=== PATIENT | male | born 1940 | race Caucasian/White ===

== ENCOUNTER 2019-10-20 12:15 | Inpatient (IN) | payer MEDICARE, OTHER ==
[~2019-10-20] VITALS: Ht 175.3 cm; Wt 47.1 kg
[2019-10-20] MEDS ORDERED: IV NORMAL SALINE 1000ML BAG 1,000 ML IV ONE (12:45)
[2019-10-20] MEDS ORDERED: ACETAMINOPHEN 650 MG SUPP.RECT. PR ONE (12:45)
--- NOTE | 2019-10-20 12:49 | EKG ---
[facility] [address] [place] [address] Test Date: 2019-10-20 Test Time: 12:28:35 Pat Name: MATTIHAS WINSTON Department: Room: Gender: M Television Journalist: : 1940 Requested By: ELIJAH PYLE Order Number: [id number] Reading MD: Measurements Intervals [place] Rate: 74 P: 63 RI: 160 QRS: 64 QRSD: 76 T: 36 QT: 348 QTc: 391 Interpretive Statements SINUS RHYTHM QRS(T) CONTOUR ABNORMALITY CONSIDER ANTEROSEPTAL MYOCARDIAL DAMAGE POSSIBLY ABNORMAL ECG RI6.01 No previous ECG available for comparison
--- NOTE | 2019-10-20 12:50 | PHYS DOC ---
Past Medical History COVID-19 Patient Risks: Age 65 or older: Yes Sign of co-morbidity: No Exp to person + for COVID: No Exp to PUI: No Travel from affected area: Yes Lower respiratory symptoms: No Fever: Yes Other: No PPE Use: Full PPE with N95 mask or PAPR: Yes General Adult EDM: Chief Complaint: ALTERED MENTAL STATUS HPI: HPI: Patient is a 79 year old male who presents with here with his [id number] and granddaughter for altered mental status. Sefufgit-qi-hku and granddaughter just met him on Saturday tpsx-ov-jaol. He lived in [place] by himself and 35 acres. His preacher called them last week on and stated that he is not well and he has had a lot of weight loss. The preacher does a well check on parishioners every other month. Family is unable to tell us if the patient has any past medical history or takes any medications daily. They states that they do talk to him on the phone often and it is normal for him to be forgetful and he does have a temper per the family. Family states that he is not close with the son. They state that he always has been unsteady walking but is usually up and walking and talking and feeding himself and take care of himself. Granddaughter states that she had lifted the bed for him to sit up and he was unhappy with it and ripped a screen door off of the wall. They state that he is up at 4 AM every morning and he was last seen normal last night at 2200. They stated for him this morning they went to get him up and he did not want to get out of bed is not responding well. They state that he lives on hotdogs due to not having teeth to chew food well. States that he also drinks at least 4 monsters a day. They state they do not think he is a smoker. They stated yesterday he was shivering or complaining that he was cold but they did not think he had a fever. Patient is febrile here of 103. Patient does respond to me when I call his name or palpate his abdomen. Review of Systems: Review of Systems: Constitutional: fever or chills. [] Eyes: Denies change in visual acuity. [] HENT: Denies nasal congestion or sore throat. [] Respiratory: Denies cough or shortness of breath. [] Cardiovascular: Denies chest pain or edema. [] GI: Denies abdominal pain, nausea, vomiting, bloody stools or diarrhea. [] : Denies dysuria. [] Musculoskeletal: Denies back pain or joint pain. [] Integument: Denies rash. [] Neurologic: Denies headache, focal weakness or sensory changes. AMS. Forgetful. [] Endocrine: Denies polyuria or polydipsia. [] Lymphatic: Denies swollen glands. [] Psychiatric: Denies depression or anxiety. Bouts of rage.[] Heart Score: Risk Factors: Risk Factors: DM, Current or recent (<one month) smoker, HTN, HLP, family history of CAD, obesity. Risk Scores: Score 0 - 3: 2.5% MACE over next 6 weeks - Discharge Home Score 4 - 6: 20.3% MACE over next 6 weeks - Admit for Clinical Observation Score 7 - 10: 72.7% MACE over next 6 weeks - Early Invasive Strategies Current Medications: Current Medications Medications (Trade) Dose Ordered Sig/Jasvir Start Time Stop Time Status Last Admin Dose Admin Acetaminophen (Tylenol Supp) 650 mg 1X ONCE 10/20/19 12:45 10/20/19 12:46 UNV Sodium Chloride 1,000 ml @ 1,000 mls/hr 1X ONCE 10/20/19 12:45 10/20/19 13:44 UNV Physical Exam: PE: Constitutional: Well developed, Frail, not well nourished, no acute distress, non-toxic appearance. [] HENT: Normocephalic, atraumatic, bilateral external ears normal, oropharynx moist, no oral exudates, nose normal. [] Eyes: PERRLA, EOMI, conjunctiva normal, no discharge. [] Neck: Normal range of motion, no tenderness, supple, no stridor. [] Cardiovascular:Heart rate regular rhythm, no murmur [] Lungs & Thorax: Bilateral upper breath sounds clear and lower diminished to auscultation [] Abdomen: Bowel sounds normal, soft, no tenderness, no masses, no pulsatile masses. [] Skin: Warm, dry, no erythema, no rash. [] Back: No tenderness, no CVA tenderness. [] Extremities: No tenderness, no cyanosis, no clubbing, ROM intact, no edema. [] Neurologic: Alert and oriented X 1, normal motor function, normal sensory function, no focal deficits noted. [] Psychologic: Affect normal, judgement normal, mood normal. [] EKG: EK and read by Dr Gamboa as Sinus Rhythm and no STEMI[] Radiology/Procedures: Radiology/Procedures: [] Impression: [facility] [address] [place] [address] IMAGING REPORT Signed PATIENT: MATTHIAS WINSTON ACCOUNT: [id number] : 1940 LOCATION: ER AGE: 79 SEX: M EXAM STATUS: REG ER ORD. PHYSICIAN: ELIJAH PYLE APRN REASON: ams, fever,PUI PROCEDURE: PORTABLE CHEST 1V AP chest. HISTORY: Altered mental status, fever AP view was taken of the chest. Heart is normal in size. There is no pleural effusion. Patient is mildly rotated to the left. Patient's not taken a deep inspiration. There is mild retrocardiac atelectasis or minimal infiltrate. IMPRESSION: 1. Poor inspiration. 2. Mild left base atelectasis or minimal infiltrate. Electronically signed by: Saroj Oglesby MD (10/20/2019 1:09 PM) [id number] DICTATED and SIGNED BY: SAROJ OGLESBY MD DATE: 10/20/19 [id number] [place] [address] IMAGING REPORT Signed PATIENT: MATTHIAS WINSTON ACCOUNT: [id number] : 1940 LOCATION: ER AGE: 79 SEX: M EXAM STATUS: REG ER ORD. PHYSICIAN: ELIJAH PYLE APRN REASON: AMS PROCEDURE: CT HEAD WO CONTRAST CT head without contrast dated 10/20/2019. No comparison available. CLINICAL INDICATION: Altered mental status. TECHNIQUE: Contiguous axial imaging the head was performed from skull base to vertex. No contrast administered. One or more of the following individualized dose reduction techniques were utilized for this examination: 1. Automated exposure control 2. Adjustment of the mA and/or kV according to patient size 3. Use of iterative reconstruction technique. FINDINGS: Ventricles and sulci are mildly prominent for age. No midline shift or mass effect. Mild patchy low density in the deep/subcortical periventricular white matter. 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 Possible small remote lacunar infarct of the right cerebellum. No hemorrhage or extra-axial collection. Posterior fossa and brainstem unremarkable. Mild mucosal thickening of the bilateral ethmoid air cells. The visualized paranasal sinuses and mastoid air cells are otherwise clear. No apparent calvarial abnormality. IMPRESSION: 1. No evidence of acute cranial hemorrhage or mass. 2. Mild chronic small vessel ischemic changes and atrophy. Electronically signed by: Papito Matta MD (10/20/2019 1:18 PM) [facility] DICTATED and SIGNED BY: PAPITO MATTA MD DATE: 10/20/[address] [place] [id number] IMAGING REPORT Signed PATIENT: MATTHIAS WINSTON ACCOUNT: [id number] : 1940 LOCATION: ER AGE: 79 SEX: M EXAM STATUS: REG ER ORD. PHYSICIAN: ELIJAH PYLE APRN REASON: swollen finger, possible injury PROCEDURE: HAND LEFT 3V Left hand 3 views. HISTORY: Swollen finger 3 views were taken of the left hand. 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 There is no acute fracture.. There is a subchondral cyst or erosion at the head of the first metacarpal. IMPRESSION: 1. Subchondral cyst or erosion distal first metacarpal. 2. Previous amputation fourth finger. 3. No fracture or other acute osseous abnormality. Electronically signed by: Saroj Oglesby MD (10/20/2019 1:11 PM) [id number] DICTATED and SIGNED BY: SAROJ OGLESBY MD DATE: 10/20/[address] [place] [id number] IMAGING REPORT Signed PATIENT: PATTI WINSTONRY Patel ACCOUNT: [id number] : 1940 LOCATION: ER AGE: 79 SEX: M EXAM STATUS: REG ER ORD. PHYSICIAN: ELIJAH PYLE APRN REASON: AMS, FEVER PROCEDURE: CT CHEST WO CONTRAST CT chest without contrast and CT abdomen pelvis with contrast dated 10/20/2019. No comparison available. Clinical indication fever and altered mental status. TECHNIQUE: Contiguous axial imaging the chest performed without the administration of intravenous contrast. In addition, imaging of the abdomen pelvis performed after the intravenous administration of 60 cc Omnipaque 300. One or more of the following individualized dose reduction techniques were utilized for this examination: 1. Automated exposure control 2. Adjustment of the mA and/or kV according to patient size 3. Use of iterative reconstruction technique FINDINGS: Heart size is upper limits of normal. No pericardial effusion. Coronary artery calcifications. No mediastinal, hilar or axial lymphadenopathy. Thyroid gland is unremarkable. Central airways are patent. Prominent reticular nodular markings throughout both lungs, basilar predominant. There is also some dependent groundglass opacity in the lower lobes, likely atelectasis. No consolidation or pleural effusion. No pneumothorax. Mild emphysema. Small noncalcified pulmonary nodule in the right upper lobe on image 6 measures 5 mm. Noncalcified pulmonary nodule in the right lower lobe on image 34 measures 5 mm noncalcified pulmonary nodule in the left upper lobe on image 24 measures 3 mm. No pleural effusion. No pneumothorax. Liver and spleen are homogeneous. No apparent hepatic mass. Biliary tree normal in caliber. Gallbladder unremarkable. Pancreas, adrenal glands and kidneys are unremarkable. No hydronephrosis. Unopacified GI tract normal in caliber and contour. No focal bowel wall thickening. Scattered diverticula throughout the colon. No paracolonic inflammatory changes. No free fluid or lymphadenopathy. The appendix is not clearly identified. No inflammatory changes in the right lower quadrant. No ascites or lymphadenopathy. Images of pelvis show nondistended urinary bladder. Mild bladder wall thickening with possible asymmetric wall thickening posteriorly on the right. No free fluid or lymphadenopathy. Bone windows show no acute findings. Multilevel spondylosis. IMPRESSION: 1. Reticular nodular airspace disease with dependent consolidation in the lower lobes, nonspecific. This could be related to noncardiogenic edema or atypical pneumonia. Chronic aspiration is another consideration. 2. Additional noncalcified pulmonary nodules within both lungs, nonspecific. 12 month Follow-up imaging to ensure stability. 3. No acute abnormality of abdomen or pelvis. 4. Diverticulosis. 5. Asymmetric bladder wall thickening on the right, indeterminate. This could be related to acute or chronic cystitis or an underlying bladder mass. Correlate with clinical history. If indicated, a CT urogram could better evaluate. Electronically signed by: Papito Matta MD (10/20/2019 3:12 PM) [facility] [place] DICTATED and SIGNED BY: PAPITO MATTA MD DATE: 10/20/19 1512 Course & Med Decision Making: Course & Med Decision Making Pertinent Labs and Imaging studies reviewed. (See chart for details) COVID-19 CRITERIA: The patient was evaluated during the global COVID-19 pandemic, and that diagnosis was suspected/considered upon their initial presentation. Their evaluation, treatment and testing was consistent with current guidelines for patients who present with complaints or symptoms that may be related to COVID-19. See HPI. He is not speaking and does not answer questions. He will open his eyes and look at me. Family states this is not like him. No extremity swelling. Lungs are clear in upper lobes but some diminished in lower lobes. I asked the patient if he had any pain and he whispered no. Patient looks very frail. Skin pink warm and dry. Patient is moving all of his extremities in the bed. Abdomen is soft and nontender. Patient does have a urinary tract infection with nitrites. White blood cell count is 13.5. Troponin is bumped at 0.068, BNP is 2122. Patient has received 1 L of fluids. I also started him on Zosyn IV. Patient will be admitted for altered mental status and urinary tract infection. I have spoken to Dr Kim. for admission. [] Rosy Disclaimer: Rosy Disclaimer: This electronic medical record was generated, in whole or in part, using a voice recognition dictation system. Departure Departure Impression: Primary Impression: AMS (altered mental status) Qualified Codes: R41.82 - Altered mental status, unspecified Additional Impressions: UTI (urinary tract infection) Qualified Codes: N39.0 - Urinary tract infection, site not specified; R31.9 - Hematuria, unspecified Person under investigation for COVID-19 Disposition: ADMITTED INPATIENT Admitting Physician: LUBA Condition: STABLE Justicifation of Admission Dx: Justifications for Admission: Justification of Admission Dx: N/A Comments: ELIJAH LLANOS CORNCOB PIPE SUPERVISOR Oct 20, 2019 12:50
--- NOTE | 2019-10-20 13:12 | RAD ---
AP chest. HISTORY: Altered mental status, fever AP view was taken of the chest. Heart is normal in size. There is no pleural effusion. Patient is mildly rotated to the left. Patient's not taken a deep inspiration. There is mild retrocardiac atelectasis or minimal infiltrate. IMPRESSION: 1. Poor inspiration. 2. Mild left base atelectasis or minimal infiltrate. Electronically signed by: Saroj Oglesby MD (10/20/2019 1:09 PM) [id number]
--- NOTE | 2019-10-20 13:14 | RAD ---
Left hand 3 views. HISTORY: Swollen finger 3 views were taken of the left hand. 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 There is no acute fracture.. There is a subchondral cyst or erosion at the head of the first metacarpal. IMPRESSION: 1. Subchondral cyst or erosion distal first metacarpal. 2. Previous amputation fourth finger. 3. No fracture or other acute osseous abnormality. Electronically signed by: Saroj Oglesby MD (10/20/2019 1:11 PM) [id number]
[2019-10-20 13:16] LABS: CALCIUM 8.4 mg/dL (8.5-10.1); CREATININE 1.2 mg/dL (0.7-1.3); GFR 58.4; POTASSIUM 3.9 mmol/L (3.5-5.1)
[2019-10-20 13:21] LABS: ALBUMIN/GLOBULIN RATIO 0.7 (1.0-1.7); TOTAL BILIRUBIN 1.2 mg/dL (0.2-1.0); TOTAL PROTEIN 7.2 g/dL (6.4-8.2)
--- NOTE | 2019-10-20 13:21 | RAD ---
CT head without contrast dated 10/20/2019. No comparison available. CLINICAL INDICATION: Altered mental status. TECHNIQUE: Contiguous axial imaging the head was performed from skull base to vertex. No contrast administered. One or more of the following individualized dose reduction techniques were utilized for this examination: 1. Automated exposure control 2. Adjustment of the mA and/or kV according to patient size 3. Use of iterative reconstruction technique. FINDINGS: Ventricles and sulci are mildly prominent for age. No midline shift or mass effect. Mild patchy low density in the deep/subcortical periventricular white matter. 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 Possible small remote lacunar infarct of the right cerebellum. No hemorrhage or extra-axial collection. Posterior fossa and brainstem unremarkable. Mild mucosal thickening of the bilateral ethmoid air cells. The visualized paranasal sinuses and mastoid air cells are otherwise clear. No apparent calvarial abnormality. IMPRESSION: 1. No evidence of acute cranial hemorrhage or mass. 2. Mild chronic small vessel ischemic changes and atrophy. Electronically signed by: Papito Matta MD (10/20/2019 1:18 PM) [facility]
[2019-10-20 13:30] LABS: BASO % 0 % (0-3); EOS % 0 % (0-3); HEMATOCRIT 49.6 % (39.0-53.0); HEMOGLOBIN 17.3 g/dL (13.0-17.5); LYMPH # 0.6 x10^3/uL (1.0-4.8); LYMPH % 4 % (24-48); MEAN CORPUSCULAR HEMOGLOBIN 31 pg (25-35); MEAN CORPUSCULAR HGB CONC 35 g/dL (31-37); MEAN CORPUSCULAR VOLUME 90 fL (79-100); MONO # 0.4 x10^3/uL (0.0-1.1); MONO % 3 % (0-9); NEUT # 12.5 x10^3/uL (1.8-7.7); NEUT % 92 % (31-73); PLATELET COUNT 161 x10^3/uL (140-400); RED CELL DISTRIBUTION WIDTH 14.5 % (11.5-14.5); WHITE BLOOD COUNT 13.5 x10^3/uL (4.0-11.0)
[2019-10-20] MEDS ORDERED: PIPERACILLIN/TAZOBACTAM 3.375 GM in IV NORMAL SALINE 50ML 50 ML IV ONE (13:30)
[2019-10-20 13:39] LABS: PROTHROMBIN TIME PATIENT 15.1 SEC (11.7-14.0)
[2019-10-20] MEDS ORDERED: IOHEXOL 300 MG/ML 100ML VIAL. IV ONE (13:45)
[2019-10-20 13:56] LABS: BILIRUBIN,URINE SMALL (NEG); CLARITY,URINE CLEAR; COLOR,URINE ORANGE; NITRITE,URINE POSITIVE (NEG); PROTEIN,URINE 100 mg/dL (NEG-TRACE)
[2019-10-20] MEDS ORDERED: CONTRAST GIVEN. MC PRN (14:00)
[2019-10-20 14:01] LABS: BARBITURATES NEG (NEG); BENZODIAZEPINES NEG (NEG); CANNABINOIDS NEG (NEG); COCAINE NEG (NEG); METHADONE NEG (NEG); OPIATES NEG (NEG); PHENCYCLIDINE NEG (NEG)
[2019-10-20 14:05] LABS: AMPHETAMINE/METHAMPHETAMINE NEG (NEG)
[2019-10-20 14:14] LABS: BACTERIA,URINE MANY /HPF (0-FEW)
[2019-10-20 14:28] LABS: % BANDS 18 % (0-9); % LYMPHS 3 % (24-48); % SEGS 79 % (35-66)
[2019-10-20 14:30] LABS: PLT ESTIMATE ADEQUATE (ADEQUATE); TOXIC GRANULATION SLIGHT
[2019-10-20 14:37] LABS: ACETAMIN < 2 mcg/ml (10-30); SALIC < 2.8 mg/dL (2.8-20.0)
[2019-10-20] MEDS: IV NORMAL SALINE 1000ML BAG 1,000 ML IV SCH (14:43)
[2019-10-20] MEDS ORDERED: ONDANSETRON PF 4 MG/2 ML VIAL. IV PRN ×2 (14:45→20:30)
[2019-10-20] MEDS ORDERED: ACETAMINOPHEN 325 MG TABLET. PO PRN (14:45)
--- NOTE | 2019-10-20 14:55 | PHYS DOC ---
Past Medical History Past Medical History: No Pertinent History, Unknown Past Surgical History: No Surgical History Smoking Status: Unknown if ever smoked Alcohol Use: None General Adult EDM: Chief Complaint: ALTERED MENTAL STATUS Heart Score: Risk Factors: Risk Factors: DM, Current or recent (<one month) smoker, HTN, HLP, family history of CAD, obesity. Risk Scores: Score 0 - 3: 2.5% MACE over next 6 weeks - Discharge Home Score 4 - 6: 20.3% MACE over next 6 weeks - Admit for Clinical Observation Score 7 - 10: 72.7% MACE over next 6 weeks - Early Invasive Strategies Current Medications: Current Medications Medications (Trade) Dose Ordered Sig/Jasvir Start Time Stop Time Status Last Admin Dose Admin Acetaminophen (Tylenol Supp) 650 mg 1X ONCE 10/20/19 12:45 10/20/19 12:50 DC 10/20/19 13:19 650 MG Acetaminophen (Tylenol) 650 mg PRN Q4HRS PRN 10/20/19 14:45 10/21/19 14:44 Info (CONTRAST GIVEN -- Rx MONITORING) 1 each PRN DAILY PRN 10/20/19 14:00 10/22/19 13:59 Iohexol (Omnipaque 300 Mg/ml) 60 ml 1X ONCE 10/20/19 13:45 10/20/19 13:49 DC 10/20/19 13:45 60 ML Ondansetron HCl (Zofran) 4 mg PRN Q8HRS PRN 10/20/19 14:45 10/21/19 14:44 Piperacillin Sod/ Tazobactam Sod 3.375 gm/Sodium Chloride 50 ml @ 100 mls/hr 1X ONCE 10/20/19 13:30 10/20/19 13:59 DC 10/20/19 13:42 100 MLS/HR Sodium Chloride 1,000 ml @ 100 mls/hr Q10H 10/20/19 14:43 10/21/19 14:42 Allergies: Allergies: Allergies Coded Allergies Type Severity Reaction Last Updated Verified No Known Drug Allergies 10/20/19 No Current Patient Data: Labs: Laboratory Tests Test 10/20/19 12:18 10/20/19 13:25 White Blood Count 13.5 x10^3/uL (4.0-11.0) H Red Blood Count 5.50 x10^6/uL (4.30-5.70) Hemoglobin 17.3 g/dL (13.0-17.5) Hematocrit 49.6 % (39.0-53.0) Mean Corpuscular Volume 90 fL (79-100) Mean Corpuscular Hemoglobin 31 pg (25-35) Mean Corpuscular Hemoglobin Concent 35 g/dL (31-37) Red Cell Distribution Width 14.5 % (11.5-14.5) Platelet Count 161 x10^3/uL (140-400) Neutrophils (%) (Auto) 92 % (31-73) H Lymphocytes (%) (Auto) 4 % (24-48) L Monocytes (%) (Auto) 3 % (0-9) Eosinophils (%) (Auto) 0 % (0-3) Basophils (%) (Auto) 0 % (0-3) Neutrophils # (Auto) 12.5 x10^3/uL (1.8-7.7) H Lymphocytes # (Auto) 0.6 x10^3/uL (1.0-4.8) L Monocytes # (Auto) 0.4 x10^3/uL (0.0-1.1) Eosinophils # (Auto) 0.0 x10^3/uL (0.0-0.7) Basophils # (Auto) 0.0 x10^3/uL (0.0-0.2) Segmented Neutrophils % 79 % (35-66) H Band Neutrophils % 18 % (0-9) H Lymphocytes % 3 % (24-48) L Toxic Granulation Slight Platelet Estimate Adequate (ADEQUATE) Prothrombin Time 15.1 SEC (11.7-14.0) H Prothrombin Time INR 1.2 (0.8-1.1) H Sodium Level 135 mmol/L (136-145) L Potassium Level 3.9 mmol/L (3.5-5.1) Chloride Level 99 mmol/L (98-107) Carbon Dioxide Level 27 mmol/L (21-32) Anion Gap 9 (6-14) Blood Urea Nitrogen 17 mg/dL (8-26) Creatinine 1.2 mg/dL (0.7-1.3) Estimated GFR (Cockcroft-Gault) 58.4 BUN/Creatinine Ratio 14 (6-20) Glucose Level 113 mg/dL (70-99) H Lactic Acid Level 1.4 mmol/L (0.4-2.0) Calcium Level 8.4 mg/dL (8.5-10.1) L Total Bilirubin 1.2 mg/dL (0.2-1.0) H Aspartate Amino Transferase (AST) 22 U/L (15-37) Alanine Aminotransferase (ALT) 27 U/L (16-63) Alkaline Phosphatase 67 U/L (46-116) Creatine Kinase 219 U/L (39-308) Troponin I Quantitative 0.068 ng/mL (0.000-0.055) HB-Vuj-A-Type Natriuretic Peptide 2122 pg/mL (0-449) H Total Protein 7.2 g/dL (6.4-8.2) Albumin 3.0 g/dL (3.4-5.0) L Albumin/Globulin Ratio 0.7 (1.0-1.7) L Salicylates Level < 2.8 mg/dL (2.8-20.0) L Salicylate Last Dose Date Unknown Salicylate Last Dose Time Unknown Acetaminophen Level < 2 mcg/ml (10-30) L Acetaminophen Last Dose Date Unknown Acetaminophen Last Dose Time Unknown Ethyl Alcohol Level < 10 mg/dL (0-10) Urine Collection Type U cath Urine Color [place] Urine Clarity Clear Urine pH 6.0 (<5.0-8.0) Urine Specific [place] 1.025 (1.000-1.030) Urine Protein 100 mg/dL (NEG-TRACE) Urine Glucose (UA) Negative mg/dL (NEG) Urine Ketones (Stick) Trace mg/dL (NEG) Urine Blood Moderate (NEG) Urine Nitrite Positive (NEG) Urine Bilirubin Small (NEG) Urine Urobilinogen Dipstick 2.0 mg/dL (0.2 mg/dL) Urine Leukocyte Esterase Trace (NEG) Urine RBC 3-5 /HPF (0-2) Urine WBC 5-10 /HPF (0-4) Urine Transitional Epithelial Cells Mod /LPF Urine Bacteria Many /HPF (0-FEW) Urine Mucus Mod /LPF Urine Opiates Screen Neg (NEG) Urine Methadone Screen Neg (NEG) Urine Barbiturates Neg (NEG) Urine Phencyclidine Screen Neg (NEG) Urine Amphetamine/Methamphetamine Neg (NEG) Urine Benzodiazepines Screen Neg (NEG) Urine Cocaine Screen Neg (NEG) Urine Cannabinoids Screen Neg (NEG) Urine Ethyl Alcohol Neg (NEG) Laboratory Tests 10/20/19 12:18 Laboratory Tests 10/20/19 12:18 Vital Signs: Vital Signs Date Time Temp Pulse Resp B/P (MAP) Pulse Ox O2 Delivery O2 Flow Rate FiO2 10/20/19 12:20 103.7 72 20 125/58 (80) 97 Room Air 103.7 EKG: EKG: [] Radiology/Procedures: Radiology/Procedures: [] Course & Med Decision Making: Course & Med Decision Making Pertinent Labs and Imaging studies reviewed. (See chart for details) [] Dragon Disclaimer: Dragon Disclaimer: This electronic medical record was generated, in whole or in part, using a voice recognition dictation system. Departure Departure Impression: Primary Impression: AMS (altered mental status) Additional Impression: UTI (urinary tract infection) Disposition: ADMITTED INPATIENT Condition: STABLE Referrals: NO PCP (PCP) Justicifation of Admission Dx: Justifications for Admission: Justification of Admission Dx: N/A Attending Co-Sign Attending Co-Sign I have personally interviewed and examined the patient. All charts, labs and imaging studies were reviewed. I agree with the PA/KEY PUNCH OPERATOR's findings, exam and plan of care MIAH LAURA DO Oct 20, 2019 14:55
--- NOTE | 2019-10-20 14:58 | PDOC1 ---
History and Physical Date of Admission Date of Admission DATE: 10/20/19 TIME: 14:58 Identification/Chief Complaint Chief Complaint Confusion Source Source: Caregiver, Chart review History of Present Illness History of Present Illness Mr Guzman is a 79 year old male with no known PMHx who presents with here with his [id number] and granddaughter for altered mental status. 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 Family notes they speak with him on the phone often and he has memory and anger issues and is estranged from them due to this. For the 3 days he has lived with them they note unsteady gait, and that he converses with them and is able to eat and drink on his own but only receives hot dogs and energy drinks, 4 per day each. Granddaughter states on 10/18 he rip ped a screen door off of the wall and was urinating in drawers in their home. He was last seen normal last night, 10/18 at 2200. They stated for him this morning they went to get him up and he did not want to get out of bed and he was shivering and complaining that he was cold but they did not think he had a fever. Febrile to 103.7F in the ED, given 650mg acetaminophen suppository with improvement in his temperature. He showed no meningeal signs and was moving all extremities on examination, opens eyes, answers 1-2 word answers. Does not have any pain complaints. Tells me he needs to urinate. When asked about his missing left 4th finger he does note his hand hurts sometimes. XR negative for fracture. 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 CT chest with reticular nodular airspace disease with dependent consolidation in the lower lobes and noncalcified pulmonary nodules within both lungs, nonspecific. CT abdomen/pelvis reveal asymmetric bladder wall thickening on the right, indeterminate. This could be related to acute or chronic cystitis or an underlying bladder mass. Urine positive for LE and nitrites. White blood cell count is 13.5. Troponin elevated at 0.068, BNP is 2122. Patient has received 1 L of fluids. Started on empiric Zosyn IV. Admitted for altered mental status and fevers with likely bladder source. As he was just transported from [place], COVID 19 testing was performed as well. Past Medical History Cardiovascular: No pertinent hx Pulmonary: No pertinent hx Past Surgical History Past Surgical History: No pertinent history Family History Family History: Family History Unknown Social History Smoke: No ALCOHOL: none Drugs: None Current Problem List Problem List Problems Medical Problems: (1) AMS (altered mental status) Status: Acute (2) UTI (urinary tract infection) Status: Acute Current Medications Current Medications Current Medications Sodium Chloride 1,000 ml @ 1,000 mls/hr 1X ONCE IV Last administered on 10/20/19at 13:00; Start 10/20/19 at 12:45; Stop 10/20/19 at 13:44; Status DC Acetaminophen (Tylenol Supp) 650 mg 1X ONCE SC Last administered on 10/20/19at 13:19; Start 10/20/19 at 12:45; Stop 10/20/19 at 12:50; Status DC Piperacillin Sod/ Tazobactam Sod 3.375 gm/Sodium Chloride 50 ml @ 100 mls/hr 1X ONCE IV Last administered on 10/20/19at 13:42; Start 10/20/19 at 13:30; Stop 10/20/19 at 13:59; Status DC Iohexol (Omnipaque 300 Mg/ml) 60 ml 1X ONCE IV Last administered on 10/20/19at 13:45; Start 10/20/19 at 13:45; Stop 10/20/19 at 13:49; Status DC Info (CONTRAST GIVEN -- Rx MONITORING) 1 each PRN DAILY PRN MC SEE COMMENTS; Start 10/20/19 at 14:00; Stop 10/22/19 at 13:59 Ondansetron HCl (Zofran) 4 mg PRN Q8HRS PRN IV NAUSEA/VOMITING; Start 10/20/19 at 14:45; Stop 10/21/19 at 14:44 Sodium Chloride 1,000 ml @ 100 mls/hr Q10H IV ; Start 10/20/19 at 14:43; Stop 10/21/19 at 14:42 Acetaminophen (Tylenol) 650 mg PRN Q4HRS PRN PO FEVER > 100.3'F; Start 10/20/19 at 14:45; Stop 10/21/19 at 14:44 Allergies Allergies: Coded Allergies: No Known Drug Allergies (Unverified , 10/20/19) ROS Review of System Unable to obtain due to patient confusion Physical Exam General: Alert, Cooperative, mild distress HEENT: Atraumatic, PERRLA, EOMI, Mucous membr. moist/pink Lungs: Other (bibasilar crackles) Heart: S1S2, RRR, no thrills, no rubs, no gallops, no murmurs Abdomen: Normal bowel sounds, Soft, No tenderness, No hepatosplenomegaly, No masses Male Genitals Exam: normal genitalia, normal prostate Rectal Exam: other (Good rectal tone, no stool in vault) Extremities: No clubbing, No cyanosis, No edema, Normal pulses, No tenderness/swelling Skin: No rashes, No breakdown, No significant lesion Neuro: Normal gait, Strength at 5/5 X4 ext, Normal tone, Sensation intact, Cranial nerves 3-12 NL, Reflexes 2+ Psych/Mental Status: Other (Confused) Vitals Vitals Vital Signs Date Time Temp Pulse Resp B/P (MAP) Pulse Ox O2 Delivery O2 Flow Rate FiO2 10/20/19 12:20 103.7 72 20 125/58 (80) 97 Room Air 103.7 Labs Labs Laboratory Tests Test 10/20/19 12:18 10/20/19 13:25 White Blood Count 13.5 x10^3/uL (4.0-11.0) Red Blood Count 5.50 x10^6/uL (4.30-5.70) Hemoglobin 17.3 g/dL (13.0-17.5) Hematocrit 49.6 % (39.0-53.0) Mean Corpuscular Volume 90 fL (79-100) Mean Corpuscular Hemoglobin 31 pg (25-35) Mean Corpuscular Hemoglobin Concent 35 g/dL (31-37) Red Cell Distribution Width 14.5 % (11.5-14.5) Platelet Count 161 x10^3/uL (140-400) Neutrophils (%) (Auto) 92 % (31-73) Lymphocytes (%) (Auto) 4 % (24-48) Monocytes (%) (Auto) 3 % (0-9) Eosinophils (%) (Auto) 0 % (0-3) Basophils (%) (Auto) 0 % (0-3) Neutrophils # (Auto) 12.5 x10^3/uL (1.8-7.7) Lymphocytes # (Auto) 0.6 x10^3/uL (1.0-4.8) Monocytes # (Auto) 0.4 x10^3/uL (0.0-1.1) Eosinophils # (Auto) 0.0 x10^3/uL (0.0-0.7) Basophils # (Auto) 0.0 x10^3/uL (0.0-0.2) Segmented Neutrophils % 79 % (35-66) Band Neutrophils % 18 % (0-9) Lymphocytes % 3 % (24-48) Toxic Granulation Slight Platelet Estimate Adequate (ADEQUATE) Prothrombin Time 15.1 SEC (11.7-14.0) Prothromb Time International Ratio 1.2 (0.8-1.1) Sodium Level 135 mmol/L (136-145) Potassium Level 3.9 mmol/L (3.5-5.1) Chloride Level 99 mmol/L (98-107) Carbon Dioxide Level 27 mmol/L (21-32) Anion Gap 9 (6-14) Blood Urea Nitrogen 17 mg/dL (8-26) Creatinine 1.2 mg/dL (0.7-1.3) Estimated GFR (Cockcroft-Gault) 58.4 BUN/Creatinine Ratio 14 (6-20) Glucose Level 113 mg/dL (70-99) Lactic Acid Level 1.4 mmol/L (0.4-2.0) Calcium Level 8.4 mg/dL (8.5-10.1) Total Bilirubin 1.2 mg/dL (0.2-1.0) Aspartate Amino Transf (AST/SGOT) 22 U/L (15-37) Alanine Aminotransferase (ALT/SGPT) 27 U/L (16-63) Alkaline Phosphatase 67 U/L (46-116) Creatine Kinase 219 U/L (39-308) Troponin I Quantitative 0.068 ng/mL (0.000-0.055) XA-Bae-S-Type Natriuretic Peptide 2122 pg/mL (0-449) Total Protein 7.2 g/dL (6.4-8.2) Albumin 3.0 g/dL (3.4-5.0) Albumin/Globulin Ratio 0.7 (1.0-1.7) Salicylates Level < 2.8 mg/dL (2.8-20.0) Salicylate Last Dose Date Unknown Salicylate Last Dose Time Unknown Acetaminophen Level < 2 mcg/ml (10-30) Acetaminophen Last Dose Date Unknown Acetaminophen Last Dose Time Unknown Ethyl Alcohol Level < 10 mg/dL (0-10) Urine Collection Type U cath Urine Color [place] Urine Clarity Clear Urine pH 6.0 (<5.0-8.0) Urine Specific [place] 1.025 (1.000-1.030) Urine Protein 100 mg/dL (NEG-TRACE) Urine Glucose (UA) Negative mg/dL (NEG) Urine Ketones (Stick) Trace mg/dL (NEG) Urine Blood Moderate (NEG) Urine Nitrite Positive (NEG) Urine Bilirubin Small (NEG) Urine Urobilinogen Dipstick 2.0 mg/dL (0.2 mg/dL) Urine Leukocyte Esterase Trace (NEG) Urine RBC 3-5 /HPF (0-2) Urine WBC 5-10 /HPF (0-4) Urine Transitional Epithelial Cells Mod /LPF Urine Bacteria Many /HPF (0-FEW) Urine Mucus Mod /LPF Urine Opiates Screen Neg (NEG) Urine Methadone Screen Neg (NEG) Urine Barbiturates Neg (NEG) Urine Phencyclidine Screen Neg (NEG) Urine Amphetamine/Methamphetamine Neg (NEG) Urine Benzodiazepines Screen Neg (NEG) Urine Cocaine Screen Neg (NEG) Urine Cannabinoids Screen Neg (NEG) Urine Ethyl Alcohol Neg (NEG) Laboratory Tests Test 10/20/19 12:18 10/20/19 13:25 White Blood Count 13.5 x10^3/uL (4.0-11.0) Red Blood Count 5.50 x10^6/uL (4.30-5.70) Hemoglobin 17.3 g/dL (13.0-17.5) Hematocrit 49.6 % (39.0-53.0) Mean Corpuscular Volume 90 fL (79-100) Mean Corpuscular Hemoglobin 31 pg (25-35) Mean Corpuscular Hemoglobin Concent 35 g/dL (31-37) Red Cell Distribution Width 14.5 % (11.5-14.5) Platelet Count 161 x10^3/uL (140-400) Neutrophils (%) (Auto) 92 % (31-73) Lymphocytes (%) (Auto) 4 % (24-48) Monocytes (%) (Auto) 3 % (0-9) Eosinophils (%) (Auto) 0 % (0-3) Basophils (%) (Auto) 0 % (0-3) Neutrophils # (Auto) 12.5 x10^3/uL (1.8-7.7) Lymphocytes # (Auto) 0.6 x10^3/uL (1.0-4.8) Monocytes # (Auto) 0.4 x10^3/uL (0.0-1.1) Eosinophils # (Auto) 0.0 x10^3/uL (0.0-0.7) Basophils # (Auto) 0.0 x10^3/uL (0.0-0.2) Segmented Neutrophils % 79 % (35-66) Band Neutrophils % 18 % (0-9) Lymphocytes % 3 % (24-48) Toxic Granulation Slight Platelet Estimate Adequate (ADEQUATE) Prothrombin Time 15.1 SEC (11.7-14.0) Prothromb Time International Ratio 1.2 (0.8-1.1) Sodium Level 135 mmol/L (136-145) Potassium Level 3.9 mmol/L (3.5-5.1) Chloride Level 99 mmol/L (98-107) Carbon Dioxide Level 27 mmol/L (21-32) Anion Gap 9 (6-14) Blood Urea Nitrogen 17 mg/dL (8-26) Creatinine 1.2 mg/dL (0.7-1.3) Estimated GFR (Cockcroft-Gault) 58.4 BUN/Creatinine Ratio 14 (6-20) Glucose Level 113 mg/dL (70-99) Lactic Acid Level 1.4 mmol/L (0.4-2.0) Calcium Level 8.4 mg/dL (8.5-10.1) Total Bilirubin 1.2 mg/dL (0.2-1.0) Aspartate Amino Transf (AST/SGOT) 22 U/L (15-37) Alanine Aminotransferase (ALT/SGPT) 27 U/L (16-63) Alkaline Phosphatase 67 U/L (46-116) Creatine Kinase 219 U/L (39-308) Troponin I Quantitative 0.068 ng/mL (0.000-0.055) XH-Pbh-L-Type Natriuretic Peptide 2122 pg/mL (0-449) Total Protein 7.2 g/dL (6.4-8.2) Albumin 3.0 g/dL (3.4-5.0) Albumin/Globulin Ratio 0.7 (1.0-1.7) Salicylates Level < 2.8 mg/dL (2.8-20.0) Salicylate Last Dose Date Unknown Salicylate Last Dose Time Unknown Acetaminophen Level < 2 mcg/ml (10-30) Acetaminophen Last Dose Date Unknown Acetaminophen Last Dose Time Unknown Ethyl Alcohol Level < 10 mg/dL (0-10) Urine Collection Type U cath Urine Color [place] Urine Clarity Clear Urine pH 6.0 (<5.0-8.0) Urine Specific [place] 1.025 (1.000-1.030) Urine Protein 100 mg/dL (NEG-TRACE) Urine Glucose (UA) Negative mg/dL (NEG) Urine Ketones (Stick) Trace mg/dL (NEG) Urine Blood Moderate (NEG) Urine Nitrite Positive (NEG) Urine Bilirubin Small (NEG) Urine Urobilinogen Dipstick 2.0 mg/dL (0.2 mg/dL) Urine Leukocyte Esterase Trace (NEG) Urine RBC 3-5 /HPF (0-2) Urine WBC 5-10 /HPF (0-4) Urine Transitional Epithelial Cells Mod /LPF Urine Bacteria Many /HPF (0-FEW) Urine Mucus Mod /LPF Urine Opiates Screen Neg (NEG) Urine Methadone Screen Neg (NEG) Urine Barbiturates Neg (NEG) Urine Phencyclidine Screen Neg (NEG) Urine Amphetamine/Methamphetamine Neg (NEG) Urine Benzodiazepines Screen Neg (NEG) Urine Cocaine Screen Neg (NEG) Urine Cannabinoids Screen Neg (NEG) Urine Ethyl Alcohol Neg (NEG) Images Images CXR: AP view was taken of the chest. Heart is normal in size. There is no pleural effusion. Patient is mildly rotated to the left. Patient's not taken a deep inspiration. There is mild retrocardiac atelectasis or minimal infiltrate. IMPRESSION: 1. Poor inspiration. 2. Mild left base atelectasis or minimal infiltrate. CT head without contrast dated 10/20/2019. Ventricles and sulci are mildly prominent for age. No midline shift or mass effect. Mild patchy low density in the deep/subcortical periventricular white matter. 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 Possible small remote lacunar infarct of the right cerebellum. No hemorrhage or extra-axial collection. Posterior fossa and brainstem unremarkable. Mild mucosal thickening of the bilateral ethmoid air cells. The visualized paranasal sinuses and mastoid air cells are otherwise clear. No apparent calvarial abnormality. IMPRESSION: 1. No evidence of acute cranial hemorrhage or mass. 2. Mild chronic small vessel ischemic changes and atrophy. Left hand 3 views. 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 There is no acute fracture. There is a subchondral cyst or erosion at the head of the first metacarpal. IMPRESSION: 1. Subchondral cyst or erosion distal first metacarpal. 2. Previous amputation fourth finger. 3. No fracture or other acute osseous abnormality. CT chest without contrast and CT abdomen pelvis with contrast dated 10/20/2019. Heart size is upper limits of normal. No pericardial effusion. Coronary artery calcifications. No mediastinal, hilar or axial lymphadenopathy. Thyroid gland is unremarkable. Central airways are patent. Prominent reticular nodular markings throughout both lungs, basilar predominant. There is also some dependent groundglass opacity in the lower lobes, likely atelectasis. No consolidation or pleural effusion. No pneumothorax. Mild emphysema. Small noncalcified pulmonary nodule in the right upper lobe on image 6 measures 5 mm. Noncalcified pulmonary nodule in the right lower lobe on image 34 measures 5 mm noncalcified pulmonary nodule in the left upper lobe on image 24 measures 3 mm. No pleural effusion. No pneumothorax. Liver and spleen are homogeneous. No apparent hepatic mass. Biliary tree normal in caliber. Gallbladder unremarkable. Pancreas, adrenal glands and kidneys are unremarkable. No hydronephrosis. Unopacified GI tract normal in caliber and contour. No focal bowel wall thickening. Scattered diverticula throughout the colon. No paracolonic inflammatory changes. No free fluid or lymphadenopathy. The appendix is not clearly identified. No inflammatory changes in the right lower quadrant. No ascites or lymphadenopathy. Images of pelvis show nondistended urinary bladder. Mild bladder wall thickening with possible asymmetric wall thickening posteriorly on the right. No free fluid or lymphadenopathy. Bone windows show no acute findings. Multilevel spondylosis. IMPRESSION: 1. Reticular nodular airspace disease with dependent consolidation in the lower lobes, nonspecific. This could be related to noncardiogenic edema or atypical pneumonia. Chronic aspiration is another consideration. 2. Additional noncalcified pulmonary nodules within both lungs, nonspecific. 12 month Follow-up imaging to ensure stability. 3. No acute abnormality of abdomen or pelvis. 4. Diverticulosis. 5. Asymmetric bladder wall thickening on the right, indeterminate. This could be related to acute or chronic cystitis or an underlying bladder mass. Correlate with clinical history. If indicated, a CT urogram could better evaluate. VTE Prophylaxis Ordered VTE Prophylaxis Devices: No VTE Pharmacological Prophylaxi: Yes Assessment/Plan Assessment/Plan A/P: Acute encephalopathy - likely metabolic from sepsis, but with his behavior history and familial estrangement an underlying primary psychiatric disorder is likely present as well Severe Sepsis - febrile with large leukocytosis and confusion, started on empiric treatment for cystitis in male and possible atypical pneumonia. Given IVF resuscitation. ID consulted UTI in male - with apparent cystitis on CT, will f/u urine culture, continue zosyn. Prostate does not seem enlarged on exam. We do not have Urology services, if he obstructs will need transfer Abnormal CXR and CT chest - Reticular nodular airspace disease with consolidation in the lower lobes - ddx edema vs atypical pneumonia vs chronic aspiration vs COVID 19 - testing performed Noncalcified pulmonary nodules within both lungs, nonspecific. 12 month Follow- up imaging to ensure stability. Will ask pulmonology to evaluate Diverticulosis - incidental finding Elevated troponin - likely demand ischemia from sepsis, will trend troponins, consult cardiology. Asymmetric bladder wall thickening on the right - likely acute cystitis or an underlying bladder mass. Person under investigation for COVID-19 - will f/u results FEN - General diet PPX - lovenox FULL CODE Dispo - inpatient for above, at least 2 midnights. Low threshold for ICU transfer if he decompensates COVID-19 CRITERIA: The patient was evaluated during the global COVID-19 pandemic, and that diagnosis was suspected/considered upon their initial presentation. Their evaluation, treatment and testing was consistent with current guidelines for patients who present with complaints or symptoms that may be related to COVID-19. Justicifation of Admission Dx: Justifications for Admission: Justification of Admission Dx: N/A HONG DOWNS MD Oct 20, 2019 14:58
--- NOTE | 2019-10-20 15:15 | RAD ---
CT chest without contrast and CT abdomen pelvis with contrast dated 10/20/2019. No comparison available. Clinical indication fever and altered mental status. TECHNIQUE: Contiguous axial imaging the chest performed without the administration of intravenous contrast. In addition, imaging of the abdomen pelvis performed after the intravenous administration of 60 cc Omnipaque 300. One or more of the following individualized dose reduction techniques were utilized for this examination: 1. Automated exposure control 2. Adjustment of the mA and/or kV according to patient size 3. Use of iterative reconstruction technique FINDINGS: Heart size is upper limits of normal. No pericardial effusion. Coronary artery calcifications. No mediastinal, hilar or axial lymphadenopathy. Thyroid gland is unremarkable. Central airways are patent. Prominent reticular nodular markings throughout both lungs, basilar predominant. There is also some dependent groundglass opacity in the lower lobes, likely atelectasis. No consolidation or pleural effusion. No pneumothorax. Mild emphysema. Small noncalcified pulmonary nodule in the right upper lobe on image 6 measures 5 mm. Noncalcified pulmonary nodule in the right lower lobe on image 34 measures 5 mm noncalcified pulmonary nodule in the left upper lobe on image 24 measures 3 mm. No pleural effusion. No pneumothorax. Liver and spleen are homogeneous. No apparent hepatic mass. Biliary tree normal in caliber. Gallbladder unremarkable. Pancreas, adrenal glands and kidneys are unremarkable. No hydronephrosis. Unopacified GI tract normal in caliber and contour. No focal bowel wall thickening. Scattered diverticula throughout the colon. No paracolonic inflammatory changes. No free fluid or lymphadenopathy. The appendix is not clearly identified. No inflammatory changes in the right lower quadrant. No ascites or lymphadenopathy. Images of pelvis show nondistended urinary bladder. Mild bladder wall thickening with possible asymmetric wall thickening posteriorly on the right. No free fluid or lymphadenopathy. Bone windows show no acute findings. Multilevel spondylosis. IMPRESSION: 1. Reticular nodular airspace disease with dependent consolidation in the lower lobes, nonspecific. This could be related to noncardiogenic edema or atypical pneumonia. Chronic aspiration is another consideration. 2. Additional noncalcified pulmonary nodules within both lungs, nonspecific. 12 month Follow-up imaging to ensure stability. 3. No acute abnormality of abdomen or pelvis. 4. Diverticulosis. 5. Asymmetric bladder wall thickening on the right, indeterminate. This could be related to acute or chronic cystitis or an underlying bladder mass. Correlate with clinical history. If indicated, a CT urogram could better evaluate. Electronically signed by: Papito Matta MD (10/20/2019 3:12 PM) LENNY
[2019-10-20 15:26] LABS: BASE EXCESS COOX -3 mmol/L (-3-3); HCO3 COOX 21 mmol/L (21-28); METHEMOGLOBIN 0.3 % (0.0-1.9); OXYHEMOGLOBIN 93.2 %; PCO2 COOX 34 mmHg (35-46); PO2 COOX 72 mmHg (65-108); SAT O2 COOX 95 % (92-99)
[2019-10-20 15:55] VITALS: BP 82/46
[2019-10-20] MEDS: VANCOMYCIN PER PHARMACY MC PRN (17:41)
--- NOTE | 2019-10-20 17:43 | NUR ---
Pharmacy Vancomycin Dosing Note S:Consulted to monitor and dose vancomycin started 10/20/19. O:MATTHIAS WINSTON is a 79 year old M with Pneumonia Empiric FEVER . Height: 5 feet, 9 inches Weight: 52.8 kg [place] Body Weight: 70.70 Adjusted Body Weight: 63.54 Dosing Weight: Actual Other Antibiotics: ZOSYN LABS: Last BUN: 17 Last Creatinine: 1.2 Creatinine Clearance: 37 mL/min Last WBC: 13.5 Last Procalcitonin: Tmax (past 24 hours): 103.7 Microbiology: I/O: Drug Levels: Last level: on at Last dose given 10/20/19 at 1800 Vancomycin Dosing: Loading Dose: 1250 mg x1 Dosing Weight: Actual Target Trough: 15-20 A: Based on: Body weight and renal function P: 1. After loading dose, start Vancomycin 750 mg IV q24h 2. Follow up Trough level on 10/22/19 at 1730 3. Pharmacy will continue to monitor, follow and adjust therapy as needed. SALUD RIVERO [facility], 10/20/19 0424
[2019-10-20] MEDS ORDERED: VANCOMYCIN 1.25 GM in IV NORMAL SALINE 250ML 250 ML IV ONE (18:00)
[2019-10-20] MEDS: PIPERACILLIN/TAZOBACTAM 3.375 GM in IV NORMAL SALINE 50ML 50 ML IV SCH (18:08)
[2019-10-20 19:15] VITALS: BP 128/57
[2019-10-20] MEDS ORDERED: OLANZapine IM 10 MG VIAL. IM ONE (20:30)
[2019-10-20] MEDS: TAMSULOSIN 0.4 MG CAP.ER.24H. PO SCH (20:42)
[2019-10-20] MEDS: HALOPERIDOL LACTATE 5 MG/ML VIAL. IVP PRN (20:43)
[2019-10-20] MEDS: ENOXAPARIN 40 MG/0.4 ML SYRINGE. SQ SCH (20:43)
[2019-10-20 23:25] VITALS: BP 119/80
[2019-10-21] VITALS (7 sets, daily range): BP systolic 103–141; BP diastolic 49–87
[2019-10-21] MEDS: IV NORMAL SALINE 1000ML BAG 1,000 ML IV SCH ×3 (00:43→20:29)
[2019-10-21] MEDS: PIPERACILLIN/TAZOBACTAM 3.375 GM in IV NORMAL SALINE 50ML 50 ML IV SCH ×2 (02:09→06:31)
[2019-10-21 06:49] LABS: BASO % 0 % (0-3); EOS % 0 % (0-3); HEMATOCRIT 42.4 % (39.0-53.0); HEMOGLOBIN 14.6 g/dL (13.0-17.5); LYMPH # 0.9 x10^3/uL (1.0-4.8); LYMPH % 12 % (24-48); MEAN CORPUSCULAR HEMOGLOBIN 31 pg (25-35); MEAN CORPUSCULAR HGB CONC 35 g/dL (31-37); MEAN CORPUSCULAR VOLUME 90 fL (79-100); MONO # 0.4 x10^3/uL (0.0-1.1); MONO % 6 % (0-9); NEUT # 6.1 x10^3/uL (1.8-7.7); NEUT % 83 % (31-73); PLATELET COUNT 110 x10^3/uL (140-400); WHITE BLOOD COUNT 7.5 x10^3/uL (4.0-11.0)
[2019-10-21 07:07] LABS: ALBUMIN 2.4 g/dL (3.4-5.0); ALBUMIN/GLOBULIN RATIO 0.8 (1.0-1.7); CREATININE 1.1 mg/dL (0.7-1.3); GFR 64.6; POTASSIUM 4.1 mmol/L (3.5-5.1); TOTAL BILIRUBIN 0.9 mg/dL (0.2-1.0); TOTAL PROTEIN 5.5 g/dL (6.4-8.2)
[2019-10-21] MEDS: HALOPERIDOL LACTATE 5 MG/ML VIAL. IVP PRN ×2 (08:18→20:30)
--- NOTE | 2019-10-21 08:27 | NUR ---
Pt without tele most of night. Combative, tearing monitoring equipment off
--- NOTE | 2019-10-21 08:28 | NUR ---
Pt very anxious. Waving arms. Thrashing about throughout the night. Unknown if possibly a withdrawal reaction.
--- NOTE | 2019-10-21 08:43 | NUR ---
Nursing: Patients bed alarm went off. Upon entering the room Patient was out of bed walking around the bed to go to the bathroom. Liquid stool in brief, in commode and on floor. IV tubing was stretched out with patient pulling on tubing. Patient yelling out. Unable to answer any questions or follow commands. Restless.
--- NOTE | 2019-10-21 09:41 | PDOC ---
Infectious Disease Note Vital Sign Vital Signs Vital Signs Date Time Temp Pulse Resp B/P (MAP) Pulse Ox O2 Delivery O2 Flow Rate FiO2 10/21/19 07:00 97.7 93 20 125/82 (96) 93 Room Air 97.7 Labs Lab Laboratory Tests Test 10/20/19 12:18 10/20/19 12:40 10/20/19 13:25 10/20/19 15:15 White Blood Count 13.5 x10^3/uL (4.0-11.0) Red Blood Count 5.50 x10^6/uL (4.30-5.70) Hemoglobin 17.3 g/dL (13.0-17.5) Hematocrit 49.6 % (39.0-53.0) Mean Corpuscular Volume 90 fL (79-100) Mean Corpuscular Hemoglobin 31 pg (25-35) Mean Corpuscular Hemoglobin Concent 35 g/dL (31-37) Red Cell Distribution Width 14.5 % (11.5-14.5) Platelet Count 161 x10^3/uL (140-400) Neutrophils (%) (Auto) 92 % (31-73) Lymphocytes (%) (Auto) 4 % (24-48) Monocytes (%) (Auto) 3 % (0-9) Eosinophils (%) (Auto) 0 % (0-3) Basophils (%) (Auto) 0 % (0-3) Neutrophils # (Auto) 12.5 x10^3/uL (1.8-7.7) Lymphocytes # (Auto) 0.6 x10^3/uL (1.0-4.8) Monocytes # (Auto) 0.4 x10^3/uL (0.0-1.1) Eosinophils # (Auto) 0.0 x10^3/uL (0.0-0.7) Basophils # (Auto) 0.0 x10^3/uL (0.0-0.2) Segmented Neutrophils % 79 % (35-66) Band Neutrophils % 18 % (0-9) Lymphocytes % 3 % (24-48) Toxic Granulation Slight Platelet Estimate Adequate (ADEQUATE) Prothrombin Time 15.1 SEC (11.7-14.0) Prothromb Time International Ratio 1.2 (0.8-1.1) Sodium Level 135 mmol/L (136-145) Potassium Level 3.9 mmol/L (3.5-5.1) Chloride Level 99 mmol/L (98-107) Carbon Dioxide Level 27 mmol/L (21-32) Anion Gap 9 (6-14) Blood Urea Nitrogen 17 mg/dL (8-26) Creatinine 1.2 mg/dL (0.7-1.3) Estimated GFR (Cockcroft-Gault) 58.4 BUN/Creatinine Ratio 14 (6-20) Glucose Level 113 mg/dL (70-99) Lactic Acid Level 1.4 mmol/L (0.4-2.0) Calcium Level 8.4 mg/dL (8.5-10.1) Total Bilirubin 1.2 mg/dL (0.2-1.0) Aspartate Amino Transf (AST/SGOT) 22 U/L (15-37) Alanine Aminotransferase (ALT/SGPT) 27 U/L (16-63) Alkaline Phosphatase 67 U/L (46-116) Creatine Kinase 219 U/L (39-308) Troponin I Quantitative 0.068 ng/mL (0.000-0.055) EF-Qsu-T-Type Natriuretic Peptide 2122 pg/mL (0-449) Total Protein 7.2 g/dL (6.4-8.2) Albumin 3.0 g/dL (3.4-5.0) Albumin/Globulin Ratio 0.7 (1.0-1.7) Salicylates Level < 2.8 mg/dL (2.8-20.0) Salicylate Last Dose Date Unknown Salicylate Last Dose Time Unknown Acetaminophen Level < 2 mcg/ml (10-30) Acetaminophen Last Dose Date Unknown Acetaminophen Last Dose Time Unknown Ethyl Alcohol Level < 10 mg/dL (0-10) Coronavirus (PCR) Not detected (Not Detected) Urine Collection Type U cath Urine Color [place] Urine Clarity Clear Urine pH 6.0 (<5.0-8.0) Urine Specific [place] 1.025 (1.000-1.030) Urine Protein 100 mg/dL (NEG-TRACE) Urine Glucose (UA) Negative mg/dL (NEG) Urine Ketones (Stick) Trace mg/dL (NEG) Urine Blood Moderate (NEG) Urine Nitrite Positive (NEG) Urine Bilirubin Small (NEG) Urine Urobilinogen Dipstick 2.0 mg/dL (0.2 mg/dL) Urine Leukocyte Esterase Trace (NEG) Urine RBC 3-5 /HPF (0-2) Urine WBC 5-10 /HPF (0-4) Urine Transitional Epithelial Cells Mod /LPF Urine Bacteria Many /HPF (0-FEW) Urine Mucus Mod /LPF Urine Opiates Screen Neg (NEG) Urine Methadone Screen Neg (NEG) Urine Barbiturates Neg (NEG) Urine Phencyclidine Screen Neg (NEG) Urine Amphetamine/Methamphetamine Neg (NEG) Urine Benzodiazepines Screen Neg (NEG) Urine Cocaine Screen Neg (NEG) Urine Cannabinoids Screen Neg (NEG) Urine Ethyl Alcohol Neg (NEG) O2 Saturation 95 % (92-99) Arterial Blood pH 7.41 (7.35-7.45) Arterial Blood pCO2 at Patient Temp 34 mmHg (35-46) Arterial Blood pO2 at Patient Temp 72 mmHg (65-108) Arterial Blood HCO3 21 mmol/L (21-28) Arterial Blood Base Excess -3 mmol/L (-3-3) Oxyhemoglobin 93.2 % Methemoglobin 0.3 % (0.0-1.9) Carbon Monoxide, Quantitative 1.4 % (0.0-1.9) FiO2 Ra 21% Test 10/20/19 17:45 10/21/19 00:20 10/21/19 06:25 Troponin I Quantitative 0.138 ng/mL (0.000-0.055) 0.273 ng/mL (0.000-0.055) 0.252 ng/mL (0.000-0.055) Procalcitonin 4.06 ng/mL (0.00-0.10) White Blood Count 7.5 x10^3/uL (4.0-11.0) Red Blood Count 4.70 x10^6/uL (4.30-5.70) Hemoglobin 14.6 g/dL (13.0-17.5) Hematocrit 42.4 % (39.0-53.0) Mean Corpuscular Volume 90 fL (79-100) Mean Corpuscular Hemoglobin 31 pg (25-35) Mean Corpuscular Hemoglobin Concent 35 g/dL (31-37) Red Cell Distribution Width 15.0 % (11.5-14.5) Platelet Count 110 x10^3/uL (140-400) Neutrophils (%) (Auto) 83 % (31-73) Lymphocytes (%) (Auto) 12 % (24-48) Monocytes (%) (Auto) 6 % (0-9) Eosinophils (%) (Auto) 0 % (0-3) Basophils (%) (Auto) 0 % (0-3) Neutrophils # (Auto) 6.1 x10^3/uL (1.8-7.7) Lymphocytes # (Auto) 0.9 x10^3/uL (1.0-4.8) Monocytes # (Auto) 0.4 x10^3/uL (0.0-1.1) Eosinophils # (Auto) 0.0 x10^3/uL (0.0-0.7) Basophils # (Auto) 0.0 x10^3/uL (0.0-0.2) Sodium Level 139 mmol/L (136-145) Potassium Level 4.1 mmol/L (3.5-5.1) Chloride Level 105 mmol/L (98-107) Carbon Dioxide Level 25 mmol/L (21-32) Anion Gap 9 (6-14) Blood Urea Nitrogen 24 mg/dL (8-26) Creatinine 1.1 mg/dL (0.7-1.3) Estimated GFR (Cockcroft-Gault) 64.6 BUN/Creatinine Ratio 22 (6-20) Glucose Level 81 mg/dL (70-99) Calcium Level 8.0 mg/dL (8.5-10.1) Total Bilirubin 0.9 mg/dL (0.2-1.0) Aspartate Amino Transf (AST/SGOT) 29 U/L (15-37) Alanine Aminotransferase (ALT/SGPT) 28 U/L (16-63) Alkaline Phosphatase 45 U/L (46-116) Total Protein 5.5 g/dL (6.4-8.2) Albumin 2.4 g/dL (3.4-5.0) Albumin/Globulin Ratio 0.8 (1.0-1.7) Micro Microbiology 10/20/19 Urine Culture - Preliminary, Resulted 10/20/19 Blood Culture - Final, Complete Objective Assessment pt seen, consult dictated Plan Plan of Care / GERHARD KUMAR MD Oct 21, 2019 09:41
[2019-10-21] MEDS ORDERED: DEXTROSE 5% IV SCH (10:00)
[2019-10-21] MEDS ORDERED: CEFAZOLIN SODIUM IV SCH (10:00)
--- NOTE | 2019-10-21 10:19 | CONS ---
DATE OF CONSULTATION: 10/21/2019 REQUESTING PHYSICIAN: Yoandy Kim MD REASON FOR CONSULTATION: Encephalopathy, fever and leukocytosis. HISTORY OF PRESENT ILLNESS: This is a 79-year-old -[place] gentleman, who was living in [place] by himself. Apparently, the family went there to see him and brought him into [facility]. The patient was found to be confused there, a lot of memory and anger issues on the phone before this happened. Now, the patient was brought in after a couple of days being in [place] with much more confusion. The patient is at times agitated, but confused, unable to answer any questions. The patient did have fever when he came in, slight leukocytosis, and all the blood cultures are now positive with Staph aureus, susceptibilities are pending. The patient was started by me yesterday on vancomycin and Zosyn; and now, I changed to vancomycin and cefazolin to increase the [employer] penetration if at all he has involvement. The patient did have a CT head done, which was no acute changes. No nausea, vomiting or diarrhea noted. He has not had any fever anymore and his confusion has not improved. The patient is not able to provide any information. All the information was obtained through chart review and discussing with the patient's nurse. No nausea, vomiting or diarrhea noted. PAST MEDICAL HISTORY: Unknown. SOCIAL HISTORY: Unknown. REVIEW OF SYSTEMS: Unable to do other than what I mentioned in the HPI through the nurse. CURRENT MEDICATIONS: Reviewed. PHYSICAL EXAMINATION: GENERAL: The patient is somnolent, at times moves all the extremities, but he did not verbalize anything on my interview. VITAL SIGNS: Stable, afebrile. HEENT: Both pupils are round and reacting. No conjunctival lesion. No lesion in the mouth. NECK: Supple. No JVP, no lymphadenopathy. LUNGS: Clear. HEART: S1, S2 regular. ABDOMEN: Benign. EXTREMITIES: No edema or cyanosis. SKIN: Unremarkable. NEUROLOGICAL: The patient does move all the extremities, there is no focal deficit, and the neck is supple and meningeal signs are negative. LABORATORY DATA: White count is down to 7.5 from 13.5. BUN and creatinine are 24 and 1.1. Troponin is slightly high. Liver functions are normal. Lactic acid was normal. Urinalysis showed 5-10 wbc's. COVID is negative. His blood culture, 4/4 bottles positive with Staph aureus. Urine has Staph aureus. IMAGING STUDIES: Head CT is unremarkable. Chest CT, minimal basal infiltrate or atelectasis; in fact, CT showed reticular nodular airspace disease with dependent consolidation in the lower lobes. CT of the abdomen is unremarkable. IMPRESSION: 1. Staph aureus bacteremia, 4/4 bottles, susceptibilities are pending. 2. Fever. 3. Leukocytosis. 4. Encephalopathy. 5. Unknown basal state or history. RECOMMENDATIONS: Change Zosyn to cefazolin. Continue vancomycin. Once we have susceptibilities known, we will scale down further. Supportive care. May consider MRI of the head and/or also lumbar puncture. We will try to contact the family. Thank you very much, Dr. Kim, for giving me the opportunity to participate in this patient's care. GERHARD KUMAR MD DR: TERRA/ryan JOB#: [id number] / [id number]
[2019-10-21 10:30] LABS: CHOLESTEROL/HDL RATIO 2.3
[2019-10-21] MEDS: ENOXAPARIN 40 MG/0.4 ML SYRINGE. SQ SCH ×2 (10:54→20:31)
[2019-10-21] MEDS: ceFAZolin SODIUM IV Push 1 GM VIAL. IVP SCH ×3 (10:54→23:09)
[2019-10-21] MEDS: VANCOMYCIN PER PHARMACY MC PRN (11:05)
--- NOTE | 2019-10-21 11:17 | CONS ---
DATE OF CONSULTATION: PULMONARY CONSULTATION ATTENDING PHYSICIAN: Yoandy Kim MD REASON FOR CONSULTATION: Abnormal CT chest, pneumonia, sepsis. HISTORY OF PRESENT ILLNESS: The patient is a 79-year-old male who likely has some underlying dementia. He was brought into the hospital after he was noted to be confused, restless and has been reportedly losing weight. The patient underwent imaging study including CT abdomen and CT chest. I have reviewed CT chest. He has some bibasilar infiltrates versus atelectasis and tiny 5 mm lung nodules. The patient also had abdomen and pelvis CT and it shows diverticulosis and asymmetric bladder wall thickening, which could be related to cystitis. His blood culture is positive 06/19 with Gram-positive cocci and urine culture is positive for Staph. I am unable to obtain much history from the patient. I have reviewed the patient's chart and reviewed his labs and imaging studies. PAST MEDICAL HISTORY: Significant for possible dementia. PAST SURGICAL HISTORY: Unknown. FAMILY HISTORY: Unknown. ALLERGIES: None. MEDICATIONS: Reviewed including antibiotics and Lovenox for DVT prophylaxis. REVIEW OF SYSTEMS: Unable to obtain from the patient. PHYSICAL EXAMINATION: VITAL SIGNS: Reviewed. Blood pressure 125/82, pulse ox 93% on room air, afebrile. NECK: Supple. LUNGS: With diminished breath sounds. CARDIOVASCULAR: With a regular rate. ABDOMEN: Soft. EXTREMITIES: With no pitting edema. LABORATORY DATA: Reviewed. White cell count 13.5 on admit, now 7.5; hemoglobin and hematocrit stable. ABGs with a pH of 7.41, pCO2 of 34 and a pO2 of 72 on room air. Urine drug screen negative. BUN 24, creatinine 1.1. Troponin is 0.25. INR 1.2. PCR coronavirus negative. IMPRESSION: 1. Staphylococcal sepsis. The patient's blood cultures were positive 06/19. 2. Staphylococcus aureus urinary tract infection. 3. Abnormal CT chest with basilar infiltrate versus atelectasis along with tiny lung nodules. 4. Underlying suspected dementia. RECOMMENDATIONS: 1. Continue present antibiotics. 2. Follow all final urine and blood cultures. 3. P.r.n. oxygen. 4. DVT prophylaxis with Lovenox. 5. Would recommend to discuss advanced directives. 6. Monitor mental status. 7. Discussed with Dr. Kim and Dr. Pablo Chapa. CASS QUINONEZ MD DR: Gwendolyn JOB#: [id number] / [id number]
--- NOTE | 2019-10-21 11:19 | PDOC ---
[employer] PROGRESS NOTE Date of Service DOS: DATE: 10/21/19 TIME: 11:13 Chief Complaint Chief Complaint UTI AMS History of Present Illness History of Present Illness 10/21/19 Patient seen and examined Chart reviewed Discussed with RN Patient seemed confused but more calm Nurse mentioned patient had defecated while walking around the room Vitals/I&O Vitals/I&O: Vital Signs Date Time Temp Pulse Resp B/P (MAP) Pulse Ox O2 Delivery O2 Flow Rate FiO2 10/21/19 07:00 97.7 93 20 125/82 (96) 93 Room Air 97.7 I & O 10/20/19 10/20/19 10/21/19 15:00 23:00 07:00 Intake Total 1050 ml Balance 1050 ml Physical Exam General: Alert, Cooperative, mild distress Heart: Regular rate, Normal S1 Abdomen: Normal bowel sounds, Soft, No tenderness, No hepatosplenomegaly, No masses Extremities: No clubbing, No cyanosis, No edema, Normal pulses, No tenderness /swelling Skin: No rashes, No breakdown, No significant lesion Labs Labs: Laboratory Tests Test 10/20/19 12:18 10/20/19 12:40 10/20/19 13:25 10/20/19 15:15 White Blood Count 13.5 x10^3/uL (4.0-11.0) Red Blood Count 5.50 x10^6/uL (4.30-5.70) Hemoglobin 17.3 g/dL (13.0-17.5) Hematocrit 49.6 % (39.0-53.0) Mean Corpuscular Volume 90 fL (79-100) Mean Corpuscular Hemoglobin 31 pg (25-35) Mean Corpuscular Hemoglobin Concent 35 g/dL (31-37) Red Cell Distribution Width 14.5 % (11.5-14.5) Platelet Count 161 x10^3/uL (140-400) Neutrophils (%) (Auto) 92 % (31-73) Lymphocytes (%) (Auto) 4 % (24-48) Monocytes (%) (Auto) 3 % (0-9) Eosinophils (%) (Auto) 0 % (0-3) Basophils (%) (Auto) 0 % (0-3) Neutrophils # (Auto) 12.5 x10^3/uL (1.8-7.7) Lymphocytes # (Auto) 0.6 x10^3/uL (1.0-4.8) Monocytes # (Auto) 0.4 x10^3/uL (0.0-1.1) Eosinophils # (Auto) 0.0 x10^3/uL (0.0-0.7) Basophils # (Auto) 0.0 x10^3/uL (0.0-0.2) Segmented Neutrophils % 79 % (35-66) Band Neutrophils % 18 % (0-9) Lymphocytes % 3 % (24-48) Toxic Granulation Slight Platelet Estimate Adequate (ADEQUATE) Prothrombin Time 15.1 SEC (11.7-14.0) Prothromb Time International Ratio 1.2 (0.8-1.1) Sodium Level 135 mmol/L (136-145) Potassium Level 3.9 mmol/L (3.5-5.1) Chloride Level 99 mmol/L (98-107) Carbon Dioxide Level 27 mmol/L (21-32) Anion Gap 9 (6-14) Blood Urea Nitrogen 17 mg/dL (8-26) Creatinine 1.2 mg/dL (0.7-1.3) Estimated GFR (Cockcroft-Gault) 58.4 BUN/Creatinine Ratio 14 (6-20) Glucose Level 113 mg/dL (70-99) Lactic Acid Level 1.4 mmol/L (0.4-2.0) Calcium Level 8.4 mg/dL (8.5-10.1) Total Bilirubin 1.2 mg/dL (0.2-1.0) Aspartate Amino Transf (AST/SGOT) 22 U/L (15-37) Alanine Aminotransferase (ALT/SGPT) 27 U/L (16-63) Alkaline Phosphatase 67 U/L (46-116) Creatine Kinase 219 U/L (39-308) Troponin I Quantitative 0.068 ng/mL (0.000-0.055) CV-Arr-O-Type Natriuretic Peptide 2122 pg/mL (0-449) Total Protein 7.2 g/dL (6.4-8.2) Albumin 3.0 g/dL (3.4-5.0) Albumin/Globulin Ratio 0.7 (1.0-1.7) Salicylates Level < 2.8 mg/dL (2.8-20.0) Salicylate Last Dose Date Unknown Salicylate Last Dose Time Unknown Acetaminophen Level < 2 mcg/ml (10-30) Acetaminophen Last Dose Date Unknown Acetaminophen Last Dose Time Unknown Ethyl Alcohol Level < 10 mg/dL (0-10) Coronavirus (PCR) Not detected (Not Detected) Urine Collection Type U cath Urine Color [place] Urine Clarity Clear Urine pH 6.0 (<5.0-8.0) Urine Specific [place] 1.025 (1.000-1.030) Urine Protein 100 mg/dL (NEG-TRACE) Urine Glucose (UA) Negative mg/dL (NEG) Urine Ketones (Stick) Trace mg/dL (NEG) Urine Blood Moderate (NEG) Urine Nitrite Positive (NEG) Urine Bilirubin Small (NEG) Urine Urobilinogen Dipstick 2.0 mg/dL (0.2 mg/dL) Urine Leukocyte Esterase Trace (NEG) Urine RBC 3-5 /HPF (0-2) Urine WBC 5-10 /HPF (0-4) Urine Transitional Epithelial Cells Mod /LPF Urine Bacteria Many /HPF (0-FEW) Urine Mucus Mod /LPF Urine Opiates Screen Neg (NEG) Urine Methadone Screen Neg (NEG) Urine Barbiturates Neg (NEG) Urine Phencyclidine Screen Neg (NEG) Urine Amphetamine/Methamphetamine Neg (NEG) Urine Benzodiazepines Screen Neg (NEG) Urine Cocaine Screen Neg (NEG) Urine Cannabinoids Screen Neg (NEG) Urine Ethyl Alcohol Neg (NEG) O2 Saturation 95 % (92-99) Arterial Blood pH 7.41 (7.35-7.45) Arterial Blood pCO2 at Patient Temp 34 mmHg (35-46) Arterial Blood pO2 at Patient Temp 72 mmHg (65-108) Arterial Blood HCO3 21 mmol/L (21-28) Arterial Blood Base Excess -3 mmol/L (-3-3) Oxyhemoglobin 93.2 % Methemoglobin 0.3 % (0.0-1.9) Carbon Monoxide, Quantitative 1.4 % (0.0-1.9) FiO2 Ra 21% Test 10/20/19 17:45 10/21/19 00:20 10/21/19 06:25 Troponin I Quantitative 0.138 ng/mL (0.000-0.055) 0.273 ng/mL (0.000-0.055) 0.252 ng/mL (0.000-0.055) Procalcitonin 4.06 ng/mL (0.00-0.10) White Blood Count 7.5 x10^3/uL (4.0-11.0) Red Blood Count 4.70 x10^6/uL (4.30-5.70) Hemoglobin 14.6 g/dL (13.0-17.5) Hematocrit 42.4 % (39.0-53.0) Mean Corpuscular Volume 90 fL (79-100) Mean Corpuscular Hemoglobin 31 pg (25-35) Mean Corpuscular Hemoglobin Concent 35 g/dL (31-37) Red Cell Distribution Width 15.0 % (11.5-14.5) Platelet Count 110 x10^3/uL (140-400) Neutrophils (%) (Auto) 83 % (31-73) Lymphocytes (%) (Auto) 12 % (24-48) Monocytes (%) (Auto) 6 % (0-9) Eosinophils (%) (Auto) 0 % (0-3) Basophils (%) (Auto) 0 % (0-3) Neutrophils # (Auto) 6.1 x10^3/uL (1.8-7.7) Lymphocytes # (Auto) 0.9 x10^3/uL (1.0-4.8) Monocytes # (Auto) 0.4 x10^3/uL (0.0-1.1) Eosinophils # (Auto) 0.0 x10^3/uL (0.0-0.7) Basophils # (Auto) 0.0 x10^3/uL (0.0-0.2) Sodium Level 139 mmol/L (136-145) Potassium Level 4.1 mmol/L (3.5-5.1) Chloride Level 105 mmol/L (98-107) Carbon Dioxide Level 25 mmol/L (21-32) Anion Gap 9 (6-14) Blood Urea Nitrogen 24 mg/dL (8-26) Creatinine 1.1 mg/dL (0.7-1.3) Estimated GFR (Cockcroft-Gault) 64.6 BUN/Creatinine Ratio 22 (6-20) Glucose Level 81 mg/dL (70-99) Calcium Level 8.0 mg/dL (8.5-10.1) Total Bilirubin 0.9 mg/dL (0.2-1.0) Aspartate Amino Transf (AST/SGOT) 29 U/L (15-37) Alanine Aminotransferase (ALT/SGPT) 28 U/L (16-63) Alkaline Phosphatase 45 U/L (46-116) Total Protein 5.5 g/dL (6.4-8.2) Albumin 2.4 g/dL (3.4-5.0) Albumin/Globulin Ratio 0.8 (1.0-1.7) Triglycerides Level 88 mg/dL (0-150) Cholesterol Level 95 mg/dL (0-200) LDL Cholesterol, Calculated 36 mg/dL (0-100) VLDL Cholesterol, Calculated 18 mg/dL (0-40) Non-HDL Cholesterol Calculated 54 mg/dL (0-129) HDL Cholesterol 41 mg/dL (40-60) Cholesterol/HDL Ratio 2.3 Assessment and Plan Assessmemt and Plan Problems Medical Problems: (1) AMS (altered mental status) Status: Acute (2) Person under investigation for COVID-19 Status: Acute (3) UTI (urinary tract infection) Status: Acute Assessment: UTI AMS Blood culture (+) for gram (+) cocci in clusters Covid (-) Plan: Full code DVT prophylaxis Haloperidol Ativan Mitts for patient safety Await further infectious disease input Appreciate subspecialist input Comment Review of Relevant I have reviewed the following items katie (where applicable) has been applied. Medications: Current Medications Medications (Trade) Dose Ordered Sig/Jasvir Route PRN Reason Start Time Stop Time Status Last Admin Dose Admin Sodium Chloride 1,000 ml @ 1,000 mls/hr 1X ONCE IV 10/20/19 12:45 10/20/19 13:44 DC 10/20/19 13:00 Acetaminophen (Tylenol Supp) 650 mg 1X ONCE VT 10/20/19 12:45 10/20/19 12:50 DC 10/20/19 13:19 Piperacillin Sod/ Tazobactam Sod 3.375 gm/Sodium Chloride 50 ml @ 100 mls/hr 1X ONCE IV 10/20/19 13:30 10/20/19 13:59 DC 10/20/19 13:42 Iohexol (Omnipaque 300 Mg/ml) 60 ml 1X ONCE IV 10/20/19 13:45 10/20/19 13:49 DC 10/20/19 13:45 Sodium Chloride 1,000 ml @ 100 mls/hr Q10H IV 10/20/19 14:43 10/21/19 14:42 10/21/19 10:55 Vancomycin HCl (Vanco Per Pharmacy) 1 each PRN DAILY PRN MC SEE COMMENTS 10/20/19 17:30 10/21/19 11:05 Piperacillin Sod/ Tazobactam Sod 3.375 gm/Sodium Chloride 50 ml @ 100 mls/hr Q6HRS IV 10/20/19 18:00 10/21/19 09:41 DC 10/21/19 06:31 Vancomycin HCl 1.25 gm/Sodium Chloride 250 ml @ 166.667 mls/hr 1X ONCE IV 10/20/19 18:00 10/20/19 19:29 DC 10/20/19 18:00 Enoxaparin Sodium (Lovenox 40mg Syringe) 40 mg Q12HR SQ 10/20/19 21:00 10/21/19 10:54 Tamsulosin HCl (Flomax) 0.4 mg QHS PO 10/20/19 21:00 10/20/19 20:42 Olanzapine (ZyPREXA IM) 10 mg 1X ONCE IM 10/20/19 20:30 10/20/19 20:38 DC 10/20/19 21:53 Haloperidol Lactate (Haldol Inj) 5 mg PRN Q6HRS PRN IVP AGITATION 10/20/19 20:30 10/21/19 08:18 Cefazolin Sodium (Ancef) 1 gm Q8HRS IVP 10/21/19 10:00 10/21/19 10:54 Justicifation of Admission Dx: Justifications for Admission: Justification of Admission Dx: N/A SANA JUAREZ III DO Oct 21, 2019 11:19
[2019-10-21] MEDS: LACTOBACILLUS RHAMNOSUS GG 1 CAPSULE. PO SCH ×2 (13:00→20:29)
--- NOTE | 2019-10-21 13:13 | PDOC2 ---
CARDIAC CONSULT DATE OF CONSULT Date of Consult DATE: 10/21/19 TIME: 1050 REASON FOR CONSULT Reason for Consult: elevated troponin REFERRING PHYSICIAN Referring Physician: Shefali SOURCE Source: Chart review HISTORY OF PRESENT ILLNESS HISTORY OF PRESENT ILLNESS This is a 79 yo male admitted for noted altered mental status. He was noted to be acting differently and confused per his family. He recently just moved from [place] to which he lives by himself. Apparently he has been losing wt according to friends. He was noted to be shivering the other day and his mentation was getting worse. Consult is for elevated troponin. He appears dehydrated and cachectic and presently has mittens and very confused and restless trying to strike my hand as I was auscultating his chest. No peripheral edema. No known hx of CAD or arrhythmias. So far he is on SR. No family is available for further details. PAST MEDICAL HISTORY Past Medical History unknown PAST SURGICAL HISTORY Past Surgical History unknown FAMILY HISTORY Family History: Family History Unknown SOCIAL HISTORY Social History unknown CURRENT MEDICATIONS CURRENT MEDICATIONS Current Medications Medications (Trade) Dose Ordered Sig/Jasvir Route PRN Reason Start Time Stop Time Status Last Admin Dose Admin Piperacillin Sod/ Tazobactam Sod 3.375 gm/Sodium Chloride 50 ml @ 100 mls/hr 1X ONCE IV 10/20/19 13:30 10/20/19 13:59 DC 10/20/19 13:42 Iohexol (Omnipaque 300 Mg/ml) 60 ml 1X ONCE IV 10/20/19 13:45 10/20/19 13:49 DC 10/20/19 13:45 Sodium Chloride 1,000 ml @ 100 mls/hr Q10H IV 10/20/19 14:43 10/21/19 14:42 10/21/19 10:55 Vancomycin HCl (Vanco Per Pharmacy) 1 each PRN DAILY PRN MC SEE COMMENTS 10/20/19 17:30 10/21/19 11:05 Piperacillin Sod/ Tazobactam Sod 3.375 gm/Sodium Chloride 50 ml @ 100 mls/hr Q6HRS IV 10/20/19 18:00 10/21/19 09:41 DC 10/21/19 06:31 Vancomycin HCl 1.25 gm/Sodium Chloride 250 ml @ 166.667 mls/hr 1X ONCE IV 10/20/19 18:00 10/20/19 19:29 DC 10/20/19 18:00 Enoxaparin Sodium (Lovenox 40mg Syringe) 40 mg Q12HR SQ 10/20/19 21:00 10/21/19 10:54 Tamsulosin HCl (Flomax) 0.4 mg QHS PO 10/20/19 21:00 10/20/19 20:42 Olanzapine (ZyPREXA IM) 10 mg 1X ONCE IM 10/20/19 20:30 10/20/19 20:38 DC 10/20/19 21:53 Haloperidol Lactate (Haldol Inj) 5 mg PRN Q6HRS PRN IVP AGITATION 10/20/19 20:30 10/21/19 08:18 Cefazolin Sodium (Ancef) 1 gm Q8HRS IVP 10/21/19 10:00 10/21/19 10:54 ALLERGIES ALLERGIES: Coded Allergies: No Known Drug Allergies (Unverified , 10/20/19) ROS Review of System unreliable, confuse PHYSICAL EXAM General: Alert, No acute distress, Other (restless) HEENT: Atraumatic Lungs: Other (diminished) Heart: Regular rate (SR), Normal S1, Normal S2, No murmurs Abdomen: Soft Extremities: No edema Skin: No significant lesion Neuro: Other (confuse) MUSCULOSKELETAL: Osteoarthritic changes both hands VITALS/I&O VITALS/I&O: Vital Signs Date Time Temp Pulse Resp B/P (MAP) Pulse Ox O2 Delivery O2 Flow Rate FiO2 10/21/19 08:00 Room Air 10/21/19 07:00 97.7 93 20 125/82 (96) 93 97.7 I & O 10/20/19 10/20/19 10/21/19 15:00 23:00 07:00 Intake Total 1050 ml Balance 1050 ml LABS Lab: Laboratory Tests Test 10/20/19 13:25 10/20/19 15:15 10/20/19 17:45 10/21/19 00:20 Urine Collection Type U cath Urine Color [place] Urine Clarity Clear Urine pH 6.0 (<5.0-8.0) Urine Specific [place] 1.025 (1.000-1.030) Urine Protein 100 mg/dL (NEG-TRACE) Urine Glucose (UA) Negative mg/dL (NEG) Urine Ketones (Stick) Trace mg/dL (NEG) Urine Blood Moderate (NEG) Urine Nitrite Positive (NEG) Urine Bilirubin Small (NEG) Urine Urobilinogen Dipstick 2.0 mg/dL (0.2 mg/dL) Urine Leukocyte Esterase Trace (NEG) Urine RBC 3-5 /HPF (0-2) Urine WBC 5-10 /HPF (0-4) Urine Transitional Epithelial Cells Mod /LPF Urine Bacteria Many /HPF (0-FEW) Urine Mucus Mod /LPF Urine Opiates Screen Neg (NEG) Urine Methadone Screen Neg (NEG) Urine Barbiturates Neg (NEG) Urine Phencyclidine Screen Neg (NEG) Urine Amphetamine/Methamphetamine Neg (NEG) Urine Benzodiazepines Screen Neg (NEG) Urine Cocaine Screen Neg (NEG) Urine Cannabinoids Screen Neg (NEG) Urine Ethyl Alcohol Neg (NEG) O2 Saturation 95 % (92-99) Arterial Blood pH 7.41 (7.35-7.45) Arterial Blood pCO2 at Patient Temp 34 mmHg (35-46) L Arterial Blood pO2 at Patient Temp 72 mmHg (65-108) Arterial Blood HCO3 21 mmol/L (21-28) Arterial Blood Base Excess -3 mmol/L (-3-3) Oxyhemoglobin 93.2 % Methemoglobin 0.3 % (0.0-1.9) Carbon Monoxide, Quantitative 1.4 % (0.0-1.9) FiO2 Ra 21% Troponin I Quantitative 0.138 ng/mL (0.000-0.055) 0.273 ng/mL (0.000-0.055) Procalcitonin 4.06 ng/mL (0.00-0.10) H Test 10/21/19 06:25 White Blood Count 7.5 x10^3/uL (4.0-11.0) Red Blood Count 4.70 x10^6/uL (4.30-5.70) Hemoglobin 14.6 g/dL (13.0-17.5) Hematocrit 42.4 % (39.0-53.0) Mean Corpuscular Volume 90 fL (79-100) Mean Corpuscular Hemoglobin 31 pg (25-35) Mean Corpuscular Hemoglobin Concent 35 g/dL (31-37) Red Cell Distribution Width 15.0 % (11.5-14.5) H Platelet Count 110 x10^3/uL (140-400) L Neutrophils (%) (Auto) 83 % (31-73) H Lymphocytes (%) (Auto) 12 % (24-48) L Monocytes (%) (Auto) 6 % (0-9) Eosinophils (%) (Auto) 0 % (0-3) Basophils (%) (Auto) 0 % (0-3) Neutrophils # (Auto) 6.1 x10^3/uL (1.8-7.7) Lymphocytes # (Auto) 0.9 x10^3/uL (1.0-4.8) L Monocytes # (Auto) 0.4 x10^3/uL (0.0-1.1) Eosinophils # (Auto) 0.0 x10^3/uL (0.0-0.7) Basophils # (Auto) 0.0 x10^3/uL (0.0-0.2) Sodium Level 139 mmol/L (136-145) Potassium Level 4.1 mmol/L (3.5-5.1) Chloride Level 105 mmol/L (98-107) Carbon Dioxide Level 25 mmol/L (21-32) Anion Gap 9 (6-14) Blood Urea Nitrogen 24 mg/dL (8-26) Creatinine 1.1 mg/dL (0.7-1.3) Estimated GFR (Cockcroft-Gault) 64.6 BUN/Creatinine Ratio 22 (6-20) H Glucose Level 81 mg/dL (70-99) Calcium Level 8.0 mg/dL (8.5-10.1) L Total Bilirubin 0.9 mg/dL (0.2-1.0) Aspartate Amino Transferase (AST) 29 U/L (15-37) Alanine Aminotransferase (ALT) 28 U/L (16-63) Alkaline Phosphatase 45 U/L (46-116) L Troponin I Quantitative 0.252 ng/mL (0.000-0.055) Total Protein 5.5 g/dL (6.4-8.2) L Albumin 2.4 g/dL (3.4-5.0) L Albumin/Globulin Ratio 0.8 (1.0-1.7) L Triglycerides Level 88 mg/dL (0-150) Cholesterol Level 95 mg/dL (0-200) LDL Cholesterol, Calculated 36 mg/dL (0-100) VLDL Cholesterol, Calculated 18 mg/dL (0-40) Non-HDL Cholesterol Calculated 54 mg/dL (0-129) HDL Cholesterol 41 mg/dL (40-60) Cholesterol/HDL Ratio 2.3 Laboratory Tests 10/21/19 06:25 Laboratory Tests 10/21/19 06:25 ASSESSMENT/PLAN ASSESSMENT/PLAN 1. Possible CAP with fever: pulmonary following. Covid negative 2. UTI with bacteremia: Staph per [facility] ID following 3. Metabolic encephalopathy with possible underlying dementia 4. Elevated troponin: peaked at 0.2 no noted cardiac symptoms per chart review. EKG SR without acute changes. Suspect demand mediated 5. Nontraumatic Mechanical fall: due to weakness 6. Coronary calcifications: per CT 7. Mild thrombocytopenia Recommendations 1. TTE and note and semblance of endocarditis 2. I discussed with his son and pt was just here for about a day after being picked up from [place] and his mentation just declined significantly. 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 He weigh about 150 pounds the last time he saw his son and presently is now cachectic and drinks about 6 Monster drinks ad day with poor eating habits. He lived in [place] away from [facility] [place]. His 8th just 3 months ago and son denies him being in grief. No prior hx of CAD. At this time. Will provide supportive care. Await TTE result. HELENA SYLVESTER [employer] Oct 21, 2019 13:13
--- NOTE | 2019-10-21 16:19 | NUR ---
Nursing: Transferred to room 432. Report called to Monica. Patient transferred via bed. Patients granddaughter notified of room change. All belongings with patient.
--- NOTE | 2019-10-21 17:43 | NUR ---
[facility] following. Spoke with RN and reviewed chart. Pt on room air and IV Vancomycin. Pt transferred to and [facility] Martinez to follow.
[2019-10-21] MEDS ORDERED: VANCOMYCIN 750 MG in IV NORMAL SALINE 250ML 250 ML IV SCH (18:00)
[2019-10-21] MEDS: TAMSULOSIN 0.4 MG CAP.ER.24H. PO SCH (20:29)
[2019-10-22 03:00] VITALS: BP 102/59
[2019-10-22] MEDS: ceFAZolin SODIUM IV Push 1 GM VIAL. IVP SCH ×3 (06:23→21:38)
[2019-10-22] MEDS: IV NORMAL SALINE 1000ML BAG 1,000 ML IV SCH ×2 (06:23→13:38)
[2019-10-22 07:00] VITALS: BP 108/51
[2019-10-22] MEDS: LACTOBACILLUS RHAMNOSUS GG 1 CAPSULE. PO SCH ×2 (08:15→21:38)
--- NOTE | 2019-10-22 08:43 | PDOC ---
Infectious Disease Note Subjective Subjective pt is still somnolent ROS ROS no nv/d//fever Vital Sign Vital Signs Vital Signs Date Time Temp Pulse Resp B/P (MAP) Pulse Ox O2 Delivery O2 Flow Rate FiO2 10/22/19 07:00 98.4 58 18 108/51 (70) 96 Room Air 98.4 Physical Exam PHYSICAL EXAM GENERAL: The patient is somnolent, at times moves all the extremities, but he did not verbalize anything on my interview. VITAL SIGNS: Stable, afebrile. HEENT: Both pupils are round and reacting. No conjunctival lesion. No lesion in the mouth. NECK: Supple. No JVP, no lymphadenopathy. LUNGS: Clear. HEART: S1, S2 regular. ABDOMEN: Benign. EXTREMITIES: No edema or cyanosis. SKIN: Unremarkable. NEUROLOGICAL: The patient does move all the extremities, there is no focal deficit, and the neck is supple and meningeal signs are negative. Labs Micro Microbiology 10/20/19 Urine Culture - Preliminary, Resulted 10/20/19 Blood Culture - Final, Complete Objective Assessment IMPRESSION: 1. Staph aureus bacteremia, 4/4 bottles, susceptibilities are pending. 2. Fever. 3. Leukocytosis. 4. Encephalopathy. 5. Unknown basal state or history. Plan Plan of Care cont antibiotics, cefazolin, d/c vanc cont supportive care GERHARD KUMAR MD Oct 22, 2019 08:43
[2019-10-22] MEDS: ENOXAPARIN 40 MG/0.4 ML SYRINGE. SQ SCH ×2 (10:00→21:38)
--- NOTE | 2019-10-22 10:27 | PDOC ---
PROGRESS NOTES Date of Service: DATE: 10/22/19 TIME: 10:27 Chief Complaint Chief Complaint IMPRESSION ======= UTI AMS Elevated troponin: peaked at 0.2 no noted cardiac symptoms per chart review. EKG SR without acute changes. Suspect demand mediated Nontraumatic Mechanical fall: due to weakness Staph aureus bacteremia, 06/19 bottles, susceptibilities are pending. Fever. Leukocytosis. METABOLIC Encephalopathy. Reticular nodular airspace disease with dependent consolidation in the lower lobes, nonspecific. This could be related to noncardiogenic edema or atypical pneumonia. Chronic aspiration is another consideration. Additional noncalcified pulmonary nodules within both lungs, nonspecific. 12 month Follow-up imaging to ensure stability. Asymmetric bladder wall thickening on the right, indeterminate. This could be related to acute or chronic cystitis or an underlying bladder mass. Correlate with clinical history. If indicated, a CT urogram could better evaluate. START TELE PULM CONSULT CONSIDER UROLOGY CONSULT 79 year old male with no known PMHx who presents with here with his [id number] and granddaughter for altered mental status. They have just recently met him for the first time on 10/17/2019 in person to bring him to live with them in [place] after a concerning call about significant weight loss and confusion from his local [place] where he was living in [place] by himself [place]. Family notes they speak with him on the phone often and he has memory and anger issues and is estranged from them due to this. For the 3 days he has lived with them they note unsteady gait, and that he converses with them and is able to eat and drink on his own but only receives hot dogs and energy drinks, 4 per day each. Granddaughter states on 10/18 he ripped a screen door off of the wall and was urinating in drawers in their home. He was last seen normal last night, 10/18 at 2200. They stated for him this morning they went to get him up and he did not want to get out of bed and he was shivering and complaining that he was cold but they did not think he had a fever. Febrile to 103.7F in the ED, given 650mg acetaminophen suppository with improvement in his temperature. He showed no meningeal signs and was moving all extremities on examination, opens eyes, answers 1-2 word answers. Does not have any pain complaints. Tells me he needs to urinate. When asked about his missing left 4th finger he does note his hand hurts sometimes. XR negative for fracture. 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 CT chest with reticular nodular airspace disease with dependent consolidation in the lower lobes and noncalcified pulmonary nodules within both lungs, nonspecific. CT abdomen/pelvis reveal asymmetric bladder wall thickening on the right, indeterminate. This could be related to acute or chronic cystitis or an underlying bladder mass. Urine positive for LE and nitrites. White blood cell count is 13.5. Troponin elevated at 0.068, BNP is 2122. Patient has received 1 L of fluids. Started on empiric Zosyn IV. Admitted for altered mental status and fevers with likely bladder source. As he was just transported from [place], [employer] testing was performed as well. History of Present Illness History of Present Illness 10/22/19 Patient seen and examined Chart reviewed Discussed with RN Patient seemed confused but more calm Nurse mentioned patient had defecated while walking around the room Vitals Vitals Vital Signs Date Time Temp Pulse Resp B/P (MAP) Pulse Ox O2 Delivery O2 Flow Rate FiO2 10/22/19 08:00 Room Air 10/22/19 07:00 98.4 58 18 108/51 (70) 96 98.4 Physical Exam Physical Exam GENERAL: The patient is somnolent, at times moves all the extremities, but he did not verbalize anything on my interview. VITAL SIGNS: Stable, afebrile. HEENT: Both pupils are round and reacting. No conjunctival lesion. No lesion in the mouth. NECK: Supple. No JVP, no lymphadenopathy. LUNGS: Clear. HEART: S1, S2 regular. ABDOMEN: Benign. EXTREMITIES: No edema or cyanosis. SKIN: Unremarkable. NEUROLOGICAL: The patient does move all the extremities, there is no focal deficit, and the neck is supple and meningeal signs are negative. General: Alert, Cooperative, No acute distress, Other (restless) Heart: Regular rate (SR), Normal S1, Normal S2, No murmurs Abdomen: Soft Extremities: No edema Skin: No significant lesion Labs LABS Procedure Result BLOOD CULTURE LC Preliminary Preliminary GRAM POSITIVE COCCI FINAL ID= [STAPHYLOCOCCUS AUREUS] STAPHYLOCOCCUS AUREUS Unless otherwise specified, Testing Performed by: [address] [address] For Inquires, the Physician may contact the Microbiology department at [phone] Clinical indication fever and altered mental status. TECHNIQUE: Contiguous axial imaging the chest performed without the administration of intravenous contrast. In addition, imaging of the abdomen pelvis performed after the intravenous administration of 60 cc Omnipaque 300. One or more of the following individualized dose reduction techniques were utilized for this examination: 1. Automated exposure control 2. Adjustment of the mA and/or kV according to patient size 3. Use of iterative reconstruction technique FINDINGS: Heart size is upper limits of normal. No pericardial effusion. Coronary artery calcifications. No mediastinal, hilar or axial lymphadenopathy. Thyroid gland is unremarkable. Central airways are patent. Prominent reticular nodular markings throughout both lungs, basilar predominant. There is also some dependent groundglass opacity in the lower lobes, likely atelectasis. No consolidation or pleural effusion. No pneumothorax. Mild emphysema. Small noncalcified pulmonary nodule in the right upper lobe on image 6 measures 5 mm. Noncalcified pulmonary nodule in the right lower lobe on image 34 measures 5 mm noncalcified pulmonary nodule in the left upper lobe on image 24 measures 3 mm. No pleural effusion. No pneumothorax. Liver and spleen are homogeneous. No apparent hepatic mass. Biliary tree normal in caliber. Gallbladder unremarkable. Pancreas, adrenal glands and kidneys are unremarkable. No hydronephrosis. Unopacified GI tract normal in caliber and contour. No focal bowel wall thickening. Scattered diverticula throughout the colon. No paracolonic inflammatory changes. No free fluid or lymphadenopathy. The appendix is not clearly identified. No inflammatory changes in the right lower quadrant. No ascites or lymphadenopathy. Images of pelvis show nondistended urinary bladder. Mild bladder wall thickening with possible asymmetric wall thickening posteriorly on the right. No free fluid or lymphadenopathy. Bone windows show no acute findings. Multilevel spondylosis. IMPRESSION: 1. Reticular nodular airspace disease with dependent consolidation in the lower lobes, nonspecific. This could be related to noncardiogenic edema or atypical pneumonia. Chronic aspiration is another consideration. 2. Additional noncalcified pulmonary nodules within both lungs, nonspecific. 12 month Follow-up imaging to ensure stability. 3. No acute abnormality of abdomen or pelvis. 4. Diverticulosis. 5. Asymmetric bladder wall thickening on the right, indeterminate. This could be related to acute or chronic cystitis or an underlying bladder mass. Correlate with clinical history. If indicated, a CT urogram could better evaluate. Electronically signed by: Elias Matta MD (10/20/2019 3:12 PM) [facility] [place] and SIGNED BY: ELIAS MATTA MD DATE: 10/20/[address] head without contrast dated 10/20/2019. No comparison available. CLINICAL INDICATION: Altered mental status. TECHNIQUE: Contiguous axial imaging the head was performed from skull base to vertex. No contrast administered. One or more of the following individualized dose reduction techniques were utilized for this examination: 1. Automated exposure control 2. Adjustment of the mA and/or kV according to patient size 3. Use of iterative reconstruction technique. FINDINGS: Ventricles and sulci are mildly prominent for age. No midline shift or mass effect. Mild patchy low density in the deep/subcortical periventricular white matter. 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 Possible small remote lacunar infarct of the right cerebellum. No hemorrhage or extra-axial collection. Posterior fossa and brainstem unremarkable. Mild mucosal thickening of the bilateral ethmoid air cells. The visualized paranasal sinuses and mastoid air cells are otherwise clear. No apparent calvarial abnormality. IMPRESSION: 1. No evidence of acute cranial hemorrhage or mass. 2. Mild chronic small vessel ischemic changes and atrophy. Electronically signed by: Elias Matta MD (10/20/2019 1:18 PM) [facility] [place] and SIGNED BY: ELIAS MATTA MD DATE: 10/20/19 8746 Assessment and Plan Assessmemt and Plan Problems Medical Problems: (1) AMS (altered mental status) Status: Acute (2) Person under investigation for COVID-19 Status: Acute (3) UTI (urinary tract infection) Status: Acute Comment Review of Relevant I have reviewed the following items katie (where applicable) has been applied. Labs Laboratory Tests Test 10/20/19 12:18 10/20/19 12:40 10/20/19 13:25 10/20/19 15:15 White Blood Count 13.5 x10^3/uL (4.0-11.0) Red Blood Count 5.50 x10^6/uL (4.30-5.70) Hemoglobin 17.3 g/dL (13.0-17.5) Hematocrit 49.6 % (39.0-53.0) Mean Corpuscular Volume 90 fL (79-100) Mean Corpuscular Hemoglobin 31 pg (25-35) Mean Corpuscular Hemoglobin Concent 35 g/dL (31-37) Red Cell Distribution Width 14.5 % (11.5-14.5) Platelet Count 161 x10^3/uL (140-400) Neutrophils (%) (Auto) 92 % (31-73) Lymphocytes (%) (Auto) 4 % (24-48) Monocytes (%) (Auto) 3 % (0-9) Eosinophils (%) (Auto) 0 % (0-3) Basophils (%) (Auto) 0 % (0-3) Neutrophils # (Auto) 12.5 x10^3/uL (1.8-7.7) Lymphocytes # (Auto) 0.6 x10^3/uL (1.0-4.8) Monocytes # (Auto) 0.4 x10^3/uL (0.0-1.1) Eosinophils # (Auto) 0.0 x10^3/uL (0.0-0.7) Basophils # (Auto) 0.0 x10^3/uL (0.0-0.2) Segmented Neutrophils % 79 % (35-66) Band Neutrophils % 18 % (0-9) Lymphocytes % 3 % (24-48) Toxic Granulation Slight Platelet Estimate Adequate (ADEQUATE) Prothrombin Time 15.1 SEC (11.7-14.0) Prothromb Time International Ratio 1.2 (0.8-1.1) Sodium Level 135 mmol/L (136-145) Potassium Level 3.9 mmol/L (3.5-5.1) Chloride Level 99 mmol/L (98-107) Carbon Dioxide Level 27 mmol/L (21-32) Anion Gap 9 (6-14) Blood Urea Nitrogen 17 mg/dL (8-26) Creatinine 1.2 mg/dL (0.7-1.3) Estimated GFR (Cockcroft-Gault) 58.4 BUN/Creatinine Ratio 14 (6-20) Glucose Level 113 mg/dL (70-99) Lactic Acid Level 1.4 mmol/L (0.4-2.0) Calcium Level 8.4 mg/dL (8.5-10.1) Total Bilirubin 1.2 mg/dL (0.2-1.0) Aspartate Amino Transf (AST/SGOT) 22 U/L (15-37) Alanine Aminotransferase (ALT/SGPT) 27 U/L (16-63) Alkaline Phosphatase 67 U/L (46-116) Creatine Kinase 219 U/L (39-308) Troponin I Quantitative 0.068 ng/mL (0.000-0.055) TO-Qnr-F-Type Natriuretic Peptide 2122 pg/mL (0-449) Total Protein 7.2 g/dL (6.4-8.2) Albumin 3.0 g/dL (3.4-5.0) Albumin/Globulin Ratio 0.7 (1.0-1.7) Salicylates Level < 2.8 mg/dL (2.8-20.0) Salicylate Last Dose Date Unknown Salicylate Last Dose Time Unknown Acetaminophen Level < 2 mcg/ml (10-30) Acetaminophen Last Dose Date Unknown Acetaminophen Last Dose Time Unknown Ethyl Alcohol Level < 10 mg/dL (0-10) Coronavirus (PCR) Not detected (Not Detected) Urine Collection Type U cath Urine Color [place] Urine Clarity Clear Urine pH 6.0 (<5.0-8.0) Urine Specific [place] 1.025 (1.000-1.030) Urine Protein 100 mg/dL (NEG-TRACE) Urine Glucose (UA) Negative mg/dL (NEG) Urine Ketones (Stick) Trace mg/dL (NEG) Urine Blood Moderate (NEG) Urine Nitrite Positive (NEG) Urine Bilirubin Small (NEG) Urine Urobilinogen Dipstick 2.0 mg/dL (0.2 mg/dL) Urine Leukocyte Esterase Trace (NEG) Urine RBC 3-5 /HPF (0-2) Urine WBC 5-10 /HPF (0-4) Urine Transitional Epithelial Cells Mod /LPF Urine Bacteria Many /HPF (0-FEW) Urine Mucus Mod /LPF Urine Opiates Screen Neg (NEG) Urine Methadone Screen Neg (NEG) Urine Barbiturates Neg (NEG) Urine Phencyclidine Screen Neg (NEG) Urine Amphetamine/Methamphetamine Neg (NEG) Urine Benzodiazepines Screen Neg (NEG) Urine Cocaine Screen Neg (NEG) Urine Cannabinoids Screen Neg (NEG) Urine Ethyl Alcohol Neg (NEG) O2 Saturation 95 % (92-99) Arterial Blood pH 7.41 (7.35-7.45) Arterial Blood pCO2 at Patient Temp 34 mmHg (35-46) Arterial Blood pO2 at Patient Temp 72 mmHg (65-108) Arterial Blood HCO3 21 mmol/L (21-28) Arterial Blood Base Excess -3 mmol/L (-3-3) Oxyhemoglobin 93.2 % Methemoglobin 0.3 % (0.0-1.9) Carbon Monoxide, Quantitative 1.4 % (0.0-1.9) FiO2 Ra 21% Test 10/20/19 17:45 10/21/19 00:20 10/21/19 06:25 Troponin I Quantitative 0.138 ng/mL (0.000-0.055) 0.273 ng/mL (0.000-0.055) 0.252 ng/mL (0.000-0.055) Procalcitonin 4.06 ng/mL (0.00-0.10) White Blood Count 7.5 x10^3/uL (4.0-11.0) Red Blood Count 4.70 x10^6/uL (4.30-5.70) Hemoglobin 14.6 g/dL (13.0-17.5) Hematocrit 42.4 % (39.0-53.0) Mean Corpuscular Volume 90 fL (79-100) Mean Corpuscular Hemoglobin 31 pg (25-35) Mean Corpuscular Hemoglobin Concent 35 g/dL (31-37) Red Cell Distribution Width 15.0 % (11.5-14.5) Platelet Count 110 x10^3/uL (140-400) Neutrophils (%) (Auto) 83 % (31-73) Lymphocytes (%) (Auto) 12 % (24-48) Monocytes (%) (Auto) 6 % (0-9) Eosinophils (%) (Auto) 0 % (0-3) Basophils (%) (Auto) 0 % (0-3) Neutrophils # (Auto) 6.1 x10^3/uL (1.8-7.7) Lymphocytes # (Auto) 0.9 x10^3/uL (1.0-4.8) Monocytes # (Auto) 0.4 x10^3/uL (0.0-1.1) Eosinophils # (Auto) 0.0 x10^3/uL (0.0-0.7) Basophils # (Auto) 0.0 x10^3/uL (0.0-0.2) Sodium Level 139 mmol/L (136-145) Potassium Level 4.1 mmol/L (3.5-5.1) Chloride Level 105 mmol/L (98-107) Carbon Dioxide Level 25 mmol/L (21-32) Anion Gap 9 (6-14) Blood Urea Nitrogen 24 mg/dL (8-26) Creatinine 1.1 mg/dL (0.7-1.3) Estimated GFR (Cockcroft-Gault) 64.6 BUN/Creatinine Ratio 22 (6-20) Glucose Level 81 mg/dL (70-99) Calcium Level 8.0 mg/dL (8.5-10.1) Total Bilirubin 0.9 mg/dL (0.2-1.0) Aspartate Amino Transf (AST/SGOT) 29 U/L (15-37) Alanine Aminotransferase (ALT/SGPT) 28 U/L (16-63) Alkaline Phosphatase 45 U/L (46-116) Total Protein 5.5 g/dL (6.4-8.2) Albumin 2.4 g/dL (3.4-5.0) Albumin/Globulin Ratio 0.8 (1.0-1.7) Triglycerides Level 88 mg/dL (0-150) Cholesterol Level 95 mg/dL (0-200) LDL Cholesterol, Calculated 36 mg/dL (0-100) VLDL Cholesterol, Calculated 18 mg/dL (0-40) Non-HDL Cholesterol Calculated 54 mg/dL (0-129) HDL Cholesterol 41 mg/dL (40-60) Cholesterol/HDL Ratio 2.3 Microbiology 10/20/19 Urine Culture - Preliminary, Resulted 10/20/19 Blood Culture - Preliminary, Resulted Medications Current Medications Sodium Chloride 1,000 ml @ 1,000 mls/hr 1X ONCE IV Last administered on 10/20/19at 13:00; Start 10/20/19 at 12:45; Stop 10/20/19 at 13:44; Status DC Acetaminophen (Tylenol Supp) 650 mg 1X ONCE OH Last administered on 10/20/19at 13:19; Start 10/20/19 at 12:45; Stop 10/20/19 at 12:50; Status DC Piperacillin Sod/ Tazobactam Sod 3.375 gm/Sodium Chloride 50 ml @ 100 mls/hr 1X ONCE IV Last administered on 10/20/19at 13:42; Start 10/20/19 at 13:30; Stop 10/20/19 at 13:59; Status DC Iohexol (Omnipaque 300 Mg/ml) 60 ml 1X ONCE IV Last administered on 10/20/19at 13:45; Start 10/20/19 at 13:45; Stop 10/20/19 at 13:49; Status DC Info (CONTRAST GIVEN -- Rx MONITORING) 1 each PRN DAILY PRN MC SEE COMMENTS; Start 10/20/19 at 14:00; Stop 10/22/19 at 13:59 Ondansetron HCl (Zofran) 4 mg PRN Q8HRS PRN IV NAUSEA/VOMITING; Start 10/20/19 at 14:45; Stop 10/20/19 at 20:24; Status DC Sodium Chloride 1,000 ml @ 100 mls/hr Q10H IV Last administered on 10/21/19at 10:55; Start 10/20/19 at 14:43; Stop 10/21/19 at 14:42; Status DC Acetaminophen (Tylenol) 650 mg PRN Q4HRS PRN PO FEVER > 100.3'F; Start 10/20/19 at 14:45 Vancomycin HCl (Vanco Per Pharmacy) 1 each PRN DAILY PRN MC SEE COMMENTS Last administered on 10/21/19at 11:05; Start 10/20/19 at 17:30 Piperacillin Sod/ Tazobactam Sod 3.375 gm/Sodium Chloride 50 ml @ 100 mls/hr Q6HRS IV Last administered on 10/21/19at 06:31; Start 10/20/19 at 18:00; Stop 10/21/19 at 09:41; Status DC Vancomycin HCl 1.25 gm/Sodium Chloride 250 ml @ 166.667 mls/hr 1X ONCE IV Last administered on 10/20/19at 18:00; Start 10/20/19 at 18:00; Stop 10/20/19 at 19:29; Status DC Vancomycin HCl 750 mg/Sodium Chloride 250 ml @ 250 mls/hr Q24H IV Last administered on 10/21/19at 17:23; Start 10/21/19 at 18:00 Vancomycin HCl (Vancomycin Trough Level) 1 each 1X ONCE MC ; Start 10/22/19 at 17:30; Stop 10/22/19 at 17:31 Ondansetron HCl (Zofran) 4 mg PRN Q4HRS PRN IV NAUSEA/VOMITING; Start 10/20/19 at 20:30 Olanzapine (ZyPREXA ZYDIS) 5 mg PRN BID PRN PO ANXIETY / AGITATION; Start 10/20/19 at 20:30 Enoxaparin Sodium (Lovenox 40mg Syringe) 40 mg Q12HR SQ Last administered on 10/22/19at 10:00; Start 10/20/19 at 21:00 Tamsulosin HCl (Flomax) 0.4 mg QHS PO Last administered on 10/21/19at 20:29; Start 10/20/19 at 21:00 Olanzapine (ZyPREXA IM) 10 mg 1X ONCE IM Last administered on 10/20/19at 21:53; Start 10/20/19 at 20:30; Stop 10/20/19 at 20:38; Status DC Haloperidol Lactate (Haldol Inj) 5 mg PRN Q6HRS PRN IVP AGITATION Last administered on 10/21/19at 20:30; Start 10/20/19 at 20:30 Cefazolin Sodium 1000 mg/Dextrose 50 ml @ 100 mls/hr Q8HRS IV ; Start 10/21/19 at 10:00; Status Cancel Cefazolin Sodium (Ancef) 1 gm Q8HRS IVP Last administered on 10/22/19at 06:23; Start 10/21/19 at 10:00 Lorazepam (Ativan Inj) 2 mg PRN Q2HRS PRN IVP ANXIETY / AGITATION Last administered on 10/21/19at 23:09; Start 10/21/19 at 11:15 Lactobacillus Rhamnosus (Culturelle) 1 cap BID PO Last administered on 10/21/19 20:29; Start 10/21/19 at 13:00 Sodium Chloride 1,000 ml @ 100 mls/hr Q10H IV Last administered on 10/22/19at 06:23; Start 10/21/19 at 18:45 Vitals/I & O Vital Sign - Last 24 Hours 10/21/19 10/21/19 10/21/19 10/21/19 11:00 15:00 16:14 19:00 Temp 97.6 97.9 98.2 98.3 97.6 97.9 98.2 98.3 Pulse 99 97 102 59 Resp 20 20 16 18 B/P (MAP) 113/60 (77) 107/51 (69) 103/49 (67) 103/84 (90) Pulse Ox 92 94 88 97 O2 Delivery Room Air Room Air 10/21/19 10/21/19 10/22/19 10/22/19 20:00 23:00 03:00 07:00 Temp 97.9 98.1 98.4 97.9 98.1 98.4 Pulse 65 59 58 Resp 18 18 18 B/P (MAP) 123/87 (99) 102/59 (73) 108/51 (70) Pulse Ox 96 96 96 O2 Delivery Room Air Room Air Room Air Room Air 10/22/19 08:00 O2 Delivery Room Air Intake and Output 10/21/19 10/21/19 10/22/19 15:00 23:00 07:00 Intake Total 1400 ml 100 ml Balance 1400 ml 100 ml Nutrition Consultation Dietary Evaluation: Recommendations by RD: Dietary education by RD Comments: REC continue nutrition care plan Expected Outcomes/Goals: to meet >75% est nutr needs Malnutrition Findings: Body Fat Depletion (Non Severe: Mild Depletion Weight Status: Underweight Justicifation of Admission Dx: Justifications for Admission: Justification of Admission Dx: N/A SHENG EVANS MD Oct 22, 2019 10:27
--- NOTE | 2019-10-22 10:36 | NUR ---
SW following. Discussed with RN, pt from home with family - recently moved here from [place]. Pt on room air, cardiac diet, susceptibilities pending. Psych consult ordered, PT/OT to work with pt. SW will continue to follow.
--- NOTE | 2019-10-22 10:59 | PDOC ---
PULMONARY PROGRESS NOTES DATE: 10/22/19 TIME: 10:57 Subjective no soa Vitals Vital Signs Date Time Temp Pulse Resp B/P (MAP) Pulse Ox O2 Delivery O2 Flow Rate FiO2 10/22/19 08:00 Room Air 10/22/19 07:00 98.4 58 18 108/51 (70) 96 98.4 General: Alert, No acute distress Lungs: Clear Cardiovascular: S1 Abdomen: Soft Extremities: No Edema Skin: Warm Labs Laboratory Tests Test 10/20/19 12:18 10/20/19 12:40 10/20/19 13:25 10/20/19 15:15 White Blood Count 13.5 x10^3/uL (4.0-11.0) Red Blood Count 5.50 x10^6/uL (4.30-5.70) Hemoglobin 17.3 g/dL (13.0-17.5) Hematocrit 49.6 % (39.0-53.0) Mean Corpuscular Volume 90 fL (79-100) Mean Corpuscular Hemoglobin 31 pg (25-35) Mean Corpuscular Hemoglobin Concent 35 g/dL (31-37) Red Cell Distribution Width 14.5 % (11.5-14.5) Platelet Count 161 x10^3/uL (140-400) Neutrophils (%) (Auto) 92 % (31-73) Lymphocytes (%) (Auto) 4 % (24-48) Monocytes (%) (Auto) 3 % (0-9) Eosinophils (%) (Auto) 0 % (0-3) Basophils (%) (Auto) 0 % (0-3) Neutrophils # (Auto) 12.5 x10^3/uL (1.8-7.7) Lymphocytes # (Auto) 0.6 x10^3/uL (1.0-4.8) Monocytes # (Auto) 0.4 x10^3/uL (0.0-1.1) Eosinophils # (Auto) 0.0 x10^3/uL (0.0-0.7) Basophils # (Auto) 0.0 x10^3/uL (0.0-0.2) Segmented Neutrophils % 79 % (35-66) Band Neutrophils % 18 % (0-9) Lymphocytes % 3 % (24-48) Toxic Granulation Slight Platelet Estimate Adequate (ADEQUATE) Prothrombin Time 15.1 SEC (11.7-14.0) Prothromb Time International Ratio 1.2 (0.8-1.1) Sodium Level 135 mmol/L (136-145) Potassium Level 3.9 mmol/L (3.5-5.1) Chloride Level 99 mmol/L (98-107) Carbon Dioxide Level 27 mmol/L (21-32) Anion Gap 9 (6-14) Blood Urea Nitrogen 17 mg/dL (8-26) Creatinine 1.2 mg/dL (0.7-1.3) Estimated GFR (Cockcroft-Gault) 58.4 BUN/Creatinine Ratio 14 (6-20) Glucose Level 113 mg/dL (70-99) Lactic Acid Level 1.4 mmol/L (0.4-2.0) Calcium Level 8.4 mg/dL (8.5-10.1) Total Bilirubin 1.2 mg/dL (0.2-1.0) Aspartate Amino Transf (AST/SGOT) 22 U/L (15-37) Alanine Aminotransferase (ALT/SGPT) 27 U/L (16-63) Alkaline Phosphatase 67 U/L (46-116) Creatine Kinase 219 U/L (39-308) Troponin I Quantitative 0.068 ng/mL (0.000-0.055) CL-Xos-E-Type Natriuretic Peptide 2122 pg/mL (0-449) Total Protein 7.2 g/dL (6.4-8.2) Albumin 3.0 g/dL (3.4-5.0) Albumin/Globulin Ratio 0.7 (1.0-1.7) Salicylates Level < 2.8 mg/dL (2.8-20.0) Salicylate Last Dose Date Unknown Salicylate Last Dose Time Unknown Acetaminophen Level < 2 mcg/ml (10-30) Acetaminophen Last Dose Date Unknown Acetaminophen Last Dose Time Unknown Ethyl Alcohol Level < 10 mg/dL (0-10) Coronavirus (PCR) Not detected (Not Detected) Urine Collection Type U cath Urine Color [place]ombs Urine Clarity Clear Urine pH 6.0 (<5.0-8.0) Urine Specific Collins 1.025 (1.000-1.030) Urine Protein 100 mg/dL (NEG-TRACE) Urine Glucose (UA) Negative mg/dL (NEG) Urine Ketones (Stick) Trace mg/dL (NEG) Urine Blood Moderate (NEG) Urine Nitrite Positive (NEG) Urine Bilirubin Small (NEG) Urine Urobilinogen Dipstick 2.0 mg/dL (0.2 mg/dL) Urine Leukocyte Esterase Trace (NEG) Urine RBC 3-5 /HPF (0-2) Urine WBC 5-10 /HPF (0-4) Urine Transitional Epithelial Cells Mod /LPF Urine Bacteria Many /HPF (0-FEW) Urine Mucus Mod /LPF Urine Opiates Screen Neg (NEG) Urine Methadone Screen Neg (NEG) Urine Barbiturates Neg (NEG) Urine Phencyclidine Screen Neg (NEG) Urine Amphetamine/Methamphetamine Neg (NEG) Urine Benzodiazepines Screen Neg (NEG) Urine Cocaine Screen Neg (NEG) Urine Cannabinoids Screen Neg (NEG) Urine Ethyl Alcohol Neg (NEG) O2 Saturation 95 % (92-99) Arterial Blood pH 7.41 (7.35-7.45) Arterial Blood pCO2 at Patient Temp 34 mmHg (35-46) Arterial Blood pO2 at Patient Temp 72 mmHg (65-108) Arterial Blood HCO3 21 mmol/L (21-28) Arterial Blood Base Excess -3 mmol/L (-3-3) Oxyhemoglobin 93.2 % Methemoglobin 0.3 % (0.0-1.9) Carbon Monoxide, Quantitative 1.4 % (0.0-1.9) FiO2 Ra 21% Test 10/20/19 17:45 10/21/19 00:20 10/21/19 06:25 Troponin I Quantitative 0.138 ng/mL (0.000-0.055) 0.273 ng/mL (0.000-0.055) 0.252 ng/mL (0.000-0.055) Procalcitonin 4.06 ng/mL (0.00-0.10) White Blood Count 7.5 x10^3/uL (4.0-11.0) Red Blood Count 4.70 x10^6/uL (4.30-5.70) Hemoglobin 14.6 g/dL (13.0-17.5) Hematocrit 42.4 % (39.0-53.0) Mean Corpuscular Volume 90 fL (79-100) Mean Corpuscular Hemoglobin 31 pg (25-35) Mean Corpuscular Hemoglobin Concent 35 g/dL (31-37) Red Cell Distribution Width 15.0 % (11.5-14.5) Platelet Count 110 x10^3/uL (140-400) Neutrophils (%) (Auto) 83 % (31-73) Lymphocytes (%) (Auto) 12 % (24-48) Monocytes (%) (Auto) 6 % (0-9) Eosinophils (%) (Auto) 0 % (0-3) Basophils (%) (Auto) 0 % (0-3) Neutrophils # (Auto) 6.1 x10^3/uL (1.8-7.7) Lymphocytes # (Auto) 0.9 x10^3/uL (1.0-4.8) Monocytes # (Auto) 0.4 x10^3/uL (0.0-1.1) Eosinophils # (Auto) 0.0 x10^3/uL (0.0-0.7) Basophils # (Auto) 0.0 x10^3/uL (0.0-0.2) Sodium Level 139 mmol/L (136-145) Potassium Level 4.1 mmol/L (3.5-5.1) Chloride Level 105 mmol/L (98-107) Carbon Dioxide Level 25 mmol/L (21-32) Anion Gap 9 (6-14) Blood Urea Nitrogen 24 mg/dL (8-26) Creatinine 1.1 mg/dL (0.7-1.3) Estimated GFR (Cockcroft-Gault) 64.6 BUN/Creatinine Ratio 22 (6-20) Glucose Level 81 mg/dL (70-99) Calcium Level 8.0 mg/dL (8.5-10.1) Total Bilirubin 0.9 mg/dL (0.2-1.0) Aspartate Amino Transf (AST/SGOT) 29 U/L (15-37) Alanine Aminotransferase (ALT/SGPT) 28 U/L (16-63) Alkaline Phosphatase 45 U/L (46-116) Total Protein 5.5 g/dL (6.4-8.2) Albumin 2.4 g/dL (3.4-5.0) Albumin/Globulin Ratio 0.8 (1.0-1.7) Triglycerides Level 88 mg/dL (0-150) Cholesterol Level 95 mg/dL (0-200) LDL Cholesterol, Calculated 36 mg/dL (0-100) VLDL Cholesterol, Calculated 18 mg/dL (0-40) Non-HDL Cholesterol Calculated 54 mg/dL (0-129) HDL Cholesterol 41 mg/dL (40-60) Cholesterol/HDL Ratio 2.3 Impression . 1. Staphylococcal sepsis. The patient's blood cultures were positive 06/19. 2. Staphylococcus aureus urinary tract infection. 3. Abnormal CT chest with basilar infiltrate versus atelectasis along with tiny lung nodules. 4. Underlying suspected dementia. Plan . 1. Continue present antibiotics. 2. Follow all final urine and blood cultures. 3. P.r.n. oxygen. 4. DVT prophylaxis with Lovenox. 5. Would recommend to discuss advanced directives. 6. Monitor mental status. 7. Discussed with Dr. Pablo Chapa. CASS QUINONEZ MD Oct 22, 2019 10:59
[2019-10-22 11:00] VITALS: BP 102/52
--- NOTE | 2019-10-22 13:18 | CARD ---
MR#: [id number] Date of Study: 10/22/2019 Ordering Physician: HELENA SYLVESTER, Referring Physician: HELENA SYLVESTER, Tech: Laurence Abreu APPROVED REPORT EXAM: Two-dimensional and M-mode echocardiogram with Doppler and color Doppler. Other Information Quality : AverageHR: 64bpm Technically limited study due to Combative patient INDICATION Bacteremia 2D DIMENSIONS Left Atrium(2D)2.9 (1.6-4.0cm)IVSd1.0 (0.7-1.1cm) Aortic Root(2D)3.0 (2.0-3.7cm)LVDd4.2 (3.9-5.9cm) LVOT Diameter2.0 (1.8-2.4cm)PWd0.9 (0.7-1.1cm) LVDs2.7 (2.5-4.0cm)FS (%) 35.9 % SV50.3 mlLVEF(%)65.9 (>50%) Aortic Valve AoV Peak Jj.117.0cm/sAoV VTI28.6cm AO Peak GR.5.5mmHgLVOT VTI 23.34cm AO Mean GR.3mmHg Mitral Valve MV E Eykexpda93.9cm/sMV E Peak Gr.3mmHg MV DECEL [id number] A Khmgmsob06.9cm/s MV E Mean Gr.1mmHgE/A Ratio1.1 TDI Lateral E' P. V8.63cm/sMedial E' P. V10.39cm/s E/Lateral E'9.3E/Medial E'7.7 Tricuspid Valve TR P. Kittnegn842uh/sRAP [id number] TR Peak Gr.10reNhUHHO01dySp LEFT VENTRICLE The left ventricle is normal size. There is normal left ventricular wall thickness. The left ventricu lar systolic function is normal. The ejection fraction is 60-65%. There is normal LV segmental wall m otion. RIGHT VENTRICLE The right ventricle is normal size. There is normal right ventricular wall thickness. The right ventr icular systolic function is normal. ATRIA The left atrium size is normal. The right atrium size is normal. The interatrial septum is intact wit h no evidence for an atrial septal defect or patent foramen ovale as noted on 2-D or Doppler imaging. AORTIC VALVE The aortic valve is thickened but opens well. Doppler and Color Flow revealed no significant aortic r egurgitation. There is no significant aortic valvular stenosis. Calculated aortic valve area is 2.59 cm2 with maximum pressure gradient of 7 mmHg and mean pressure gradient of 4 mmHg. MITRAL VALVE The mitral valve is thickened but opens well. There is no evidence of mitral valve prolapse. There is no mitral valve stenosis with an mean gradient of 1.29 mmHg. Doppler and Color-flow revealed trace m itral regurgitation. TRICUSPID VALVE The tricuspid valve is normal in structure and function. Doppler and Color Flow revealed trace tricus pid regurgitation with an estimated PAP of 36 mmHg. There is no tricuspid valve stenosis. PULMONIC VALVE The pulmonic valve is not well visualized. Doppler and Color Flow revealed no pulmonic valvular regur gitation. GREAT VESSELS The aortic root is normal in size. The IVC is normal in size and collapses >50% with inspiration. PERICARDIAL EFFUSION There is no evidence of significant pericardial effusion. Critical Notification Critical Value: No <Conclusion> The left ventricular systolic function is normal. The ejection fraction is 60-65%. There is normal LV segmental wall motion. Trace mitral regurgitation. Trace tricuspid regurgitation with an estimated PAP of 36 mmHg. There is no evidence of significant pericardial effusion. No obvious intracardiac vegetation or thrombus. Signed by : Cl Rosas, Electronically Approved : 10/22/2019 13:17:35
--- NOTE | 2019-10-22 13:44 | PDOC ---
HELENA SYLVESTER RESTAURANT WORKER 10/22/19 1343: CARDIO Progress Notes Date and Time Date of Service 10/22/2019 Time of Evaluation 1100 Subjective Subjective: Other (restless) Vitals Vitals Vital Signs Date Time Temp Pulse Resp B/P (MAP) Pulse Ox O2 Delivery O2 Flow Rate FiO2 10/22/19 11:00 97.8 61 18 102/52 (69) 92 Room Air 97.8 Weight Weight [ ] Input and Output Intake and Output Intake and Output 10/22/19 07:00 Intake Total 1500 ml Balance 1500 ml Intake Oral 100 ml IV Total 1400 ml # Voids 6 # Bowel Movements 6 Microbiology Micro Microbiology 10/20/19 Urine Culture - Final, Complete 10/20/19 Antimicrobic Susceptibility - Final, Complete 10/20/19 Blood Culture - Preliminary, Resulted Physical Exam HEENT: Neck Supple W Full Motion Chest: Symmetric LUNGS: Other (diminished) Heart: RRR (of tele) Abdomen: Soft N/T Extremities: No Edema Neurology: alert, confused, other (restless) Assessment Assessment 1. Possible CAP with fever: pulmonary following. Covid negative 2. UTI with bacteremia: Staph per BC ID following 3. Metabolic encephalopathy with possible underlying dementia 4. Elevated troponin: peaked at 0.2 no noted cardiac symptoms per chart review. EKG SR without acute changes. Suspect demand mediated. EF and WM nml, no signs of endocarditis 5. Nontraumatic Mechanical fall: due to weakness 6. Coronary calcifications: per CT 7. Mild thrombocytopenia Recommendations 1. Reviewed TTE. Unremarkable otherwise. May use ASA once PO allowed. Lipids are well controlled 2. Antibiotic per ID. 3. Will follow as needed. 4. Could consider outpt stress test. Justicifation of Admission Dx: Justifications for Admission: Justification of Admission Dx: N/A VÍCTOR JOSE MD 10/23/19 0740: CARDIO Progress Notes Plan Plan Late entry for 10/22/2019 The patient was seen and interviewed as well as examined at the bedside. The chart was reviewed. The case was discussed. Agree with the plan of care. NGAHELENA Ortiz RESTAURANT WORKER Oct 22, 2019 13:43 VÍCTOR JOSE MD Oct 23, 2019 07:40
[2019-10-22 15:00] VITALS: BP 120/55
--- NOTE | 2019-10-22 15:40 | NUR ---
PATIENT ARRIVED ON THE UNIT PER BED, CONFUSED AND DOES NOT MAKE EYE CONTACT, REFUSING VITALS AT THIS TIME, COMFORT MEASURES GIVEN, SIDERAILS UP X2, CALL LIGHT W/I REACH, WILL MONITOR.
[2019-10-22 18:24] VITALS: BP 112/75
[2019-10-22] MEDS: TAMSULOSIN 0.4 MG CAP.ER.24H. PO SCH (21:38)
[2019-10-22 23:34] VITALS: BP 119/53
--- NOTE | 2019-10-23 00:03 | PDOC1 ---
History & Psych Evaluation Date of Service: DOS: DATE: 10/23/19 TIME: 00:03 Source: Source: Caregiver, Chart review, Patient Identification: Identification 79-year-old gentleman presented with [id number] and granddaughter for altered mental status. Chief Complaint: Chief Complaint Altered mental status. History of Present Illness: HPI: 79-year-old gentleman with history of anger issues and memory problems admitted with altered mental status. He was reportedly brought in by his [id number] and granddaughter for altered mental status. Patient was living in [place], noticed by his architect marine for significant weight loss and confusion. Family was reportedly in contact with patient over phone. When seen, patient was completely disorganized, unable to comprehend, and fully disoriented. He could not understand questions being asked as his answers were completely out of the context of questions. Denied suicidal or homicidal thoughts. Denied auditory or visual hallucinations. Past Psychiatric History: Past psychiatric history is not available due to patient factor Past Medical History: History of confusion and memory problem Family History: Psychiatric family history is not available due to patient factor Social History: Social History: Patient was living in [facility] by himself. Current Medications: Current Medications Current Medications Medications (Trade) Dose Ordered Sig/Jasvir Start Time Stop Time Status Last Admin Dose Admin Acetaminophen (Tylenol Supp) 650 mg 1X ONCE 10/20/19 12:45 10/20/19 12:50 DC 10/20/19 13:19 650 MG Acetaminophen (Tylenol) 650 mg PRN Q4HRS PRN 10/20/19 14:45 Cefazolin Sodium (Ancef) 1 gm Q8HRS 10/21/19 10:00 10/22/19 21:38 1 GM Cefazolin Sodium 1000 mg/Dextrose 50 ml @ 100 mls/hr Q8HRS 10/21/19 10:00 Cancel Enoxaparin Sodium (Lovenox 40mg Syringe) 40 mg Q12HR 10/20/19 21:00 10/22/19 21:38 40 MG Haloperidol Lactate (Haldol Inj) 5 mg PRN Q6HRS PRN 10/20/19 20:30 10/21/19 20:30 5 MG Info (CONTRAST GIVEN -- Rx MONITORING) 1 each PRN DAILY PRN 10/20/19 14:00 10/22/19 13:59 DC Iohexol (Omnipaque 300 Mg/ml) 60 ml 1X ONCE 10/20/19 13:45 10/20/19 13:49 DC 10/20/19 13:45 60 ML Lactobacillus Rhamnosus (Culturelle) 1 cap BID 10/21/19 13:00 10/22/19 21:38 1 CAP Lorazepam (Ativan Inj) 2 mg PRN Q2HRS PRN 10/21/19 11:15 10/21/19 23:09 2 MG Olanzapine (ZyPREXA IM) 10 mg 1X ONCE 10/20/19 20:30 10/20/19 20:38 DC 10/20/19 21:53 10 MG Olanzapine (ZyPREXA ZYDIS) 5 mg PRN BID PRN 10/20/19 20:30 Ondansetron HCl (Zofran) 4 mg PRN Q4HRS PRN 10/20/19 20:30 Piperacillin Sod/ Tazobactam Sod 3.375 gm/Sodium Chloride 50 ml @ 100 mls/hr Q6HRS 10/20/19 18:00 10/21/19 09:41 DC 10/21/19 06:31 100 MLS/HR Sodium Chloride 1,000 ml @ 100 mls/hr Q10H 10/21/19 18:45 10/22/19 13:38 100 MLS/HR Tamsulosin HCl (Flomax) 0.4 mg QHS 10/20/19 21:00 10/22/19 21:38 0.4 MG Vancomycin HCl (Vanco Per Pharmacy) 1 each PRN DAILY PRN 10/20/19 17:30 10/22/19 11:33 DC 10/21/19 11:05 1 EACH Vancomycin HCl (Vancomycin Trough Level) 1 each 1X ONCE 10/22/19 17:30 10/22/19 11:34 DC Vancomycin HCl 1.25 gm/Sodium Chloride 250 ml @ 166.667 mls/hr 1X ONCE 10/20/19 18:00 10/20/19 19:29 DC 10/20/19 18:00 166.667 MLS/HR Vancomycin HCl 750 mg/Sodium Chloride 250 ml @ 250 mls/hr Q24H 10/21/19 18:00 10/22/19 11:33 DC 10/21/19 17:23 250 MLS/HR Allergies: Allergies: Coded Allergies: No Known Drug Allergies (Unverified , 10/20/19) Mental Status Examination: Mental Status Examination gentleman appears his stated age, disheveled Uncooperative, resistant to psychological exploration Disoriented Thought process disorganized Denied auditory or visual hallucinations No abnormal perception noted Denied suicidal or homicidal thoughts Mood is dysphoric Affect is dysthymic Insight is poor Judgment is poor Impulse control is poor Attention span and concentration poor Recent and remote memory impaired. ROS: 14 point review of system is negative except for stated above. Physical Exam: Refer to Physician's note. UPPER CUTTER OUT: No focal deficit MSK: No EPS, TDK, or abnormal involuntary movements Vitals: Vitals Vital Signs Date Time Temp Pulse Resp B/P (MAP) Pulse Ox O2 Delivery O2 Flow Rate FiO2 10/22/19 23:34 97.5 50 20 119/53 (75) 98 Room Air 97.5 Labs: Labs Laboratory Tests Test 10/21/19 00:20 10/21/19 06:25 Troponin I Quantitative 0.273 ng/mL (0.000-0.055) 0.252 ng/mL (0.000-0.055) White Blood Count 7.5 x10^3/uL (4.0-11.0) Red Blood Count 4.70 x10^6/uL (4.30-5.70) Hemoglobin 14.6 g/dL (13.0-17.5) Hematocrit 42.4 % (39.0-53.0) Mean Corpuscular Volume 90 fL (79-100) Mean Corpuscular Hemoglobin 31 pg (25-35) Mean Corpuscular Hemoglobin Concent 35 g/dL (31-37) Red Cell Distribution Width 15.0 % (11.5-14.5) Platelet Count 110 x10^3/uL (140-400) Neutrophils (%) (Auto) 83 % (31-73) Lymphocytes (%) (Auto) 12 % (24-48) Monocytes (%) (Auto) 6 % (0-9) Eosinophils (%) (Auto) 0 % (0-3) Basophils (%) (Auto) 0 % (0-3) Neutrophils # (Auto) 6.1 x10^3/uL (1.8-7.7) Lymphocytes # (Auto) 0.9 x10^3/uL (1.0-4.8) Monocytes # (Auto) 0.4 x10^3/uL (0.0-1.1) Eosinophils # (Auto) 0.0 x10^3/uL (0.0-0.7) Basophils # (Auto) 0.0 x10^3/uL (0.0-0.2) Sodium Level 139 mmol/L (136-145) Potassium Level 4.1 mmol/L (3.5-5.1) Chloride Level 105 mmol/L (98-107) Carbon Dioxide Level 25 mmol/L (21-32) Anion Gap 9 (6-14) Blood Urea Nitrogen 24 mg/dL (8-26) Creatinine 1.1 mg/dL (0.7-1.3) Estimated GFR (Cockcroft-Gault) 64.6 BUN/Creatinine Ratio 22 (6-20) Glucose Level 81 mg/dL (70-99) Calcium Level 8.0 mg/dL (8.5-10.1) Total Bilirubin 0.9 mg/dL (0.2-1.0) Aspartate Amino Transf (AST/SGOT) 29 U/L (15-37) Alanine Aminotransferase (ALT/SGPT) 28 U/L (16-63) Alkaline Phosphatase 45 U/L (46-116) Total Protein 5.5 g/dL (6.4-8.2) Albumin 2.4 g/dL (3.4-5.0) Albumin/Globulin Ratio 0.8 (1.0-1.7) Triglycerides Level 88 mg/dL (0-150) Cholesterol Level 95 mg/dL (0-200) LDL Cholesterol, Calculated 36 mg/dL (0-100) VLDL Cholesterol, Calculated 18 mg/dL (0-40) Non-HDL Cholesterol Calculated 54 mg/dL (0-129) HDL Cholesterol 41 mg/dL (40-60) Cholesterol/HDL Ratio 2.3 Diagnosis: Diagnosis: Acute delirium, likely multifactorial, hyperactive and hypoactive type. Unspecified neurocognitive disorder Assessment: Symptomatology and set presentation is suggestive of acute delirium/metabolic encephalopathy. Collateral information would help to determine underlying neurocognitive status and baseline status. We will continue medications as prescribed. Antipsychotics for agitation. Plan: Continue medications as prescribed. Avoid sedatives and hypnotics. Applied delirium protocol. Avoid sundowning Thank you for involving inpatient care JUAN WHITLEY MD Oct 23, 2019 00:03
[2019-10-23] MEDS: IV NORMAL SALINE 1000ML BAG 1,000 ML IV SCH ×3 (01:26→23:53)
[2019-10-23 03:02] VITALS: BP 118/58
[2019-10-23 04:58] LABS: BASO % 1 % (0-3); EOS # 0.5 x10^3/uL (0.0-0.7); EOS % 13 % (0-3); HEMATOCRIT 39.8 % (39.0-53.0); HEMOGLOBIN 13.8 g/dL (13.0-17.5); LYMPH # 0.7 x10^3/uL (1.0-4.8); LYMPH % 17 % (24-48); MEAN CORPUSCULAR HEMOGLOBIN 31 pg (25-35); MEAN CORPUSCULAR HGB CONC 35 g/dL (31-37); MEAN CORPUSCULAR VOLUME 90 fL (79-100); MONO # 0.2 x10^3/uL (0.0-1.1); MONO % 6 % (0-9); NEUT # 2.6 x10^3/uL (1.8-7.7); NEUT % 63 % (31-73); PLATELET COUNT 119 x10^3/uL (140-400); RED BLOOD COUNT 4.43 x10^6/uL (4.30-5.70); RED CELL DISTRIBUTION WIDTH 14.5 % (11.5-14.5); WHITE BLOOD COUNT 4.1 x10^3/uL (4.0-11.0)
[2019-10-23 05:22] LABS: ALBUMIN/GLOBULIN RATIO 0.7 (1.0-1.7); CALCIUM 7.4 mg/dL (8.5-10.1); CREATININE 0.7 mg/dL (0.7-1.3); GFR 108.8; POTASSIUM 3.5 mmol/L (3.5-5.1); TOTAL BILIRUBIN 0.5 mg/dL (0.2-1.0); TOTAL PROTEIN 4.9 g/dL (6.4-8.2)
[2019-10-23] MEDS: ceFAZolin SODIUM IV Push 1 GM VIAL. IVP SCH ×3 (06:14→21:35)
[2019-10-23 07:00] VITALS: BP 111/62
[2019-10-23] MEDS: LACTOBACILLUS RHAMNOSUS GG 1 CAPSULE. PO SCH ×2 (08:41→21:00)
[2019-10-23] MEDS: ENOXAPARIN 40 MG/0.4 ML SYRINGE. SQ SCH ×2 (08:41→21:34)
--- NOTE | 2019-10-23 09:15 | NUR ---
CANDIS REPORTS TO THIS SUPPLY CHAIN TECHNICIAN THAT THE PATIENT EXHIBITED COUGHING AFTER RECEIVING CLEAR LIQUIDS AND TROUBLE SWALLOWING SCRAMBLED EGGS. DR. JUAREZ ON THE UNIT AND INFORMED, WILL PLACE ORDERS FOR PT, OT AND ST.
--- NOTE | 2019-10-23 09:49 | NUR ---
SS following up with discharge planning. SS reviewed pt chart and discussed with pt RN. Pt confused. Psychiatrist met with pt yesterday and started medications. Pt is currently on room air and IV Ancef. COVID19 negative. PT/OT/ST ordered. SS will continue to follow for discharge planning.
[2019-10-23 11:00] VITALS: BP 115/65
--- NOTE | 2019-10-23 11:01 | PDOC ---
Infectious Disease Note Subjective Subjective pt is now awake able to communicate ROS KEITH Denies any nausea vomiting diarrhea chest pain shortness of breath abdominal pain Vital Sign Vital Signs Vital Signs Date Time Temp Pulse Resp B/P (MAP) Pulse Ox O2 Delivery O2 Flow Rate FiO2 10/23/19 07:00 97.9 56 14 111/62 (78) 97 Room Air 97.9 Physical Exam PHYSICAL EXAM GENERAL: The patient comfortable VITAL SIGNS: Stable, afebrile. HEENT: Both pupils are round and reacting. No conjunctival lesion. No lesion in the mouth. NECK: Supple. No JVP, no lymphadenopathy. LUNGS: Clear. HEART: S1, S2 regular. ABDOMEN: Benign. EXTREMITIES: No edema or cyanosis. SKIN: Unremarkable. NEUROLOGICAL: Does move all the extremities able to communicate now make sense. Does have abnormal involuntary movements Labs Lab Laboratory Tests Test 10/23/19 04:25 White Blood Count 4.1 x10^3/uL (4.0-11.0) Red Blood Count 4.43 x10^6/uL (4.30-5.70) Hemoglobin 13.8 g/dL (13.0-17.5) Hematocrit 39.8 % (39.0-53.0) Mean Corpuscular Volume 90 fL (79-100) Mean Corpuscular Hemoglobin 31 pg (25-35) Mean Corpuscular Hemoglobin Concent 35 g/dL (31-37) Red Cell Distribution Width 14.5 % (11.5-14.5) Platelet Count 119 x10^3/uL (140-400) Neutrophils (%) (Auto) 63 % (31-73) Lymphocytes (%) (Auto) 17 % (24-48) Monocytes (%) (Auto) 6 % (0-9) Eosinophils (%) (Auto) 13 % (0-3) Basophils (%) (Auto) 1 % (0-3) Neutrophils # (Auto) 2.6 x10^3/uL (1.8-7.7) Lymphocytes # (Auto) 0.7 x10^3/uL (1.0-4.8) Monocytes # (Auto) 0.2 x10^3/uL (0.0-1.1) Eosinophils # (Auto) 0.5 x10^3/uL (0.0-0.7) Basophils # (Auto) 0.0 x10^3/uL (0.0-0.2) Sodium Level 142 mmol/L (136-145) Potassium Level 3.5 mmol/L (3.5-5.1) Chloride Level 110 mmol/L (98-107) Carbon Dioxide Level 22 mmol/L (21-32) Anion Gap 10 (6-14) Blood Urea Nitrogen 18 mg/dL (8-26) Creatinine 0.7 mg/dL (0.7-1.3) Estimated GFR (Cockcroft-Gault) 108.8 BUN/Creatinine Ratio 26 (6-20) Glucose Level 78 mg/dL (70-99) Calcium Level 7.4 mg/dL (8.5-10.1) Total Bilirubin 0.5 mg/dL (0.2-1.0) Aspartate Amino Transf (AST/SGOT) 20 U/L (15-37) Alanine Aminotransferase (ALT/SGPT) 14 U/L (16-63) Alkaline Phosphatase 41 U/L (46-116) Total Protein 4.9 g/dL (6.4-8.2) Albumin 2.0 g/dL (3.4-5.0) Albumin/Globulin Ratio 0.7 (1.0-1.7) Micro BLOOD CULTURE LC Final Final GRAM POSITIVE COCCI FINAL ID= [STAPHYLOCOCCUS AUREUS] STAPHYLOCOCCUS AUREUS ANTIMICROBIAL SUSCEPTIBILITY Final Comment POS MERLIN TYPE 38 STAPHYLOCOCCUS AUREUS ANTIBIOTIC RESULT INTERPRETATION AZITHROMYCIN <=2 S CLINDAMYCIN <=0.25 S CEFOXITIN SCREEN <=4 NEG CIPROFLOXACIN <=1 S CEFTAROLINE <=0.5 S DAPTOMYCIN <=0.5 S ERYTHROMYCIN <=0.25 S GENTAMICIN <=4 S LINEZOLID 2 S LEVOFLOXACIN <=1 S OXACILLIN <=0.25 S PENICILLIN >2 Christina RIFAMPIN <=1 S TRIMETHOPRIM/SULFAMETHOXAZOLE <=0.5/9.5 S TETRACYCLINE <=4 S VANCOMYCIN 1 S Unless otherwise specified, Testing Performed by: [address] [address] For Inquires, the Physician may contact the Microbiology department at [phone] Objective Assessment IMPRESSION: 1. Staph aureus bacteremia, 4/4 bottles, MSSA / 2. Fever. 3. Leukocytosis. 4. Encephalopathy. 5. Unknown basal state or history. Plan Plan of Care cont antibiotics, cefazolin, Repeat blood culture Supportive care TTE negative cont supportive care GERHARD KUMAR MD Oct 23, 2019 11:01
--- NOTE | 2019-10-23 11:08 | PDOC ---
[employer] PROGRESS NOTE Date of Service DOS: DATE: 10/23/19 TIME: 11:02 Chief Complaint Chief Complaint IMPRESSION ======= UTI AMS Elevated troponin: peaked at 0.2 no noted cardiac symptoms per chart review. EKG SR without acute changes. Suspect demand mediated Nontraumatic Mechanical fall: due to weakness Staph aureus bacteremia, 06/19 bottles, susceptibilities are pending. Fever. Leukocytosis. METABOLIC Encephalopathy. Reticular nodular airspace disease with dependent consolidation in the lower lobes, nonspecific. This could be related to noncardiogenic edema or atypical pneumonia. Chronic aspiration is another consideration. Additional noncalcified pulmonary nodules within both lungs, nonspecific. 12 month Follow-up imaging to ensure stability. Asymmetric bladder wall thickening on the right, indeterminate. This could be related to acute or chronic cystitis or an underlying bladder mass. Correlate with clinical history. If indicated, a CT urogram could better evaluate. START TELE PULM CONSULT CONSIDER UROLOGY CONSULT 79 year old male with no known PMHx who presents with here with his [id number] and granddaughter for altered mental status. 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 Family notes they speak with him on the phone often and he has memory and anger issues and is estranged from them due to this. For the 3 days he has lived with them they note unsteady gait, and that he converses with them and is able to eat and drink on his own but only receives hot dogs and energy drinks, 4 per day each. Granddaughter states on 10/18 he ripped a screen door off of the wall and was urinating in drawers in their home. He was last seen normal last night, 10/18 at 2200. They stated for him this morning they went to get him up and he did not want to get out of bed and he was shivering and complaining that he was cold but they did not think he had a fever. Febrile to 103.7F in the ED, given 650mg acetaminophen suppository with improvement in his temperature. He showed no meningeal signs and was moving all extremities on examination, opens eyes, answers 1-2 word answers. Does not have any pain complaints. Tells me he needs to urinate. When asked about his missing left 4th finger he does note his hand hurts sometimes. XR negative for fracture. 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 CT chest with reticular nodular airspace disease with dependent consolidation in the lower lobes and noncalcified pulmonary nodules within both lungs, nonspecific. CT abdomen/pelvis reveal asymmetric bladder wall thickening on the right, indeterminate. This could be related to acute or chronic cystitis or an underlying bladder mass. Urine positive for LE and nitrites. White blood cell count is 13.5. Troponin elevated at 0.068, BNP is 2122. Patient has received 1 L of fluids. Started on empiric Zosyn IV. Admitted for altered mental status and fevers with likely bladder source. As he was just transported from [place], COVID 19 testing was performed as well. History of Present Illness History of Present Illness 10/23/19 Patient seen and examined Discussed with RN Discussed with speech therapy Patient mentioned he has lost 60 lbs because he has no dentures so it's become difficult to eat Covid (-) 10/22/19 Patient seen and examined Chart reviewed Discussed with RN Patient seemed confused but more calm Nurse mentioned patient had defecated while walking around the room Vitals/I&O Vitals/I&O: Vital Signs Date Time Temp Pulse Resp B/P (MAP) Pulse Ox O2 Delivery O2 Flow Rate FiO2 10/23/19 07:00 97.9 56 14 111/62 (78) 97 Room Air 97.9 I & O 10/22/19 10/22/19 10/23/19 15:00 23:00 07:00 Intake Total 0 ml 120 ml Balance 0 ml 120 ml Physical Exam Physical Exam: GENERAL: The patient comfortable VITAL SIGNS: Stable, afebrile. HEENT: Both pupils are round and reacting. No conjunctival lesion. No lesion in the mouth. NECK: Supple. No JVP, no lymphadenopathy. LUNGS: Clear. HEART: S1, S2 regular. ABDOMEN: Benign. EXTREMITIES: No edema or cyanosis. SKIN: Unremarkable. NEUROLOGICAL: Does move all the extremities able to communicate now make sense. Does have abnormal involuntary movements General: Alert, Cooperative, No acute distress, Other (restless) Heart: Regular rate (SR), Normal S1, Normal S2, No murmurs Lungs: Clear Abdomen: Soft Extremities: No edema Skin: No significant lesion Labs Labs: Laboratory Tests Test 10/23/19 04:25 White Blood Count 4.1 x10^3/uL (4.0-11.0) Red Blood Count 4.43 x10^6/uL (4.30-5.70) Hemoglobin 13.8 g/dL (13.0-17.5) Hematocrit 39.8 % (39.0-53.0) Mean Corpuscular Volume 90 fL (79-100) Mean Corpuscular Hemoglobin 31 pg (25-35) Mean Corpuscular Hemoglobin Concent 35 g/dL (31-37) Red Cell Distribution Width 14.5 % (11.5-14.5) Platelet Count 119 x10^3/uL (140-400) Neutrophils (%) (Auto) 63 % (31-73) Lymphocytes (%) (Auto) 17 % (24-48) Monocytes (%) (Auto) 6 % (0-9) Eosinophils (%) (Auto) 13 % (0-3) Basophils (%) (Auto) 1 % (0-3) Neutrophils # (Auto) 2.6 x10^3/uL (1.8-7.7) Lymphocytes # (Auto) 0.7 x10^3/uL (1.0-4.8) Monocytes # (Auto) 0.2 x10^3/uL (0.0-1.1) Eosinophils # (Auto) 0.5 x10^3/uL (0.0-0.7) Basophils # (Auto) 0.0 x10^3/uL (0.0-0.2) Sodium Level 142 mmol/L (136-145) Potassium Level 3.5 mmol/L (3.5-5.1) Chloride Level 110 mmol/L (98-107) Carbon Dioxide Level 22 mmol/L (21-32) Anion Gap 10 (6-14) Blood Urea Nitrogen 18 mg/dL (8-26) Creatinine 0.7 mg/dL (0.7-1.3) Estimated GFR (Cockcroft-Gault) 108.8 BUN/Creatinine Ratio 26 (6-20) Glucose Level 78 mg/dL (70-99) Calcium Level 7.4 mg/dL (8.5-10.1) Total Bilirubin 0.5 mg/dL (0.2-1.0) Aspartate Amino Transf (AST/SGOT) 20 U/L (15-37) Alanine Aminotransferase (ALT/SGPT) 14 U/L (16-63) Alkaline Phosphatase 41 U/L (46-116) Total Protein 4.9 g/dL (6.4-8.2) Albumin 2.0 g/dL (3.4-5.0) Albumin/Globulin Ratio 0.7 (1.0-1.7) Assessment and Plan Assessmemt and Plan Problems Medical Problems: (1) AMS (altered mental status) Status: Acute (2) Person under investigation for COVID-19 Status: Acute (3) UTI (urinary tract infection) Status: Acute Assessment: UTI AMS Elevated troponin: peaked at 0.2 no noted cardiac symptoms per chart review. EKG SR without acute changes. Suspect demand mediated Nontraumatic Mechanical fall: due to weakness Staph aureus bacteremia, / bottles, susceptibilities are pending. Fever. Leukocytosis. METABOLIC Encephalopathy. Reticular nodular airspace disease with dependent consolidation in the lower lobes, nonspecific. This could be related to noncardiogenic edema or atypical pneumonia. Chronic aspiration is another consideration. Additional noncalcified pulmonary nodules within both lungs, nonspecific. 12 month Follow-up imaging to ensure stability. Asymmetric bladder wall thickening on the right, indeterminate. This could be related to acute or chronic cystitis or an underlying bladder mass. Correlate with clinical history. 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 CT chest with reticular nodular airspace disease with dependent consolidation in the lower lobes and noncalcified pulmonary nodules within both lungs, nonspecific. CT abdomen/pelvis reveal asymmetric bladder wall thickening on the right, indeterminate. This could be related to acute or chronic cystitis or an underlying bladder mass. Urine positive for LE and nitrites. White blood cell count is 13.5. Troponin elevated at 0.068, BNP is 2122. Patient has received 1 L of fluids. Started on empiric Zosyn IV. Admitted for altered mental status and fevers with likely bladder source. As he was just transported from [place], COVID 19 testing was performed as well. Ejection fraction: 60-65% Plan: Encourage PO (honey thickened water) Mitts for patient safety Discharge disposition pending Video swallowing pending Continue PT/OT Full code Appreciate subspecialist input Comment Review of Relevant I have reviewed the following items katie (where applicable) has been applied. Justicifation of Admission Dx: Justifications for Admission: Justification of Admission Dx: N/A SANA JUAREZ III, DO Oct 23, 2019 11:08
--- NOTE | 2019-10-23 11:12 | PDOC ---
PULMONARY PROGRESS NOTES DATE: 10/23/19 TIME: 11:11 Subjective no soa Vitals Vital Signs Date Time Temp Pulse Resp B/P (MAP) Pulse Ox O2 Delivery O2 Flow Rate FiO2 10/23/19 08:00 Room Air 10/23/19 07:00 97.9 56 14 111/62 (78) 97 97.9 General: Alert, No acute distress Lungs: Clear Cardiovascular: S1 Abdomen: Soft Neuro Exam: Alert Extremities: Other (edema) Skin: Warm Labs Laboratory Tests Test 10/23/19 04:25 White Blood Count 4.1 x10^3/uL (4.0-11.0) Red Blood Count 4.43 x10^6/uL (4.30-5.70) Hemoglobin 13.8 g/dL (13.0-17.5) Hematocrit 39.8 % (39.0-53.0) Mean Corpuscular Volume 90 fL (79-100) Mean Corpuscular Hemoglobin 31 pg (25-35) Mean Corpuscular Hemoglobin Concent 35 g/dL (31-37) Red Cell Distribution Width 14.5 % (11.5-14.5) Platelet Count 119 x10^3/uL (140-400) Neutrophils (%) (Auto) 63 % (31-73) Lymphocytes (%) (Auto) 17 % (24-48) Monocytes (%) (Auto) 6 % (0-9) Eosinophils (%) (Auto) 13 % (0-3) Basophils (%) (Auto) 1 % (0-3) Neutrophils # (Auto) 2.6 x10^3/uL (1.8-7.7) Lymphocytes # (Auto) 0.7 x10^3/uL (1.0-4.8) Monocytes # (Auto) 0.2 x10^3/uL (0.0-1.1) Eosinophils # (Auto) 0.5 x10^3/uL (0.0-0.7) Basophils # (Auto) 0.0 x10^3/uL (0.0-0.2) Sodium Level 142 mmol/L (136-145) Potassium Level 3.5 mmol/L (3.5-5.1) Chloride Level 110 mmol/L (98-107) Carbon Dioxide Level 22 mmol/L (21-32) Anion Gap 10 (6-14) Blood Urea Nitrogen 18 mg/dL (8-26) Creatinine 0.7 mg/dL (0.7-1.3) Estimated GFR (Cockcroft-Gault) 108.8 BUN/Creatinine Ratio 26 (6-20) Glucose Level 78 mg/dL (70-99) Calcium Level 7.4 mg/dL (8.5-10.1) Total Bilirubin 0.5 mg/dL (0.2-1.0) Aspartate Amino Transf (AST/SGOT) 20 U/L (15-37) Alanine Aminotransferase (ALT/SGPT) 14 U/L (16-63) Alkaline Phosphatase 41 U/L (46-116) Total Protein 4.9 g/dL (6.4-8.2) Albumin 2.0 g/dL (3.4-5.0) Albumin/Globulin Ratio 0.7 (1.0-1.7) Laboratory Tests Test 10/23/19 04:25 White Blood Count 4.1 x10^3/uL (4.0-11.0) Red Blood Count 4.43 x10^6/uL (4.30-5.70) Hemoglobin 13.8 g/dL (13.0-17.5) Hematocrit 39.8 % (39.0-53.0) Mean Corpuscular Volume 90 fL (79-100) Mean Corpuscular Hemoglobin 31 pg (25-35) Mean Corpuscular Hemoglobin Concent 35 g/dL (31-37) Red Cell Distribution Width 14.5 % (11.5-14.5) Platelet Count 119 x10^3/uL (140-400) Neutrophils (%) (Auto) 63 % (31-73) Lymphocytes (%) (Auto) 17 % (24-48) Monocytes (%) (Auto) 6 % (0-9) Eosinophils (%) (Auto) 13 % (0-3) Basophils (%) (Auto) 1 % (0-3) Neutrophils # (Auto) 2.6 x10^3/uL (1.8-7.7) Lymphocytes # (Auto) 0.7 x10^3/uL (1.0-4.8) Monocytes # (Auto) 0.2 x10^3/uL (0.0-1.1) Eosinophils # (Auto) 0.5 x10^3/uL (0.0-0.7) Basophils # (Auto) 0.0 x10^3/uL (0.0-0.2) Sodium Level 142 mmol/L (136-145) Potassium Level 3.5 mmol/L (3.5-5.1) Chloride Level 110 mmol/L (98-107) Carbon Dioxide Level 22 mmol/L (21-32) Anion Gap 10 (6-14) Blood Urea Nitrogen 18 mg/dL (8-26) Creatinine 0.7 mg/dL (0.7-1.3) Estimated GFR (Cockcroft-Gault) 108.8 BUN/Creatinine Ratio 26 (6-20) Glucose Level 78 mg/dL (70-99) Calcium Level 7.4 mg/dL (8.5-10.1) Total Bilirubin 0.5 mg/dL (0.2-1.0) Aspartate Amino Transf (AST/SGOT) 20 U/L (15-37) Alanine Aminotransferase (ALT/SGPT) 14 U/L (16-63) Alkaline Phosphatase 41 U/L (46-116) Total Protein 4.9 g/dL (6.4-8.2) Albumin 2.0 g/dL (3.4-5.0) Albumin/Globulin Ratio 0.7 (1.0-1.7) Impression . 1. Staphylococcal sepsis. The patient's blood cultures were positive /. 2. Staphylococcus aureus urinary tract infection. 3. Abnormal CT chest with basilar infiltrate versus atelectasis along with tiny lung nodules. 4. Underlying suspected dementia. Plan . 1. Continue present antibiotics. 2. Follow all final urine and blood cultures. 3. P.r.n. oxygen. 4. DVT prophylaxis with Lovenox. 5. Would recommend to discuss advanced directives. 6. Monitor mental status. 7. Discussed with Dr. Pablo Chapa. CASS QUINONEZ MD Oct 23, 2019 11:12
[2019-10-23] MEDS ORDERED: BARIUM SULFATE 40% (APPLE) 148 GM PWD. PO ONE (11:15)
[2019-10-23 15:00] VITALS: BP 112/51
--- NOTE | 2019-10-23 17:34 | RAD ---
PROCEDURE: VIDEO SWALLOW STUDY STUDY DATE: 10/23/2019 CLINICAL INDICATION / HISTORY: Signs and symptoms of aspiration at bedside. Bilateral lower lobe consolidation and CT. TECHNIQUE: Real-time fluoroscopic imaging examination was performed in conjunction with speech therapy. The patient was administered barium labeled thin liquids, honey, pudding consistency compounds. FLUOROSCOPY TIME: 1.5 minutes. Number of Images: 1 COMPARISON: Abdomen CT of 10/20/2019. FINDINGS: Reduced oral coordination and posterior spillage into the pharynx was observed. In the pharyngeal phase, there was delayed swllowinitiation with diminished laryngeal excursion and residual post swallow in the vallecula and piriform sinuses. Aspiration was observed with all food consistencies tested, intermittently silent versus delayed spontaneous weak nonproductive cough. IMPRESSION: Dysphagia of the oral and pharyngeal phases as described.. Aspiration was observed with all tested food consistencies. Please refer to speech pathology notes for complete details and recommendations. Electronically signed by: Ac Resendez MD (10/23/2019 5:31 PM) [id number]
[2019-10-23 19:00] VITALS: BP 119/65
--- NOTE | 2019-10-23 20:42 | PDOC ---
F/U PHYSCH PROG NOTE Subjective: Gentleman with altered mental status seen for follow-up. Progress is reviewed with nursing staff. No major emotional or behavioral breakdown. However patient is restless and anxious. Upon interview, he appears more alert but comp letely disoriented and disorganized. Denies suicidal or homicidal thoughts. Denies auditory or visual hallucinations. No evidence of flora or hypomania. Objective: 14 point review of system is otherwise negative except for what is stated above. Vital Signs: Vital Signs Date Time Temp Pulse Resp B/P (MAP) Pulse Ox O2 Delivery O2 Flow Rate FiO2 10/23/19 19:00 99.2 54 18 119/65 (83) 97 Room Air 99.2 Labs: Laboratory Tests Test 10/23/19 04:25 White Blood Count 4.1 x10^3/uL (4.0-11.0) Red Blood Count 4.43 x10^6/uL (4.30-5.70) Hemoglobin 13.8 g/dL (13.0-17.5) Hematocrit 39.8 % (39.0-53.0) Mean Corpuscular Volume 90 fL (79-100) Mean Corpuscular Hemoglobin 31 pg (25-35) Mean Corpuscular Hemoglobin Concent 35 g/dL (31-37) Red Cell Distribution Width 14.5 % (11.5-14.5) Platelet Count 119 x10^3/uL (140-400) L Neutrophils (%) (Auto) 63 % (31-73) Lymphocytes (%) (Auto) 17 % (24-48) L Monocytes (%) (Auto) 6 % (0-9) Eosinophils (%) (Auto) 13 % (0-3) H Basophils (%) (Auto) 1 % (0-3) Neutrophils # (Auto) 2.6 x10^3/uL (1.8-7.7) Lymphocytes # (Auto) 0.7 x10^3/uL (1.0-4.8) L Monocytes # (Auto) 0.2 x10^3/uL (0.0-1.1) Eosinophils # (Auto) 0.5 x10^3/uL (0.0-0.7) Basophils # (Auto) 0.0 x10^3/uL (0.0-0.2) Sodium Level 142 mmol/L (136-145) Potassium Level 3.5 mmol/L (3.5-5.1) Chloride Level 110 mmol/L (98-107) H Carbon Dioxide Level 22 mmol/L (21-32) Anion Gap 10 (6-14) Blood Urea Nitrogen 18 mg/dL (8-26) Creatinine 0.7 mg/dL (0.7-1.3) Estimated GFR (Cockcroft-Gault) 108.8 BUN/Creatinine Ratio 26 (6-20) H Glucose Level 78 mg/dL (70-99) Calcium Level 7.4 mg/dL (8.5-10.1) L Total Bilirubin 0.5 mg/dL (0.2-1.0) Aspartate Amino Transferase (AST) 20 U/L (15-37) Alanine Aminotransferase (ALT) 14 U/L (16-63) L Alkaline Phosphatase 41 U/L (46-116) L Total Protein 4.9 g/dL (6.4-8.2) L Albumin 2.0 g/dL (3.4-5.0) L Albumin/Globulin Ratio 0.7 (1.0-1.7) L Laboratory Tests 10/23/19 04:25 Laboratory Tests 10/23/19 04:25 Medications: Current Medications Medications (Trade) Dose Ordered Sig/Jasvir Start Time Stop Time Status Last Admin Dose Admin Acetaminophen (Tylenol Supp) 650 mg 1X ONCE 10/20/19 12:45 10/20/19 12:50 DC 10/20/19 13:19 650 MG Acetaminophen (Tylenol) 650 mg PRN Q4HRS PRN 10/20/19 14:45 Barium Sulfate (Varibar Thin Liquid Apple) 148 gm 1X ONCE 10/23/19 11:15 10/23/19 11:16 DC 10/23/19 11:15 148 GM Cefazolin Sodium (Ancef) 1 gm Q8HRS 10/21/19 10:00 10/23/19 18:14 1 GM Cefazolin Sodium 1000 mg/Dextrose 50 ml @ 100 mls/hr Q8HRS 10/21/19 10:00 Cancel Enoxaparin Sodium (Lovenox 40mg Syringe) 40 mg Q12HR 10/20/19 21:00 10/23/19 08:41 40 MG Haloperidol Lactate (Haldol Inj) 5 mg PRN Q6HRS PRN 10/20/19 20:30 10/21/19 20:30 5 MG Info (CONTRAST GIVEN -- Rx MONITORING) 1 each PRN DAILY PRN 10/20/19 14:00 10/22/19 13:59 DC Iohexol (Omnipaque 300 Mg/ml) 60 ml 1X ONCE 10/20/19 13:45 10/20/19 13:49 DC 10/20/19 13:45 60 ML Lactobacillus Rhamnosus (Culturelle) 1 cap BID 10/21/19 13:00 10/23/19 08:41 1 CAP Lorazepam (Ativan Inj) 2 mg PRN Q2HRS PRN 10/21/19 11:15 10/21/19 23:09 2 MG Olanzapine (ZyPREXA IM) 10 mg 1X ONCE 10/20/19 20:30 10/20/19 20:38 DC 10/20/19 21:53 10 MG Olanzapine (ZyPREXA ZYDIS) 5 mg PRN BID PRN 10/20/19 20:30 Ondansetron HCl (Zofran) 4 mg PRN Q4HRS PRN 10/20/19 20:30 Piperacillin Sod/ Tazobactam Sod 3.375 gm/Sodium Chloride 50 ml @ 100 mls/hr Q6HRS 10/20/19 18:00 10/21/19 09:41 DC 10/21/19 06:31 100 MLS/HR Sodium Chloride 1,000 ml @ 100 mls/hr Q10H 10/21/19 18:45 10/23/19 11:37 100 MLS/HR Tamsulosin HCl (Flomax) 0.4 mg QHS 10/20/19 21:00 10/22/19 21:38 0.4 MG Vancomycin HCl (Vanco Per Pharmacy) 1 each PRN DAILY PRN 10/20/19 17:30 10/22/19 11:33 DC 10/21/19 11:05 1 EACH Vancomycin HCl (Vancomycin Trough Level) 1 each 1X ONCE 10/22/19 17:30 10/22/19 11:34 DC Vancomycin HCl 1.25 gm/Sodium Chloride 250 ml @ 166.667 mls/hr 1X ONCE 10/20/19 18:00 10/20/19 19:29 DC 8/4/20 18:00 166.667 MLS/HR Vancomycin HCl 750 mg/Sodium Chloride 250 ml @ 250 mls/hr Q24H 10/21/19 18:00 10/22/19 11:33 DC 10/21/19 17:23 250 MLS/HR Physical Exam: Mental Status Exam: gentleman appears his stated age, disheveled Uncooperative, resistant to psychological exploration Disoriented Thought process disorganized Denied auditory or visual hallucinations No abnormal perception noted Denied suicidal or homicidal thoughts Mood is dysphoric Affect is dysthymic Insight is poor Judgment is poor Impulse control is poor Attention span and concentration poor Recent and remote memory impaired. Physical Exam: Refer to Physician's note. CAMPUS MANAGER: No focal deficit MSK: No EPS, TDK, or abnormal involuntary movements Diagnosis: Acute delirium, likely multifactorial, hyperactive and hypoactive type. Unspecified neurocognitive disorder Assessment: Symptomatology and set presentation is suggestive of acute delirium/metabolic encephalopathy. Collateral information would help to determine underlying neurocognitive status and baseline status. We will continue medications as prescribed. Antipsychotics for agitation. Plan: Start/schedule Zyprexa Zydis 5 mg at bedtime for delirium resolution and irritability. Avoid sedatives and hypnotics. Applied delirium protocol. Avoid sundowning Thank you for involving inpatient care JUAN WHITLEY MD Oct 23, 2019 20:42
[2019-10-23] MEDS: TAMSULOSIN 0.4 MG CAP.ER.24H. PO SCH (21:00)
[2019-10-23 23:00] VITALS: BP 112/59
[2019-10-24 03:00] VITALS: BP 123/68
[2019-10-24] MEDS: ceFAZolin SODIUM IV Push 1 GM VIAL. IVP SCH ×3 (05:42→22:08)
[2019-10-24 07:00] VITALS: BP 120/64
--- NOTE | 2019-10-24 08:00 | PDOC ---
PULMONARY PROGRESS NOTES DATE: 10/24/19 TIME: 07:59 Subjective sob, cough better, on ra, Vitals Vital Signs Date Time Temp Pulse Resp B/P (MAP) Pulse Ox O2 Delivery O2 Flow Rate FiO2 10/24/19 03:00 99.0 54 18 123/68 (86) 94 Room Air 99.0 ROS: No Nausea General: Alert, No acute distress HEENT: Other (nc at perrl ) Lungs: Clear Cardiovascular: S1 Abdomen: Soft Neuro Exam: Alert Extremities: Other (edema) Skin: Warm Labs Laboratory Tests Test 10/23/19 04:25 White Blood Count 4.1 x10^3/uL (4.0-11.0) Red Blood Count 4.43 x10^6/uL (4.30-5.70) Hemoglobin 13.8 g/dL (13.0-17.5) Hematocrit 39.8 % (39.0-53.0) Mean Corpuscular Volume 90 fL (79-100) Mean Corpuscular Hemoglobin 31 pg (25-35) Mean Corpuscular Hemoglobin Concent 35 g/dL (31-37) Red Cell Distribution Width 14.5 % (11.5-14.5) Platelet Count 119 x10^3/uL (140-400) Neutrophils (%) (Auto) 63 % (31-73) Lymphocytes (%) (Auto) 17 % (24-48) Monocytes (%) (Auto) 6 % (0-9) Eosinophils (%) (Auto) 13 % (0-3) Basophils (%) (Auto) 1 % (0-3) Neutrophils # (Auto) 2.6 x10^3/uL (1.8-7.7) Lymphocytes # (Auto) 0.7 x10^3/uL (1.0-4.8) Monocytes # (Auto) 0.2 x10^3/uL (0.0-1.1) Eosinophils # (Auto) 0.5 x10^3/uL (0.0-0.7) Basophils # (Auto) 0.0 x10^3/uL (0.0-0.2) Sodium Level 142 mmol/L (136-145) Potassium Level 3.5 mmol/L (3.5-5.1) Chloride Level 110 mmol/L (98-107) Carbon Dioxide Level 22 mmol/L (21-32) Anion Gap 10 (6-14) Blood Urea Nitrogen 18 mg/dL (8-26) Creatinine 0.7 mg/dL (0.7-1.3) Estimated GFR (Cockcroft-Gault) 108.8 BUN/Creatinine Ratio 26 (6-20) Glucose Level 78 mg/dL (70-99) Calcium Level 7.4 mg/dL (8.5-10.1) Total Bilirubin 0.5 mg/dL (0.2-1.0) Aspartate Amino Transf (AST/SGOT) 20 U/L (15-37) Alanine Aminotransferase (ALT/SGPT) 14 U/L (16-63) Alkaline Phosphatase 41 U/L (46-116) Total Protein 4.9 g/dL (6.4-8.2) Albumin 2.0 g/dL (3.4-5.0) Albumin/Globulin Ratio 0.7 (1.0-1.7) Impression . 1. Staphylococcal sepsis. The patient's blood cultures were positive 06/19. 2. Staphylococcus aureus urinary tract infection. 3. Abnormal CT chest with basilar infiltrate versus atelectasis along with tiny lung nodules. 4. Underlying suspected dementia. 5. dysphasia Plan . 1. Continue present antibiotics. 2. Follow all final urine and blood cultures. abc per id 3. oxygen titration. 4. DVT prophylaxis with Lovenox. 5. Would recommend to discuss advanced directives. 6. Monitor mental status. 7. dysphagia, follow speech rec, elevate hob discussed w pt, rn GLADIS QUINONES MD Oct 24, 2019 08:00
[2019-10-24] MEDS: ENOXAPARIN 40 MG/0.4 ML SYRINGE. SQ SCH ×2 (08:32→20:46)
[2019-10-24] MEDS: IV NORMAL SALINE 1000ML BAG 1,000 ML IV SCH (08:33)
[2019-10-24] MEDS: LACTOBACILLUS RHAMNOSUS GG 1 CAPSULE. PO SCH ×2 (08:33→20:48)
[2019-10-24 10:49] VITALS: BP 125/71
--- NOTE | 2019-10-24 11:09 | PDOC ---
Infectious Disease Note Subjective Subjective Resting quietly No fevers last 24 hours ROS ROS no n/v/d/ Vital Sign Vital Signs Vital Signs Date Time Temp Pulse Resp B/P (MAP) Pulse Ox O2 Delivery O2 Flow Rate FiO2 10/24/19 10:49 97.6 49 18 125/71 (89) 97 Room Air 97.6 Physical Exam PHYSICAL EXAM GENERAL: Sleeping, arouses to voice HEENT: No conjunctival lesion. Edentulous. No lesion in the mouth. NECK: Supple. No JVP, no lymphadenopathy. LUNGS: Clear. HEART: S1, S2 regular. ABDOMEN: Soft, no guarding : No Lion EXTREMITIES: No edema or cyanosis. SKIN: without rash NEUROLOGICAL: Quiet PIV Labs Micro Objective Assessment Staph aureus bacteremia, 06/19 bottles, MSSA 10/19. TTE neg Fever better Leukocytosis - better Encephalopathy. Unknown basal state or history. MSSA in urine, usually not considered an urological pathogen Plan Plan of Care Continue cefazolin, Repeat blood culture, 10/22 in progress Maintain aspiration precautions Supportive care Attending Co-Sign The patient was seen and interviewed as well as examined at the bedside. The chart was reviewed. The case was discussed. Agree with the plan of care. VIVEK ALEJANDRE APRN Oct 24, 2019 11:09 GERHARD KUMAR MD Oct 24, 2019 12:45
--- NOTE | 2019-10-24 11:21 | PDOC ---
PROGRESS NOTES Date of Service: DATE: 10/24/19 TIME: 11:20 Chief Complaint Chief Complaint IMPRESSION ======= UTI AMS Elevated troponin: peaked at 0.2 no noted cardiac symptoms per chart review. EKG SR without acute changes. Suspect demand mediated Nontraumatic Mechanical fall: due to weakness Staph aureus bacteremia, 06/19 bottles, susceptibilities are pending. Fever. Leukocytosis. METABOLIC Encephalopathy. Reticular nodular airspace disease with dependent consolidation in the lower lobes, nonspecific. This could be related to noncardiogenic edema or atypical pneumonia. Chronic aspiration is another consideration. Additional noncalcified pulmonary nodules within both lungs, nonspecific. 12 month Follow-up imaging to ensure stability. Asymmetric bladder wall thickening on the right, indeterminate. This could be related to acute or chronic cystitis or an underlying bladder mass. Correlate with clinical history. If indicated, a CT urogram could better evaluate. START TELE PULM CONSULT CONSIDER UROLOGY CONSULT Continue cefazolin, 10/23 Repeat blood culture, 10/22 in progress Dysphagia of the oral and pharyngeal phases as described.. Aspiration was observed with all tested food consistencies. Please refer to speech pathology notes for complete details and recommendations. GI CONSULTED patient and [id number] and they do not wish to proceed WITH peg at this time despite the increased risk for aspiration. DICTATED and SIGNED BY: ABBI RESENDEZ MD DATE: 10/23/19 173 79 year old male with no known PMHx who presents with here with his [id number] and granddaughter for altered mental status. 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 Family notes they speak with him on the phone often and he has memory and anger issues and is estranged from them due to this. For the 3 days he has lived with them they note unsteady gait, and that he converses with them and is able to eat and drink on his own but only receives hot dogs and energy drinks, 4 per day each. Granddaughter states on 10/18 he ripped a screen door off of the wall and was urinating in drawers in their home. He was last seen normal last night, 10/18 at 2200. They stated for him this morning they went to get him up and he did not want to get out of bed and he was shivering and complaining that he was cold but they did not think he had a fever. Febrile to 103.7F in the ED, given 650mg acetaminophen suppository with improvement in his temperature. He showed no meningeal signs and was moving all extremities on examination, opens eyes, answers 1-2 word answers. Does not have any pain complaints. Tells me he needs to urinate. When asked about his missing left 4th finger he does note his hand hurts sometimes. XR negative for fracture. 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 CT chest with reticular nodular airspace disease with dependent consolidation in the lower lobes and noncalcified pulmonary nodules within both lungs, nonspecific. CT abdomen/pelvis reveal asymmetric bladder wall thickening on the right, indeterminate. This could be related to acute or chronic cystitis or an underlying bladder mass. Urine positive for LE and nitrites. White blood cell count is 13.5. Troponin elevated at 0.068, BNP is 2122. Patient has received 1 L of fluids. Started on empiric Zosyn IV. Admitted for altered mental status and fevers with likely bladder source. As he was just transported from [place], COVID 19 testing was performed as well. History of Present Illness History of Present Illness 10/24/19 Patient seen and examined Discussed with RN Discussed with speech therapy Patient mentioned he has lost 60 lbs because he has no dentures so it's become difficult to eat Covid (-) Continue cefazolin, Repeat blood culture, 10/22 in progress Maintain aspiration precautions 10/22/19 Patient seen and examined Chart reviewed Discussed with RN Patient seemed confused but more calm Nurse mentioned patient had defecated while walking around the room Vitals Vitals Vital Signs Date Time Temp Pulse Resp B/P (MAP) Pulse Ox O2 Delivery O2 Flow Rate FiO2 10/24/19 10:49 97.6 49 18 125/71 (89) 97 Room Air 97.6 Physical Exam Physical Exam GENERAL: Sleeping, arouses to voice HEENT: No conjunctival lesion. Edentulous. No lesion in the mouth. NECK: Supple. No JVP, no lymphadenopathy. LUNGS: Clear. HEART: S1, S2 regular. ABDOMEN: Soft, no guarding : No Lion EXTREMITIES: No edema or cyanosis. SKIN: without rash NEUROLOGICAL: Quiet PIV General: Alert, Cooperative, No acute distress, Other (restless) Heart: Regular rate (SR), Normal S1, Normal S2, No murmurs Lungs: Clear Abdomen: Soft Extremities: No edema Skin: No significant lesion Labs LABS PROCEDURE: VIDEO SWALLOW STUDY STUDY DATE: 10/23/2019 CLINICAL INDICATION / HISTORY: Signs and symptoms of aspiration at bedside. Bilateral lower lobe consolidation and CT. TECHNIQUE: Real-time fluoroscopic imaging examination was performed in conjunction with speech therapy. The patient was administered barium labeled thin liquids, honey, pudding consistency compounds. FLUOROSCOPY TIME: 1.5 minutes. Number of Images: 1 COMPARISON: Abdomen CT of 10/20/2019. FINDINGS: Reduced oral coordination and posterior spillage into the pharynx was observed. In the pharyngeal phase, there was delayed swllowinitiation with diminished laryngeal excursion and residual post swallow in the vallecula and piriform sinuses. Aspiration was observed with all food consistencies tested, intermittently silent versus delayed spontaneous weak nonproductive cough. IMPRESSION: Dysphagia of the oral and pharyngeal phases as described.. Aspiration was observed with all tested food consistencies. Please refer to speech pathology notes for complete details and recommendations. Electronically signed by: Abbi Resendez MD (10/23/2019 5:31 PM) [id number] DICTATED and SIGNED BY: ABBI RESENDEZ MD DATE: 10/23/19 1731 Assessment and Plan Assessmemt and Plan Problems Medical Problems: (1) AMS (altered mental status) Status: Acute (2) Person under investigation for COVID-19 Status: Acute (3) UTI (urinary tract infection) Status: Acute Comment Review of Relevant I have reviewed the following items katie (where applicable) has been applied. Labs Laboratory Tests Test 10/23/19 04:25 White Blood Count 4.1 x10^3/uL (4.0-11.0) Red Blood Count 4.43 x10^6/uL (4.30-5.70) Hemoglobin 13.8 g/dL (13.0-17.5) Hematocrit 39.8 % (39.0-53.0) Mean Corpuscular Volume 90 fL (79-100) Mean Corpuscular Hemoglobin 31 pg (25-35) Mean Corpuscular Hemoglobin Concent 35 g/dL (31-37) Red Cell Distribution Width 14.5 % (11.5-14.5) Platelet Count 119 x10^3/uL (140-400) Neutrophils (%) (Auto) 63 % (31-73) Lymphocytes (%) (Auto) 17 % (24-48) Monocytes (%) (Auto) 6 % (0-9) Eosinophils (%) (Auto) 13 % (0-3) Basophils (%) (Auto) 1 % (0-3) Neutrophils # (Auto) 2.6 x10^3/uL (1.8-7.7) Lymphocytes # (Auto) 0.7 x10^3/uL (1.0-4.8) Monocytes # (Auto) 0.2 x10^3/uL (0.0-1.1) Eosinophils # (Auto) 0.5 x10^3/uL (0.0-0.7) Basophils # (Auto) 0.0 x10^3/uL (0.0-0.2) Sodium Level 142 mmol/L (136-145) Potassium Level 3.5 mmol/L (3.5-5.1) Chloride Level 110 mmol/L (98-107) Carbon Dioxide Level 22 mmol/L (21-32) Anion Gap 10 (6-14) Blood Urea Nitrogen 18 mg/dL (8-26) Creatinine 0.7 mg/dL (0.7-1.3) Estimated GFR (Cockcroft-Gault) 108.8 BUN/Creatinine Ratio 26 (6-20) Glucose Level 78 mg/dL (70-99) Calcium Level 7.4 mg/dL (8.5-10.1) Total Bilirubin 0.5 mg/dL (0.2-1.0) Aspartate Amino Transf (AST/SGOT) 20 U/L (15-37) Alanine Aminotransferase (ALT/SGPT) 14 U/L (16-63) Alkaline Phosphatase 41 U/L (46-116) Total Protein 4.9 g/dL (6.4-8.2) Albumin 2.0 g/dL (3.4-5.0) Albumin/Globulin Ratio 0.7 (1.0-1.7) Microbiology 10/23/19 Blood Culture - Preliminary, Resulted NO GROWTH AFTER 1 DAY 10/20/19 Urine Culture - Final, Complete 10/20/19 Antimicrobic Susceptibility - Final, Complete Medications Current Medications Sodium Chloride 1,000 ml @ 1,000 mls/hr 1X ONCE IV Last administered on 10/20/19at 13:00; Start 10/20/19 at 12:45; Stop 10/20/19 at 13:44; Status DC Acetaminophen (Tylenol Supp) 650 mg 1X ONCE NV Last administered on 10/20/19at 13:19; Start 10/20/19 at 12:45; Stop 10/20/19 at 12:50; Status DC Piperacillin Sod/ Tazobactam Sod 3.375 gm/Sodium Chloride 50 ml @ 100 mls/hr 1X ONCE IV Last administered on 10/20/19at 13:42; Start 10/20/19 at 13:30; Stop 10/20/19 at 13:59; Status DC Iohexol (Omnipaque 300 Mg/ml) 60 ml 1X ONCE IV Last administered on 10/20/19at 13:45; Start 10/20/19 at 13:45; Stop 10/20/19 at 13:49; Status DC Info (CONTRAST GIVEN -- Rx MONITORING) 1 each PRN DAILY PRN MC SEE COMMENTS; Start 10/20/19 at 14:00; Stop 10/22/19 at 13:59; Status DC Ondansetron HCl (Zofran) 4 mg PRN Q8HRS PRN IV NAUSEA/VOMITING; Start 10/20/19 at 14:45; Stop 10/20/19 at 20:24; Status DC Sodium Chloride 1,000 ml @ 100 mls/hr Q10H IV Last administered on 10/21/19at 10:55; Start 10/20/19 at 14:43; Stop 10/21/19 at 14:42; Status DC Acetaminophen (Tylenol) 650 mg PRN Q4HRS PRN PO FEVER > 100.3'F; Start 10/20/19 at 14:45 Vancomycin HCl (Vanco Per Pharmacy) 1 each PRN DAILY PRN MC SEE COMMENTS Last administered on 10/21/19at 11:05; Start 10/20/19 at 17:30; Stop 10/22/19 at 11:33; Status DC Piperacillin Sod/ Tazobactam Sod 3.375 gm/Sodium Chloride 50 ml @ 100 mls/hr Q6HRS IV Last administered on 10/21/19at 06:31; Start 10/20/19 at 18:00; Stop 10/21/19 at 09:41; Status DC Vancomycin HCl 1.25 gm/Sodium Chloride 250 ml @ 166.667 mls/hr 1X ONCE IV Last administered on 10/20/19at 18:00; Start 10/20/19 at 18:00; Stop 10/20/19 at 19:29; Status DC Vancomycin HCl 750 mg/Sodium Chloride 250 ml @ 250 mls/hr Q24H IV Last a dministered on 10/21/19at 17:23; Start 10/21/19 at 18:00; Stop 10/22/19 at 11:33; Status DC Vancomycin HCl (Vancomycin Trough Level) 1 each 1X ONCE MC ; Start 10/22/19 at 17:30; Stop 10/22/19 at 11:34; Status DC Ondansetron HCl (Zofran) 4 mg PRN Q4HRS PRN IV NAUSEA/VOMITING; Start 10/20/19 at 20:30 Olanzapine (ZyPREXA ZYDIS) 5 mg PRN BID PRN PO ANXIETY / AGITATION; Start 10/20/19 at 20:30 Enoxaparin Sodium (Lovenox 40mg Syringe) 40 mg Q12HR SQ Last administered on 10/24/19at 08:32; Start 10/20/19 at 21:00 Tamsulosin HCl (Flomax) 0.4 mg QHS PO Last administered on 10/22/19at 21:38; Start 10/20/19 at 21:00 Olanzapine (ZyPREXA IM) 10 mg 1X ONCE IM Last administered on 10/20/19at 21:53; Start 10/20/19 at 20:30; Stop 10/20/19 at 20:38; Status DC Haloperidol Lactate (Haldol Inj) 5 mg PRN Q6HRS PRN IVP AGITATION Last administered on 10/21/19at 20:30; Start 10/20/19 at 20:30 Cefazolin Sodium 1000 mg/Dextrose 50 ml @ 100 mls/hr Q8HRS IV ; Start 10/21/19 at 10:00; Status Cancel Cefazolin Sodium (Ancef) 1 gm Q8HRS IVP Last administered on 10/24/19at 05:42; Start 10/21/19 at 10:00 Lorazepam (Ativan Inj) 2 mg PRN Q2HRS PRN IVP ANXIETY / AGITATION Last admin istered on 10/21/19at 23:09; Start 10/21/19 at 11:15 Lactobacillus Rhamnosus (Culturelle) 1 cap BID PO Last administered on 10/23/19at 08:41; Start 10/21/19 at 13:00 Sodium Chloride 1,000 ml @ 100 mls/hr Q10H IV Last administered on 10/24/19at 08:33; Start 10/21/19 at 18:45 Barium Sulfate (Varibar Thin Liquid Apple) 148 gm 1X ONCE PO Last administered on 10/23/19 11:15; Start 10/23/19 at 11:15; Stop 10/23/19 at 11:16; Status DC Olanzapine (ZyPREXA ZYDIS) 5 mg HS PO Last administered on 10/23/19at 21:34; Start 10/23/19 at 21:00 Vitals/I & O Vital Sign - Last 24 Hours 10/23/19 10/23/19 10/23/19 10/23/19 15:00 19:00 20:00 23:00 Temp 97.5 99.2 98.6 97.5 99.2 98.6 Pulse 66 54 59 Resp 20 18 18 B/P (MAP) 112/51 (71) 119/65 (83) 112/59 (76) Pulse Ox 95 97 96 O2 Delivery Room Air Room Air Room Air Room Air 10/24/19 10/24/19 10/24/19 10/24/19 03:00 07:00 07:50 10:49 Temp 99.0 97.4 97.6 99.0 97.4 97.6 Pulse 54 52 49 Resp 18 18 18 B/P (MAP) 123/68 (86) 120/64 (82) 125/71 (89) Pulse Ox 94 97 97 O2 Delivery Room Air Room Air Room Air Intake and Output 10/23/19 10/23/19 10/24/19 15:00 23:00 07:00 Intake Total 360 ml 0 ml 0 ml Balance 360 ml 0 ml 0 ml Nutrition Consultation Dietary Evaluation: Recommendations by RD: Dietary education by RD, Increase Calorie Intake, Protein supplementation Comments: REC continue diet per [employer] with supplements Expected Outcomes/Goals: to meet >75% est nutr needs- not met, goal ongoing Malnutrition Findings: Body Fat Depletion (Non Severe: Mild Depletion Weight Status: Underweight Justicifation of Admission Dx: Justifications for Admission: Justification of Admission Dx: N/A SHENG EVANS MD Oct 24, 2019 11:21
--- NOTE | 2019-10-24 11:51 | PDOC2 ---
CONSULT Date of Consult Date of Consult DATE: 10/24/19 TIME: 11:50 Reason for Consult Reason for Consult: Oropharyngeal dysphagia Past Medical History Cardiovascular: No pertinent hx Pulmonary: No pertinent hx Past Surgical History Past Surgical History: No pertinent history Family History Family History: Family History Unknown Social History No ALCOHOL: none Drugs: None Current Problem List Problem List Problems Medical Problems: (1) AMS (altered mental status) Status: Acute (2) Person under investigation for COVID-19 Status: Acute (3) UTI (urinary tract infection) Status: Acute Current Medications Current Medications Current Medications Sodium Chloride 1,000 ml @ 1,000 mls/hr 1X ONCE IV Last administered on 10/20/19at 13:00; Start 10/20/19 at 12:45; Stop 10/20/19 at 13:44; Status DC Acetaminophen (Tylenol Supp) 650 mg 1X ONCE MN Last administered on 10/20/19at 13:19; Start 10/20/19 at 12:45; Stop 10/20/19 at 12:50; Status DC Piperacillin Sod/ Tazobactam Sod 3.375 gm/Sodium Chloride 50 ml @ 100 mls/hr 1X ONCE IV Last administered on 10/20/19at 13:42; Start 10/20/19 at 13:30; Stop 10/20/19 at 13:59; Status DC Iohexol (Omnipaque 300 Mg/ml) 60 ml 1X ONCE IV Last administered on 10/20/19at 13:45; Start 10/20/19 at 13:45; Stop 10/20/19 at 13:49; Status DC Info (CONTRAST GIVEN -- Rx MONITORING) 1 each PRN DAILY PRN MC SEE COMMENTS; Start 10/20/19 at 14:00; Stop 10/22/19 at 13:59; Status DC Ondansetron HCl (Zofran) 4 mg PRN Q8HRS PRN IV NAUSEA/VOMITING; Start 10/20/19 at 14:45; Stop 10/20/19 at 20:24; Status DC Sodium Chloride 1,000 ml @ 100 mls/hr Q10H IV Last administered on 10/21/19at 10:55; Start 10/20/19 at 14:43; Stop 10/21/19 at 14:42; Status DC Acetaminophen (Tylenol) 650 mg PRN Q4HRS PRN PO FEVER > 100.3'F; Start 10/20/19 at 14:45 Vancomycin HCl (Vanco Per Pharmacy) 1 each PRN DAILY PRN MC SEE COMMENTS Last administered on 10/21/19at 11:05; Start 10/20/19 at 17:30; Stop 10/22/19 at 11:33; Status DC Piperacillin Sod/ Tazobactam Sod 3.375 gm/Sodium Chloride 50 ml @ 100 mls/hr Q6HRS IV Last administered on 10/21/19at 06:31; Start 10/20/19 at 18:00; Stop 10/21/19 at 09:41; Status DC Vancomycin HCl 1.25 gm/Sodium Chloride 250 ml @ 166.667 mls/hr 1X ONCE IV Last administered on 10/20/19at 18:00; Start 10/20/19 at 18:00; Stop 10/20/19 at 19:29; Status DC Vancomycin HCl 750 mg/Sodium Chloride 250 ml @ 250 mls/hr Q24H IV Last administered on 10/21/19at 17:23; Start 10/21/19 at 18:00; Stop 10/22/19 at 11:33; Status DC Vancomycin HCl (Vancomycin Trough Level) 1 each 1X ONCE MC ; Start 10/22/19 at 17:30; Stop 10/22/19 at 11:34; Status DC Ondansetron HCl (Zofran) 4 mg PRN Q4HRS PRN IV NAUSEA/VOMITING; Start 10/20/19 at 20:30 Olanzapine (ZyPREXA ZYDIS) 5 mg PRN BID PRN PO ANXIETY / AGITATION; Start 10/20/19 at 20:30 Enoxaparin Sodium (Lovenox 40mg Syringe) 40 mg Q12HR SQ Last administered on 10/24/19at 08:32; Start 10/20/19 at 21:00 Tamsulosin HCl (Flomax) 0.4 mg QHS PO Last administered on 10/22/19at 21:38; Start 10/20/19 at 21:00 Olanzapine (ZyPREXA IM) 10 mg 1X ONCE IM Last administered on 10/20/19at 21:53; Start 10/20/19 at 20:30; Stop 10/20/19 at 20:38; Status DC Haloperidol Lactate (Haldol Inj) 5 mg PRN Q6HRS PRN IVP AGITATION Last administered on 10/21/19at 20:30; Start 10/20/19 at 20:30 Cefazolin Sodium 1000 mg/Dextrose 50 ml @ 100 mls/hr Q8HRS IV ; Start 10/21/19 at 10:00; Status Cancel Cefazolin Sodium (Ancef) 1 gm Q8HRS IVP Last administered on 10/24/19at 05:42; Start 10/21/19 at 10:00 Lorazepam (Ativan Inj) 2 mg PRN Q2HRS PRN IVP ANXIETY / AGITATION Last administered on 10/21/19 23:09; Start 10/21/19 at 11:15 Lactobacillus Rhamnosus (Culturelle) 1 cap BID PO Last administered on 10/23/19at 08:41; Start 10/21/19 at 13:00 Sodium Chloride 1,000 ml @ 100 mls/hr Q10H IV Last administered on 10/24/19at 08:33; Start 10/21/19 at 18:45 Barium Sulfate (Varibar Thin Liquid Apple) 148 gm 1X ONCE PO Last administered on 10/23/19at 11:15; Start 10/23/19 at 11:15; Stop 10/23/19 at 11:16; Status DC Olanzapine (ZyPREXA ZYDIS) 5 mg HS PO Last administered on 10/23/19at 21:34; Start 10/23/19 at 21:00 Allergies Allergies: Coded Allergies: No Known Drug Allergies (Unverified , 10/20/19) Vitals VITALS Vital Signs Date Time Temp Pulse Resp B/P (MAP) Pulse Ox O2 Delivery O2 Flow Rate FiO2 10/24/19 10:49 97.6 49 18 125/71 (89) 97 Room Air 97.6 Labs Labs Laboratory Tests Test 10/23/19 04:25 White Blood Count 4.1 x10^3/uL (4.0-11.0) Red Blood Count 4.43 x10^6/uL (4.30-5.70) Hemoglobin 13.8 g/dL (13.0-17.5) Hematocrit 39.8 % (39.0-53.0) Mean Corpuscular Volume 90 fL (79-100) Mean Corpuscular Hemoglobin 31 pg (25-35) Mean Corpuscular Hemoglobin Concent 35 g/dL (31-37) Red Cell Distribution Width 14.5 % (11.5-14.5) Platelet Count 119 x10^3/uL (140-400) Neutrophils (%) (Auto) 63 % (31-73) Lymphocytes (%) (Auto) 17 % (24-48) Monocytes (%) (Auto) 6 % (0-9) Eosinophils (%) (Auto) 13 % (0-3) Basophils (%) (Auto) 1 % (0-3) Neutrophils # (Auto) 2.6 x10^3/uL (1.8-7.7) Lymphocytes # (Auto) 0.7 x10^3/uL (1.0-4.8) Monocytes # (Auto) 0.2 x10^3/uL (0.0-1.1) Eosinophils # (Auto) 0.5 x10^3/uL (0.0-0.7) Basophils # (Auto) 0.0 x10^3/uL (0.0-0.2) Sodium Level 142 mmol/L (136-145) Potassium Level 3.5 mmol/L (3.5-5.1) Chloride Level 110 mmol/L (98-107) Carbon Dioxide Level 22 mmol/L (21-32) Anion Gap 10 (6-14) Blood Urea Nitrogen 18 mg/dL (8-26) Creatinine 0.7 mg/dL (0.7-1.3) Estimated GFR (Cockcroft-Gault) 108.8 BUN/Creatinine Ratio 26 (6-20) Glucose Level 78 mg/dL (70-99) Calcium Level 7.4 mg/dL (8.5-10.1) Total Bilirubin 0.5 mg/dL (0.2-1.0) Aspartate Amino Transf (AST/SGOT) 20 U/L (15-37) Alanine Aminotransferase (ALT/SGPT) 14 U/L (16-63) Alkaline Phosphatase 41 U/L (46-116) Total Protein 4.9 g/dL (6.4-8.2) Albumin 2.0 g/dL (3.4-5.0) Albumin/Globulin Ratio 0.7 (1.0-1.7) Assessment/Plan Assessment/Plan Oropharyngeal dysphagia- with dementia. Risks and benefits of PEG discussd with patient and [id number] who dont wish to proceed at this time. Full note dictated RADHA MCGARRY MD Oct 24, 2019 11:51
--- NOTE | 2019-10-24 13:12 | CONS ---
DATE OF CONSULTATION: 10/24/2019 GASTROENTEROLOGY CONSULTATION REFERRING PHYSICIAN: Yordan Burciaga MD REASON FOR CONSULTATION: Oropharyngeal dysphagia. HISTORY OF PRESENT ILLNESS: The patient is a 79-year-old male with past medical history significant for history of CVA, history of COPD, admitted to [facility] with changes in mental status. The patient subsequently has undergone swallowing study, which did reveal aspiration. Consultation is requested for possible PEG placement and [id number] and the patient do not wish at this time to proceed with this and are willing to take the risk with the aspiration at this time. PAST MEDICAL HISTORY: Dementia, COPD. ALLERGIES: None. MEDICATIONS: Include Zyprexa, Ativan, Ancef, tamsulosin. SOCIAL HISTORY: He lives alone. Retired. Does not drink or smoke at this time. FAMILY HISTORY: Noncontributory. REVIEW OF SYSTEMS: Per records. PHYSICAL EXAMINATION: GENERAL: Reveals a thin male. VITAL SIGNS: Temperature is 97.6, pulse 79, respiratory rate 18, blood pressure is 125/71. LUNGS: Clear. CARDIOVASCULAR: Reveals an S1, S2 without S3, S4 or appreciable murmur. ABDOMEN: Reveals a soft abdomen, normal bowel sounds, without appreciable hepatosplenomegaly. EXTREMITIES: No cyanosis, clubbing or edema. LABORATORY STUDIES: Hemoglobin 13.8, hematocrit 39.8, white count 4.1, platelet count 119,000. Sodium 142, potassium 3.5, chloride 110, bicarbonate 22, BUN is 16, creatinine 0.7, total protein 4.9, albumin 2.0, AST of 20, ALT of 14, calcium 7.4. Speech path evaluation revealing aspiration. IMPRESSION: Oropharyngeal dysphagia with aspiration. I discussed feeding tube with the patient and [id number] and they do not wish to proceed at this time despite the increased risk for aspiration. RADHA MCGARRY MD DR: SHANTA/ryan JOB#: [id number] / [id number] [facility] [employer], Workers'
[2019-10-24 15:00] VITALS: BP 119/63
[2019-10-24] MEDS: AMINO AC 3%/ELECTROLYTE/GLYCER 1,000 ML IV SCH (17:18)
[2019-10-24 18:13] LABS: BILIRUBIN,URINE NEGATIVE (NEG); CLARITY,URINE CLEAR; NITRITE,URINE NEGATIVE (NEG); PROTEIN,URINE NEGATIVE (NEG-TRACE); UROBILINOGEN,URINE 0.2 mg/dL (0.2 mg/dL)
[2019-10-24 18:16] LABS: COLOR,URINE DK YELLOW
[2019-10-24 18:17] LABS: RBC,URINE >40 /HPF (0-2)
[2019-10-24 18:18] LABS: BACTERIA,URINE FEW /HPF (0-FEW); SQUAMOUS EPITHELIAL CELL,UR OCC /LPF
[2019-10-24 19:00] VITALS: BP 114/59
[2019-10-24] MEDS: TAMSULOSIN 0.4 MG CAP.ER.24H. PO SCH (20:49)
[2019-10-24 23:00] VITALS: BP 100/61
[2019-10-25] VITALS (7 sets, daily range): BP systolic 85–128; BP diastolic 54–73
[2019-10-25] MEDS: AMINO AC 3%/ELECTROLYTE/GLYCER 1,000 ML IV SCH ×3 (02:00→21:34)
[2019-10-25] MEDS: ceFAZolin SODIUM IV Push 1 GM VIAL. IVP SCH ×3 (06:07→21:35)
--- NOTE | 2019-10-25 08:20 | PDOC ---
PULMONARY PROGRESS NOTES DATE: 10/25/19 TIME: 08:17 Subjective denies sob, has occ cough, on ra, Vitals Vital Signs Date Time Temp Pulse Resp B/P (MAP) Pulse Ox O2 Delivery O2 Flow Rate FiO2 10/25/19 03:00 98.9 48 16 100/57 (71) 90 98.9 10/24/19 20:00 Room Air ROS: No Nausea General: Alert, No acute distress HEENT: Other (nc at perrl ) Lungs: Clear Cardiovascular: S1 Abdomen: Soft Neuro Exam: Alert Extremities: Other (edema) Skin: Warm Labs Laboratory Tests Test 10/24/19 17:00 Urine Collection Type Unknown Urine Color Dk yellow Urine Clarity Clear Urine pH 6.0 (<5.0-8.0) Urine Specific [place] 1.025 (1.000-1.030) Urine Protein Negative mg/dL (NEG-TRACE) Urine Glucose (UA) Negative mg/dL (NEG) Urine Ketones (Stick) >=80 mg/dL (NEG) Urine Blood Large (NEG) Urine Nitrite Negative (NEG) Urine Bilirubin Negative (NEG) Urine Urobilinogen Dipstick 0.2 mg/dL (0.2 mg/dL) Urine Leukocyte Esterase Small (NEG) Urine RBC >40 /HPF (0-2) Urine WBC 5-10 /HPF (0-4) Urine Squamous Epithelial Cells Occ /LPF Urine Bacteria Few /HPF (0-FEW) Urine Mucus Marked /LPF Laboratory Tests Test 10/24/19 17:00 Urine Collection Type Unknown Urine Color Dk yellow Urine Clarity Clear Urine pH 6.0 (<5.0-8.0) Urine Specific [place] 1.025 (1.000-1.030) Urine Protein Negative mg/dL (NEG-TRACE) Urine Glucose (UA) Negative mg/dL (NEG) Urine Ketones (Stick) >=80 mg/dL (NEG) Urine Blood Large (NEG) Urine Nitrite Negative (NEG) Urine Bilirubin Negative (NEG) Urine Urobilinogen Dipstick 0.2 mg/dL (0.2 mg/dL) Urine Leukocyte Esterase Small (NEG) Urine RBC >40 /HPF (0-2) Urine WBC 5-10 /HPF (0-4) Urine Squamous Epithelial Cells Occ /LPF Urine Bacteria Few /HPF (0-FEW) Urine Mucus Marked /LPF Impression . 1. Staphylococcal sepsis. The patient's blood cultures were positive 06/19. 2. Staphylococcus aureus urinary tract infection. 3. Abnormal CT chest with basilar infiltrate versus atelectasis along with tiny lung nodules. 4. Underlying suspected dementia. 5. dysphasia Plan . 1. Continue present antibiotics. 2. Follow all final urine and blood cultures. abx per id 3. oxygen titration. 4. DVT prophylaxis with Lovenox. 5. Would recommend to discuss advanced directives. 6. Monitor mental status. 7. dysphagia, follow speech rec, elevate hob, is npo discussed w pt, rn GLADIS QUINONES MD Oct 25, 2019 08:20
[2019-10-25] MEDS: LACTOBACILLUS RHAMNOSUS GG 1 CAPSULE. PO SCH ×2 (08:51→21:00)
[2019-10-25] MEDS: ENOXAPARIN 40 MG/0.4 ML SYRINGE. SQ SCH ×2 (09:35→21:00)
--- NOTE | 2019-10-25 10:46 | PDOC ---
PROGRESS NOTES Date of Service: DATE: 10/25/19 TIME: 10:46 Chief Complaint Chief Complaint IMPRESSION ======= UTI AMS Elevated troponin: peaked at 0.2 no noted cardiac symptoms per chart review. EKG SR without acute changes. Suspect demand mediated Nontraumatic Mechanical fall: due to weakness Staph aureus bacteremia, 06/19 bottles, susceptibilities are pending. Fever. Leukocytosis. METABOLIC Encephalopathy. Reticular nodular airspace disease with dependent consolidation in the lower lobes, nonspecific. This could be related to noncardiogenic edema or atypical pneumonia. Chronic aspiration is another consideration. Additional noncalcified pulmonary nodules within both lungs, nonspecific. 12 month Follow-up imaging to ensure stability. Asymmetric bladder wall thickening on the right, indeterminate. This could be related to acute or chronic cystitis or an underlying bladder mass. Correlate with clinical history. If indicated, a CT urogram could better evaluate. TELE PULM CONSULT CONSIDER UROLOGY CONSULT Continue cefazolin, 10/23 Repeat blood culture, 10/22 in progress Dysphagia of the oral and pharyngeal phases as described.. Aspiration was observed with all tested food consistencies. Please refer to speech pathology notes for complete details and recommendations. GI CONSULTED patient and [id number] and they do wish to proceed WITH peg at this time PEG TOMORROW 10/25 D/W FAMILY IN ROOM DICTATED and SIGNED BY: ABBI RINALDI MD DATE: 10/23/19 1731 79 year old male with no known PMHx who presents with here with his [id number] and granddaughter for altered mental status. 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 Family notes they speak with him on the phone often and he has memory and anger issues and is estranged from them due to this. For the 3 days he has lived with them they note unsteady gait, and that he converses with them and is able to eat and drink on his own but only receives hot dogs and energy drinks, 4 per day each. Granddaughter states on 10/18 he ripped a screen door off of the wall and was urinating in drawers in their home. He was last seen normal last night, 10/18 at 2200. They stated for him this morning they went to get him up and he did not want to get out of bed and he was shivering and complaining that he was cold but they did not think he had a fever. Febrile to 103.7F in the ED, given 650mg acetaminophen suppository with improvement in his temperature. He showed no meningeal signs and was moving all extremities on examination, opens eyes, answers 1-2 word answers. Does not have any pain complaints. Tells me he needs to urinate. When asked about his missing left 4th finger he does note his hand hurts sometimes. XR negative for fracture. 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 CT chest with reticular nodular airspace disease with dependent consolidation in the lower lobes and noncalcified pulmonary nodules within both lungs, no nspecific. CT abdomen/pelvis reveal asymmetric bladder wall thickening on the right, indeterminate. This could be related to acute or chronic cystitis or an underlying bladder mass. Urine positive for LE and nitrites. White blood cell count is 13.5. Troponin elevated at 0.068, BNP is 2122. Patient has received 1 L of fluids. Started on empiric Zosyn IV. Admitted for altered mental status and fevers with likely bladder source. As he was just transported from [place], COVID 19 testing was performed as well. History of Present Illness History of Present Illness 10/24/19 Patient seen and examined Discussed with RN Discussed with speech therapy Patient mentioned he has lost 60 lbs because he has no dentures so it's become d ifficult to eat Covid (-) Continue cefazolin, Repeat blood culture, 10/22 in progress Maintain aspiration precautions 10/22/19 Patient seen and examined Chart reviewed Discussed with RN Patient seemed confused but more calm Nurse mentioned patient had defecated while walking around the room Vitals Vitals Vital Signs Date Time Temp Pulse Resp B/P (MAP) Pulse Ox O2 Delivery O2 Flow Rate FiO2 10/25/19 07:50 Room Air 10/25/19 07:00 98.3 64 18 109/60 (76) 91 98.3 Physical Exam Physical Exam GENERAL: Sleeping, arouses to voice HEENT: No conjunctival lesion. Edentulous. No lesion in the mouth. NECK: Supple. No JVP, no lymphadenopathy. LUNGS: Clear. HEART: S1, S2 regular. ABDOMEN: Soft, no guarding : No Lion EXTREMITIES: No edema or cyanosis. SKIN: without rash NEUROLOGICAL: Quiet PIV General: Alert, Cooperative, No acute distress, Other (restless) Heart: Regular rate (SR), Normal S1, Normal S2, No murmurs Lungs: Clear Abdomen: Soft Extremities: No edema Skin: No significant lesion Labs LABS Laboratory Tests Test 10/24/19 17:00 Urine Collection Type Unknown Urine Color Dk yellow Urine Clarity Clear Urine pH 6.0 (<5.0-8.0) Urine Specific [place] 1.025 (1.000-1.030) Urine Protein Negative mg/dL (NEG-TRACE) Urine Glucose (UA) Negative mg/dL (NEG) Urine Ketones (Stick) >=80 mg/dL (NEG) Urine Blood Large (NEG) Urine Nitrite Negative (NEG) Urine Bilirubin Negative (NEG) Urine Urobilinogen Dipstick 0.2 mg/dL (0.2 mg/dL) Urine Leukocyte Esterase Small (NEG) Urine RBC >40 /HPF (0-2) Urine WBC 5-10 /HPF (0-4) Urine Squamous Epithelial Cells Occ /LPF Urine Bacteria Few /HPF (0-FEW) Urine Mucus Marked /LPF Assessment and Plan Assessmemt and Plan Problems Medical Problems: (1) AMS (altered mental status) Status: Acute (2) Person under investigation for COVID-19 Status: Acute (3) UTI (urinary tract infection) Status: Acute Comment Review of Relevant I have reviewed the following items katie (where applicable) has been applied. Labs Laboratory Tests Test 10/24/19 17:00 Urine Collection Type Unknown Urine Color Dk yellow Urine Clarity Clear Urine pH 6.0 (<5.0-8.0) Urine Specific [place] 1.025 (1.000-1.030) Urine Protein Negative mg/dL (NEG-TRACE) Urine Glucose (UA) Negative mg/dL (NEG) Urine Ketones (Stick) >=80 mg/dL (NEG) Urine Blood Large (NEG) Urine Nitrite Negative (NEG) Urine Bilirubin Negative (NEG) Urine Urobilinogen Dipstick 0.2 mg/dL (0.2 mg/dL) Urine Leukocyte Esterase Small (NEG) Urine RBC >40 /HPF (0-2) Urine WBC 5-10 /HPF (0-4) Urine Squamous Epithelial Cells Occ /LPF Urine Bacteria Few /HPF (0-FEW) Urine Mucus Marked /LPF Laboratory Tests Test 10/24/19 17:00 Urine Collection Type Unknown Urine Color Dk yellow Urine Clarity Clear Urine pH 6.0 (<5.0-8.0) Urine Specific [place] 1.025 (1.000-1.030) Urine Protein Negative mg/dL (NEG-TRACE) Urine Glucose (UA) Negative mg/dL (NEG) Urine Ketones (Stick) >=80 mg/dL (NEG) Urine Blood Large (NEG) Urine Nitrite Negative (NEG) Urine Bilirubin Negative (NEG) Urine Urobilinogen Dipstick 0.2 mg/dL (0.2 mg/dL) Urine Leukocyte Esterase Small (NEG) Urine RBC >40 /HPF (0-2) Urine WBC 5-10 /HPF (0-4) Urine Squamous Epithelial Cells Occ /LPF Urine Bacteria Few /HPF (0-FEW) Urine Mucus Marked /LPF Microbiology 10/23/19 Blood Culture - Preliminary, Resulted NO GROWTH AFTER 1 DAY 10/20/19 Urine Culture - Final, Complete 10/20/19 Antimicrobic Susceptibility - Final, Complete Medications Current Medications Sodium Chloride 1,000 ml @ 1,000 mls/hr 1X ONCE IV Last administered on 10/20/19at 13:00; Start 10/20/19 at 12:45; Stop 10/20/19 at 13:44; Status DC Acetaminophen (Tylenol Supp) 650 mg 1X ONCE FL Last administered on 10/20/19at 13:19; Start 10/20/19 at 12:45; Stop 10/20/19 at 12:50; Status DC Piperacillin Sod/ Tazobactam Sod 3.375 gm/Sodium Chloride 50 ml @ 100 mls/hr 1X ONCE IV Last administered on 10/20/19at 13:42; Start 10/20/19 at 13:30; Stop 10/20/19 at 13:59; Status DC Iohexol (Omnipaque 300 Mg/ml) 60 ml 1X ONCE IV Last administered on 10/20/19at 13:45; Start 10/20/19 at 13:45; Stop 10/20/19 at 13:49; Status DC Info (CONTRAST GIVEN -- Rx MONITORING) 1 each PRN DAILY PRN MC SEE COMMENTS; Start 10/20/19 at 14:00; Stop 10/22/19 at 13:59; Status DC Ondansetron HCl (Zofran) 4 mg PRN Q8HRS PRN IV NAUSEA/VOMITING; Start 10/20/19 at 14:45; Stop 10/20/19 at 20:24; Status DC Sodium Chloride 1,000 ml @ 100 mls/hr Q10H IV Last administered on 10/21/19at 1 0:55; Start 10/20/19 at 14:43; Stop 10/21/19 at 14:42; Status DC Acetaminophen (Tylenol) 650 mg PRN Q4HRS PRN PO FEVER > 100.3'F; Start 10/20/19 at 14:45 Vancomycin HCl (Vanco Per Pharmacy) 1 each PRN DAILY PRN MC SEE COMMENTS Last administered on 10/21/19at 11:05; Start 10/20/19 at 17:30; Stop 10/22/19 at 11:33; Status DC Piperacillin Sod/ Tazobactam Sod 3.375 gm/Sodium Chloride 50 ml @ 100 mls/hr Q6HRS IV Last administered on 10/21/19at 06:31; Start 10/20/19 at 18:00; Stop 10/21/19 at 09:41; Status DC Vancomycin HCl 1.25 gm/Sodium Chloride 250 ml @ 166.667 mls/hr 1X ONCE IV Last administered on 10/20/19at 18:00; Start 10/20/19 at 18:00; Stop 10/20/19 at 19:29; Status DC Vancomycin HCl 750 mg/Sodium Chloride 250 ml @ 250 mls/hr Q24H IV Last administered on 10/21/19at 17:23; Start 10/21/19 at 18:00; Stop 10/22/19 at 11:33; Status DC Vancomycin HCl (Vancomycin Trough Level) 1 each 1X ONCE MC ; Start 10/22/19 at 17:30; Stop 10/22/19 at 11:34; Status DC Ondansetron HCl (Zofran) 4 mg PRN Q4HRS PRN IV NAUSEA/VOMITING; Start 10/20/19 at 20:30 Olanzapine (ZyPREXA ZYDIS) 5 mg PRN BID PRN PO ANXIETY / AGITATION; Start 10/20/19 at 20:30 Enoxaparin Sodium (Lovenox 40mg Syringe) 40 mg Q12HR SQ Last administered on 10/25/19 09:35; Start 10/20/19 at 21:00 Tamsulosin HCl (Flomax) 0.4 mg QHS PO Last administered on 10/22/19 21:38; Start 10/20/19 at 21:00 Olanzapine (ZyPREXA IM) 10 mg 1X ONCE IM Last administered on 10/20/19 21:53; Start 10/20/19 at 20:30; Stop 10/20/19 at 20:38; Status DC Haloperidol Lactate (Haldol Inj) 5 mg PRN Q6HRS PRN IVP AGITATION Last administered on 10/21/19 20:30; Start 10/20/19 at 20:30 Cefazolin Sodium 1000 mg/Dextrose 50 ml @ 100 mls/hr Q8HRS IV ; Start 10/21/19 at 10:00; Status Cancel Cefazolin Sodium (Ancef) 1 gm Q8HRS IVP Last administered on 10/25/19 06:07; Start 10/21/19 at 10:00 Lorazepam (Ativan Inj) 2 mg PRN Q2HRS PRN IVP ANXIETY / AGITATION Last administered on 10/21/19 23:09; Start 10/21/19 at 11:15 Lactobacillus Rhamnosus (Culturelle) 1 cap BID PO Last administered on 10/23/19 08:41; Start 10/21/19 at 13:00 Sodium Chloride 1,000 ml @ 100 mls/hr Q10H IV Last administered on 10/24/19 08:33; Start 10/21/19 at 18:45; Stop 10/24/19 at 14:21; Status DC Barium Sulfate (Varibar Thin Liquid Apple) 148 gm 1X ONCE PO Last administered on 10/23/19 11:15; Start 10/23/19 at 11:15; Stop 10/23/19 at 11:16; Status DC Olanzapine (ZyPREXA ZYDIS) 5 mg HS PO Last administered on 10/24/19at 20:46; Start 10/23/19 at 21:00 Amino Acids/ Glycerin/ Electrolytes 1,000 ml @ 100 mls/hr Q10H IV Last administered on 10/25/19at 02:00; Start 10/24/19 at 14:30 Vitals/I & O Vital Sign - Last 24 Hours 10/24/19 10/24/19 10/24/19 10/24/19 10:49 15:00 19:00 20:00 Temp 97.6 98.1 98.7 97.6 98.1 98.7 Pulse 49 65 47 Resp 18 18 18 B/P (MAP) 125/71 (89) 119/63 (81) 114/59 (77) Pulse Ox 97 98 94 O2 Delivery Room Air Room Air Room Air 10/24/19 10/25/19 10/25/19 10/25/19 23:00 03:00 07:00 07:50 Temp 97.7 98.9 98.3 97.7 98.9 98.3 Pulse 45 48 64 Resp 16 16 18 B/P (MAP) 100/61 (74) 100/57 (71) 109/60 (76) Pulse Ox 94 90 91 O2 Delivery Room Air Intake and Output 10/24/19 10/24/19 10/25/19 15:00 23:00 07:00 Intake Total 0 ml 0 ml 0 ml Output Total 3 ml Balance 0 ml -3 ml 0 ml Nutrition Consultation Dietary Evaluation: Recommendations by RD: Dietary education by RD, Increase Calorie Intake, Protein supplementation Comments: REC continue diet per MARKETING CONTENT SPECIALIST with supplements Expected Outcomes/Goals: to meet >75% est nutr needs- not met, goal ongoing Malnutrition Findings: Body Fat Depletion (Non Severe: Mild Depletion Weight Status: Underweight Justicifation of Admission Dx: Justifications for Admission: Justification of Admission Dx: N/A SHENG EVANS MD Oct 25, 2019 10:46
--- NOTE | 2019-10-25 11:16 | PDOC ---
Infectious Disease Note Subjective Subjective Feels good Deneis pain/N/V/F/chills/SOA ROS ROS as mentioned above Vital Sign Vital Signs Vital Signs Date Time Temp Pulse Resp B/P (MAP) Pulse Ox O2 Delivery O2 Flow Rate FiO2 10/25/19 11:00 98.0 51 85/54 (64) 93 98.0 10/25/19 07:50 Room Air 10/25/19 07:00 18 Physical Exam PHYSICAL EXAM GENERAL: Propped up in bed, alert, laughing HEENT: No conjunctival lesion. Edentulous. No lesion in the mouth. NECK: Supple. No JVP, no lymphadenopathy. LUNGS: Clear. HEART: S1, S2 regular. ABDOMEN: Soft, no guarding : No Lion EXTREMITIES: No edema or cyanosis. SKIN: without rash NEUROLOGICAL: Alert, answers questions appropriately PIV looks ok Labs Lab Laboratory Tests Test 10/24/19 17:00 Urine Collection Type Unknown Urine Color Dk yellow Urine Clarity Clear Urine pH 6.0 (<5.0-8.0) Urine Specific [place] 1.025 (1.000-1.030) Urine Protein Negative mg/dL (NEG-TRACE) Urine Glucose (UA) Negative mg/dL (NEG) Urine Ketones (Stick) >=80 mg/dL (NEG) Urine Blood Large (NEG) Urine Nitrite Negative (NEG) Urine Bilirubin Negative (NEG) Urine Urobilinogen Dipstick 0.2 mg/dL (0.2 mg/dL) Urine Leukocyte Esterase Small (NEG) Urine RBC >40 /HPF (0-2) Urine WBC 5-10 /HPF (0-4) Urine Squamous Epithelial Cells Occ /LPF Urine Bacteria Few /HPF (0-FEW) Urine Mucus Marked /LPF Micro 10/22. BLOOD CULTURE Preliminary NO GROWTH AFTER 1 DAY Objective Assessment MSSA bacteremia, 06/19 bottles. 10/19. TTE neg. Repeat BC 10/22 neg to date Fever better Leukocytosis - better Encephalopathy - improved Unknown basal state or history. MSSA in urine, usually not considered an urological pathogen Plan Plan of Care Continue cefazolin, Repeat blood culture, 10/22 neg to date Maintain aspiration precautions Supportive care Attending Co-Sign The patient was seen and interviewed as well as examined at the bedside. The chart was reviewed. The case was discussed. Agree with the plan of care. SUBLVIVEK JACOBS APRN Oct 25, 2019 11:16 GERHARD KUMAR MD Oct 25, 2019 11:26
[2019-10-25] MEDS: TAMSULOSIN 0.4 MG CAP.ER.24H. PO SCH (21:00)
[2019-10-26 03:00] VITALS: BP 147/73
[2019-10-26 05:28] LABS: BASO # 0.1 x10^3/uL (0.0-0.2); BASO % 1 % (0-3); EOS # 0.4 x10^3/uL (0.0-0.7); EOS % 8 % (0-3); HEMATOCRIT 37.2 % (39.0-53.0); HEMOGLOBIN 13.1 g/dL (13.0-17.5); LYMPH # 1.1 x10^3/uL (1.0-4.8); LYMPH % 20 % (24-48); MEAN CORPUSCULAR HEMOGLOBIN 31 pg (25-35); MEAN CORPUSCULAR HGB CONC 35 g/dL (31-37); MEAN CORPUSCULAR VOLUME 89 fL (79-100); MONO # 0.3 x10^3/uL (0.0-1.1); MONO % 5 % (0-9); NEUT # 3.7 x10^3/uL (1.8-7.7); NEUT % 66 % (31-73); PLATELET COUNT 176 x10^3/uL (140-400); RED BLOOD COUNT 4.19 x10^6/uL (4.30-5.70); RED CELL DISTRIBUTION WIDTH 14.7 % (11.5-14.5); WHITE BLOOD COUNT 5.6 x10^3/uL (4.0-11.0)
[2019-10-26 05:43] LABS: ALBUMIN 1.8 g/dL (3.4-5.0); ALBUMIN/GLOBULIN RATIO 0.6 (1.0-1.7); CALCIUM 7.4 mg/dL (8.5-10.1); CREATININE 0.5 mg/dL (0.7-1.3); GFR 160.4; POTASSIUM 3.7 mmol/L (3.5-5.1); TOTAL BILIRUBIN 0.4 mg/dL (0.2-1.0)
[2019-10-26] MEDS: ceFAZolin SODIUM IV Push 1 GM VIAL. IVP SCH ×2 (06:00→13:44)
[2019-10-26] MEDS: AMINO AC 3%/ELECTROLYTE/GLYCER 1,000 ML IV SCH ×2 (06:02→15:40)
[2019-10-26 07:00] VITALS: BP 109/60
--- NOTE | 2019-10-26 07:48 | PDOC ---
F/U PHYSCH PROG NOTE Subjective: Gentleman is seen for routine follow-up. Progress is reviewed with nursing staff. No major emotional or behavioral breakdown reported overnight. He continues to be confused and not very receptive to questions. Still struggling with comprehension. Denies suicidal or homicidal thoughts. Denies auditory or visual hallucinations. No evidence of flora or hypomania. Tolerating medications denies adverse drug reaction. Objective: 14 point review of system is otherwise negative except for stated above. Vital Signs: Vital Signs Date Time Temp Pulse Resp B/P (MAP) Pulse Ox O2 Delivery O2 Flow Rate FiO2 10/26/19 07:00 98.1 50 18 109/60 (76) Room Air 98.1 10/26/19 03:00 93 Labs: Laboratory Tests Test 10/26/19 05:00 White Blood Count 5.6 x10^3/uL (4.0-11.0) Red Blood Count 4.19 x10^6/uL (4.30-5.70) L Hemoglobin 13.1 g/dL (13.0-17.5) Hematocrit 37.2 % (39.0-53.0) L Mean Corpuscular Volume 89 fL (79-100) Mean Corpuscular Hemoglobin 31 pg (25-35) Mean Corpuscular Hemoglobin Concent 35 g/dL (31-37) Red Cell Distribution Width 14.7 % (11.5-14.5) H Platelet Count 176 x10^3/uL (140-400) Neutrophils (%) (Auto) 66 % (31-73) Lymphocytes (%) (Auto) 20 % (24-48) L Monocytes (%) (Auto) 5 % (0-9) Eosinophils (%) (Auto) 8 % (0-3) H Basophils (%) (Auto) 1 % (0-3) Neutrophils # (Auto) 3.7 x10^3/uL (1.8-7.7) Lymphocytes # (Auto) 1.1 x10^3/uL (1.0-4.8) Monocytes # (Auto) 0.3 x10^3/uL (0.0-1.1) Eosinophils # (Auto) 0.4 x10^3/uL (0.0-0.7) Basophils # (Auto) 0.1 x10^3/uL (0.0-0.2) Sodium Level 140 mmol/L (136-145) Potassium Level 3.7 mmol/L (3.5-5.1) Chloride Level 108 mmol/L (98-107) H Carbon Dioxide Level 26 mmol/L (21-32) Anion Gap 6 (6-14) Blood Urea Nitrogen 11 mg/dL (8-26) Creatinine 0.5 mg/dL (0.7-1.3) L Estimated GFR (Cockcroft-Gault) 160.4 BUN/Creatinine Ratio 22 (6-20) H Glucose Level 96 mg/dL (70-99) Calcium Level 7.4 mg/dL (8.5-10.1) L Total Bilirubin 0.4 mg/dL (0.2-1.0) Aspartate Amino Transferase (AST) 20 U/L (15-37) Alanine Aminotransferase (ALT) 25 U/L (16-63) Alkaline Phosphatase 40 U/L (46-116) L Total Protein 5.0 g/dL (6.4-8.2) L Albumin 1.8 g/dL (3.4-5.0) L Albumin/Globulin Ratio 0.6 (1.0-1.7) L Laboratory Tests 10/26/19 05:00 Laboratory Tests 10/26/19 05:00 Medications: Current Medications Medications (Trade) Dose Ordered Sig/Jasvir Start Time Stop Time Status Last Admin Dose Admin Acetaminophen (Tylenol Supp) 650 mg 1X ONCE 10/20/19 12:45 10/20/19 12:50 DC 10/20/19 13:19 650 MG Acetaminophen (Tylenol) 650 mg PRN Q4HRS PRN 10/20/19 14:45 Amino Acids/ Glycerin/ Electrolytes 1,000 ml @ 100 mls/hr Q10H 10/24/19 14:30 10/26/19 06:02 100 MLS/HR Barium Sulfate (Varibar Thin Liquid Apple) 148 gm 1X ONCE 10/23/19 11:15 10/23/19 11:16 DC 10/23/19 11:15 148 GM Cefazolin Sodium (Ancef) 1 gm Q8HRS 10/21/19 10:00 10/26/19 06:00 1 GM Cefazolin Sodium 1000 mg/Dextrose 50 ml @ 100 mls/hr Q8HRS 10/21/19 10:00 Cancel Enoxaparin Sodium (Lovenox 40mg Syringe) 40 mg Q12HR 10/20/19 21:00 10/25/19 09:35 40 MG Haloperidol Lactate (Haldol Inj) 5 mg PRN Q6HRS PRN 10/20/19 20:30 10/21/19 20:30 5 MG Info (CONTRAST GIVEN -- Rx MONITORING) 1 each PRN DAILY PRN 10/20/19 14:00 10/22/19 13:59 DC Iohexol (Omnipaque 300 Mg/ml) 60 ml 1X ONCE 10/20/19 13:45 10/20/19 13:49 DC 10/20/19 13:45 60 ML Lactobacillus Rhamnosus (Culturelle) 1 cap BID 10/21/19 13:00 10/23/19 08:41 1 CAP Lorazepam (Ativan Inj) 2 mg PRN Q2HRS PRN 10/21/19 11:15 10/21/19 23:09 2 MG Olanzapine (ZyPREXA IM) 10 mg 1X ONCE 10/20/19 20:30 10/20/19 20:38 DC 10/20/19 21:53 10 MG Olanzapine (ZyPREXA ZYDIS) 5 mg HS 10/23/19 21:00 10/25/19 21:35 5 MG Ondansetron HCl (Zofran) 4 mg PRN Q4HRS PRN 10/20/19 20:30 Piperacillin Sod/ Tazobactam Sod 3.375 gm/Sodium Chloride 50 ml @ 100 mls/hr Q6HRS 10/20/19 18:00 10/21/19 09:41 DC 10/21/19 06:31 100 MLS/HR Sodium Chloride 1,000 ml @ 100 mls/hr Q10H 10/21/19 18:45 10/24/19 14:21 DC 10/24/19 08:33 100 MLS/HR Tamsulosin HCl (Flomax) 0.4 mg QHS 10/20/19 21:00 10/22/19 21:38 0.4 MG Vancomycin HCl (Vanco Per Pharmacy) 1 each PRN DAILY PRN 10/20/19 17:30 10/22/19 11:33 DC 10/21/19 11:05 1 EACH Vancomycin HCl (Vancomycin Trough Level) 1 each 1X ONCE 10/22/19 17:30 10/22/19 11:34 DC Vancomycin HCl 1.25 gm/Sodium Chloride 250 ml @ 166.667 mls/hr 1X ONCE 10/20/19 18:00 10/20/19 19:29 DC 10/20/19 18:00 166.667 MLS/HR Vancomycin HCl 750 mg/Sodium Chloride 250 ml @ 250 mls/hr Q24H 10/21/19 18:00 10/22/19 11:33 DC 10/21/19 17:23 250 MLS/HR Physical Exam: Physical Exam: Refer to Physician's note. [employer]: No focal deficit MSK: No EPS, TDK, or abnormal involuntary movements Diagnosis: Acute delirium, likely multifactorial, hyperactive and hypoactive type. Unspecified neurocognitive disorder Assessment: Symptomatology and symptoms presentation is suggestive of acute delirium/metabolic encephalopathy. Collateral information would help to determine underlying neurocognitive status and baseline status. We will continue medications as prescribed. Antipsychotics for agitation. 10/26/2019: He continues to be confused however little bit oriented to person and place. 10/27/2019: Today he is demonstrating some improvement in mental status. Relatively receptive to questions and understanding easily. Plan: Continue medications as prescribed. Risk, benefits, alternatives of the treatment are discussed. He is in agreement with plan and voiced understanding. Adverse drug reaction of the medication discussed including Zyprexa. Avoid sedatives and hypnotics. Applied delirium protocol. Avoid sundowning JUAN WHITLEY MD Oct 26, 2019 07:48
[2019-10-26] MEDS: ENOXAPARIN 40 MG/0.4 ML SYRINGE. SQ SCH (09:00)
[2019-10-26] MEDS: LACTOBACILLUS RHAMNOSUS GG 1 CAPSULE. PO SCH ×2 (09:00→20:55)
--- NOTE | 2019-10-26 10:11 | PDOC ---
PROGRESS NOTES Date of Service: DATE: 10/26/19 TIME: 10:11 Chief Complaint Chief Complaint IMPRESSION ======= UTI AMS Elevated troponin: peaked at 0.2 no noted cardiac symptoms per chart review. EKG SR without acute changes. Suspect demand mediated Nontraumatic Mechanical fall: due to weakness Staph aureus bacteremia, 06/19 bottles, susceptibilities MSSA Fever. Leukocytosis. METABOLIC Encephalopathy. Reticular nodular airspace disease with dependent consolidation in the lower lobes, nonspecific. This could be related to noncardiogenic edema or atypical pneumonia. Chronic aspiration is another consideration. Additional noncalcified pulmonary nodules within both lungs, nonspecific. 12 month Follow-up imaging to ensure stability. Asymmetric bladder wall thickening on the right, indeterminate. This could be related to acute or chronic cystitis or an underlying bladder mass. Correlate with clinical history. If indicated, a CT urogram could better evaluate. TELE PULM CONSULT CONSIDER UROLOGY CONSULT Continue cefazolin, 10/23 Repeat blood culture, 10/22 in progress Dysphagia of the oral and pharyngeal phases as described.. Aspiration was observed with all tested food consistencies. Please refer to speech pathology notes for complete details and recommendations. GI CONSULTED patient and [id number] and they do wish to proceed WITH peg at this time PEG 10/25 D/W FAMILY IN ROOM DICTATED and SIGNED BY: ABBI RINALDI MD DATE: 10/23/19 1731 79 year old male with no known PMHx who presents with here with his [id number] and granddaughter for altered mental status. 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 Family notes they speak with him on the phone often and he has memory and anger issues and is estranged from them due to this. For the 3 days he has lived with them they note unsteady gait, and that he converses with them and is able to eat and drink on his own but only receives hot dogs and energy drinks, 4 per day each. Granddaughter states on 10/18 he ripped a screen door off of the wall and was urinating in drawers in their home. He was last seen normal last night, 10/18 at 2200. They stated for him this morning they went to get him up and he did not want to get out of bed and he was shivering and complaining that he was cold but they did not think he had a feve r. Febrile to 103.7F in the ED, given 650mg acetaminophen suppository with improvement in his temperature. He showed no meningeal signs and was moving all extremities on examination, opens eyes, answers 1-2 word answers. Does not have any pain complaints. Tells me he needs to urinate. When asked about his missing left 4th finger he does note his hand hurts sometimes. XR negative for fracture. 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 CT chest with reticular nodular airspace disease with dependent consolidation in the lower lobes and noncalcified pulmonary nodules within both lungs, nonspecific. CT abdomen/pelvis reveal asymmetric bladder wall thickening on the right, indeterminate. This could be related to acute or chronic cystitis or an underlying bladder mass. Urine positive for LE and nitrites. White blood cell count is 13.5. Troponin elevated at 0.068, BNP is 2122. Patient has received 1 L of fluids. Started on empiric Zosyn IV. Admitted for altered mental status and fevers with likely bladder source. As he was just transported from [place], COVID 19 testing was performed as well. History of Present Illness History of Present Illness 10/24/19 Patient seen and examined Discussed with RN Discussed with speech therapy Patient mentioned he has lost 60 lbs because he has no dentures so it's become difficult to eat Covid (-) Continue cefazolin, Repeat blood culture, 10/22 in progress Maintain aspiration precautions 10/22/19 Patient seen and examined Chart reviewed Discussed with RN Patient seemed confused but more calm Nurse mentioned patient had defecated while walking around the room Vitals Vitals Vital Signs Date Time Temp Pulse Resp B/P (MAP) Pulse Ox O2 Delivery O2 Flow Rate FiO2 10/26/19 08:00 Room Air 10/26/19 07:00 98.1 50 18 109/60 (76) 98.1 10/26/19 03:00 93 Physical Exam Physical Exam GENERAL: Propped up in bed, alert, laughing HEENT: No conjunctival lesion. Edentulous. No lesion in the mouth. NECK: Supple. No JVP, no lymphadenopathy. LUNGS: Clear. HEART: S1, S2 regular. ABDOMEN: Soft, no guarding : No Lion EXTREMITIES: No edema or cyanosis. SKIN: without rash NEUROLOGICAL: Alert, answers questions appropriately PIV looks ok General: Alert, Cooperative, No acute distress, Other (restless) Heart: Regular rate (SR), Normal S1, Normal S2, No murmurs Lungs: Clear Abdomen: Soft Extremities: No edema Skin: No significant lesion Labs LABS Laboratory Tests Test 10/26/19 05:00 White Blood Count 5.6 x10^3/uL (4.0-11.0) Red Blood Count 4.19 x10^6/uL (4.30-5.70) Hemoglobin 13.1 g/dL (13.0-17.5) Hematocrit 37.2 % (39.0-53.0) Mean Corpuscular Volume 89 fL (79-100) Mean Corpuscular Hemoglobin 31 pg (25-35) Mean Corpuscular Hemoglobin Concent 35 g/dL (31-37) Red Cell Distribution Width 14.7 % (11.5-14.5) Platelet Count 176 x10^3/uL (140-400) Neutrophils (%) (Auto) 66 % (31-73) Lymphocytes (%) (Auto) 20 % (24-48) Monocytes (%) (Auto) 5 % (0-9) Eosinophils (%) (Auto) 8 % (0-3) Basophils (%) (Auto) 1 % (0-3) Neutrophils # (Auto) 3.7 x10^3/uL (1.8-7.7) Lymphocytes # (Auto) 1.1 x10^3/uL (1.0-4.8) Monocytes # (Auto) 0.3 x10^3/uL (0.0-1.1) Eosinophils # (Auto) 0.4 x10^3/uL (0.0-0.7) Basophils # (Auto) 0.1 x10^3/uL (0.0-0.2) Sodium Level 140 mmol/L (136-145) Potassium Level 3.7 mmol/L (3.5-5.1) Chloride Level 108 mmol/L (98-107) Carbon Dioxide Level 26 mmol/L (21-32) Anion Gap 6 (6-14) Blood Urea Nitrogen 11 mg/dL (8-26) Creatinine 0.5 mg/dL (0.7-1.3) Estimated GFR (Cockcroft-Gault) 160.4 BUN/Creatinine Ratio 22 (6-20) Glucose Level 96 mg/dL (70-99) Calcium Level 7.4 mg/dL (8.5-10.1) Total Bilirubin 0.4 mg/dL (0.2-1.0) Aspartate Amino Transf (AST/SGOT) 20 U/L (15-37) Alanine Aminotransferase (ALT/SGPT) 25 U/L (16-63) Alkaline Phosphatase 40 U/L (46-116) Total Protein 5.0 g/dL (6.4-8.2) Albumin 1.8 g/dL (3.4-5.0) Albumin/Globulin Ratio 0.6 (1.0-1.7) Assessment and Plan Assessmemt and Plan Problems Medical Problems: (1) AMS (altered mental status) Status: Acute (2) Person under investigation for COVID-19 Status: Acute (3) UTI (urinary tract infection) Status: Acute Comment Review of Relevant I have reviewed the following items katie (where applicable) has been applied. Labs Laboratory Tests Test 10/24/19 17:00 10/26/19 05:00 Urine Collection Type Unknown Urine Color Dk yellow Urine Clarity Clear Urine pH 6.0 (<5.0-8.0) Urine Specific [place] 1.025 (1.000-1.030) Urine Protein Negative mg/dL (NEG-TRACE) Urine Glucose (UA) Negative mg/dL (NEG) Urine Ketones (Stick) >=80 mg/dL (NEG) Urine Blood Large (NEG) Urine Nitrite Negative (NEG) Urine Bilirubin Negative (NEG) Urine Urobilinogen Dipstick 0.2 mg/dL (0.2 mg/dL) Urine Leukocyte Esterase Small (NEG) Urine RBC >40 /HPF (0-2) Urine WBC 5-10 /HPF (0-4) Urine Squamous Epithelial Cells Occ /LPF Urine Bacteria Few /HPF (0-FEW) Urine Mucus Marked /LPF White Blood Count 5.6 x10^3/uL (4.0-11.0) Red Blood Count 4.19 x10^6/uL (4.30-5.70) Hemoglobin 13.1 g/dL (13.0-17.5) Hematocrit 37.2 % (39.0-53.0) Mean Corpuscular Volume 89 fL (79-100) Mean Corpuscular Hemoglobin 31 pg (25-35) Mean Corpuscular Hemoglobin Concent 35 g/dL (31-37) Red Cell Distribution Width 14.7 % (11.5-14.5) Platelet Count 176 x10^3/uL (140-400) Neutrophils (%) (Auto) 66 % (31-73) Lymphocytes (%) (Auto) 20 % (24-48) Monocytes (%) (Auto) 5 % (0-9) Eosinophils (%) (Auto) 8 % (0-3) Basophils (%) (Auto) 1 % (0-3) Neutrophils # (Auto) 3.7 x10^3/uL (1.8-7.7) Lymphocytes # (Auto) 1.1 x10^3/uL (1.0-4.8) Monocytes # (Auto) 0.3 x10^3/uL (0.0-1.1) Eosinophils # (Auto) 0.4 x10^3/uL (0.0-0.7) Basophils # (Auto) 0.1 x10^3/uL (0.0-0.2) Sodium Level 140 mmol/L (136-145) Potassium Level 3.7 mmol/L (3.5-5.1) Chloride Level 108 mmol/L (98-107) Carbon Dioxide Level 26 mmol/L (21-32) Anion Gap 6 (6-14) Blood Urea Nitrogen 11 mg/dL (8-26) Creatinine 0.5 mg/dL (0.7-1.3) Estimated GFR (Cockcroft-Gault) 160.4 BUN/Creatinine Ratio 22 (6-20) Glucose Level 96 mg/dL (70-99) Calcium Level 7.4 mg/dL (8.5-10.1) Total Bilirubin 0.4 mg/dL (0.2-1.0) Aspartate Amino Transf (AST/SGOT) 20 U/L (15-37) Alanine Aminotransferase (ALT/SGPT) 25 U/L (16-63) Alkaline Phosphatase 40 U/L (46-116) Total Protein 5.0 g/dL (6.4-8.2) Albumin 1.8 g/dL (3.4-5.0) Albumin/Globulin Ratio 0.6 (1.0-1.7) Laboratory Tests Test 10/26/19 05:00 White Blood Count 5.6 x10^3/uL (4.0-11.0) Red Blood Count 4.19 x10^6/uL (4.30-5.70) Hemoglobin 13.1 g/dL (13.0-17.5) Hematocrit 37.2 % (39.0-53.0) Mean Corpuscular Volume 89 fL (79-100) Mean Corpuscular Hemoglobin 31 pg (25-35) Mean Corpuscular Hemoglobin Concent 35 g/dL (31-37) Red Cell Distribution Width 14.7 % (11.5-14.5) Platelet Count 176 x10^3/uL (140-400) Neutrophils (%) (Auto) 66 % (31-73) Lymphocytes (%) (Auto) 20 % (24-48) Monocytes (%) (Auto) 5 % (0-9) Eosinophils (%) (Auto) 8 % (0-3) Basophils (%) (Auto) 1 % (0-3) Neutrophils # (Auto) 3.7 x10^3/uL (1.8-7.7) Lymphocytes # (Auto) 1.1 x10^3/uL (1.0-4.8) Monocytes # (Auto) 0.3 x10^3/uL (0.0-1.1) Eosinophils # (Auto) 0.4 x10^3/uL (0.0-0.7) Basophils # (Auto) 0.1 x10^3/uL (0.0-0.2) Sodium Level 140 mmol/L (136-145) Potassium Level 3.7 mmol/L (3.5-5.1) Chloride Level 108 mmol/L (98-107) Carbon Dioxide Level 26 mmol/L (21-32) Anion Gap 6 (6-14) Blood Urea Nitrogen 11 mg/dL (8-26) Creatinine 0.5 mg/dL (0.7-1.3) Estimated GFR (Cockcroft-Gault) 160.4 BUN/Creatinine Ratio 22 (6-20) Glucose Level 96 mg/dL (70-99) Calcium Level 7.4 mg/dL (8.5-10.1) Total Bilirubin 0.4 mg/dL (0.2-1.0) Aspartate Amino Transf (AST/SGOT) 20 U/L (15-37) Alanine Aminotransferase (ALT/SGPT) 25 U/L (16-63) Alkaline Phosphatase 40 U/L (46-116) Total Protein 5.0 g/dL (6.4-8.2) Albumin 1.8 g/dL (3.4-5.0) Albumin/Globulin Ratio 0.6 (1.0-1.7) Microbiology 10/24/19 Urine Culture - Final, Complete 10/23/19 Blood Culture - Preliminary, Resulted NO GROWTH AFTER 2 DAYS Medications Current Medications Sodium Chloride 1,000 ml @ 1,000 mls/hr 1X ONCE IV Last administered on 10/20/19at 13:00; Start 10/20/19 at 12:45; Stop 10/20/19 at 13:44; Status DC Acetaminophen (Tylenol Supp) 650 mg 1X ONCE OK Last administered on 10/20/19at 13:19; Start 10/20/19 at 12:45; Stop 10/20/19 at 12:50; Status DC Piperacillin Sod/ Tazobactam Sod 3.375 gm/Sodium Chloride 50 ml @ 100 mls/hr 1X ONCE IV Last administered on 10/20/19at 13:42; Start 10/20/19 at 13:30; Stop 10/20/19 at 13:59; Status DC Iohexol (Omnipaque 300 Mg/ml) 60 ml 1X ONCE IV Last administered on 10/20/19at 13:45; Start 10/20/19 at 13:45; Stop 10/20/19 at 13:49; Status DC Info (CONTRAST GIVEN -- Rx MONITORING) 1 each PRN DAILY PRN MC SEE COMMENTS; Start 10/20/19 at 14:00; Stop 10/22/19 at 13:59; Status DC Ondansetron HCl (Zofran) 4 mg PRN Q8HRS PRN IV NAUSEA/VOMITING; Start 10/20/19 at 14:45; Stop 10/20/19 at 20:24; Status DC Sodium Chloride 1,000 ml @ 100 mls/hr Q10H IV Last administered on 10/21/19at 10:55; Start 10/20/19 at 14:43; Stop 10/21/19 at 14:42; Status DC Acetaminophen (Tylenol) 650 mg PRN Q4HRS PRN PO FEVER > 100.3'F; Start 10/20/19 at 14:45 Vancomycin HCl (Vanco Per Pharmacy) 1 each PRN DAILY PRN MC SEE COMMENTS Last administered on 10/21/19at 11:05; Start 10/20/19 at 17:30; Stop 10/22/19 at 11:33; Status DC Piperacillin Sod/ Tazobactam Sod 3.375 gm/Sodium Chloride 50 ml @ 100 mls/hr Q6HRS IV Last administered on 10/21/19at 06:31; Start 10/20/19 at 18:00; Stop 10/21/19 at 09:41; Status DC Vancomycin HCl 1.25 gm/Sodium Chloride 250 ml @ 166.667 mls/hr 1X ONCE IV Last administered on 10/20/19at 18:00; Start 10/20/19 at 18:00; Stop 10/20/19 at 19:29; Status DC Vancomycin HCl 750 mg/Sodium Chloride 250 ml @ 250 mls/hr Q24H IV Last admi nistered on 10/21/19at 17:23; Start 10/21/19 at 18:00; Stop 10/22/19 at 11:33; Status DC Vancomycin HCl (Vancomycin Trough Level) 1 each 1X ONCE MC ; Start 10/22/19 at 17:30; Stop 10/22/19 at 11:34; Status DC Ondansetron HCl (Zofran) 4 mg PRN Q4HRS PRN IV NAUSEA/VOMITING; Start 10/20/19 at 20:30 Olanzapine (ZyPREXA ZYDIS) 5 mg PRN BID PRN PO ANXIETY / AGITATION; Start 10/20/19 at 20:30 Enoxaparin Sodium (Lovenox 40mg Syringe) 40 mg Q12HR SQ Last administered on 10/25/19at 09:35; Start 10/20/19 at 21:00 Tamsulosin HCl (Flomax) 0.4 mg QHS PO Last administered on 10/22/19at 21:38; Start 10/20/19 at 21:00 Olanzapine (ZyPREXA IM) 10 mg 1X ONCE IM Last administered on 10/20/19at 21:53; Start 10/20/19 at 20:30; Stop 10/20/19 at 20:38; Status DC Haloperidol Lactate (Haldol Inj) 5 mg PRN Q6HRS PRN IVP AGITATION Last administered on 10/21/19 20:30; Start 10/20/19 at 20:30 Cefazolin Sodium 1000 mg/Dextrose 50 ml @ 100 mls/hr Q8HRS IV ; Start 10/21/19 at 10:00; Status Cancel Cefazolin Sodium (Ancef) 1 gm Q8HRS IVP Last administered on 10/26/19at 06:00; Start 10/21/19 at 10:00 Lorazepam (Ativan Inj) 2 mg PRN Q2HRS PRN IVP ANXIETY / AGITATION Last adminis tered on 10/21/19at 23:09; Start 10/21/19 at 11:15 Lactobacillus Rhamnosus (Culturelle) 1 cap BID PO Last administered on 10/23/19 08:41; Start 10/21/19 at 13:00 Sodium Chloride 1,000 ml @ 100 mls/hr Q10H IV Last administered on 10/24/19 08:33; Start 10/21/19 at 18:45; Stop 10/24/19 at 14:21; Status DC Barium Sulfate (Varibar Thin Liquid Apple) 148 gm 1X ONCE PO Last administered on 10/23/19 11:15; Start 10/23/19 at 11:15; Stop 10/23/19 at 11:16; Status DC Olanzapine (ZyPREXA ZYDIS) 5 mg HS PO Last administered on 10/25/19at 21:35; Start 10/23/19 at 21:00 Amino Acids/ Glycerin/ Electrolytes 1,000 ml @ 100 mls/hr Q10H IV Last administered on 10/26/19 06:02; Start 10/24/19 at 14:30 Vitals/I & O Vital Sign - Last 24 Hours 10/25/19 10/25/19 10/25/19 10/25/19 11:00 12:44 15:00 19:00 Temp 98.0 97.5 97.7 98.0 97.5 97.7 Pulse 51 49 56 Resp 18 18 B/P (MAP) 85/54 (64) 116/61 (79) 122/68 (86) 128/73 (91) Pulse Ox 93 93 93 10/25/19 10/25/19 10/26/19 10/26/19 21:46 23:00 03:00 07:00 Temp 98.3 98.0 98.1 98.3 98.0 98.1 Pulse 52 51 50 Resp 18 16 18 B/P (MAP) 115/58 (77) 147/73 (97) 109/60 (76) Pulse Ox 93 93 O2 Delivery Room Air Room Air 10/26/19 08:00 O2 Delivery Room Air Intake and Output 10/25/19 10/25/19 10/26/19 15:00 23:00 07:00 Intake Total 1000 ml 1000 ml Output Total 2 ml Balance 998 ml 1000 ml Nutrition Consultation Dietary Evaluation: Recommendations by RD: Dietary education by RD, Increase Calorie Intake, Protein supplementation Comments: REC continue diet per [employer] with supplements Expected Outcomes/Goals: to meet >75% est nutr needs- not met, goal ongoing Malnutrition Findings: Body Fat Depletion (Non Severe: Mild Depletion Weight Status: Underweight Justicifation of Admission Dx: Justifications for Admission: Justification of Admission Dx: N/A SHENG EVANS MD Oct 26, 2019 10:11
--- NOTE | 2019-10-26 10:42 | PDOC ---
Infectious Disease Note Subjective: Subjective Feels good Deneis pain/N/V/F/chills/SOA /jt pain or gu symptoms Vital Signs: Vital Signs Vital Signs Date Time Temp Pulse Resp B/P (MAP) Pulse Ox O2 Delivery O2 Flow Rate FiO2 10/26/19 08:00 Room Air 10/26/19 07:00 98.1 50 18 109/60 (76) 98.1 10/26/19 03:00 93 Physical Exam: PHYSICAL EXAM GENERAL: Propped up in bed, alert, smiling HEENT: No conjunctival lesion. Edentulous. No lesion in the mouth. NECK: Supple. No JVP, no lymphadenopathy. LUNGS: Clear. HEART: S1, S2 regular. ABDOMEN: Soft, no guarding : No Lion EXTREMITIES: No edema or cyanosis. SKIN: without rash MSK no jt swelling or dec in range of motion BACK normal curvature, no spine tenderness NEUROLOGICAL: Alert, answers questions appropriately PIV looks ok Medications: Inpatient Meds: Current Medications Medications (Trade) Dose Ordered Sig/Jasvir Start Time Stop Time Status Last Admin Dose Admin Acetaminophen (Tylenol Supp) 650 mg 1X ONCE 10/20/19 12:45 10/20/19 12:50 DC 10/20/19 13:19 650 MG Acetaminophen (Tylenol) 650 mg PRN Q4HRS PRN 10/20/19 14:45 Amino Acids/ Glycerin/ Electrolytes 1,000 ml @ 100 mls/hr Q10H 10/24/19 14:30 10/26/19 06:02 100 MLS/HR Barium Sulfate (Varibar Thin Liquid Apple) 148 gm 1X ONCE 10/23/19 11:15 10/23/19 11:16 DC 10/23/19 11:15 148 GM Cefazolin Sodium (Ancef) 1 gm Q8HRS 10/21/19 10:00 10/26/19 06:00 1 GM Cefazolin Sodium 1000 mg/Dextrose 50 ml @ 100 mls/hr Q8HRS 10/21/19 10:00 Cancel Enoxaparin Sodium (Lovenox 40mg Syringe) 40 mg Q12HR 10/20/19 21:00 10/25/19 09:35 40 MG Haloperidol Lactate (Haldol Inj) 5 mg PRN Q6HRS PRN 10/20/19 20:30 10/21/19 20:30 5 MG Info (CONTRAST GIVEN -- Rx MONITORING) 1 each PRN DAILY PRN 10/20/19 14:00 10/22/19 13:59 DC Iohexol (Omnipaque 300 Mg/ml) 60 ml 1X ONCE 10/20/19 13:45 10/20/19 13:49 DC 10/20/19 13:45 60 ML Lactobacillus Rhamnosus (Culturelle) 1 cap BID 10/21/19 13:00 10/23/19 08:41 1 CAP Lorazepam (Ativan Inj) 2 mg PRN Q2HRS PRN 10/21/19 11:15 10/21/19 23:09 2 MG Olanzapine (ZyPREXA IM) 10 mg 1X ONCE 10/20/19 20:30 10/20/19 20:38 DC 10/20/19 21:53 10 MG Olanzapine (ZyPREXA ZYDIS) 5 mg HS 10/23/19 21:00 10/25/19 21:35 5 MG Ondansetron HCl (Zofran) 4 mg PRN Q4HRS PRN 10/20/19 20:30 Piperacillin Sod/ Tazobactam Sod 3.375 gm/Sodium Chloride 50 ml @ 100 mls/hr Q6HRS 10/20/19 18:00 10/21/19 09:41 DC 10/21/19 06:31 100 MLS/HR Sodium Chloride 1,000 ml @ 100 mls/hr Q10H 10/21/19 18:45 10/24/19 14:21 DC 10/24/19 08:33 100 MLS/HR Tamsulosin HCl (Flomax) 0.4 mg QHS 10/20/19 21:00 10/22/19 21:38 0.4 MG Vancomycin HCl (Vanco Per Pharmacy) 1 each PRN DAILY PRN 10/20/19 17:30 10/22/19 11:33 DC 10/21/19 11:05 1 EACH Vancomycin HCl (Vancomycin Trough Level) 1 each 1X ONCE 10/22/19 17:30 10/22/19 11:34 DC Vancomycin HCl 1.25 gm/Sodium Chloride 250 ml @ 166.667 mls/hr 1X ONCE 10/20/19 18:00 10/20/19 19:29 DC 10/20/19 18:00 166.667 MLS/HR Vancomycin HCl 750 mg/Sodium Chloride 250 ml @ 250 mls/hr Q24H 10/21/19 18:00 10/22/19 11:33 DC 10/21/19 17:23 250 MLS/HR Labs: Lab Laboratory Tests Test 10/26/19 05:00 White Blood Count 5.6 x10^3/uL (4.0-11.0) Red Blood Count 4.19 x10^6/uL (4.30-5.70) Hemoglobin 13.1 g/dL (13.0-17.5) Hematocrit 37.2 % (39.0-53.0) Mean Corpuscular Volume 89 fL (79-100) Mean Corpuscular Hemoglobin 31 pg (25-35) Mean Corpuscular Hemoglobin Concent 35 g/dL (31-37) Red Cell Distribution Width 14.7 % (11.5-14.5) Platelet Count 176 x10^3/uL (140-400) Neutrophils (%) (Auto) 66 % (31-73) Lymphocytes (%) (Auto) 20 % (24-48) Monocytes (%) (Auto) 5 % (0-9) Eosinophils (%) (Auto) 8 % (0-3) Basophils (%) (Auto) 1 % (0-3) Neutrophils # (Auto) 3.7 x10^3/uL (1.8-7.7) Lymphocytes # (Auto) 1.1 x10^3/uL (1.0-4.8) Monocytes # (Auto) 0.3 x10^3/uL (0.0-1.1) Eosinophils # (Auto) 0.4 x10^3/uL (0.0-0.7) Basophils # (Auto) 0.1 x10^3/uL (0.0-0.2) Sodium Level 140 mmol/L (136-145) Potassium Level 3.7 mmol/L (3.5-5.1) Chloride Level 108 mmol/L (98-107) Carbon Dioxide Level 26 mmol/L (21-32) Anion Gap 6 (6-14) Blood Urea Nitrogen 11 mg/dL (8-26) Creatinine 0.5 mg/dL (0.7-1.3) Estimated GFR (Cockcroft-Gault) 160.4 BUN/Creatinine Ratio 22 (6-20) Glucose Level 96 mg/dL (70-99) Calcium Level 7.4 mg/dL (8.5-10.1) Total Bilirubin 0.4 mg/dL (0.2-1.0) Aspartate Amino Transf (AST/SGOT) 20 U/L (15-37) Alanine Aminotransferase (ALT/SGPT) 25 U/L (16-63) Alkaline Phosphatase 40 U/L (46-116) Total Protein 5.0 g/dL (6.4-8.2) Albumin 1.8 g/dL (3.4-5.0) Albumin/Globulin Ratio 0.6 (1.0-1.7) Objective: Assessment: MSSA bacteremia, 06/19 bottles. 10/19. TTE neg. Repeat BC 10/22 neg to date Fever better Leukocytosis - better Encephalopathy - improved Unknown basal state or history. MSSA in urine, usually not considered an urological pathogen Plan: Plan of Care Continue cefazolin, Repeat blood culture, 10/22 neg to date Cardiology consult for MOHSEN Maintain aspiration precautions Supportive care MARIANNA KUMAR MD Oct 26, 2019 10:42
[2019-10-26 11:00] VITALS: BP 106/63
--- NOTE | 2019-10-26 11:05 | NUR ---
SW following. Discussed with RN, pt NPO - failed video swallow - family to decide about feeding, currently on PPN. PT/OT recommending home health. Cardiology consult for MOHSEN. Currently on IV cefazolin. SW will continue to follow.
--- NOTE | 2019-10-26 11:10 | PDOC ---
Date of Service: DATE: 10/26/19 TIME: 10:58 Objective: Objective: Nurse hasn't heard anything about pt/family wanting PEG or not. Primary note from yesterday says family/pt want PEG. Per Dr. Gil's note: discussed w/ pt and [id number] and they do NOT desire PEG. Remain NPO on PPN. Vital Signs: Vital Signs Date Time Temp Pulse Resp B/P (MAP) Pulse Ox O2 Delivery O2 Flow Rate FiO2 10/26/19 08:00 Room Air 10/26/19 07:00 98.1 50 18 109/60 (76) 98.1 10/26/19 03:00 93 Imaging: Videoswallow 10/22 IMPRESSION: Dysphagia of the oral and pharyngeal phases as described. Aspiration was observed with all tested food consistencies. Please refer to speech pathology notes for complete details and recommendations. Initial Videoswallow Study Results Pt aspirated thin, honey thick and puree consistencies. He was not able to follow instructions for maneuvers/positioning strategies to lessen or prevent aspiration. No safe consistency was identified. Aspiration was frequently silent; when not silent, a single breathy cough was produced. Volitional cough was slightly better but still largely non-productive. IMPRESSIONS: Moderate to mod-severe oropharyngeal dysphagia w/silent aspiration. High risk of aspiration on all consistencies. No safe consistency identified. Etiology of dysphagia unclear. 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 He attributed #60 wt loss to lack of dentition but aspiration may also be a contributing factor to wt loss. YOSHI LL consolidation on CT chest may also be r/t aspiration. Given test results, consideration of non-oral nutrition is indicated. RECOMMENDATIONS: NPO pending pt /family discussion of goals of care and consideration of +/- non-oral nutrition. Prognosis for return to safe po is guarded given severity of dysphagia, unknown etiology and chronicity of current dysphagia. DREAD Samuel. NPO sign sent back to room w/pt. PE: GEN: NAD - alone in room NEURO/PSYCH: sleeping, did not awaken A/P: Dysphagia MSSA bacteremia Delirium, neurocognitive disorder -- Will review w/ Dr. Mcnair. Justicifation of Admission Dx: Justifications for Admission: Justification of Admission Dx: N/A FIFI PLASENCIA Oct 26, 2019 11:10
--- NOTE | 2019-10-26 12:14 | PDOC ---
PULMONARY PROGRESS NOTES DATE: 10/26/19 TIME: 12:13 Subjective denies sob, has occ cough, on ra, Vitals Vital Signs Date Time Temp Pulse Resp B/P (MAP) Pulse Ox O2 Delivery O2 Flow Rate FiO2 10/26/19 11:00 97.9 48 18 106/63 (77) Room Air 97.9 10/26/19 03:00 93 ROS: No Nausea General: Alert, No acute distress HEENT: Other (nc at perrl ) Lungs: Clear Cardiovascular: S1 Abdomen: Soft Neuro Exam: Alert Extremities: Other (edema) Skin: Warm Labs Laboratory Tests Test 10/24/19 17:00 10/26/19 05:00 Urine Collection Type Unknown Urine Color Dk yellow Urine Clarity Clear Urine pH 6.0 (<5.0-8.0) Urine Specific [place] 1.025 (1.000-1.030) Urine Protein Negative mg/dL (NEG-TRACE) Urine Glucose (UA) Negative mg/dL (NEG) Urine Ketones (Stick) >=80 mg/dL (NEG) Urine Blood Large (NEG) Urine Nitrite Negative (NEG) Urine Bilirubin Negative (NEG) Urine Urobilinogen Dipstick 0.2 mg/dL (0.2 mg/dL) Urine Leukocyte Esterase Small (NEG) Urine RBC >40 /HPF (0-2) Urine WBC 5-10 /HPF (0-4) Urine Squamous Epithelial Cells Occ /LPF Urine Bacteria Few /HPF (0-FEW) Urine Mucus Marked /LPF White Blood Count 5.6 x10^3/uL (4.0-11.0) Red Blood Count 4.19 x10^6/uL (4.30-5.70) Hemoglobin 13.1 g/dL (13.0-17.5) Hematocrit 37.2 % (39.0-53.0) Mean Corpuscular Volume 89 fL (79-100) Mean Corpuscular Hemoglobin 31 pg (25-35) Mean Corpuscular Hemoglobin Concent 35 g/dL (31-37) Red Cell Distribution Width 14.7 % (11.5-14.5) Platelet Count 176 x10^3/uL (140-400) Neutrophils (%) (Auto) 66 % (31-73) Lymphocytes (%) (Auto) 20 % (24-48) Monocytes (%) (Auto) 5 % (0-9) Eosinophils (%) (Auto) 8 % (0-3) Basophils (%) (Auto) 1 % (0-3) Neutrophils # (Auto) 3.7 x10^3/uL (1.8-7.7) Lymphocytes # (Auto) 1.1 x10^3/uL (1.0-4.8) Monocytes # (Auto) 0.3 x10^3/uL (0.0-1.1) Eosinophils # (Auto) 0.4 x10^3/uL (0.0-0.7) Basophils # (Auto) 0.1 x10^3/uL (0.0-0.2) Sodium Level 140 mmol/L (136-145) Potassium Level 3.7 mmol/L (3.5-5.1) Chloride Level 108 mmol/L (98-107) Carbon Dioxide Level 26 mmol/L (21-32) Anion Gap 6 (6-14) Blood Urea Nitrogen 11 mg/dL (8-26) Creatinine 0.5 mg/dL (0.7-1.3) Estimated GFR (Cockcroft-Gault) 160.4 BUN/Creatinine Ratio 22 (6-20) Glucose Level 96 mg/dL (70-99) Calcium Level 7.4 mg/dL (8.5-10.1) Total Bilirubin 0.4 mg/dL (0.2-1.0) Aspartate Amino Transf (AST/SGOT) 20 U/L (15-37) Alanine Aminotransferase (ALT/SGPT) 25 U/L (16-63) Alkaline Phosphatase 40 U/L (46-116) Total Protein 5.0 g/dL (6.4-8.2) Albumin 1.8 g/dL (3.4-5.0) Albumin/Globulin Ratio 0.6 (1.0-1.7) Laboratory Tests Test 10/26/19 05:00 White Blood Count 5.6 x10^3/uL (4.0-11.0) Red Blood Count 4.19 x10^6/uL (4.30-5.70) Hemoglobin 13.1 g/dL (13.0-17.5) Hematocrit 37.2 % (39.0-53.0) Mean Corpuscular Volume 89 fL (79-100) Mean Corpuscular Hemoglobin 31 pg (25-35) Mean Corpuscular Hemoglobin Concent 35 g/dL (31-37) Red Cell Distribution Width 14.7 % (11.5-14.5) Platelet Count 176 x10^3/uL (140-400) Neutrophils (%) (Auto) 66 % (31-73) Lymphocytes (%) (Auto) 20 % (24-48) Monocytes (%) (Auto) 5 % (0-9) Eosinophils (%) (Auto) 8 % (0-3) Basophils (%) (Auto) 1 % (0-3) Neutrophils # (Auto) 3.7 x10^3/uL (1.8-7.7) Lymphocytes # (Auto) 1.1 x10^3/uL (1.0-4.8) Monocytes # (Auto) 0.3 x10^3/uL (0.0-1.1) Eosinophils # (Auto) 0.4 x10^3/uL (0.0-0.7) Basophils # (Auto) 0.1 x10^3/uL (0.0-0.2) Sodium Level 140 mmol/L (136-145) Potassium Level 3.7 mmol/L (3.5-5.1) Chloride Level 108 mmol/L (98-107) Carbon Dioxide Level 26 mmol/L (21-32) Anion Gap 6 (6-14) Blood Urea Nitrogen 11 mg/dL (8-26) Creatinine 0.5 mg/dL (0.7-1.3) Estimated GFR (Cockcroft-Gault) 160.4 BUN/Creatinine Ratio 22 (6-20) Glucose Level 96 mg/dL (70-99) Calcium Level 7.4 mg/dL (8.5-10.1) Total Bilirubin 0.4 mg/dL (0.2-1.0) Aspartate Amino Transf (AST/SGOT) 20 U/L (15-37) Alanine Aminotransferase (ALT/SGPT) 25 U/L (16-63) Alkaline Phosphatase 40 U/L (46-116) Total Protein 5.0 g/dL (6.4-8.2) Albumin 1.8 g/dL (3.4-5.0) Albumin/Globulin Ratio 0.6 (1.0-1.7) Impression . 1. Staphylococcal sepsis. The patient's blood cultures were positive 06/19. 2. Staphylococcus aureus urinary tract infection. 3. Abnormal CT chest with basilar infiltrate versus atelectasis along with tiny lung nodules. 4. Underlying suspected dementia. 5. dysphasia Plan . 1. Continue present antibiotics. 2. abx per id 3. oxygen titration.on RA now 4. DVT prophylaxis with Lovenox. 5. Would recommend to discuss advanced directives. 6. Monitor mental status. 7. dysphagia, follow speech rec, elevate hob, is npo discussed w pt, rn stable pulmonary status will see CASS MARTIN MD Oct 26, 2019 12:14
[2019-10-26 14:26] LABS: PROTHROMBIN TIME PATIENT 14.5 SEC (11.7-14.0)
[2019-10-26 15:00] VITALS: BP 101/63
--- NOTE | 2019-10-26 16:12 | RAD ---
Exam: Chest one view INDICATION: Pneumonia TECHNIQUE: Frontal view of the chest Comparisons: 10/20/2019 FINDINGS: The cardiomediastinal silhouette and pulmonary vessels are within normal limits. There is a trace left pleural effusion with adjacent airspace disease. IMPRESSION: Trace left pleural effusion with adjacent airspace disease likely atelectasis. Electronically signed by: Po Lemus MD (10/26/2019 4:10 PM) [id number]
[2019-10-26 19:00] VITALS: BP 115/61
[2019-10-26] MEDS: TAMSULOSIN 0.4 MG CAP.ER.24H. PO SCH (20:55)
[2019-10-26 23:00] VITALS: BP 107/56
[2019-10-27] VITALS (13 sets, daily range): BP systolic 110–155; BP diastolic 5–74
[2019-10-27] MEDS: ceFAZolin SODIUM IV Push 1 GM VIAL. IVP SCH ×4 (00:06→23:42)
[2019-10-27] MEDS: AMINO AC 3%/ELECTROLYTE/GLYCER 1,000 ML IV SCH ×2 (02:56→17:14)
[2019-10-27] MEDS ORDERED: HYDROmorphone 2 MG/ML VIAL IV PRN (07:00)
[2019-10-27] MEDS ORDERED: IV RINGERS,LACTATED 1000ML 1,000 ML IV SCH (07:00)
[2019-10-27] MEDS ORDERED: MORPHINE SULFATE 2 MG/ML VIAL. IV PRN (07:00)
[2019-10-27] MEDS ORDERED: fentaNYL PF VIAL 100 MCG/2 ML VIAL IV PRN ×2 (07:00)
[2019-10-27] MEDS ORDERED: IV RINGERS,LACTATED 1000ML 1,000 ML IV ONE (08:00)
--- NOTE | 2019-10-27 08:10 | PDOC ---
Infectious Disease Note Subjective: Subjective Pt without complaints Awaiting EGD today Vital Signs: Vital Signs Vital Signs Date Time Temp Pulse Resp B/P (MAP) Pulse Ox O2 Delivery O2 Flow Rate FiO2 10/27/19 03:00 98.6 47 112/56 (74) 98.6 10/26/19 23:00 18 95 Room Air Physical Exam: PHYSICAL EXAM GENERAL: Propped up in bed, alert, smiling HEENT: No conjunctival lesion. Edentulous. No lesion in the mouth. NECK: Supple. No JVP, no lymphadenopathy. LUNGS: Clear. HEART: S1, S2 regular. ABDOMEN: Soft, no guarding : No Lion EXTREMITIES: No edema or cyanosis. SKIN: without rash MSK no jt swelling or dec in range of motion BACK normal curvature, no spine tenderness NEUROLOGICAL: Alert, answers questions appropriately PIV looks ok Medications: Inpatient Meds: Current Medications Medications (Trade) Dose Ordered Sig/Jasvir Start Time Stop Time Status Last Admin Dose Admin Acetaminophen (Tylenol Supp) 650 mg 1X ONCE 10/20/19 12:45 10/20/19 12:50 DC 10/20/19 13:19 650 MG Acetaminophen (Tylenol) 650 mg PRN Q4HRS PRN 10/20/19 14:45 Amino Acids/ Glycerin/ Electrolytes 1,000 ml @ 100 mls/hr Q10H 10/24/19 14:30 10/27/19 02:56 100 MLS/HR Barium Sulfate (Varibar Thin Liquid Apple) 148 gm 1X ONCE 10/23/19 11:15 10/23/19 11:16 DC 10/23/19 11:15 148 GM Cefazolin Sodium (Ancef) 1 gm Q8HRS 10/21/19 10:00 10/27/19 06:27 1 GM Cefazolin Sodium 1000 mg/Dextrose 50 ml @ 100 mls/hr Q8HRS 10/21/19 10:00 Cancel Enoxaparin Sodium (Lovenox 40mg Syringe) 40 mg DAILY 10/27/19 09:00 10/26/19 13:59 DC Fentanyl Citrate (Fentanyl 2ml Vial) 50 mcg PRN Q5MIN PRN 10/27/19 07:00 10/28/19 06:59 Haloperidol Lactate (Haldol Inj) 5 mg PRN Q6HRS PRN 10/20/19 20:30 10/21/19 20:30 5 MG Hydromorphone HCl (Dilaudid) 0.5 mg PRN Q10MIN PRN 10/27/19 07:00 10/28/19 06:59 Info (CONTRAST GIVEN -- Rx MONITORING) 1 each PRN DAILY PRN 10/20/19 14:00 10/22/19 13:59 DC Iohexol (Omnipaque 300 Mg/ml) 60 ml 1X ONCE 10/20/19 13:45 10/20/19 13:49 DC 10/20/19 13:45 60 ML Lactobacillus Rhamnosus (Culturelle) 1 cap BID 10/21/19 13:00 10/23/19 08:41 1 CAP Lorazepam (Ativan Inj) 2 mg PRN Q2HRS PRN 10/21/19 11:15 10/21/19 23:09 2 MG Morphine Sulfate (Morphine Sulfate) 1 mg PRN Q10MIN PRN 10/27/19 07:00 10/28/19 06:59 Olanzapine (ZyPREXA IM) 10 mg 1X ONCE 10/20/19 20:30 10/20/19 20:38 DC 10/20/19 21:53 10 MG Olanzapine (ZyPREXA ZYDIS) 5 mg HS 10/23/19 21:00 10/26/19 21:45 5 MG Ondansetron HCl (Zofran) 4 mg PRN Q4HRS PRN 10/20/19 20:30 Piperacillin Sod/ Tazobactam Sod 3.375 gm/Sodium Chloride 50 ml @ 100 mls/hr Q6HRS 10/20/19 18:00 10/21/19 09:41 DC 10/21/19 06:31 100 MLS/HR Ringer's Solution 1,000 ml @ 75 mls/hr 1X ONCE 10/27/19 08:00 10/27/19 21:19 Sodium Chloride 1,000 ml @ 100 mls/hr Q10H 10/21/19 18:45 10/24/19 14:21 DC 10/24/19 08:33 100 MLS/HR Tamsulosin HCl (Flomax) 0.4 mg QHS 10/20/19 21:00 10/22/19 21:38 0.4 MG Vancomycin HCl (Vanco Per Pharmacy) 1 each PRN DAILY PRN 10/20/19 17:30 10/22/19 11:33 DC 10/21/19 11:05 1 EACH Vancomycin HCl (Vancomycin Trough Level) 1 each 1X ONCE 10/22/19 17:30 10/22/19 11:34 DC Vancomycin HCl 1.25 gm/Sodium Chloride 250 ml @ 166.667 mls/hr 1X ONCE 10/20/19 18:00 10/20/19 19:29 DC 10/20/19 18:00 166.667 MLS/HR Vancomycin HCl 750 mg/Sodium Chloride 250 ml @ 250 mls/hr Q24H 10/21/19 18:00 10/22/19 11:33 DC 10/21/19 17:23 250 MLS/HR Objective: Assessment: MSSA bacteremia, 06/19 bottles. 10/19. TTE neg. Repeat BC 10/22 neg to date Fever better Leukocytosis - better Encephalopathy - improved Unknown basal state or history. MSSA in urine, usually not considered an urological pathogen Dysphagia Plan: Plan of Care Continue cefazolin, Repeat blood culture, 10/22 neg to date MOHSEN pending Awaiting EGD with PEG tube placement Maintain aspiration precautions Supportive care Discussed with nursing staff MARIANNA KUMAR MD Oct 27, 2019 08:10
[2019-10-27] MEDS ORDERED: ENOXAPARIN 40 MG/0.4 ML SYRINGE. SQ SCH (09:00)
--- NOTE | 2019-10-27 10:15 | NUR ---
PATIENT LEAVES THE UNIT PER BED FOR PEG TUBE PLACEMENT, PATIENT REMAINS NPO AT THIS TIME, EMOTIONAL SUPPORT GIVEN. CALL PLACED TO PATIENTS' FAMILY REGARDING CONSENT FORMS THEY HAVE NOT BEEN SIGNED AT THIS TIME, FAMILY WOULD LIKE TO SPEAK WITH DR. PIERCE BEFORE GIVING CONSENT, OUTPATIENT NURSE INFORMED, DR. PIERCE INFORMED PER THIS LOCKER ATTENDANT AND PHONE NUMBER GIVEN.
[2019-10-27] MEDS ORDERED: PROPOFOL 10 MG/ML (20ML) VIAL. IV ONE (10:28)
--- NOTE | 2019-10-27 10:29 | NUR ---
[facility] following. Discussed with RN and reviewed chart. pt recently moved to [place] to stay with his son and dtr-in-law. Spoke with dtr-in-law Vanessa to coordinate care. Vanessa works from home. [facility]E provided education about HH and PD care. Vanessa asked about being a paid caregiver and estate recovery. MEME encouraged Vanessa to follow up with an Elder Law Molding Machine Operator Helper. MEME provided Medicaid application via email ([email or web address]) at request of Vanessa. Pr remains on PPN and IV Cefazolin. Discussed recommendation for HH. Patient Choice of Vendor form completed. HH referral phoned and faxed to [facility] at request of dtr-in-law. [facility] will continue to follow. Addendum: 10/27/19 at 1107 by VIPUL VALENTINE Pt may get a PEG today.
--- NOTE | 2019-10-27 10:44 | PDOC ---
PROGRESS NOTES Date of Service: DATE: 10/27/19 TIME: 10:44 Chief Complaint Chief Complaint IMPRESSION ======= UTI AMS Elevated troponin: peaked at 0.2 no noted cardiac symptoms per chart review. EKG SR without acute changes. Suspect demand mediated Nontraumatic Mechanical fall: due to weakness Staph aureus bacteremia, 06/19 bottles, susceptibilities MSSA Fever. Leukocytosis. METABOLIC Encephalopathy. Reticular nodular airspace disease with dependent consolidation in the lower lobes, nonspecific. This could be related to noncardiogenic edema or atypical pneumonia. Chronic aspiration is another consideration. Additional noncalcified pulmonary nodules within both lungs, nonspecific. 12 month Follow-up imaging to ensure stability. Asymmetric bladder wall thickening on the right, indeterminate. This could be related to acute or chronic cystitis or an underlying bladder mass. Correlate with clinical history. If indicated, a CT urogram could better evaluate. SEVERE PROTEIN-CALORIC MALNUTRITION PLAN TELE PULM CONSULT CONSIDER UROLOGY CONSULT Continue cefazolin, 10/23 Repeat blood culture, 10/22 in progress Dysphagia of the oral and pharyngeal phases as described.. Aspiration was observed with all tested food consistencies. Please refer to speech pathology notes for complete details and recommendations. GI CONSULTED patient and [id number] and they do wish to proceed WITH peg at this time PEG 10/26 D/W FAMILY IN ROOM DICTATED and SIGNED BY: ABBI RINALDI MD DATE: 10/23/19 1731 79 year old male with no known PMHx who presents with here with his [id number] and granddaughter for altered mental status. They have just recently met him for the first time on 10/17/2019 in person to bring him to live with them in [place] after a concerning call about significant weight loss and confusion from his local door fitter where he was living in [place] himself [place]. Family notes they speak with him on the phone often and he has memory and anger issues and is estranged from them due to this. For the 3 days he has lived with them they note unsteady gait, and that he converses with them and is able to eat and drink on his own but only receives hot dogs and energy drinks, 4 per day each. Granddaughter states on 10/18 he ripped a screen door off of the wall and was urinating in drawers in their home. He was last seen normal last night, 10/18 at 2200. They stated for him this morning they went to get him up and he did not want to get out of bed and he was shivering and complaining that he was cold but they did not think he had a fever. Febrile to 103.7F in the ED, given 650mg acetaminophen suppository with improvement in his temperature. He showed no meningeal signs and was moving all extremities on examination, opens eyes, answers 1-2 word answers. Does not have any pain complaints. Tells me he needs to urinate. When asked about his missing left 4th finger he does no te his hand hurts sometimes. XR negative for fracture. 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 CT chest with reticular nodular airspace disease with dependent consolidation in the lower lobes and noncalcified pulmonary nodules within both lungs, nonspecific. CT abdomen/pelvis reveal asymmetric bladder wall thickening on the right, indeterminate. This could be related to acute or chronic cystitis or an underlying bladder mass. Urine positive for LE and nitrites. White blood cell count is 13.5. Troponin elevated at 0.068, BNP is 2122. Patient has received 1 L of fluids. Started on empiric Zosyn IV. Admitted for altered mental status and fevers with likely bladder source. As he was just transported from [place], COVID 19 testing was performed as well. History of Present Illness History of Present Illness 10/24/19 Patient seen and examined Discussed with RN Discussed with speech therapy Patient mentioned he has lost 60 lbs because he has no dentures so it's become difficult to eat Covid (-) Continue cefazolin, Repeat blood culture, 10/22 in progress Maintain aspiration precautions 10/22/19 Patient seen and examined Chart reviewed Discussed with RN Patient seemed confused but more calm Nurse mentioned patient had defecated while walking around the room Vitals Vitals Vital Signs Date Time Temp Pulse Resp B/P (MAP) Pulse Ox O2 Delivery O2 Flow Rate FiO2 10/27/19 10:28 98.7 54 18 94 98.7 10/27/19 07:00 120/55 (76) Room Air Physical Exam Physical Exam GENERAL: Propped up in bed, alert, smiling HEENT: No conjunctival lesion. Edentulous. No lesion in the mouth. NECK: Supple. No JVP, no lymphadenopathy. LUNGS: Clear. HEART: S1, S2 regular. ABDOMEN: Soft, no guarding : No Lion EXTREMITIES: No edema or cyanosis. SKIN: without rash MSK no jt swelling or dec in range of motion BACK normal curvature, no spine tenderness NEUROLOGICAL: Alert, answers questions appropriately PIV looks ok General: Alert, Cooperative, No acute distress, Other (restless) Heart: Regular rate (SR), Normal S1, Normal S2, No murmurs Lungs: Clear Abdomen: Soft Extremities: No edema Skin: No significant lesion Labs LABS Exam: Chest one view INDICATION: Pneumonia TECHNIQUE: Frontal view of the chest Comparisons: 10/20/2019 FINDINGS: The cardiomediastinal silhouette and pulmonary vessels are within normal limits. There is a trace left pleural effusion with adjacent airspace disease. IMPRESSION: Trace left pleural effusion with adjacent airspace disease likely atelectasis. Electronically signed by: Po Slaughter MD (10/26/2019 4:10 PM) [id number] DICTATED and SIGNED BY: PO SLAUGHTER MD DATE: 10/26/19 161 PROCEDURE Procedure EGD/PEG Indication: OP dysphagia Meds: per anesthesia Findings: E--normal G--Normal D--Normal bulb. --20F g-tube placed uneventfully. Re-scoped briefly confirming good placement. Cristiane. well. IMP: successful PEG. REC: water/meds per tube today. OK to feed in AM if no issues. Abdominal binder. Thanks. ELIAS PIERCE MD Assessment and Plan Assessmemt and Plan Problems Medical Problems: (1) AMS (altered mental status) Status: Acute (2) Person under investigation for COVID-19 Status: Acute (3) UTI (urinary tract infection) Status: Acute Comment Review of Relevant I have reviewed the following items katie (where applicable) has been applied. Labs Laboratory Tests Test 10/26/19 05:00 White Blood Count 5.6 x10^3/uL (4.0-11.0) Red Blood Count 4.19 x10^6/uL (4.30-5.70) Hemoglobin 13.1 g/dL (13.0-17.5) Hematocrit 37.2 % (39.0-53.0) Mean Corpuscular Volume 89 fL (79-100) Mean Corpuscular Hemoglobin 31 pg (25-35) Mean Corpuscular Hemoglobin Concent 35 g/dL (31-37) Red Cell Distribution Width 14.7 % (11.5-14.5) Platelet Count 176 x10^3/uL (140-400) Neutrophils (%) (Auto) 66 % (31-73) Lymphocytes (%) (Auto) 20 % (24-48) Monocytes (%) (Auto) 5 % (0-9) Eosinophils (%) (Auto) 8 % (0-3) Basophils (%) (Auto) 1 % (0-3) Neutrophils # (Auto) 3.7 x10^3/uL (1.8-7.7) Lymphocytes # (Auto) 1.1 x10^3/uL (1.0-4.8) Monocytes # (Auto) 0.3 x10^3/uL (0.0-1.1) Eosinophils # (Auto) 0.4 x10^3/uL (0.0-0.7) Basophils # (Auto) 0.1 x10^3/uL (0.0-0.2) Prothrombin Time 14.5 SEC (11.7-14.0) Prothromb Time International Ratio 1.2 (0.8-1.1) Sodium Level 140 mmol/L (136-145) Potassium Level 3.7 mmol/L (3.5-5.1) Chloride Level 108 mmol/L (98-107) Carbon Dioxide Level 26 mmol/L (21-32) Anion Gap 6 (6-14) Blood Urea Nitrogen 11 mg/dL (8-26) Creatinine 0.5 mg/dL (0.7-1.3) Estimated GFR (Cockcroft-Gault) 160.4 BUN/Creatinine Ratio 22 (6-20) Glucose Level 96 mg/dL (70-99) Calcium Level 7.4 mg/dL (8.5-10.1) Total Bilirubin 0.4 mg/dL (0.2-1.0) Aspartate Amino Transf (AST/SGOT) 20 U/L (15-37) Alanine Aminotransferase (ALT/SGPT) 25 U/L (16-63) Alkaline Phosphatase 40 U/L (46-116) Total Protein 5.0 g/dL (6.4-8.2) Albumin 1.8 g/dL (3.4-5.0) Albumin/Globulin Ratio 0.6 (1.0-1.7) Microbiology 10/24/19 Urine Culture - Final, Complete 10/23/19 Blood Culture - Preliminary, Resulted NO GROWTH AFTER 3 DAYS Medications Current Medications Sodium Chloride 1,000 ml @ 1,000 mls/hr 1X ONCE IV Last administered on 10/20/19at 13:00; Start 10/20/19 at 12:45; Stop 10/20/19 at 13:44; Status DC Acetaminophen (Tylenol Supp) 650 mg 1X ONCE OH Last administered on 10/20/19at 13:19; Start 10/20/19 at 12:45; Stop 10/20/19 at 12:50; Status DC Piperacillin Sod/ Tazobactam Sod 3.375 gm/Sodium Chloride 50 ml @ 100 mls/hr 1X ONCE IV Last administered on 10/20/19at 13:42; Start 10/20/19 at 13:30; Stop 10/20/19 at 13:59; Status DC Iohexol (Omnipaque 300 Mg/ml) 60 ml 1X ONCE IV Last administered on 10/20/19at 13:45; Start 10/20/19 at 13:45; Stop 10/20/19 at 13:49; Status DC Info (CONTRAST GIVEN -- Rx MONITORING) 1 each PRN DAILY PRN MC SEE COMMENTS; Start 10/20/19 at 14:00; Stop 10/22/19 at 13:59; Status DC Ondansetron HCl (Zofran) 4 mg PRN Q8HRS PRN IV NAUSEA/VOMITING; Start 10/20/19 at 14:45; Stop 10/20/19 at 20:24; Status DC Sodium Chloride 1,000 ml @ 100 mls/hr Q10H IV Last administered on 10/21/19at 10:55; Start 10/20/19 at 14:43; Stop 10/21/19 at 14:42; Status DC Acetaminophen (Tylenol) 650 mg PRN Q4HRS PRN PO FEVER > 100.3'F; Start 10/20/19 at 14:45 Vancomycin HCl (Vanco Per Pharmacy) 1 each PRN DAILY PRN MC SEE COMMENTS Last administered on 10/21/19at 11:05; Start 10/20/19 at 17:30; Stop 10/22/19 at 11:33; Status DC Piperacillin Sod/ Tazobactam Sod 3.375 gm/Sodium Chloride 50 ml @ 100 mls/hr Q6HRS IV Last administered on 10/21/19at 06:31; Start 10/20/19 at 18:00; Stop 10/21/19 at 09:41; Status DC Vancomycin HCl 1.25 gm/Sodium Chloride 250 ml @ 166.667 mls/hr 1X ONCE IV Last administered on 10/20/19at 18:00; Start 10/20/19 at 18:00; Stop 10/20/19 at 19:29; Status DC Vancomycin HCl 750 mg/Sodium Chloride 250 ml @ 250 mls/hr Q24H IV Last administered on 10/21/19at 17:23; Start 10/21/19 at 18:00; Stop 10/22/19 at 11:33; Status DC Vancomycin HCl (Vancomycin Trough Level) 1 each 1X ONCE MC ; Start 10/22/19 at 17:30; Stop 10/22/19 at 11:34; Status DC Ondansetron HCl (Zofran) 4 mg PRN Q4HRS PRN IV NAUSEA/VOMITING; Start 10/20/19 at 20:30 Olanzapine (ZyPREXA ZYDIS) 5 mg PRN BID PRN PO ANXIETY / AGITATION; Start 10/20/19 at 20:30 Enoxaparin Sodium (Lovenox 40mg Syringe) 40 mg Q12HR SQ Last administered on 10/25/19at 09:35; Start 10/20/19 at 21:00; Stop 10/26/19 at 10:50; Status DC Tamsulosin HCl (Flomax) 0.4 mg QHS PO Last administered on 10/22/19at 21:38; Start 10/20/19 at 21:00 Olanzapine (ZyPREXA IM) 10 mg 1X ONCE IM Last administered on 10/20/19at 21:53; Start 10/20/19 at 20:30; Stop 10/20/19 at 20:38; Status DC Haloperidol Lactate (Haldol Inj) 5 mg PRN Q6HRS PRN IVP AGITATION Last administered on 10/21/19at 20:30; Start 10/20/19 at 20:30 Cefazolin Sodium 1000 mg/Dextrose 50 ml @ 100 mls/hr Q8HRS IV ; Start 10/21/19 at 10:00; Status Cancel Cefazolin Sodium (Ancef) 1 gm Q8HRS IVP Last administered on 10/27/19at 06:27; Start 10/21/19 at 10:00 Lorazepam (Ativan Inj) 2 mg PRN Q2HRS PRN IVP ANXIETY / AGITATION Last administered on 10/21/19at 23:09; Start 10/21/19 at 11:15 Lactobacillus Rhamnosus (Culturelle) 1 cap BID PO Last administered on 10/23/19at 08:41; Start 10/21/19 at 13:00 Sodium Chloride 1,000 ml @ 100 mls/hr Q10H IV Last administered on 10/24/19at 08:33; Start 10/21/19 at 18:45; Stop 10/24/19 at 14:21; Status DC Barium Sulfate (Varibar Thin Liquid Apple) 148 gm 1X ONCE PO Last administered on 10/23/19at 11:15; Start 10/23/19 at 11:15; Stop 10/23/19 at 11:16; Status DC Olanzapine (ZyPREXA ZYDIS) 5 mg HS PO Last administered on 10/26/19at 21:45; Start 10/23/19 at 21:00 Amino Acids/ Glycerin/ Electrolytes 1,000 ml @ 100 mls/hr Q10H IV Last administered on 10/27/19at 02:56; Start 10/24/19 at 14:30 Enoxaparin Sodium (Lovenox 40mg Syringe) 40 mg DAILY SQ ; Start 10/27/19 at 09:00; Stop 10/26/19 at 13:59; Status DC Fentanyl Citrate (Fentanyl 2ml Vial) 25 mcg PRN Q5MIN PRN IV MILD PAIN 1-3; Start 10/27/19 at 07:00; Stop 10/28/19 at 06:59 Fentanyl Citrate (Fentanyl 2ml Vial) 50 mcg PRN Q5MIN PRN IV MODERATE TO SEVERE PAIN; Start 10/27/19 at 07:00; Stop 10/28/19 at 06:59 Morphine Sulfate (Morphine Sulfate) 1 mg PRN Q10MIN PRN IV SEVERE PAIN 7-10; Start 10/27/19 at 07:00; Stop 10/28/19 at 06:59 Ringer's Solution 1,000 ml @ 30 mls/hr Q24H IV ; Start 10/27/19 at 07:00; Stop 10/27/19 at 18:59 Hydromorphone HCl (Dilaudid) 0.5 mg PRN Q10MIN PRN IV SEV PAIN, Second choice; Start 10/27/19 at 07:00; Stop 10/28/19 at 06:59 Ringer's Solution 1,000 ml @ 75 mls/hr 1X ONCE IV Last administered on 10/27/19at 10:35; Start 10/27/19 at 08:00; Stop 10/27/19 at 21:19 Propofol (Diprivan) 200 mg STK-MED ONCE IV ; Start 10/27/19 at 10:28; Stop 10/27/19 at 10:29; Status DC Vitals/I & O Vital Sign - Last 24 Hours 10/26/19 10/26/19 10/26/19 10/26/19 11:00 15:00 19:00 20:00 Temp 97.9 98.0 98.5 97.9 98.0 98.5 Pulse 48 53 47 Resp 18 18 18 B/P (MAP) 106/63 (77) 101/63 (76) 115/61 (79) Pulse Ox 93 O2 Delivery Room Air Room Air Room Air 10/26/19 10/27/19 10/27/19 10/27/19 23:00 03:00 07:00 10:28 Temp 98.2 98.6 98.2 98.7 98.2 98.6 98.2 98.7 Pulse 46 47 49 54 Resp 18 14 18 B/P (MAP) 107/56 (73) 112/56 (74) 120/55 (76) Pulse Ox 95 95 94 O2 Delivery Room Air Room Air Intake and Output 10/26/19 10/26/19 10/27/19 15:00 23:00 07:00 Intake Total 150 ml 1000 ml Balance 150 ml 1000 ml Nutrition Consultation Dietary Evaluation: Recommendations by RD: Dietary education by RD, PPN/TPN Comments: REC continue PPN until PEG placed and able to use for nutrition Expected Outcomes/Goals: to meet >75% est nutr needs- not met, goal ongoing Malnutrition Findings: Body Fat Depletion (Non Severe: Mild Depletion Weight Status: Underweight Justicifation of Admission Dx: Justifications for Admission: Justification of Admission Dx: N/A SHENG EVANS W MD Oct 27, 2019 10:44
--- NOTE | 2019-10-27 11:47 | PDOC4 ---
PROCEDURE Procedure EGD/PEG Indication: OP dysphagia Meds: per anesthesia Findings: E--normal G--Normal D--Normal bulb. --20F g-tube placed uneventfully. Re-scoped briefly confirming good placement. Cristiane. well. IMP: successful PEG. REC: water/meds per tube today. OK to feed in AM if no issues. Abdominal binder. Thanks. ELIAS PIERCE MD Oct 27, 2019 11:47
--- NOTE | 2019-10-27 12:25 | NUR ---
PATIENT RETURNS TO THE UNIT, PEG TUBE IN PLACE MID ABDOMEN, DRESSING C/D/I, COMFORT MEASURES GIVEN, POST OP VITALS STARTED PER SOUNDSCRIBER MECHANIC.
--- NOTE | 2019-10-27 21:33 | PDOC ---
F/U PHYSCH PROG NOTE Subjective: Elderly gentleman seen for routine follow-up. Progress is reviewed with nursing staff. No major emotional or behavioral breakdown reported overnight. Reportedly, he is improving with respect to his mental status. No agitation reported. Denies suicidal or homicidal thoughts. Denies auditory or visual hallucinations. No evidence of flora or hypomania. He is little bit more conversant and receptive to questions. Objective: 14 point review of system is otherwise negative except for stated in subjective history. Vital Signs: Vital Signs Date Time Temp Pulse Resp B/P (MAP) Pulse Ox O2 Delivery O2 Flow Rate FiO2 10/27/19 19:16 97.9 65 18 110/59 (76) 97 Room Air 97.9 10/27/19 11:50 3 Medications: Current Medications Medications (Trade) Dose Ordered Sig/Jasvir Start Time Stop Time Status Last Admin Dose Admin Acetaminophen (Tylenol Supp) 650 mg 1X ONCE 10/20/19 12:45 10/20/19 12:50 DC 10/20/19 13:19 650 MG Acetaminophen (Tylenol) 650 mg PRN Q4HRS PRN 10/20/19 14:45 Amino Acids/ Glycerin/ Electrolytes 1,000 ml @ 100 mls/hr Q10H 10/24/19 14:30 10/27/19 17:14 100 MLS/HR Barium Sulfate (Varibar Thin Liquid Apple) 148 gm 1X ONCE 10/23/19 11:15 10/23/19 11:16 DC 10/23/19 11:15 148 GM Cefazolin Sodium (Ancef) 1 gm Q8HRS 10/21/19 10:00 10/27/19 16:50 1 GM Cefazolin Sodium 1000 mg/Dextrose 50 ml @ 100 mls/hr Q8HRS 10/21/19 10:00 Cancel Enoxaparin Sodium (Lovenox 40mg Syringe) 40 mg DAILY 10/27/19 09:00 10/26/19 13:59 DC Fentanyl Citrate (Fentanyl 2ml Vial) 50 mcg PRN Q5MIN PRN 10/27/19 07:00 10/28/19 06:59 Haloperidol Lactate (Haldol Inj) 5 mg PRN Q6HRS PRN 10/20/19 20:30 10/21/19 20:30 5 MG Hydromorphone HCl (Dilaudid) 0.5 mg PRN Q10MIN PRN 10/27/19 07:00 10/28/19 06:59 Info (CONTRAST GIVEN -- Rx MONITORING) 1 each PRN DAILY PRN 10/20/19 14:00 10/22/19 13:59 DC Iohexol (Omnipaque 300 Mg/ml) 60 ml 1X ONCE 10/20/19 13:45 10/20/19 13:49 DC 10/20/19 13:45 60 ML Lactobacillus Rhamnosus (Culturelle) 1 cap BID 10/21/19 13:00 10/27/19 12:29 DC 10/23/19 08:41 1 CAP Lorazepam (Ativan Inj) 2 mg PRN Q2HRS PRN 10/21/19 11:15 10/21/19 23:09 2 MG Morphine Sulfate (Morphine Sulfate) 1 mg PRN Q10MIN PRN 10/27/19 07:00 10/28/19 06:59 Olanzapine (ZyPREXA IM) 10 mg 1X ONCE 10/20/19 20:30 10/20/19 20:38 DC 10/20/19 21:53 10 MG Olanzapine (ZyPREXA ZYDIS) 5 mg HS 10/23/19 21:00 10/26/19 21:45 5 MG Ondansetron HCl (Zofran) 4 mg PRN Q4HRS PRN 10/20/19 20:30 Piperacillin Sod/ Tazobactam Sod 3.375 gm/Sodium Chloride 50 ml @ 100 mls/hr Q6HRS 10/20/19 18:00 10/21/19 09:41 DC 10/21/19 06:31 100 MLS/HR Propofol (Diprivan) 200 mg STK-MED ONCE 10/27/19 10:28 10/27/19 10:29 DC Ringer's Solution 1,000 ml @ 75 mls/hr 1X ONCE 10/27/19 08:00 10/27/19 21:19 DC 10/27/19 10:35 75 MLS/HR Sodium Chloride 1,000 ml @ 100 mls/hr Q10H 10/21/19 18:45 10/24/19 14:21 DC 10/24/19 08:33 100 MLS/HR Tamsulosin HCl (Flomax) 0.4 mg QHS 10/20/19 21:00 10/22/19 21:38 0.4 MG Vancomycin HCl (Vanco Per Pharmacy) 1 each PRN DAILY PRN 10/20/19 17:30 10/22/19 11:33 DC 10/21/19 11:05 1 EACH Vancomycin HCl (Vancomycin Trough Level) 1 each 1X ONCE 10/22/19 17:30 10/22/19 11:34 DC Vancomycin HCl 1.25 gm/Sodium Chloride 250 ml @ 166.667 mls/hr 1X ONCE 10/20/19 18:00 10/20/19 19:29 DC 10/20/19 18:00 166.667 MLS/HR Vancomycin HCl 750 mg/Sodium Chloride 250 ml @ 250 mls/hr Q24H 10/21/19 18:00 10/22/19 11:33 DC 10/21/19 17:23 250 MLS/HR Physical Exam: Physical Exam: Refer to Physician's note. FONDANT COOKER: No focal deficit MSK: No EPS, TDK, or abnormal involuntary movements Diagnosis: Acute delirium, likely multifactorial, hyperactive and hypoactive type. Unspecified neurocognitive disorder Assessment: Symptomatology and symptoms presentation is suggestive of acute delirium/metabolic encephalopathy. Collateral information would help to determine underlying neurocognitive status and baseline status. We will continue medications as prescribed. Antipsychotics for agitation. 10/27/2019: Today he is demonstrating some improvement in mental status. Relatively receptive to questions and understanding easily. Plan: Continue medications as prescribed. Risk, benefits, alternatives of the treatment are discussed. He is in agreement with plan and voiced understanding. Adverse drug reaction of the medication discussed including Zyprexa. Avoid sedatives and hypnotics. Applied delirium protocol. Avoid sundowning Thank you for involving inpatient care JUAN WHITLEY MD Oct 27, 2019 21:33
[2019-10-27] MEDS: TAMSULOSIN 0.4 MG CAP.ER.24H. PO SCH (23:42)
[2019-10-28 03:00] VITALS: BP 110/59
[2019-10-28] MEDS: AMINO AC 3%/ELECTROLYTE/GLYCER 1,000 ML IV SCH (03:13)
[2019-10-28] MEDS: ceFAZolin SODIUM IV Push 1 GM VIAL. IVP SCH ×3 (06:08→22:11)
[2019-10-28 07:00] VITALS: BP 120/62
--- NOTE | 2019-10-28 09:34 | PDOC ---
Infectious Disease Note Subjective: Subjective Pt without complaints Denies fever, nausea, vomiting, shortness of breath, diarrhea, abdominal pain, rash Vital Signs: Vital Signs Vital Signs Date Time Temp Pulse Resp B/P (MAP) Pulse Ox O2 Delivery O2 Flow Rate FiO2 10/28/19 07:00 98.9 52 16 120/62 (81) 90 Room Air 98.9 10/27/19 11:50 3 Physical Exam: PHYSICAL EXAM GENERAL: Propped up in bed, alert, smiling HEENT: No conjunctival lesion. Edentulous. No lesion in the mouth. NECK: Supple. No JVP, no lymphadenopathy. LUNGS: Clear. HEART: S1, S2 regular. ABDOMEN: Soft, nondistended no guarding, abdominal binder in place : No Lion EXTREMITIES: No edema or cyanosis. SKIN: without rash MSK no jt swelling or dec in range of motion BACK normal curvature, no spine tenderness NEUROLOGICAL: Alert, answers questions appropriately PIV looks ok Medications: Inpatient Meds: Current Medications Medications (Trade) Dose Ordered Sig/Jasvir Start Time Stop Time Status Last Admin Dose Admin Acetaminophen (Tylenol Supp) 650 mg 1X ONCE 10/20/19 12:45 10/20/19 12:50 DC 10/20/19 13:19 650 MG Acetaminophen (Tylenol) 650 mg PRN Q4HRS PRN 10/20/19 14:45 Amino Acids/ Glycerin/ Electrolytes 1,000 ml @ 100 mls/hr Q10H 10/24/19 14:30 10/28/19 03:13 100 MLS/HR Barium Sulfate (Varibar Thin Liquid Apple) 148 gm 1X ONCE 10/23/19 11:15 10/23/19 11:16 DC 10/23/19 11:15 148 GM Cefazolin Sodium (Ancef) 1 gm Q8HRS 10/21/19 10:00 10/28/19 06:08 1 GM Cefazolin Sodium 1000 mg/Dextrose 50 ml @ 100 mls/hr Q8HRS 10/21/19 10:00 Cancel Enoxaparin Sodium (Lovenox 40mg Syringe) 40 mg DAILY 10/27/19 09:00 10/26/19 13:59 DC Fentanyl Citrate (Fentanyl 2ml Vial) 50 mcg PRN Q5MIN PRN 10/27/19 07:00 10/28/19 06:59 DC Haloperidol Lactate (Haldol Inj) 5 mg PRN Q6HRS PRN 10/20/19 20:30 10/21/19 20:30 5 MG Hydromorphone HCl (Dilaudid) 0.5 mg PRN Q10MIN PRN 10/27/19 07:00 10/28/19 06:59 DC Info (CONTRAST GIVEN -- Rx MONITORING) 1 each PRN DAILY PRN 10/20/19 14:00 10/22/19 13:59 DC Iohexol (Omnipaque 300 Mg/ml) 60 ml 1X ONCE 10/20/19 13:45 10/20/19 13:49 DC 10/20/19 13:45 60 ML Lactobacillus Rhamnosus (Culturelle) 1 cap BID 10/21/19 13:00 10/27/19 12:29 DC 10/23/19 08:41 1 CAP Lorazepam (Ativan Inj) 2 mg PRN Q2HRS PRN 10/21/19 11:15 10/21/19 23:09 2 MG Morphine Sulfate (Morphine Sulfate) 1 mg PRN Q10MIN PRN 10/27/19 07:00 10/28/19 06:59 DC Olanzapine (ZyPREXA IM) 10 mg 1X ONCE 10/20/19 20:30 10/20/19 20:38 DC 10/20/19 21:53 10 MG Olanzapine (ZyPREXA ZYDIS) 5 mg HS 10/23/19 21:00 10/27/19 23:42 5 MG Ondansetron HCl (Zofran) 4 mg PRN Q4HRS PRN 10/20/19 20:30 Piperacillin Sod/ Tazobactam Sod 3.375 gm/Sodium Chloride 50 ml @ 100 mls/hr Q6HRS 10/20/19 18:00 10/21/19 09:41 DC 10/21/19 06:31 100 MLS/HR Propofol (Diprivan) 200 mg STK-MED ONCE 10/27/19 10:28 10/27/19 10:29 DC Ringer's Solution 1,000 ml @ 75 mls/hr 1X ONCE 10/27/19 08:00 10/27/19 21:19 DC 10/27/19 10:35 75 MLS/HR Sodium Chloride 1,000 ml @ 100 mls/hr Q10H 10/21/19 18:45 10/24/19 14:21 DC 10/24/19 08:33 100 MLS/HR Tamsulosin HCl (Flomax) 0.4 mg QHS 10/20/19 21:00 10/27/19 23:42 0.4 MG Vancomycin HCl (Vanco Per Pharmacy) 1 each PRN DAILY PRN 10/20/19 17:30 10/22/19 11:33 DC 10/21/19 11:05 1 EACH Vancomycin HCl (Vancomycin Trough Level) 1 each 1X ONCE 10/22/19 17:30 10/22/19 11:34 DC Vancomycin HCl 1.25 gm/Sodium Chloride 250 ml @ 166.667 mls/hr 1X ONCE 10/20/19 18:00 10/20/19 19:29 DC 10/20/19 18:00 166.667 MLS/HR Vancomycin HCl 750 mg/Sodium Chloride 250 ml @ 250 mls/hr Q24H 10/21/19 18:00 10/22/19 11:33 DC 10/21/19 17:23 250 MLS/HR Objective: Assessment: MSSA bacteremia, 06/19 bottles. 10/19. TTE neg. Repeat BC 10/22 neg to date Fever better Leukocytosis - better Encephalopathy - improved Unknown basal state or history. MSSA in urine, usually not considered an urological pathogen Dysphagia status post EGD and PEG. Plan: Plan of Care Continue cefazolin, Repeat blood culture, 10/22 neg to date MOHSEN pending Maintain aspiration precautions Supportive care Discussed with nursing staff MARIANNA KUMAR MD Oct 28, 2019 09:34
--- NOTE | 2019-10-28 09:58 | PDOC ---
PROGRESS NOTES Date of Service: DATE: 10/28/19 TIME: 09:58 Chief Complaint Chief Complaint IMPRESSION ======= UTI AMS Elevated troponin: peaked at 0.2 no noted cardiac symptoms per chart review. EKG SR without acute changes. Suspect demand mediated Nontraumatic Mechanical fall: due to weakness Staph aureus bacteremia, 06/19 bottles, susceptibilities MSSA Fever. Leukocytosis. METABOLIC Encephalopathy. Reticular nodular airspace disease with dependent consolidation in the lower lobes, nonspecific. This could be related to noncardiogenic edema or atypical pneumonia. Chronic aspiration is another consideration. Additional noncalcified pulmonary nodules within both lungs, nonspecific. 12 month Follow-up imaging to ensure stability. Asymmetric bladder wall thickening on the right, indeterminate. This could be related to acute or chronic cystitis or an underlying bladder mass. Correlate with clinical history. If indicated, a CT urogram could better evaluate. SEVERE PROTEIN-CALORIC MALNUTRITION PLAN TELE PULM CONSULT CONSIDER UROLOGY CONSULT Continue cefazolin, 10/23 Repeat blood culture, 10/22 in progress Dysphagia of the oral and pharyngeal phases as described.. Aspiration was observed with all tested food consistencies. Please refer to speech pathology notes for complete details and recommendations. GI CONSULTED patient and [id number] and they do wish to proceed WITH peg at this time PEG 10/26 D/W FAMILY IN ROOM DICTATED and SIGNED BY: ABBI RINALDI MD DATE: 10/23/19 1731 79 year old male with no known PMHx who presents with here with his [id number] and granddaughter for altered mental status. They have just recently met him for the first time on 10/17/2019 in person to bring him to live with them in [place] after a concerning call about significant weight loss and confusion from his local conche operator where he was living in [place] himself [place]. Family notes they speak with him on the phone often and he has memory and anger issues and is estranged from them due to this. For the 3 days he has lived with them they note unsteady gait, and that he converses with them and is able to eat and drink on his own but only receives hot dogs and energy drinks, 4 per day each. Granddaughter states on 10/18 he ripped a screen door off of the wall and was urinating in drawers in their home. He was last seen normal last night, 10/18 at 2200. They stated for him this morning they went to get him up and he did not want to get out of bed and he was shivering and complaining that he was cold but they did not think he had a fever. Febrile to 103.7F in the ED, given 650mg acetaminophen suppository with improvement in his temperature. He showed no meningeal signs and was moving all extremities on examination, opens eyes, answers 1-2 word answers. Does not have any pain complaints. Tells me he needs to urinate. When asked about his missing left 4th finger he does no te his hand hurts sometimes. XR negative for fracture. 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 CT chest with reticular nodular airspace disease with dependent consolidation in the lower lobes and noncalcified pulmonary nodules within both lungs, nonspecific. CT abdomen/pelvis reveal asymmetric bladder wall thickening on the right, indeterminate. This could be related to acute or chronic cystitis or an underlying bladder mass. Urine positive for LE and nitrites. White blood cell count is 13.5. Troponin elevated at 0.068, BNP is 2122. Patient has received 1 L of fluids. Started on empiric Zosyn IV. Admitted for altered mental status and fevers with likely bladder source. As he was just transported from [place], COVID 19 testing was performed as well. History of Present Illness History of Present Illness 10/24/19 Patient seen and examined Discussed with RN Discussed with speech therapy Patient mentioned he has lost 60 lbs because he has no dentures so it's become difficult to eat Covid (-) Continue cefazolin, Repeat blood culture, 10/22 in progress Maintain aspiration precautions 10/22/19 Patient seen and examined Chart reviewed Discussed with RN Patient seemed confused but more calm Nurse mentioned patient had defecated while walking around the room Vitals Vitals Vital Signs Date Time Temp Pulse Resp B/P (MAP) Pulse Ox O2 Delivery O2 Flow Rate FiO2 10/28/19 07:00 98.9 52 16 120/62 (81) 90 Room Air 98.9 10/27/19 11:50 3 Physical Exam Physical Exam GENERAL: Propped up in bed, alert, smiling HEENT: No conjunctival lesion. Edentulous. No lesion in the mouth. NECK: Supple. No JVP, no lymphadenopathy. LUNGS: Clear. HEART: S1, S2 regular. ABDOMEN: Soft, no guarding, PEG tube site clean : No Lion EXTREMITIES: No edema or cyanosis. SKIN: without rash MSK no jt swelling or dec in range of motion BACK normal curvature, no spine tenderness NEUROLOGICAL: Alert, answers questions appropriately PIV looks ok General: Alert, Cooperative, No acute distress, Other (restless) Heart: Regular rate (SR), Normal S1, Normal S2, No murmurs Lungs: Clear Abdomen: Soft Extremities: No edema Skin: No significant lesion Assessment and Plan Assessmemt and Plan Problems Medical Problems: (1) AMS (altered mental status) Status: Acute (2) Person under investigation for COVID-19 Status: Acute (3) UTI (urinary tract infection) Status: Acute Comment Review of Relevant I have reviewed the following items katie (where applicable) has been applied. Labs Microbiology 10/24/19 Urine Culture - Final, Complete 10/23/19 Blood Culture - Preliminary, Resulted NO GROWTH AFTER 4 DAYS Medications Current Medications Sodium Chloride 1,000 ml @ 1,000 mls/hr 1X ONCE IV Last administered on 10/20/19at 13:00; Start 10/20/19 at 12:45; Stop 10/20/19 at 13:44; Status DC Acetaminophen (Tylenol Supp) 650 mg 1X ONCE FL Last administered on 10/20/19at 13:19; Start 10/20/19 at 12:45; Stop 10/20/19 at 12:50; Status DC Piperacillin Sod/ Tazobactam Sod 3.375 gm/Sodium Chloride 50 ml @ 100 mls/hr 1X ONCE IV Last administered on 10/20/19at 13:42; Start 10/20/19 at 13:30; Stop 10/19 at 13:59; Status DC Iohexol (Omnipaque 300 Mg/ml) 60 ml 1X ONCE IV Last administered on 10/20/19at 13:45; Start 10/20/19 at 13:45; Stop 10/20/19 at 13:49; Status DC Info (CONTRAST GIVEN -- Rx MONITORING) 1 each PRN DAILY PRN MC SEE COMMENTS; Start 10/20/19 at 14:00; Stop 10/22/19 at 13:59; Status DC Ondansetron HCl (Zofran) 4 mg PRN Q8HRS PRN IV NAUSEA/VOMITING; Start 10/20/19 at 14:45; Stop 10/20/19 at 20:24; Status DC Sodium Chloride 1,000 ml @ 100 mls/hr Q10H IV Last administered on 10/21/19at 10:55; Start 10/20/19 at 14:43; Stop 10/21/19 at 14:42; Status DC Acetaminophen (Tylenol) 650 mg PRN Q4HRS PRN PO FEVER > 100.3'F; Start 10/20/19 at 14:45 Vancomycin HCl (Vanco Per Pharmacy) 1 each PRN DAILY PRN MC SEE COMMENTS Last administered on 10/21/19at 11:05; Start 10/20/19 at 17:30; Stop 10/22/19 at 11:33; Status DC Piperacillin Sod/ Tazobactam Sod 3.375 gm/Sodium Chloride 50 ml @ 100 mls/hr Q6HRS IV Last administered on 10/21/19at 06:31; Start 10/20/19 at 18:00; Stop 10/21/19 at 09:41; Status DC Vancomycin HCl 1.25 gm/Sodium Chloride 250 ml @ 166.667 mls/hr 1X ONCE IV Last administered on 10/20/19at 18:00; Start 10/20/19 at 18:00; Stop 10/20/19 at 19:29; Status DC Vancomycin HCl 750 mg/Sodium Chloride 250 ml @ 250 mls/hr Q24H IV Last administered on 10/21/19at 17:23; Start 10/21/19 at 18:00; Stop 10/22/19 at 11:33; Status DC Vancomycin HCl (Vancomycin Trough Level) 1 each 1X ONCE MC ; Start 10/22/19 at 17:30; Stop 10/22/19 at 11:34; Status DC Ondansetron HCl (Zofran) 4 mg PRN Q4HRS PRN IV NAUSEA/VOMITING; Start 10/20/19 at 20:30 Olanzapine (ZyPREXA ZYDIS) 5 mg PRN BID PRN PO ANXIETY / AGITATION; Start 10/20/19 at 20:30 Enoxaparin Sodium (Lovenox 40mg Syringe) 40 mg Q12HR SQ Last administered on 10/25/19at 09:35; Start 10/20/19 at 21:00; Stop 10/26/19 at 10:50; Status DC Tamsulosin HCl (Flomax) 0.4 mg QHS PO Last administered on 10/27/19at 23:42; Start 10/20/19 at 21:00 Olanzapine (ZyPREXA IM) 10 mg 1X ONCE IM Last administered on 10/20/19at 21:53; Start 10/20/19 at 20:30; Stop 10/20/19 at 20:38; Status DC Haloperidol Lactate (Haldol Inj) 5 mg PRN Q6HRS PRN IVP AGITATION Last administered on 10/21/19at 20:30; Start 10/20/19 at 20:30 Cefazolin Sodium 1000 mg/Dextrose 50 ml @ 100 mls/hr Q8HRS IV ; Start 10/21/19 at 10:00; Status Cancel Cefazolin Sodium (Ancef) 1 gm Q8HRS IVP Last administered on 10/28/19at 06:08; Start 10/21/19 at 10:00 Lorazepam (Ativan Inj) 2 mg PRN Q2HRS PRN IVP ANXIETY / AGITATION Last administered on 10/21/19at 23:09; Start 10/21/19 at 11:15 Lactobacillus Rhamnosus (Culturelle) 1 cap BID PO Last administered on 10/23/19at 08:41; Start 10/21/19 at 13:00; Stop 10/27/19 at 12:29; Status DC Sodium Chloride 1,000 ml @ 100 mls/hr Q10H IV Last administered on 10/24/19at 08:33; Start 10/21/19 at 18:45; Stop 10/24/19 at 14:21; Status DC Barium Sulfate (Varibar Thin Liquid Apple) 148 gm 1X ONCE PO Last administered on 10/23/19at 11:15; Start 10/23/19 at 11:15; Stop 10/23/19 at 11:16; Status DC Olanzapine (ZyPREXA ZYDIS) 5 mg HS PO Last administered on 10/27/19at 23:42; Start 10/23/19 at 21:00 Amino Acids/ Glycerin/ Electrolytes 1,000 ml @ 100 mls/hr Q10H IV Last administered on 10/28/19at 03:13; Start 10/24/19 at 14:30 Enoxaparin Sodium (Lovenox 40mg Syringe) 40 mg DAILY SQ ; Start 10/27/19 at 09:00; Stop 10/26/19 at 13:59; Status DC Fentanyl Citrate (Fentanyl 2ml Vial) 25 mcg PRN Q5MIN PRN IV MILD PAIN 1-3 Last administered on 10/27/19at 16:51; Start 10/27/19 at 07:00; Stop 10/28/19 at 06:59; Status DC Fentanyl Citrate (Fentanyl 2ml Vial) 50 mcg PRN Q5MIN PRN IV MODERATE TO SEVERE PAIN; Start 10/27/19 at 07:00; Stop 10/28/19 at 06:59; Status DC Morphine Sulfate (Morphine Sulfate) 1 mg PRN Q10MIN PRN IV SEVERE PAIN 7-10; Start 10/27/19 at 07:00; Stop 10/28/19 at 06:59; Status DC Ringer's Solution 1,000 ml @ 30 mls/hr Q24H IV ; Start 10/27/19 at 07:00; Stop 10/27/19 at 18:59; Status DC Hydromorphone HCl (Dilaudid) 0.5 mg PRN Q10MIN PRN IV SEV PAIN, Second choice; Start 10/27/19 at 07:00; Stop 10/28/19 at 06:59; Status DC Ringer's Solution 1,000 ml @ 75 mls/hr 1X ONCE IV Last administered on 10/27/19at 10:35; Start 10/27/19 at 08:00; Stop 10/27/19 at 21:19; Status DC Propofol (Diprivan) 200 mg STK-MED ONCE IV ; Start 10/27/19 at 10:28; Stop 10/27/19 at 10:29; Status DC Vitals/I & O Vital Sign - Last 24 Hours 10/27/19 10/27/19 10/27/19 10/27/19 10:28 11:50 11:57 12:06 Temp 98.7 97.5 97.5 97.5 98.7 97.5 97.5 97.5 Pulse 54 55 50 53 Resp 18 20 20 20 B/P (MAP) 147/68 149/73 139/73 Pulse Ox 94 98 96 95 O2 Delivery Nasal Cannula Room Air Room Air O2 Flow Rate 3 8/11/10/27/19 10/27/19 10/27/19 12:16 12:31 12:46 13:01 Pulse 49 48 54 49 B/P (MAP) 151/68 (95) 155/69 (97) 150/74 (99) 147/68 (94) Pulse Ox 95 94 93 O2 Delivery Room Air Room Air Room Air Room Air 10/27/19 10/27/19 10/27/19 10/27/19 13:16 13:30 14:01 15:05 Temp 98.4 98.4 Pulse 52 52 59 53 Resp 16 B/P (MAP) 139/65 (89) 131/61 (84) 135/58 (83) 142/65 (90) Pulse Ox 96 97 O2 Delivery Room Air Room Air Room Air Room Air 10/27/19 10/27/19 10/27/19 10/27/19 16:05 16:51 19:16 20:00 Temp 97.9 97.9 Pulse 57 65 Resp 19 18 B/P (MAP) 117/60 (79) 110/59 (76) Pulse Ox 97 93 97 O2 Delivery Room Air Room Air Room Air Room Air 10/27/19 10/28/19 10/28/19 23:00 03:00 07:00 Temp 98.7 98.7 98.9 98.7 98.7 98.9 Pulse 60 56 52 Resp 18 18 16 B/P (MAP) 110/70 (83) 110/59 (76) 120/62 (81) Pulse Ox 92 91 90 O2 Delivery Room Air Room Air Room Air Intake and Output 10/27/19 10/27/19 10/28/19 15:00 23:00 07:00 Intake Total 450 ml 0 ml 1100 ml Output Total 475 ml 120 ml Balance -25 ml -120 ml 1100 ml Nutrition Consultation Dietary Evaluation: Recommendations by RD: Dietary education by RD, PPN/TPN Comments: REC continue PPN until PEG placed and able to use for nutrition Expected Outcomes/Goals: to meet >75% est nutr needs- not met, goal ongoing Malnutrition Findings: Body Fat Depletion (Non Severe: Mild Depletion Weight Status: Underweight Justicifation of Admission Dx: Justifications for Admission: Justification of Admission Dx: N/A SHENG EVANS MD Oct 28, 2019 09:58
--- NOTE | 2019-10-28 11:02 | PDOC ---
Date of Service: DATE: 10/28/19 TIME: 10:59 Subjective: Subjective: Feeling good, [id number] present. "Praise the Lord and pass the ammunition!" Objective: Objective: PEG working for meds per nurse. Vital Signs: Vital Signs Date Time Temp Pulse Resp B/P (MAP) Pulse Ox O2 Delivery O2 Flow Rate FiO2 10/28/19 08:00 Room Air 3.0 10/28/19 07:00 98.9 52 16 120/62 (81) 90 98.9 Imaging: EGD/PEG 10/26 E--normal G--Normal D--Normal bulb. --20F g-tube placed uneventfully. Re-scoped briefly confirming good placement. IMP: successful PEG. REC: water/meds per tube today. OK to feed in AM if no issues. Abdominal binder. PE: GEN: NAD LUNGS: CTAB HEART: RRR ABD: removed gauze, PEG site clean/dry, abd non-tender, replaced binder NEURO/PSYCH: appropriate A/P: Dysphagia s/p PEG -- Okay to use PEG - DC soon? Justicifation of Admission Dx: Justifications for Admission: Justification of Admission Dx: N/A FIFI PLASENCIA Oct 28, 2019 11:02
[2019-10-28 11:23] VITALS: BP 96/52
[2019-10-28] MEDS ORDERED: HYDROcodone/APAP 5/325MG 1 TAB TABLET PEG PRN (12:00)
--- NOTE | 2019-10-28 13:05 | NUR ---
SW following. Reviewed chart and discussed with RN. Discharge plan remains home with family and [facility]. MEME coordinated care with Anh from [facility]. Pt will need PT/OT/RN/MEME orders at discharge. Pt a/o x3 and able to make needs known. Pt verbalized that he would like to make is dtr-in-law Vanessa ([phone]) and his son Papito ([phone]) POA for HC. POA for HC completed and notarized today, 10/28/2019. Pt tolerating PEG tube and will likely discharge in a few days. Pt does not appear to qualify for Medicaid at this time as Vanessa reported pt is selling his home in [place]. MEME again encouraged Vanessa to look into taking with an Elder Law Dbas. Vanessa also looking into VA benefits for pt. MEME provided contact number for the VA to Vanessa. MEME to continue following.
[2019-10-28 15:00] VITALS: BP 109/57
--- NOTE | 2019-10-28 18:35 | PDOC ---
F/U PHYSCH PROG NOTE Subjective: Gentleman is seen for routine follow-up. Progress is reviewed with nursing staff. No major emotional or behavioral breakdown reported. He is mostly compliant and following directions. 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 Neurocognitive degenerative process makes him vulnerable for delirium. He is responding to the treatment. Denies suicidal or homicidal thoughts. Denies auditory or visual hallucinations Objective: Vital Signs: Vital Signs Date Time Temp Pulse Resp B/P (MAP) Pulse Ox O2 Delivery O2 Flow Rate FiO2 10/28/19 15:00 97.4 59 14 109/57 (74) 91 Room Air 97.4 10/28/19 08:00 3.0 Medications: Current Medications Medications (Trade) Dose Ordered Sig/Jasvir Start Time Stop Time Status Last Admin Dose Admin Acetaminophen (Tylenol Supp) 650 mg 1X ONCE 10/20/19 12:45 10/20/19 12:50 DC 10/20/19 13:19 650 MG Acetaminophen (Tylenol) 650 mg PRN Q4HRS PRN 10/20/19 14:45 Acetaminophen/ Hydrocodone Bitart (Lortab 5/325) 1 tab PRN Q4HRS PRN 10/28/19 12:00 10/28/19 11:58 1 TAB Amino Acids/ Glycerin/ Electrolytes 1,000 ml @ 100 mls/hr Q10H 10/24/19 14:30 10/28/19 13:41 DC 10/28/19 03:13 100 MLS/HR Barium Sulfate (Varibar Thin Liquid Apple) 148 gm 1X ONCE 10/23/19 11:15 10/23/19 11:16 DC 10/23/19 11:15 148 GM Cefazolin Sodium (Ancef) 1 gm Q8HRS 10/21/19 10:00 10/28/19 14:18 1 GM Cefazolin Sodium 1000 mg/Dextrose 50 ml @ 100 mls/hr Q8HRS 10/21/19 10:00 Cancel Enoxaparin Sodium (Lovenox 40mg Syringe) 40 mg DAILY 10/27/19 09:00 10/26/19 13:59 DC Fentanyl Citrate (Fentanyl 2ml Vial) 50 mcg PRN Q5MIN PRN 10/27/19 07:00 10/28/19 06:59 DC Haloperidol Lactate (Haldol Inj) 5 mg PRN Q6HRS PRN 10/20/19 20:30 10/21/19 20:30 5 MG Hydromorphone HCl (Dilaudid) 0.5 mg PRN Q10MIN PRN 10/27/19 07:00 10/28/19 06:59 DC Info (CONTRAST GIVEN -- Rx MONITORING) 1 each PRN DAILY PRN 10/20/19 14:00 10/22/19 13:59 DC Iohexol (Omnipaque 300 Mg/ml) 60 ml 1X ONCE 10/20/19 13:45 10/20/19 13:49 DC 10/20/19 13:45 60 ML Lactobacillus Rhamnosus (Culturelle) 1 cap BID 10/21/19 13:00 10/27/19 12:29 DC 10/23/19 08:41 1 CAP Lorazepam (Ativan Inj) 2 mg PRN Q2HRS PRN 10/21/19 11:15 10/21/19 23:09 2 MG Morphine Sulfate (Morphine Sulfate) 1 mg PRN Q10MIN PRN 10/27/19 07:00 10/28/19 06:59 DC Olanzapine (ZyPREXA IM) 10 mg 1X ONCE 10/20/19 20:30 10/20/19 20:38 DC 10/20/19 21:53 10 MG Olanzapine (ZyPREXA ZYDIS) 5 mg HS 10/23/19 21:00 10/27/19 23:42 5 MG Ondansetron HCl (Zofran) 4 mg PRN Q4HRS PRN 10/20/19 20:30 Piperacillin Sod/ Tazobactam Sod 3.375 gm/Sodium Chloride 50 ml @ 100 mls/hr Q6HRS 10/20/19 18:00 10/21/19 09:41 DC 10/21/19 06:31 100 MLS/HR Propofol (Diprivan) 200 mg STK-MED ONCE 10/27/19 10:28 10/27/19 10:29 DC Ringer's Solution 1,000 ml @ 75 mls/hr 1X ONCE 10/27/19 08:00 10/27/19 21:19 DC 10/27/19 10:35 75 MLS/HR Sodium Chloride 1,000 ml @ 100 mls/hr Q10H 10/21/19 18:45 8/8/20 14:21 DC 10/24/19 08:33 100 MLS/HR Tamsulosin HCl (Flomax) 0.4 mg QHS 10/20/19 21:00 10/27/19 23:42 0.4 MG Vancomycin HCl (Vanco Per Pharmacy) 1 each PRN DAILY PRN 10/20/19 17:30 10/22/19 11:33 DC 10/21/19 11:05 1 EACH Vancomycin HCl (Vancomycin Trough Level) 1 each 1X ONCE 10/22/19 17:30 10/22/19 11:34 DC Vancomycin HCl 1.25 gm/Sodium Chloride 250 ml @ 166.667 mls/hr 1X ONCE 10/20/19 18:00 10/20/19 19:29 DC 10/20/19 18:00 166.667 MLS/HR Vancomycin HCl 750 mg/Sodium Chloride 250 ml @ 250 mls/hr Q24H 10/21/19 18:00 10/22/19 11:33 DC 10/21/19 17:23 250 MLS/HR Physical Exam: Mental Status Exam: Elderly gentleman appears stated age fairly groomed fairly nourished He is oriented to person, place, year and month Cooperative Thought processes goal-directed Denies suicidal or homicidal thoughts. No abnormal perception noted Denies suicidal or homicidal thoughts. Mood is improving Insight is improving affect is improving. Judgment is good Impulse control is fair Attention span and concentration fair Recent memory impaired Physical Exam: Refer to Physician's note. 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 Unspecified neurocognitive disorder Assessment: Symptomatology and symptoms presentation is suggestive of acute delirium/metabolic encephalopathy. Collateral information would help to determine underlying neurocognitive status and baseline status. We will continue medications as prescribed. Antipsychotics for agitation. 10/27/2019: Today he is demonstrating some improvement in mental status. Relatively receptive to questions and understanding easily. 10/28/2019. Demonstrating sustained improvement in his mentation. He is not as confused as he was the very first day Plan: Continue medications as prescribed. Risk, benefits, alternatives of the treatment are discussed. He is in agreement with plan and voiced understanding. Adverse drug reaction of the medication discussed including Zyprexa. Avoid sedatives and hypnotics. Applied delirium protocol. Avoid sundowning Thank you for involving inpatient care JUAN WHITLEY MD Oct 28, 2019 18:35
[2019-10-28 19:00] VITALS: BP 93/52
[2019-10-28] MEDS: TAMSULOSIN 0.4 MG CAP.ER.24H. PO SCH (22:10)
[2019-10-28 22:33] VITALS: BP 112/60
[2019-10-29] VITALS (13 sets, daily range): BP systolic 82–106; BP diastolic 43–57
--- NOTE | 2019-10-29 04:40 | NUR ---
At 1999 last night, there was no residuals, tube feeding increased to 30cc/hr. Rechecked @ 4am, pt tolerating tube feeding, no residuals, increased rate to 40cc/hr.
[2019-10-29] MEDS: ceFAZolin SODIUM IV Push 1 GM VIAL. IVP SCH ×3 (05:42→22:05)
--- NOTE | 2019-10-29 08:03 | PDOC ---
PROGRESS NOTES Date of Service: DATE: 10/29/19 TIME: 08:02 Chief Complaint Chief Complaint IMPRESSION ======= UTI AMS Elevated troponin: peaked at 0.2 no noted cardiac symptoms per chart review. EKG SR without acute changes. Suspect demand mediated Nontraumatic Mechanical fall: due to weakness Staph aureus bacteremia, 06/19 bottles, susceptibilities MSSA Fever. Leukocytosis. METABOLIC Encephalopathy. Reticular nodular airspace disease with dependent consolidation in the lower lobes, nonspecific. This could be related to noncardiogenic edema or atypical pneumonia. Chronic aspiration is another consideration. Additional noncalcified pulmonary nodules within both lungs, nonspecific. 12 month Follow-up imaging to ensure stability. Asymmetric bladder wall thickening on the right, indeterminate. This could be related to acute or chronic cystitis or an underlying bladder mass. Correlate with clinical history. If indicated, a CT urogram could better evaluate. SEVERE PROTEIN-CALORIC MALNUTRITION PLAN TELE PULM CONSULT CONSIDER UROLOGY CONSULT Continue cefazolin, 10/23 Repeat blood culture, 10/22 in progress Dysphagia of the oral and pharyngeal phases as described.. Aspiration was observed with all tested food consistencies. Please refer to speech pathology notes for complete details and recommendations. GI CONSULTED patient and [id number] and they do wish to proceed WITH peg at this time PEG 10/26 10/29 cont iv ancef D/W FAMILY IN ROOM DICTATED and SIGNED BY: ABBI RINALDI MD DATE: 10/23/19 173 79 year old male with no known PMHx who presents with here with his [id number] and granddaughter for altered mental status. 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 Family notes they speak with him on the phone often and he has memory and anger issues and is estranged from them due to this. For the 3 days he has lived with them they note unsteady gait, and that he converses with them and is able to eat and drink on his own but only receives hot dogs and energy drinks, 4 per day each. Granddaughter states on 10/18 he ripped a screen door off of the wall and was urinating in drawers in their home. He was last seen normal last night, 10/18 at 2200. They stated for him this morning they went to get him up and he did not want to get out of bed and he was shivering and complaining that he was cold but they did not think he had a fever. Febrile to 103.7F in the ED, given 650mg acetaminophen suppository with improvement in his temperature. He showed no meningeal signs and was moving all extremities on examination, opens eyes, answers 1-2 word answers. Does not have any pain complaints. Tells me he needs to urinate. When asked about his missing left 4th finger he does note his hand hurts sometimes. XR negative for fracture. 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 CT chest with reticular nodular airspace disease with dependent consolidation in the lower lobes and noncalcified pulmonary nodules within both lungs, nonspecific. CT abdomen/pelvis reveal asymmetric bladder wall thickening on the right, indeterminate. This could be related to acute or chronic cystitis or an underlying bladder mass. Urine positive for LE and nitrites. White blood cell count is 13.5. Troponin elevated at 0.068, BNP is 2122. Patient has received 1 L of fluids. Started on empiric Zosyn IV. Admitted for altered mental status and fevers with likely bladder source. As he was just transported from [place], COVID 19 testing was performed as well. History of Present Illness History of Present Illness 10/28 Patient seen and examined Discussed with RN Discussed with speech therapy Patient mentioned he has lost 60 lbs because he has no dentures so it's become difficult to eat Covid (-) Continue cefazolin, Repeat blood culture, 10/22 in progress Maintain aspiration precautions peg Vitals Vitals Vital Signs Date Time Temp Pulse Resp B/P (MAP) Pulse Ox O2 Delivery O2 Flow Rate FiO2 10/29/19 02:39 98.0 50 18 106/52 (70) 95 Room Air 98.0 10/28/19 08:00 3.0 Physical Exam Physical Exam GENERAL: Propped up in bed, alert, smiling HEENT: No conjunctival lesion. Edentulous. No lesion in the mouth. NECK: Supple. No JVP, no lymphadenopathy. LUNGS: Clear. HEART: S1, S2 regular. ABDOMEN: Soft, nondistended no guarding, abdominal binder in place : No Lion EXTREMITIES: No edema or cyanosis. SKIN: without rash MSK no jt swelling or dec in range of motion BACK normal curvature, no spine tenderness NEUROLOGICAL: Alert, answers questions appropriately PIV looks ok General: Alert, Cooperative, No acute distress, Other (restless) Heart: Regular rate (SR), Normal S1, Normal S2, No murmurs Lungs: Clear Abdomen: Soft, No tenderness Extremities: No edema Skin: No significant lesion Labs LABS Procedure Result BLOOD CULTURE LC Final Final GRAM POSITIVE COCCI FINAL ID= [STAPHYLOCOCCUS AUREUS] STAPHYLOCOCCUS AUREUS ANTIMICROBIAL SUSCEPTIBILITY Final Comment POS MERLIN TYPE 38 STAPHYLOCOCCUS AUREUS ANTIBIOTIC RESULT INTERPRETATION AZITHROMYCIN <=2 S CLINDAMYCIN <=0.25 S CEFOXITIN SCREEN <=4 NEG CIPROFLOXACIN <=1 S CEFTAROLINE <=0.5 S DAPTOMYCIN <=0.5 S ERYTHROMYCIN <=0.25 S GENTAMICIN <=4 S LINEZOLID 2 S LEVOFLOXACIN <=1 S OXACILLIN <=0.25 S PENICILLIN >2 [place] RIFAMPIN <=1 S TRIMETHOPRIM/SULFAMETHOXAZOLE <=0.5/9.5 S TETRACYCLINE <=4 S VANCOMYCIN 1 S Unless otherwise specified, Testing Performed by: [address] [address] For Inquires, the Physician may contact the Microbiology department at [phone] RECD: 10/20/19-3254 [facility] DR: ELIJAH PYLE APRN SOURCE: STRA CATH ENTR: 10/20/19-[address] [facility] [address]: SURINDER ORDOÑEZ SPDES: DILEEP CHRISTIANSON ORDERED: URINE CULTURE Procedure Result URINE CULTURE Final Final GREATER THAN 100,000 CFU/ML GRAM POSITIVE COCCI on 10/21/19 at 0853 FINAL ID= [STAPHYLOCOCCUS AUREUS] Testing Performed by: [address] [address] For Inquires, the Physician may contact the Microbiology department at [phone] STAPHYLOCOCCUS AUREUS ANTIMICROBIAL SUSCEPTIBILITY Final Comment POS MERLIN TYPE 38 STAPHYLOCOCCUS AUREUS ANTIBIOTIC RESULT INTERPRETATION CEFOXITIN SCREEN <=4 NEG CIPROFLOXACIN <=1 S CEFTAROLINE <=0.5 S DAPTOMYCIN <=0.5 S NITROFURANTOIN <=32 S GENTAMICIN <=4 S LINEZOLID 2 S LEVOFLOXACIN <=1 S OXACILLIN <=0.25 S PENICILLIN >2 Christina RIFAMPIN <=1 S TRIMETHOPRIM/SULFAMETHOXAZOLE <=0.5/9.5 S TETRACYCLINE <=4 S VANCOMYCIN 1 S Unless otherwise specified, Testing Performed by: [address] [address] For Inquires, the Physician may contact the Microbiology department at [phone] Assessment and Plan Assessmemt and Plan Problems Medical Problems: (1) AMS (altered mental status) Status: Acute (2) Person under investigation for COVID-19 Status: Acute (3) UTI (urinary tract infection) Status: Acute Comment Review of Relevant I have reviewed the following items katie Eliaswhere applicable) has been applied. Labs Microbiology 10/24/19 Urine Culture - Final, Complete 10/23/19 Blood Culture - Final, Complete NO GROWTH AFTER 5 DAYS Medications Current Medications Sodium Chloride 1,000 ml @ 1,000 mls/hr 1X ONCE IV Last administered on 10/20/19at 13:00; Start 10/20/19 at 12:45; Stop 10/20/19 at 13:44; Status DC Acetaminophen (Tylenol Supp) 650 mg 1X ONCE MS Last administered on 10/20/19at 13:19; Start 10/20/19 at 12:45; Stop 10/20/19 at 12:50; Status DC Piperacillin Sod/ Tazobactam Sod 3.375 gm/Sodium Chloride 50 ml @ 100 mls/hr 1X ONCE IV Last administered on 10/20/19at 13:42; Start 10/20/19 at 13:30; Stop 10/20/19 at 13:59; Status DC Iohexol (Omnipaque 300 Mg/ml) 60 ml 1X ONCE IV Last administered on 10/20/19at 13:45; Start 10/20/19 at 13:45; Stop 10/20/19 at 13:49; Status DC Info (CONTRAST GIVEN -- Rx MONITORING) 1 each PRN DAILY PRN MC SEE COMMENTS; Start 10/20/19 at 14:00; Stop 10/22/19 at 13:59; Status DC Ondansetron HCl (Zofran) 4 mg PRN Q8HRS PRN IV NAUSEA/VOMITING; Start 10/20/19 at 14:45; Stop 10/20/19 at 20:24; Status DC Sodium Chloride 1,000 ml @ 100 mls/hr Q10H IV Last administered on 10/21/19at 10:55; Start 10/20/19 at 14:43; Stop 10/21/19 at 14:42; Status DC Acetaminophen (Tylenol) 650 mg PRN Q4HRS PRN PO FEVER > 100.3'F; Start 10/20/19 at 14:45 Vancomycin HCl (Vanco Per Pharmacy) 1 each PRN DAILY PRN MC SEE COMMENTS Last administered on 10/21/19at 11:05; Start 10/20/19 at 17:30; Stop 10/22/19 at 11:33; Status DC Piperacillin Sod/ Tazobactam Sod 3.375 gm/Sodium Chloride 50 ml @ 100 mls/hr Q6HRS IV Last administered on 10/21/19at 06:31; Start 10/20/19 at 18:00; Stop 10/21/19 at 09:41; Status DC Vancomycin HCl 1.25 gm/Sodium Chloride 250 ml @ 166.667 mls/hr 1X ONCE IV Last administered on 10/20/19at 18:00; Start 10/20/19 at 18:00; Stop 10/20/19 at 19:29; Status DC Vancomycin HCl 750 mg/Sodium Chloride 250 ml @ 250 mls/hr Q24H IV Last adm inistered on 10/21/19at 17:23; Start 10/21/19 at 18:00; Stop 10/22/19 at 11:33; Status DC Vancomycin HCl (Vancomycin Trough Level) 1 each 1X ONCE MC ; Start 10/22/19 at 17:30; Stop 10/22/19 at 11:34; Status DC Ondansetron HCl (Zofran) 4 mg PRN Q4HRS PRN IV NAUSEA/VOMITING; Start 10/20/19 at 20:30 Olanzapine (ZyPREXA ZYDIS) 5 mg PRN BID PRN PO ANXIETY / AGITATION; Start 10/20/19 at 20:30 Enoxaparin Sodium (Lovenox 40mg Syringe) 40 mg Q12HR SQ Last administered on 10/25/19at 09:35; Start 10/20/19 at 21:00; Stop 10/26/19 at 10:50; Status DC Tamsulosin HCl (Flomax) 0.4 mg QHS PO Last administered on 10/28/19at 22:10; Start 10/20/19 at 21:00 Olanzapine (ZyPREXA IM) 10 mg 1X ONCE IM Last administered on 10/20/19at 21:53; Start 10/20/19 at 20:30; Stop 10/20/19 at 20:38; Status DC Haloperidol Lactate (Haldol Inj) 5 mg PRN Q6HRS PRN IVP AGITATION Last administered on 10/21/19at 20:30; Start 10/20/19 at 20:30 Cefazolin Sodium 1000 mg/Dextrose 50 ml @ 100 mls/hr Q8HRS IV ; Start 10/21/19 at 10:00; Status Cancel Cefazolin Sodium (Ancef) 1 gm Q8HRS IVP Last administered on 10/29/19at 05:42; Start 10/21/19 at 10:00 Lorazepam (Ativan Inj) 2 mg PRN Q2HRS PRN IVP ANXIETY. Last administered on 10/21/19at 23:09; Start 10/21/19 at 11:15 Lactobacillus Rhamnosus (Culturelle) 1 cap BID PO Last administered on 10/23/19at 08:41; Start 10/21/19 at 13:00; Stop 10/27/19 at 12:29; Status DC Sodium Chloride 1,000 ml @ 100 mls/hr Q10H IV Last administered on 10/24/19at 08:33; Start 10/21/19 at 18:45; Stop 10/24/19 at 14:21; Status DC Barium Sulfate (Varibar Thin Liquid Apple) 148 gm 1X ONCE PO Last administered on 10/23/19at 11:15; Start 10/23/19 at 11:15; Stop 10/23/19 at 11:16; Status DC Olanzapine (ZyPREXA ZYDIS) 5 mg HS PO Last administered on 10/28/19at 22:10; Start 10/23/19 at 21:00 Amino Acids/ Glycerin/ Electrolytes 1,000 ml @ 100 mls/hr Q10H IV Last administered on 10/28/19at 03:13; Start 10/24/19 at 14:30; Stop 10/28/19 at 13:41; Status DC Enoxaparin Sodium (Lovenox 40mg Syringe) 40 mg DAILY SQ ; Start 10/27/19 at 09:00; Stop 10/26/19 at 13:59; Status DC Fentanyl Citrate (Fentanyl 2ml Vial) 25 mcg PRN Q5MIN PRN IV MILD PAIN 1-3 Last administered on 10/27/19at 16:51; Start 10/27/19 at 07:00; Stop 10/28/19 at 06:59; Status DC Fentanyl Citrate (Fentanyl 2ml Vial) 50 mcg PRN Q5MIN PRN IV MODERATE TO SEVERE PAIN; Start 10/27/19 at 07:00; Stop 10/28/19 at 06:59; Status DC Morphine Sulfate (Morphine Sulfate) 1 mg PRN Q10MIN PRN IV SEVERE PAIN 7-10; Start 10/27/19 at 07:00; Stop 10/28/19 at 06:59; Status DC Ringer's Solution 1,000 ml @ 30 mls/hr Q24H IV ; Start 10/27/19 at 07:00; Stop 10/27/19 at 18:59; Status DC Hydromorphone HCl (Dilaudid) 0.5 mg PRN Q10MIN PRN IV SEV PAIN, Second choice; Start 10/27/19 at 07:00; Stop 10/28/19 at 06:59; Status DC Ringer's Solution 1,000 ml @ 75 mls/hr 1X ONCE IV Last administered on 10/27/19at 10:35; Start 10/27/19 at 08:00; Stop 10/27/19 at 21:19; Status DC Propofol (Diprivan) 200 mg STK-MED ONCE IV ; Start 10/27/19 at 10:28; Stop 10/27/19 at 10:29; Status DC Acetaminophen/ Hydrocodone Bitart (Lortab 5/325) 1 tab PRN Q4HRS PRN PEG PAIN Last administered on 10/28/19at 11:58; Start 10/28/19 at 12:00 Vitals/I & O Vital Sign - Last 24 Hours 10/28/19 10/28/19 10/28/19 10/28/19 11:23 11:58 12:58 15:00 Temp 97.7 97.4 97.7 97.4 Pulse 57 59 Resp 16 14 B/P (MAP) 96/52 (67) 109/57 (74) Pulse Ox 93 91 O2 Delivery Room Air Room Air Room Air Room Air 10/28/19 10/28/19 10/28/19 10/29/19 19:00 20:00 22:33 02:39 Temp 98.2 98.1 98.0 98.2 98.1 98.0 Pulse 64 52 50 Resp 18 20 18 B/P (MAP) 93/52 (66) 112/60 (77) 106/52 (70) Pulse Ox 93 92 95 O2 Delivery Room Air Room Air Room Air Room Air Intake and Output 10/28/19 10/28/19 10/29/19 15:00 23:00 07:00 Intake Total 0 ml 0 ml Balance 0 ml 0 ml Nutrition Consultation Dietary Evaluation: Recommendations by RD: Dietary education by RD, PPN/TPN Comments: REC continue PPN until PEG placed and able to use for nutrition Expected Outcomes/Goals: to meet >75% est nutr needs- not met, goal ongoing Malnutrition Findings: Body Fat Depletion (Non Severe: Mild Depletion Weight Status: Underweight Justicifation of Admission Dx: Justifications for Admission: Justification of Admission Dx: N/A SHENG EVANS MD Oct 29, 2019 08:03
--- NOTE | 2019-10-29 11:13 | PDOC ---
PULMONARY PROGRESS NOTES DATE: 10/29/19 TIME: 11:10 Subjective No SOA, No increased cough, No CP up to chair on R/A Feeling much better Vitals Vital Signs Date Time Temp Pulse Resp B/P (MAP) Pulse Ox O2 Delivery O2 Flow Rate FiO2 10/29/19 07:15 98.3 53 14 100/52 (68) 95 Room Air 98.3 10/28/19 08:00 3.0 ROS: No Nausea, No Chest Pain, No Abdominal Pain, No Increase Cough General: Alert, No acute distress Lungs: Clear Cardiovascular: S1 Abdomen: Soft Neuro Exam: Alert Extremities: Other (edema) Skin: Warm Comments CXR 10/26 IMPRESSION: Trace left pleural effusion with adjacent airspace disease likely atelectasis. Impression . 1. Staphylococcal sepsis. The patient's blood cultures were positive 06/19. 2. Staphylococcus aureus urinary tract infection. 3. Abnormal CT chest with basilar infiltrate versus atelectasis along with tiny lung nodules. 4. Underlying suspected dementia. 5. dysphasia Plan . Supplemental oxygen to keep sats above 92 %, now on R/A, will obtain CXR today for follow up DVT prophylaxis with Lovenox. Monitor mental status-- improved/resolved dysphagia, follow speech rec, EOB PT/OT discussed w pt, rn Will see PRN, call with any questions CASS QUINONEZ MD Oct 29, 2019 11:13
--- NOTE | 2019-10-29 11:48 | PDOC ---
Infectious Disease Note Subjective: Subjective Pt without complaints Vital Signs: Vital Signs Vital Signs Date Time Temp Pulse Resp B/P (MAP) Pulse Ox O2 Delivery O2 Flow Rate FiO2 10/29/19 11:00 98.1 66 16 96/57 (70) 95 Room Air 98.1 10/28/19 08:00 3.0 Physical Exam: PHYSICAL EXAM GENERAL: Propped up in bed, alert, smiling HEENT: No conjunctival lesion. Edentulous. No lesion in the mouth. NECK: Supple. No JVP, no lymphadenopathy. LUNGS: Clear. HEART: S1, S2 regular. ABDOMEN: Soft, nondistended no guarding, PEG in place : No Lion EXTREMITIES: No edema or cyanosis. SKIN: without rash MSK no jt swelling or dec in range of motion BACK normal curvature, no spine tenderness NEUROLOGICAL: Alert, answers questions appropriately PIV looks ok Medications: Inpatient Meds: Current Medications Medications (Trade) Dose Ordered Sig/Jasvir Start Time Stop Time Status Last Admin Dose Admin Acetaminophen (Tylenol Supp) 650 mg 1X ONCE 10/20/19 12:45 10/20/19 12:50 DC 10/20/19 13:19 650 MG Acetaminophen (Tylenol) 650 mg PRN Q4HRS PRN 10/20/19 14:45 Acetaminophen/ Hydrocodone Bitart (Lortab 5/325) 1 tab PRN Q4HRS PRN 10/28/19 12:00 10/28/19 11:58 1 TAB Amino Acids/ Glycerin/ Electrolytes 1,000 ml @ 100 mls/hr Q10H 10/24/19 14:30 10/28/19 13:41 DC 10/28/19 03:13 100 MLS/HR Barium Sulfate (Varibar Thin Liquid Apple) 148 gm 1X ONCE 10/23/19 11:15 10/23/19 11:16 DC 10/23/19 11:15 148 GM Cefazolin Sodium (Ancef) 1 gm Q8HRS 10/21/19 10:00 10/29/19 05:42 1 GM Cefazolin Sodium 1000 mg/Dextrose 50 ml @ 100 mls/hr Q8HRS 10/21/19 10:00 Cancel Enoxaparin Sodium (Lovenox 40mg Syringe) 40 mg DAILY 10/27/19 09:00 10/26/19 13:59 DC Fentanyl Citrate (Fentanyl 2ml Vial) 50 mcg PRN Q5MIN PRN 10/27/19 07:00 10/28/19 06:59 DC Haloperidol Lactate (Haldol Inj) 5 mg PRN Q6HRS PRN 10/20/19 20:30 10/21/19 20:30 5 MG Hydromorphone HCl (Dilaudid) 0.5 mg PRN Q10MIN PRN 10/27/19 07:00 10/28/19 06:59 DC Info (CONTRAST GIVEN -- Rx MONITORING) 1 each PRN DAILY PRN 10/20/19 14:00 10/22/19 13:59 DC Iohexol (Omnipaque 300 Mg/ml) 60 ml 1X ONCE 10/20/19 13:45 10/20/19 13:49 DC 10/20/19 13:45 60 ML Lactobacillus Rhamnosus (Culturelle) 1 cap BID 10/21/19 13:00 10/27/19 12:29 DC 10/23/19 08:41 1 CAP Lorazepam (Ativan Inj) 2 mg PRN Q2HRS PRN 10/21/19 11:15 10/21/19 23:09 2 MG Morphine Sulfate (Morphine Sulfate) 1 mg PRN Q10MIN PRN 10/27/19 07:00 10/28/19 06:59 DC Olanzapine (ZyPREXA IM) 10 mg 1X ONCE 10/20/19 20:30 10/20/19 20:38 DC 10/20/19 21:53 10 MG Olanzapine (ZyPREXA ZYDIS) 5 mg HS 10/23/19 21:00 10/28/19 22:10 5 MG Ondansetron HCl (Zofran) 4 mg PRN Q4HRS PRN 10/20/19 20:30 Piperacillin Sod/ Tazobactam Sod 3.375 gm/Sodium Chloride 50 ml @ 100 mls/hr Q6HRS 10/20/19 18:00 10/21/19 09:41 DC 10/21/19 06:31 100 MLS/HR Propofol (Diprivan) 200 mg STK-MED ONCE 10/27/19 10:28 10/27/19 10:29 DC Ringer's Solution 1,000 ml @ 75 mls/hr 1X ONCE 10/27/19 08:00 10/27/19 21:19 DC 10/27/19 10:35 75 MLS/HR Sodium Chloride 1,000 ml @ 100 mls/hr Q10H 10/21/19 18:45 10/24/19 14:21 DC 10/24/19 08:33 100 MLS/HR Tamsulosin HCl (Flomax) 0.4 mg QHS 10/20/19 21:00 10/28/19 22:10 0.4 MG Vancomycin HCl (Vanco Per Pharmacy) 1 each PRN DAILY PRN 10/20/19 17:30 10/22/19 11:33 DC 10/21/19 11:05 1 EACH Vancomycin HCl (Vancomycin Trough Level) 1 each 1X ONCE 10/22/19 17:30 10/22/19 11:34 DC Vancomycin HCl 1.25 gm/Sodium Chloride 250 ml @ 166.667 mls/hr 1X ONCE 10/20/19 18:00 10/20/19 19:29 DC 10/20/19 18:00 166.667 MLS/HR Vancomycin HCl 750 mg/Sodium Chloride 250 ml @ 250 mls/hr Q24H 10/21/19 18:00 10/22/19 11:33 DC 10/21/19 17:23 250 MLS/HR Objective: Assessment: MSSA bacteremia, 06/19 bottles. 10/19. TTE neg. Repeat BC 10/22 neg to date Fever better Leukocytosis - better Encephalopathy - improved Unknown basal state or history. MSSA in urine, usually not considered an urological pathogen Dysphagia status post EGD and PEG. Plan: Plan of Care Continue cefazolin, Repeat blood culture, 10/22 neg to date MOHSEN still pending Maintain aspiration precautions Supportive care Discussed with nursing staff MARIANNA KUMAR MD Oct 29, 2019 11:48
[2019-10-29] MEDS ORDERED: LIDOCAINE 2% TOPICAL JELLY 5GM TUBE. TP ONE (12:00)
[2019-10-29] MEDS ORDERED: BENZOCAINE ONE 20% MUCOSAL SPRAY. MM (12:00)
[2019-10-29] MEDS ORDERED: 0.9 % SODIUM CHLORIDE 10 ML DISP.SYRIN. IV PRN (12:00)
[2019-10-29] MEDS ORDERED: LIDOCAINE 2% VISCOUS 15 ML SOLUTION. MM ONE (12:00)
--- NOTE | 2019-10-29 12:33 | PDOC ---
Date of Service: DATE: 10/29/19 TIME: 12:32 Subjective: Subjective: Abdomen is a little sore but he's ready to go. Asks me to call his sister to pick him up. Objective: Objective: D/w nurse - PEG working well, MOHSEN prior to DC. Vital Signs: Vital Signs Date Time Temp Pulse Resp B/P (MAP) Pulse Ox O2 Delivery O2 Flow Rate FiO2 10/29/19 11:00 98.1 66 16 96/57 (70) 95 Room Air 98.1 10/28/19 08:00 3.0 Labs: BLOOD CULTURE Final NO GROWTH AFTER 5 DAYS PE: GEN: NAD, thin LUNGS: CTAB HEART: RRR ABD: PEG looks good, abd binder replaced NEURO/PSYCH: confused? A/P: Dysphagia s/p PEG MSSA bacteremia -- PEG functioning. Justicifation of Admission Dx: Justifications for Admission: Justification of Admission Dx: N/A FIFI PLASENCIA Oct 29, 2019 12:33
--- NOTE | 2019-10-29 15:07 | PDOC ---
F/U PHYSCH PROG NOTE Subjective: Gentleman is seen for routine follow-up. Progress is reviewed with nursing staff. No major emotional or behavioral breakdown reported. Demonstrating sustained improvement. He is lot more cooperative, conversant, and interactive. Easily receptive to questions and comprehending easily. Denies suicidal or homicidal thoughts. Denies auditory or visual hallucinations. No evidence of flora or hypomania. Tolerating medications, denies adverse drug reaction. Objective: 14 point review of system is otherwise negative except for stated above. Vital Signs: Vital Signs Date Time Temp Pulse Resp B/P (MAP) Pulse Ox O2 Delivery O2 Flow Rate FiO2 10/29/19 14:50 98.1 47 15 87/52 95 Room Air 98.1 10/28/19 08:00 3.0 Medications: Current Medications Medications (Trade) Dose Ordered Sig/Jasvir Start Time Stop Time Status Last Admin Dose Admin Acetaminophen (Tylenol Supp) 650 mg 1X ONCE 10/20/19 12:45 10/20/19 12:50 DC 10/20/19 13:19 650 MG Acetaminophen (Tylenol) 650 mg PRN Q4HRS PRN 10/20/19 14:45 10/29/19 12:11 650 MG Acetaminophen/ Hydrocodone Bitart (Lortab 5/325) 1 tab PRN Q4HRS PRN 10/28/19 12:00 10/28/19 11:58 1 TAB Amino Acids/ Glycerin/ Electrolytes 1,000 ml @ 100 mls/hr Q10H 10/24/19 14:30 10/28/19 13:41 DC 10/28/19 03:13 100 MLS/HR Barium Sulfate (Varibar Thin Liquid Apple) 148 gm 1X ONCE 10/23/19 11:15 10/23/19 11:16 DC 10/23/19 11:15 148 GM Benzocaine (Hurricaine One) 2 spray 1X ONCE 10/29/19 12:00 10/29/19 12:01 DC Cefazolin Sodium (Ancef) 1 gm Q8HRS 10/21/19 10:00 10/29/19 14:47 1 GM Cefazolin Sodium 1000 mg/Dextrose 50 ml @ 100 mls/hr Q8HRS 10/21/19 10:00 Cancel Enoxaparin Sodium (Lovenox 40mg Syringe) 40 mg DAILY 10/27/19 09:00 10/26/19 13:59 DC Fentanyl Citrate (Fentanyl 2ml Vial) 50 mcg PRN Q5MIN PRN 10/27/19 07:00 10/28/19 06:59 DC Haloperidol Lactate (Haldol Inj) 5 mg PRN Q6HRS PRN 10/20/19 20:30 10/21/19 20:30 5 MG Hydromorphone HCl (Dilaudid) 0.5 mg PRN Q10MIN PRN 10/27/19 07:00 10/28/19 06:59 DC Info (CONTRAST GIVEN -- Rx MONITORING) 1 each PRN DAILY PRN 10/20/19 14:00 10/22/19 13:59 DC Iohexol (Omnipaque 300 Mg/ml) 60 ml 1X ONCE 10/20/19 13:45 10/20/19 13:49 DC 10/20/19 13:45 60 ML Lactobacillus Rhamnosus (Culturelle) 1 cap BID 10/21/19 13:00 10/27/19 12:29 DC 10/23/19 08:41 1 CAP Lidocaine HCl (Viscous Lidocaine) 15 ml 1X ONCE 10/29/19 12:00 10/29/19 12:01 DC Lidocaine HCl (Xylocaine 2% Topical 5gm Tube) 1 patty 1X ONCE 10/29/19 12:00 10/29/19 12:01 DC Lorazepam (Ativan Inj) 2 mg PRN Q2HRS PRN 10/21/19 11:15 10/21/19 23:09 2 MG Morphine Sulfate (Morphine Sulfate) 1 mg PRN Q10MIN PRN 10/27/19 07:00 10/28/19 06:59 DC Olanzapine (ZyPREXA IM) 10 mg 1X ONCE 10/20/19 20:30 10/20/19 20:38 DC 10/20/19 21:53 10 MG Olanzapine (ZyPREXA ZYDIS) 5 mg HS 10/23/19 21:00 10/28/19 22:10 5 MG Ondansetron HCl (Zofran) 4 mg PRN Q4HRS PRN 10/20/19 20:30 Piperacillin Sod/ Tazobactam Sod 3.375 gm/Sodium Chloride 50 ml @ 100 mls/hr Q6HRS 10/20/19 18:00 10/21/19 09:41 DC 10/21/19 06:31 100 MLS/HR Propofol (Diprivan) 200 mg STK-MED ONCE 10/27/19 10:28 10/27/19 10:29 DC Ringer's Solution 1,000 ml @ 75 mls/hr 1X ONCE 10/27/19 08:00 10/27/19 21:19 DC 10/27/19 10:35 75 MLS/HR Sodium Chloride (Normal Saline Flush) 10 ml QSHIFT PRN 10/29/19 12:00 Tamsulosin HCl (Flomax) 0.4 mg QHS 10/20/19 21:00 10/28/19 22:10 0.4 MG Vancomycin HCl (Vanco Per Pharmacy) 1 each PRN DAILY PRN 10/20/19 17:30 10/22/19 11:33 DC 10/21/19 11:05 1 EACH Vancomycin HCl (Vancomycin Trough Level) 1 each 1X ONCE 10/22/19 17:30 10/22/19 11:34 DC Vancomycin HCl 1.25 gm/Sodium Chloride 250 ml @ 166.667 mls/hr 1X ONCE 10/20/19 18:00 10/20/19 19:29 DC 10/20/19 18:00 166.667 MLS/HR Vancomycin HCl 750 mg/Sodium Chloride 250 ml @ 250 mls/hr Q24H 10/21/19 18:00 10/22/19 11:33 DC 10/21/19 17:23 250 MLS/HR Physical Exam: Mental Status Exam: Elderly gentleman appears stated age fairly groomed fairly nourished He is oriented to person, place, year and month Cooperative Thought processes goal-directed Denies suicidal or homicidal thoughts. No abnormal perception noted Denies suicidal or homicidal thoughts. Mood is improving Insight is improving affect is improving. Judgment is good Impulse control is fair Attention span and concentration fair Recent memory impaired Physical Exam: Refer to Physician's note. [employer]TAIN: No focal deficit MSK: No EPS, TDK, or abnormal involuntary movements Diagnosis: Acute delirium, likely multifactorial, hyperactive and hypoactive type. Unspecified neurocognitive disorder Assessment: Symptomatology and symptoms presentation is suggestive of acute delirium/metabolic encephalopathy. Collateral information would help to determine underlying neurocognitive status and baseline status. We will continue medications as prescribed. Antipsychotics for agitation. 10/27/2019: Today he is demonstrating some improvement in mental status. Relatively receptive to questions and understanding easily. 10/28/2019. Demonstrating sustained improvement in his mentation. He is not as confused as he was the very first day Today, patient is reporting sustained improvement. Denies any intermittent confusion endorsed by nursing staff as well. Plan: Continue medications as prescribed. Risk, benefits, alternatives of the treatment are discussed. He is in agreement with plan and voiced understanding. Adverse drug reaction of the medication discussed including Zyprexa. Avoid sedatives and hypnotics. Applied delirium protocol. Avoid sundowning Thank you for involving inpatient care JUAN WHITLEY MD Oct 29, 2019 15:07
[2019-10-29] MEDS ORDERED: IV RINGERS,LACTATED 1000ML 1,000 ML IV SCH (15:17)
[2019-10-29] MEDS ORDERED: PROPOFOL 10 MG/ML (20ML) VIAL. IV ONE (15:20)
[2019-10-29] MEDS ORDERED: PROCHLORPERAZINE 10 MG/2 ML VIAL. IV PRN (15:30)
[2019-10-29] MEDS ORDERED: HYDROmorphone 2 MG/ML VIAL IV PRN (15:30)
[2019-10-29] MEDS ORDERED: fentaNYL PF VIAL 100 MCG/2 ML VIAL IV PRN ×2 (15:30)
[2019-10-29] MEDS ORDERED: MORPHINE SULFATE 2 MG/ML VIAL. IV PRN (15:30)
[2019-10-29] MEDS ORDERED: ONDANSETRON PF 4 MG/2 ML VIAL. IV PRN (15:30)
[2019-10-29] MEDS ORDERED: LIDOCAINE 1% PF 2 ML VIAL. ID PRN (15:30)
--- NOTE | 2019-10-29 15:56 | NUR ---
Wound Care Wound care consult for left finger wound. Pt has old dry blood blister to distal tip of middle finger. No open wounds noted. Pt buttocks are reddened but blanchable. Cleansed buttocks and applied calazime. Educated pt on PU prevention. Recommend TQ2H, pt turned to left side with pillow and heels floated. WC will follow up to reassess buttocks next week.
--- NOTE | 2019-10-29 16:23 | RAD ---
PORTABLE CHEST 1V History: Reason: pneumonia / Spl. Instructions: / History: Comparison: October 26, 2019 Findings: Decreased left basilar opacity and pleural effusion. Normal heart size. No pneumothorax. Impression: 1. Decreased left basilar opacity and pleural effusion. Electronically signed by: Jeronimo Ariza DO (10/29/2019 4:20 PM) [id number]
--- NOTE | 2019-10-29 16:55 | NUR ---
SW following. Reviewed chart and discussed with RN. Discharge plan remains home with family and [facility] when stable. Pt has Medicare primary for insurance. [facility] coordinated care with Sonia from [facility] who will follow up with dtr. MEME to continue following.
[2019-10-29] MEDS: TAMSULOSIN 0.4 MG CAP.ER.24H. PO SCH (22:04)
[2019-10-30 03:10] VITALS: BP 107/68
--- NOTE | 2019-10-30 06:22 | CARD ---
MR#: [id number] Date of Study: 10/29/2019 Ordering Physician: VÍCTOR KHOURY, Referring Physician: VÍCTOR KHOURY, Tech: Laurence Abreu APPROVED REPORT EXAM: Transesophageal echocardiogram with color flow Doppler. INDICATION Bacteremia Reason For Test : Rule out endocarditis. PROCEDURE After obtaining informed consent, patient underwent transesophageal echo in the PACU. Type of Sedation : General Anesthesia Sedation was administered by Cristo Hassan. Sedation was achieved with Propofol 50mg intravenously. Transesophageal probe was inserted and advanced into esophagus by Gilson Khoury MD. The MOHSEN was performed without complications. Throughout the procedure, the blood pressure, pulse oximetry, cardiac rhythm, and rate were monitored . The patient tolerated the procedure without adverse effects. Recovery from general anesthesia was une ventful and vital signs were stable. LEFT VENTRICLE The left ventricle is normal size. There is normal left ventricular wall thickness. The left ventricu lar systolic function is normal and the ejection fraction is within normal range. EF 55% There is nor mal LV segmental wall motion. No left ventricle thrombus noted on this study. RIGHT VENTRICLE The right ventricle is normal size. There is normal right ventricular wall thickness. The right ventr icular systolic function is normal. ATRIA The left atrium size is normal. The right atrium size is normal. The interatrial septum is intact wit h no evidence for an atrial septal defect or patent foramen ovale as noted on 2-D or Doppler imaging. There is no thrombus noted in the left atrial appendage. AORTIC VALVE The aortic valve is normal in structure and function. Doppler and Color Flow revealed no significant aortic regurgitation. There is no significant aortic valvular stenosis. There is no aortic valvular v egetation. MITRAL VALVE There is a mobile vegetation measuring .72 cm x .80 cm appearing on the anterior leaflet of the ирина l valve. There is no mitral valve stenosis. Doppler and Color-flow revealed trace to mild mitral regu rgitation. TRICUSPID VALVE The tricuspid valve is normal in structure and function. Doppler and Color Flow revealed trace tricus pid regurgitation. There is no tricuspid valve stenosis. PULMONIC VALVE The pulmonary valve is normal in structure and function. Doppler and Color Flow revealed no pulmonic valvular regurgitation. There is no pulmonic valvular stenosis. GREAT VESSELS The aortic root is normal in size. The ascending aorta is normal in size. The IVC is normal in size a nd collapses >50% with inspiration. Critical Notification Critical Value: No <Conclusion> The left ventricular systolic function is normal and the ejection fraction is within normal range. EF 55% There is normal LV segmental wall motion. There is a mobile vegetation measuring .72 cm x .80 cm appearing on the anterior leaflet of the mi tral valve. Signed by : Víctor Khoury, Electronically Approved : 10/30/2019 06:21:22
[2019-10-30] MEDS: ceFAZolin SODIUM IV Push 1 GM VIAL. IVP SCH (06:30)
[2019-10-30 07:15] VITALS: BP 106/53
--- NOTE | 2019-10-30 08:28 | PDOC ---
PROGRESS NOTES Date of Service: DATE: 10/30/19 TIME: 08:28 Chief Complaint Chief Complaint IMPRESSION ======= UTI AMS Elevated troponin: peaked at 0.2 no noted cardiac symptoms per chart review. EKG SR without acute changes. Suspect demand mediated Nontraumatic Mechanical fall: due to weakness Staph aureus bacteremia, 06/19 bottles, susceptibilities MSSA Fever. Leukocytosis. METABOLIC Encephalopathy. Reticular nodular airspace disease with dependent consolidation in the lower lobes, nonspecific. This could be related to noncardiogenic edema or atypical pneumonia. Chronic aspiration is another consideration. Additional noncalcified pulmonary nodules within both lungs, nonspecific. 12 month Follow-up imaging to ensure stability. Asymmetric bladder wall thickening on the right, indeterminate. This could be related to acute or chronic cystitis or an underlying bladder mass. Correlate with clinical history. If indicated, a CT urogram could better evaluate. SEVERE PROTEIN-CALORIC MALNUTRITION PLAN TELE PULM CONSULT CONSIDER UROLOGY CONSULT Continue cefazolin, 10/23 Repeat blood culture, 10/22 in progress Dysphagia of the oral and pharyngeal phases as described.. Aspiration was observed with all tested food consistencies. Please refer to speech pathology notes for complete details and recommendations. GI CONSULTED patient and [id number] and they do wish to proceed WITH peg at this time PEG 10/26 10/29 cont iv ancef D/W FAMILY IN ROOM Social work to assist with discharge antibiotics Q. Saturday labs CBC/BUN/creatinine. Fax results to [phone] Follow-up ID clinic November 11 at 3 PM phone [phone] DICTATED and SIGNED BY: ABBI RINALDI MD DATE: 10/23/19 1731 79 year old male with no known PMHx who presents with here with his da [id number]-awj and granddaughter for altered mental status. They have just recently met him for the first time on 10/17/2019 in person to bring him to live with them in [place] after a concerning call about significant weight loss and confusion from his local partner cco where he was living in [place] by himself [place]. Family notes they speak with him on the phone often and he has memory and anger issues and is estranged from them due to this. For the 3 days he has lived with them they note unsteady gait, and that he converses with them and is able to eat and drink on his own but only receives hot dogs and energy drinks, 4 per day each. Granddaughter states on 10/18 he ripped a screen door off of the wall and was urinating in drawers in their home. He was last seen normal last night, 10/18 at 2200. They stated for him this morning they went to get him up and he did not want to get out of bed and he was shivering and complaining that he was cold but they did not think he had a fever. Febrile to 103.7F in the ED, given 650mg acetaminophen suppository with improvement in his temperature. He showed no meningeal signs and was moving all extremities on examination, opens eyes, answers 1-2 word answers. Does not have any pain complaints. Tells me he needs to urinate. When asked about his missing left 4th finger he does note his hand hurts sometimes. XR negative for fracture. 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 CT chest with reticular nodular airspace disease with dependent consolidation in the lower lobes and noncalcified pulmonary nodules within both lungs, nonspecific. CT abdomen/pelvis reveal asymmetric bladder wall thickening on the right, indeterminate. This could be related to acute or chronic cystitis or an underlyi ng bladder mass. Urine positive for LE and nitrites. White blood cell count is 13.5. Troponin elevated at 0.068, BNP is 2122. Patient has received 1 L of fluids. Started on empiric Zosyn IV. Admitted for altered mental status and fevers with likely bladder source. As he was just transported from [place], COVID 19 testing was performed as well. History of Present Illness History of Present Illness 10/28 Patient seen and examined Discussed with RN Discussed with speech therapy Patient mentioned he has lost 60 lbs because he has no dentures so it's become difficult to eat Covid (-) Continue cefazolin, Repeat blood culture, 10/22 in progress Maintain aspiration precautions peg Vitals Vitals Vital Signs Date Time Temp Pulse Resp B/P (MAP) Pulse Ox O2 Delivery O2 Flow Rate FiO2 10/30/19 03:10 98.1 58 18 107/68 (81) 93 Room Air 98.1 10/29/19 16:32 3.0 Physical Exam Physical Exam GENERAL: Propped up in bed, alert, smiling HEENT: No conjunctival lesion. Edentulous. No lesion in the mouth. NECK: Supple. No JVP, no lymphadenopathy. LUNGS: Clear. HEART: S1, S2 regular. ABDOMEN: Soft, nondistended no guarding, PEG in place : No Lion EXTREMITIES: No edema or cyanosis. SKIN: without rash MSK no jt swelling or dec in range of motion BACK normal curvature, no spine tenderness NEUROLOGICAL: Alert, answers questions appropriately PIV looks ok General: Alert, Oriented X3, Cooperative, No acute distress, Other (restless) Heart: Regular rate (SR), Normal S1, Normal S2, No murmurs Lungs: Clear Abdomen: Normal bowel sounds, Soft, No tenderness Extremities: No cyanosis, No edema Skin: No significant lesion Assessment and Plan Assessmemt and Plan Problems Medical Problems: (1) AMS (altered mental status) Status: Acute (2) Person under investigation for COVID-19 Status: Acute (3) UTI (urinary tract infection) Status: Acute Comment Review of Relevant I have reviewed the following items katie (where applicable) has been applied. Labs Microbiology 10/24/19 Urine Culture - Final, Complete 10/23/19 Blood Culture - Final, Complete NO GROWTH AFTER 5 DAYS Medications Current Medications Sodium Chloride 1,000 ml @ 1,000 mls/hr 1X ONCE IV Last administered on 10/20/19at 13:00; Start 10/20/19 at 12:45; Stop 10/20/19 at 13:44; Status DC Acetaminophen (Tylenol Supp) 650 mg 1X ONCE [place] Last administered on 10/20/19at 13:19; Start 10/20/19 at 12:45; Stop 10/20/19 at 12:50; Status DC Piperacillin Sod/ Tazobactam Sod 3.375 gm/Sodium Chloride 50 ml @ 100 mls/hr 1X ONCE IV Last administered on 10/20/19at 13:42; Start 10/20/19 at 13:30; Stop 10/20/19 at 13:59; Status DC Iohexol (Omnipaque 300 Mg/ml) 60 ml 1X ONCE IV Last administered on 10/20/19at 13:45; Start 10/20/19 at 13:45; Stop 10/20/19 at 13:49; Status DC Info (CONTRAST GIVEN -- Rx MONITORING) 1 each PRN DAILY PRN MC SEE COMMENTS; Start 10/20/19 at 14:00; Stop 10/22/19 at 13:59; Status DC Ondansetron HCl (Zofran) 4 mg PRN Q8HRS PRN IV NAUSEA/VOMITING; Start 10/20/19 at 14:45; Stop 10/20/19 at 20:24; Status DC Sodium Chloride 1,000 ml @ 100 mls/hr Q10H IV Last administered on 10/21/19at 10:55; Start 10/20/19 at 14:43; Stop 10/21/19 at 14:42; Status DC Acetaminophen (Tylenol) 650 mg PRN Q4HRS PRN PO FEVER > 100.3'F Last administered on 10/29/19at 12:11; Start 10/20/19 at 14:45 Vancomycin HCl (Vanco Per Pharmacy) 1 each PRN DAILY PRN MC SEE COMMENTS Last administered on 10/21/19at 11:05; Start 10/20/19 at 17:30; Stop 10/22/19 at 11:33; Status DC Piperacillin Sod/ Tazobactam Sod 3.375 gm/Sodium Chloride 50 ml @ 100 mls/hr Q6HRS IV Last administered on 10/21/19at 06:31; Start 10/20/19 at 18:00; Stop 10/21/19 at 09:41; Status DC Vancomycin HCl 1.25 gm/Sodium Chloride 250 ml @ 166.667 mls/hr 1X ONCE IV Last administered on 10/20/19at 18:00; Start 10/20/19 at 18:00; Stop 10/20/19 at 19:29; Status DC Vancomycin HCl 750 mg/Sodium Chloride 250 ml @ 250 mls/hr Q24H IV Last administered on 10/21/19at 17:23; Start 10/21/19 at 18:00; Stop 10/22/19 at 11:33; Status DC Vancomycin HCl (Vancomycin Trough Level) 1 each 1X ONCE MC ; Start 10/22/19 at 17:30; Stop 10/22/19 at 11:34; Status DC Ondansetron HCl (Zofran) 4 mg PRN Q4HRS PRN IV NAUSEA/VOMITING; Start 10/20/19 at 20:30 Olanzapine (ZyPREXA ZYDIS) 5 mg PRN BID PRN PO ANXIETY / AGITATION; Start 10/20/19 at 20:30 Enoxaparin Sodium (Lovenox 40mg Syringe) 40 mg Q12HR SQ Last administered on 10/25/19 09:35; Start 10/20/19 at 21:00; Stop 10/26/19 at 10:50; Status DC Tamsulosin HCl (Flomax) 0.4 mg QHS PO Last administered on 10/29/19 22:04; Start 10/20/19 at 21:00 Olanzapine (ZyPREXA IM) 10 mg 1X ONCE IM Last administered on 10/20/19at 21:53; Start 10/20/19 at 20:30; Stop 10/20/19 at 20:38; Status DC Haloperidol Lactate (Haldol Inj) 5 mg PRN Q6HRS PRN IVP AGITATION Last administered on 10/21/19 20:30; Start 10/20/19 at 20:30 Cefazolin Sodium 1000 mg/Dextrose 50 ml @ 100 mls/hr Q8HRS IV ; Start 10/21/19 at 10:00; Status Cancel Cefazolin Sodium (Ancef) 1 gm Q8HRS IVP Last administered on 10/30/19 06:30; Start 10/21/19 at 10:00 Lorazepam (Ativan Inj) 2 mg PRN Q2HRS PRN IVP ANXIETY. Last administered on 10/21/19 23:09; Start 10/21/19 at 11:15 Lactobacillus Rhamnosus (Culturelle) 1 cap BID PO Last administered on 10/23/19 08:41; Start 10/21/19 at 13:00; Stop 10/27/19 at 12:29; Status DC Sodium Chloride 1,000 ml @ 100 mls/hr Q10H IV Last administered on 10/24/19 08:33; Start 10/21/19 at 18:45; Stop 10/24/19 at 14:21; Status DC Barium Sulfate (Varibar Thin Liquid Apple) 148 gm 1X ONCE PO Last administered on 10/23/19 11:15; Start 10/23/19 at 11:15; Stop 10/23/19 at 11:16; Status DC Olanzapine (ZyPREXA ZYDIS) 5 mg HS PO Last administered on 10/29/19at 22:04; Start 10/23/19 at 21:00 Amino Acids/ Glycerin/ Electrolytes 1,000 ml @ 100 mls/hr Q10H IV Last administered on 10/28/19at 03:13; Start 10/24/19 at 14:30; Stop 10/28/19 at 13:41; Status DC Enoxaparin Sodium (Lovenox 40mg Syringe) 40 mg DAILY SQ ; Start 10/27/19 at 09:00; Stop 10/26/19 at 13:59; Status DC Fentanyl Citrate (Fentanyl 2ml Vial) 25 mcg PRN Q5MIN PRN IV MILD PAIN 1-3 Last administered on 10/27/19at 16:51; Start 10/27/19 at 07:00; Stop 10/28/19 at 06:59; Status DC Fentanyl Citrate (Fentanyl 2ml Vial) 50 mcg PRN Q5MIN PRN IV MODERATE TO SEVERE PAIN; Start 10/27/19 at 07:00; Stop 10/28/19 at 06:59; Status DC Morphine Sulfate (Morphine Sulfate) 1 mg PRN Q10MIN PRN IV SEVERE PAIN 7-10; Start 10/27/19 at 07:00; Stop 10/28/19 at 06:59; Status DC Ringer's Solution 1,000 ml @ 30 mls/hr Q24H IV ; Start 10/27/19 at 07:00; Stop 10/27/19 at 18:59; Status DC Hydromorphone HCl (Dilaudid) 0.5 mg PRN Q10MIN PRN IV SEV PAIN, Second choice; Start 10/27/19 at 07:00; Stop 10/28/19 at 06:59; Status DC Ringer's Solution 1,000 ml @ 75 mls/hr 1X ONCE IV Last administered on at 10:35; Start 10/27/19 at 08:00; Stop 10/27/19 at 21:19; Status DC Propofol (Diprivan) 200 mg STK-MED ONCE IV ; Start 10/27/19 at 10:28; Stop 10/27/19 at 10:29; Status DC Acetaminophen/ Hydrocodone Bitart (Lortab 5/325) 1 tab PRN Q4HRS PRN PEG PAIN Last administered on 10/28/19at 11:58; Start 10/28/19 at 12:00 Sodium Chloride (Normal Saline Flush) 10 ml QSHIFT PRN IV AFTER MEDS AND BLOOD DRAWS; Start 10/29/19 at 12:00 Lidocaine HCl (Xylocaine 2% Topical 5gm Tube) 1 patty 1X ONCE TP ; Start 10/29/19 at 12:00; Stop 10/29/19 at 12:01; Status DC Lidocaine HCl (Viscous Lidocaine) 15 ml 1X ONCE MM ; Start 10/29/19 at 12:00; Stop 10/29/19 at 12:01; Status DC Benzocaine (Hurricaine One) 2 spray 1X ONCE MM ; Start 10/29/19 at 12:00; Stop 10/29/19 at 12:01; Status DC Ondansetron HCl (Zofran) 4 mg PRN Q6HRS PRN IV NAUSEA/VOMITING; Start 10/29/19 at 15:30; Stop 10/29/19 at 22:00; Status DC Fentanyl Citrate (Fentanyl 2ml Vial) 25 mcg PRN Q5MIN PRN IV MILD PAIN 1-3; Start 10/29/19 at 15:30; Stop 10/29/19 at 22:00; Status DC Fentanyl Citrate (Fentanyl 2ml Vial) 50 mcg PRN Q5MIN PRN IV MODERATE TO SEVERE PAIN; Start 10/29/19 at 15:30; Stop 10/29/19 at 22:00; Status DC Morphine Sulfate (Morphine Sulfate) 1 mg PRN Q10MIN PRN IV SEVERE PAIN 7-10; Start 10/29/19 at 15:30; Stop 10/29/19 at 22:00; Status DC Ringer's Solution 1,000 ml @ 30 mls/hr Q24H IV ; Start 10/29/19 at 15:17; Stop 10/30/19 at 03:16; Status DC Lidocaine HCl (Xylocaine-Mpf 1% 2ml Vial) 2 ml PRN 1X PRN ID PRIOR TO IV START; Start 10/29/19 at 15:30; Stop 10/29/19 at 22:00; Status DC Hydromorphone HCl (Dilaudid) 0.5 mg PRN Q10MIN PRN IV SEV PAIN, Second choice; Start 10/29/19 at 15:30; Stop 10/29/19 at 22:00; Status DC Prochlorperazine Edisylate (Compazine) 5 mg PACU PRN PRN IV NAUSEA, MRX1; Start 10/29/19 at 15:30; Stop 10/29/19 at 22:00; Status DC Propofol (Diprivan) 200 mg STK-MED ONCE IV ; Start 10/29/19 at 15:20; Stop 10/29/19 at 15:20; Status DC Vitals/I & O Vital Sign - Last 24 Hours 10/29/19 10/29/19 10/29/19 10/29/19 11:00 14:50 15:45 15:45 Temp 98.1 98.1 98.3 98.1 98.1 98.3 Pulse 66 47 48 Resp 16 15 18 B/P (MAP) 96/57 (70) 87/52 82/43 Pulse Ox 95 95 97 O2 Delivery Room Air Room Air Nasal Cannula Nasal Cannula O2 Flow Rate 3.0 4 10/29/19 10/29/19 10/29/19 10/29/19 16:00 16:15 16:15 16:21 Temp 98.3 98.3 Pulse 48 48 47 Resp 18 18 B/P (MAP) 88/37 80/46 105/45 (65) Pulse Ox 96 96 O2 Delivery Nasal Cannula Nasal Cannula Nasal Cannula O2 Flow Rate 3 3 3.0 10/29/19 10/29/19 10/29/19 10/29/19 16:32 16:47 17:00 17:17 Temp 98.0 98.0 Pulse 46 47 47 47 Resp 16 B/P (MAP) 103/44 (63) 104/46 (65) 97/51 (66) 82/52 (62) Pulse Ox 94 O2 Delivery Nasal Cannula O2 Flow Rate 3.0 10/29/19 10/29/19 10/29/19 10/29/19 17:32 18:02 19:00 20:03 Temp 97.8 97.8 Pulse 48 53 45 59 Resp 18 20 B/P (MAP) 87/51 (63) 85/43 (57) 95/45 (62) 102/55 (71) Pulse Ox 95 94 O2 Delivery Room Air 10/29/19 10/30/19 23:00 03:10 Temp 98.0 98.1 98.0 98.1 Pulse 58 58 Resp 20 18 B/P (MAP) 91/48 (62) 107/68 (81) Pulse Ox 99 93 O2 Delivery Room Air Room Air Intake and Output 10/29/19 10/29/19 10/30/19 15:00 23:00 07:00 Intake Total 120 ml 670 ml Output Total 375 ml Balance 120 ml 295 ml Nutrition Consultation Dietary Evaluation: Recommendations by RD: Dietary education by RD Comments: REC continue TF as ordered Expected Outcomes/Goals: to meet >75% est nutr needs- met via TF, goal ongoing Malnutrition Findings: Body Fat Depletion (Non Severe: Mild Depletion Weight Status: Underweight Justicifation of Admission Dx: Justifications for Admission: Justification of Admission Dx: N/A SHENG EVANS MD Oct 30, 2019 08:28
--- NOTE | 2019-10-30 09:33 | PDOC ---
PULMONARY PROGRESS NOTES DATE: 10/30/19 TIME: 09:32 Subjective No SOA, No increased cough, No CP up to chair on R/A Feeling much better Vitals Vital Signs Date Time Temp Pulse Resp B/P (MAP) Pulse Ox O2 Delivery O2 Flow Rate FiO2 10/30/19 07:15 98.3 51 16 106/53 (70) 95 Room Air 98.3 10/29/19 16:32 3.0 ROS: No Nausea, No Chest Pain, No Abdominal Pain, No Increase Cough General: Alert, No acute distress Lungs: Clear Cardiovascular: S1 Abdomen: Soft Neuro Exam: Alert Extremities: Other (edema) Skin: Warm Comments CXR 10/28 IMPRESSION: Trace left pleural effusion with adjacent airspace disease likely atelectasis. Impression . 1. Staphylococcal sepsis. The patient's blood cultures were positive 06/19. 2. Staphylococcus aureus urinary tract infection. 3. Abnormal CT chest with basilar infiltrate versus atelectasis along with tiny lung nodules. improved 4. Underlying suspected dementia. 5. dysphasia Plan . Supplemental oxygen to keep sats above 92 %, now on R/A, f/u CXR 10/28 improved DVT prophylaxis with Lovenox. Monitor mental status-- improved/resolved dysphagia, follow speech rec, EOB PT/OT discussed w pt, rn stable pulmonary miller CASS QUINONEZ MD Oct 30, 2019 09:33
--- NOTE | 2019-10-30 10:52 | PDOC ---
Infectious Disease Note Subjective: Subjective Pt without complaints Tolerating tube feedings well Denies fever, nausea, vomiting, shortness of breath, diarrhea, abdominal pain, rash Otherwise as above Daughter at bedside Ready for discharge today per team No acute issues per RN Vital Signs: Vital Signs Vital Signs Date Time Temp Pulse Resp B/P (MAP) Pulse Ox O2 Delivery O2 Flow Rate FiO2 10/30/19 07:15 98.3 51 16 106/53 (70) 95 Room Air 98.3 10/29/19 16:32 3.0 Physical Exam: PHYSICAL EXAM GENERAL: Propped up in bed, alert, smiling HEENT: No conjunctival lesion. Edentulous. No lesion in the mouth. NECK: Supple. No JVP, no lymphadenopathy. LUNGS: Clear. HEART: S1, S2 regular. ABDOMEN: Soft, nondistended no guarding, PEG in place : No Lion EXTREMITIES: No edema or cyanosis. SKIN: without rash MSK no jt swelling or dec in range of motion BACK normal curvature, no spine tenderness NEUROLOGICAL: Alert, answers questions appropriately PIV looks ok Medications: Inpatient Meds: Current Medications Medications (Trade) Dose Ordered Sig/Jasvir Start Time Stop Time Status Last Admin Dose Admin Acetaminophen (Tylenol Supp) 650 mg 1X ONCE 10/20/19 12:45 10/20/19 12:50 DC 10/20/19 13:19 650 MG Acetaminophen (Tylenol) 650 mg PRN Q4HRS PRN 10/20/19 14:45 10/29/19 12:11 650 MG Acetaminophen/ Hydrocodone Bitart (Lortab 5/325) 1 tab PRN Q4HRS PRN 10/28/19 12:00 10/28/19 11:58 1 TAB Amino Acids/ Glycerin/ Electrolytes 1,000 ml @ 100 mls/hr Q10H 10/24/19 14:30 10/28/19 13:41 DC 10/28/19 03:13 100 MLS/HR Barium Sulfate (Varibar Thin Liquid Apple) 148 gm 1X ONCE 10/23/19 11:15 10/23/19 11:16 DC 10/23/19 11:15 148 GM Benzocaine (Hurricaine One) 2 spray 1X ONCE 10/29/19 12:00 10/29/19 12:01 DC Cefazolin Sodium (Ancef) 1 gm Q8HRS 10/21/19 10:00 10/30/19 06:30 1 GM Cefazolin Sodium 1000 mg/Dextrose 50 ml @ 100 mls/hr Q8HRS 10/21/19 10:00 Cancel Enoxaparin Sodium (Lovenox 40mg Syringe) 40 mg DAILY 10/27/19 09:00 10/26/19 13:59 DC Fentanyl Citrate (Fentanyl 2ml Vial) 50 mcg PRN Q5MIN PRN 10/29/19 15:30 10/29/19 22:00 DC Haloperidol Lactate (Haldol Inj) 5 mg PRN Q6HRS PRN 10/20/19 20:30 10/21/19 20:30 5 MG Hydromorphone HCl (Dilaudid) 0.5 mg PRN Q10MIN PRN 10/29/19 15:30 10/29/19 22:00 DC Info (CONTRAST GIVEN -- Rx MONITORING) 1 each PRN DAILY PRN 10/20/19 14:00 10/22/19 13:59 DC Iohexol (Omnipaque 300 Mg/ml) 60 ml 1X ONCE 10/20/19 13:45 10/20/19 13:49 DC 10/20/19 13:45 60 ML Lactobacillus Rhamnosus (Culturelle) 1 cap BID 10/21/19 13:00 10/27/19 12:29 DC 10/23/19 08:41 1 CAP Lidocaine HCl (Viscous Lidocaine) 15 ml 1X ONCE 10/29/19 12:00 10/29/19 12:01 DC Lidocaine HCl (Xylocaine 2% Topical 5gm Tube) 1 patty 1X ONCE 10/29/19 12:00 10/29/19 12:01 DC Lidocaine HCl (Xylocaine-Mpf 1% 2ml Vial) 2 ml PRN 1X PRN 10/29/19 15:30 10/29/19 22:00 DC Lorazepam (Ativan Inj) 2 mg PRN Q2HRS PRN 10/21/19 11:15 10/21/19 23:09 2 MG Morphine Sulfate (Morphine Sulfate) 1 mg PRN Q10MIN PRN 10/29/19 15:30 10/29/19 22:00 DC Olanzapine (ZyPREXA IM) 10 mg 1X ONCE 10/20/19 20:30 10/20/19 20:38 DC 10/20/19 21:53 10 MG Olanzapine (ZyPREXA ZYDIS) 5 mg HS 10/23/19 21:00 10/29/19 22:04 5 MG Ondansetron HCl (Zofran) 4 mg PRN Q6HRS PRN 10/29/19 15:30 10/29/19 22:00 DC Piperacillin Sod/ Tazobactam Sod 3.375 gm/Sodium Chloride 50 ml @ 100 mls/hr Q6HRS 10/20/19 18:00 10/21/19 09:41 DC 10/21/19 06:31 100 MLS/HR Prochlorperazine Edisylate (Compazine) 5 mg PACU PRN PRN 10/29/19 15:30 10/29/19 22:00 DC Propofol (Diprivan) 200 mg STK-MED ONCE 10/29/19 15:20 10/29/19 15:20 DC Ringer's Solution 1,000 ml @ 30 mls/hr Q24H 10/29/19 15:17 10/30/19 03:16 DC Sodium Chloride (Normal Saline Flush) 10 ml QSHIFT PRN 10/29/19 12:00 Tamsulosin HCl (Flomax) 0.4 mg QHS 10/20/19 21:00 10/29/19 22:04 0.4 MG Vancomycin HCl (Vanco Per Pharmacy) 1 each PRN DAILY PRN 10/20/19 17:30 10/22/19 11:33 DC 10/21/19 11:05 1 EACH Vancomycin HCl (Vancomycin Trough Level) 1 each 1X ONCE 10/22/19 17:30 10/22/19 11:34 DC Vancomycin HCl 1.25 gm/Sodium Chloride 250 ml @ 166.667 mls/hr 1X ONCE 10/20/19 18:00 10/20/19 19:29 DC 10/20/19 18:00 166.667 MLS/HR Vancomycin HCl 750 mg/Sodium Chloride 250 ml @ 250 mls/hr Q24H 10/21/19 18:00 10/22/19 11:33 DC 10/21/19 17:23 250 MLS/HR Labs: Micro MOHSEN The left ventricular systolic function is normal and the ejection fraction is within normal range. EF 55% There is normal LV segmental wall motion. There is a mobile vegetation measuring .72 cm x .80 cm appearing on the anterior leaflet of the mitral valve. Objective: Assessment: MSSA bacteremia, 06/19 bottles. 10/19. TTE neg. Repeat BC 10/22 neg to date MOHSEN mitrial valve vegetation on 10/28 Fever better Leukocytosis - better Encephalopathy - improved Unknown basal state or history. MSSA in urine, usually not considered an urological pathogen Dysphagia status post EGD and PEG. 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 Saturday labs CBC/BUN/creatinine. Fax results to [phone] Follow-up ID clinic November 11 at 3 PM phone [phone] Detailed discussion done with the daughter at bedside Discussed with social science teacher Discussed with nursing staff MARIANNA KUMAR MD Oct 30, 2019 10:52
[2019-10-30 11:15] VITALS: BP 105/42
--- NOTE | 2019-10-30 12:34 | PDOC ---
Date of Service: DATE: 10/30/19 TIME: 12:32 Objective: Objective: PEG functioning per nurse. ?DC today Vital Signs: Vital Signs Date Time Temp Pulse Resp B/P (MAP) Pulse Ox O2 Delivery O2 Flow Rate FiO2 10/30/19 11:15 98.0 68 18 105/42 (63) 98 Room Air 98.0 10/29/19 16:32 3.0 Imaging: MOHSEN 10/28 <Conclusion> The left ventricular systolic function is normal and the ejection fraction is within normal range. EF 55% There is normal LV segmental wall motion. There is a mobile vegetation measuring .72 cm x .80 cm appearing on the anterior leaflet of the mitral valve. PE: GEN: NAD NEURO/PSYCH: sleeping, not awakened A/P: Dysphagia s/p PEG MSSA bacteremia - MOHSEN as above -- PEG functioning. Justicifation of Admission Dx: Justifications for Admission: Justification of Admission Dx: N/A FIFI PLASENCIA Oct 30, 2019 12:34
[2019-10-30] MEDS ORDERED: ceFAZolin SODIUM IV Push 1 GM VIAL. IVP SCH (14:00)
--- NOTE | 2019-10-30 14:44 | NUR ---
MEME following. Reviewed chart and discussed with RN. Discharge plan remains home with family and [facility]. MEME coordinated care with Anh from [facility]. Pt is tolerating the feeding tube. Spoke with Dr. Chapa and pt will need PICC placed today for IV abx. Pt on IV cefazolin per Dr. Chapa. MEME phoned and faxed referral to Douglas at [facility], , (fax) to check on benefits for abx per approval from dtr-in-law. SW awaiting benefit information from [employer] Pt added to potential weekend discharge list. MEME to follow. Addendum: 10/30/19 at 1602 by VIPUL VALENTINE [employer] called to say that pt's cefazolin will be $28.50 per day. [id number] Vanessa notified. RN notified. Pt potential discharge over the weekend with [facility] and [facility].
[2019-10-30 15:00] VITALS: BP 100/57
[2019-10-30 19:00] VITALS: BP 95/58
--- NOTE | 2019-10-30 20:19 | NUR ---
Free Text Nursing Order placed for PICC insertion tomorrow. PICC required for IV antibiotics.
[2019-10-30 23:00] VITALS: BP 102/57
[2019-10-31] MEDS: TAMSULOSIN 0.4 MG CAP.ER.24H. PO SCH ×3 (00:02→21:50)
[2019-10-31 03:00] VITALS: BP 100/58
[2019-10-31 07:00] VITALS: BP 105/51
--- NOTE | 2019-10-31 07:17 | PDOC ---
PULMONARY PROGRESS NOTES DATE: 10/31/19 TIME: 07:14 Subjective denies sob, cough, is tired Vitals Vital Signs Date Time Temp Pulse Resp B/P (MAP) Pulse Ox O2 Delivery O2 Flow Rate FiO2 10/31/19 03:00 97.6 51 18 100/58 (72) 95 Room Air 97.6 ROS: No Nausea, No Chest Pain, No Abdominal Pain, No Increase Cough General: Alert, No acute distress Lungs: Clear Cardiovascular: S1 Abdomen: Soft Neuro Exam: Alert Extremities: Other (edema) Skin: Warm Comments CXR 10/28 IMPRESSION: Trace left pleural effusion with adjacent airspace disease likely atelectasis. Impression . 1. Staphylococcal sepsis. The patient's blood cultures were positive 06/19. 2. Staphylococcus aureus urinary tract infection. 3. Abnormal CT chest with basilar infiltrate versus atelectasis along with tiny lung nodules. improved 4. Underlying suspected dementia. 5. dysphasia Plan . Supplemental oxygen to keep sats above 92 %, now on R/A, f/u CXR 10/28 improved DVT prophylaxis with Lovenox. Monitor mental status-- alert dysphagia, follow speech rec, elevate HOB PT/OT discussed w rn stable pulmonary miller GLADIS QUINONES MD Oct 31, 2019 07:17
--- NOTE | 2019-10-31 10:15 | PDOC ---
PROGRESS NOTES Date of Service: DATE: 10/31/19 TIME: 10:14 Chief Complaint Chief Complaint IMPRESSION ======= UTI AMS Elevated troponin: peaked at 0.2 no noted cardiac symptoms per chart review. EKG SR without acute changes. Suspect demand mediated Nontraumatic Mechanical fall: due to weakness Staph aureus bacteremia, 06/19 bottles, susceptibilities MSSA Fever. Leukocytosis. METABOLIC Encephalopathy. Reticular nodular airspace disease with dependent consolidation in the lower lobes, nonspecific. This could be related to noncardiogenic edema or atypical pneumonia. Chronic aspiration is another consideration. Additional noncalcified pulmonary nodules within both lungs, nonspecific. 12 month Follow-up imaging to ensure stability. Asymmetric bladder wall thickening on the right, indeterminate. This could be related to acute or chronic cystitis or an underlying bladder mass. Correlate with clinical history. If indicated, a CT urogram could better evaluate. SEVERE PROTEIN-CALORIC MALNUTRITION PLAN TELE PULM CONSULT CONSIDER UROLOGY CONSULT Continue cefazolin, 10/23 Repeat blood culture, 10/22 in progress Dysphagia of the oral and pharyngeal phases as described.. Aspiration was observed with all tested food consistencies. Please refer to speech pathology notes for complete details and recommendations. GI CONSULTED patient and [id number] and they do wish to proceed WITH peg at this time PEG 10/26 10/30 cont iv ancef D/W FAMILY IN ROOM Social work to assist with discharge iv antibiotics Q. Saturday labs CBC/BUN/creatinine. Fax results to [phone] Follow-up ID clinic November 11 at 3 PM phone [phone] DICTATED and SIGNED BY: ABBI RINALDI MD DATE: 10/23/19 1731 79 year old male with no known PMHx who presents with here with his [id number] and granddaughter for altered mental status. 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 Family notes they speak with him on the phone often and he has memory and anger issues and is estranged from them due to this. For the 3 days he has lived with them they note unsteady gait, and that he converses with them and is able to eat and drink on his own but only receives hot dogs and energy drinks, 4 per day each. Granddaughter states on 10/18 he ripped a screen door off of the wall and was urinating in drawers in their home. He was last seen normal last night, 10/18 at 2200. They stated for him this morning they went to get him up and he did not want to get out of bed and he was shivering and complaining that he was cold but they did not think he had a fever. Febrile to 103.7F in the ED, given 650mg acetaminophen suppository with improvement in his temperature. He showed no meningeal signs and was moving all extremities on examination, opens eyes, answers 1-2 word answers. Does not have any pain complaints. Tells me he needs to urinate. When asked about his missing left 4th finger he does note his hand hurts sometimes. XR negative for fracture. 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 CT chest with reticular nodular airspace disease with dependent consolidation in the lower lobes and noncalcified pulmonary nodules within both lungs, nonspecific. CT abdomen/pelvis reveal asymmetric bladder wall thickening on the right, indeterminate. This could be related to acute or chronic cystitis or an und erlying bladder mass. Urine positive for LE and nitrites. White blood cell count is 13.5. Troponin elevated at 0.068, BNP is 2122. Patient has received 1 L of fluids. Started on empiric Zosyn IV. Admitted for altered mental status and fevers with likely bladder source. As he was just transported from [place], COVID 19 testing was performed as well. History of Present Illness History of Present Illness 10/28 Patient seen and examined Discussed with RN Discussed with speech therapy Patient mentioned he has lost 60 lbs because he has no dentures so it's become difficult to eat Covid (-) Continue cefazolin, Repeat blood culture, 10/22 in progress Maintain aspiration precautions peg Vitals Vitals Vital Signs Date Time Temp Pulse Resp B/P (MAP) Pulse Ox O2 Delivery O2 Flow Rate FiO2 10/31/19 07:00 98.2 50 16 105/51 (69) 98 Room Air 98.2 Physical Exam Physical Exam GENERAL: Propped up in bed, alert, smiling HEENT: No conjunctival lesion. Edentulous. No lesion in the mouth. NECK: Supple. No JVP, no lymphadenopathy. LUNGS: Clear. HEART: S1, S2 regular. ABDOMEN: Soft, nondistended no guarding, PEG in place : No Lion EXTREMITIES: No edema or cyanosis. SKIN: without rash MSK no jt swelling or dec in range of motion BACK normal curvature, no spine tenderness NEUROLOGICAL: Alert, answers questions appropriately PIV looks ok General: Alert, Oriented X3, Cooperative, No acute distress, Other (restless) Heart: Regular rate (SR), Normal S1, Normal S2, No murmurs Lungs: Clear Abdomen: Normal bowel sounds, Soft, No tenderness Extremities: No cyanosis, No edema Skin: No significant lesion Assessment and Plan Assessmemt and Plan Problems Medical Problems: (1) AMS (altered mental status) Status: Acute (2) Person under investigation for COVID-19 Status: Acute (3) UTI (urinary tract infection) Status: Acute Comment Review of Relevant I have reviewed the following items katie (where applicable) has been applied. Labs Microbiology 10/24/19 Urine Culture - Final, Complete 10/23/19 Blood Culture - Final, Complete NO GROWTH AFTER 5 DAYS Medications Current Medications Sodium Chloride 1,000 ml @ 1,000 mls/hr 1X ONCE IV Last administered on 10/20/19at 13:00; Start 10/20/19 at 12:45; Stop 10/20/19 at 13:44; Status DC Acetaminophen (Tylenol Supp) 650 mg 1X ONCE SC Last administered on 10/20/19at 13:19; Start 10/20/19 at 12:45; Stop 10/20/19 at 12:50; Status DC Piperacillin Sod/ Tazobactam Sod 3.375 gm/Sodium Chloride 50 ml @ 100 mls/hr 1X ONCE IV Last administered on 10/20/19at 13:42; Start 10/20/19 at 13:30; Stop 10/20/19 at 13:59; Status DC Iohexol (Omnipaque 300 Mg/ml) 60 ml 1X ONCE IV Last administered on 10/20/19at 13:45; Start 10/20/19 at 13:45; Stop 10/20/19 at 13:49; Status DC Info (CONTRAST GIVEN -- Rx MONITORING) 1 each PRN DAILY PRN MC SEE COMMENTS; Start 10/20/19 at 14:00; Stop 10/22/19 at 13:59; Status DC Ondansetron HCl (Zofran) 4 mg PRN Q8HRS PRN IV NAUSEA/VOMITING; Start 10/20/19 at 14:45; Stop 10/20/19 at 20:24; Status DC Sodium Chloride 1,000 ml @ 100 mls/hr Q10H IV Last administered on 10/21/19at 10:55; Start 10/20/19 at 14:43; Stop 10/21/19 at 14:42; Status DC Acetaminophen (Tylenol) 650 mg PRN Q4HRS PRN PO FEVER > 100.3'F Last administered on 10/29/19at 12:11; Start 10/20/19 at 14:45 Vancomycin HCl (Vanco Per Pharmacy) 1 each PRN DAILY PRN MC SEE COMMENTS Last administered on 10/21/19at 11:05; Start 10/20/19 at 17:30; Stop 10/22/19 at 11:33; Status DC Piperacillin Sod/ Tazobactam Sod 3.375 gm/Sodium Chloride 50 ml @ 100 mls/hr Q6HRS IV Last administered on 10/21/19at 06:31; Start 10/20/19 at 18:00; Stop 10/21/19 at 09:41; Status DC Vancomycin HCl 1.25 gm/Sodium Chloride 250 ml @ 166.667 mls/hr 1X ONCE IV Last administered on 10/20/19at 18:00; Start 10/20/19 at 18:00; Stop 10/20/19 at 19:29; Status DC Vancomycin HCl 750 mg/Sodium Chloride 250 ml @ 250 mls/hr Q24H IV Last administered on 10/21/19at 17:23; Start 10/21/19 at 18:00; Stop 10/22/19 at 11:33; Status DC Vancomycin HCl (Vancomycin Trough Level) 1 each 1X ONCE MC ; Start 10/22/19 at 17:30; Stop 10/22/19 at 11:34; Status DC Ondansetron HCl (Zofran) 4 mg PRN Q4HRS PRN IV NAUSEA/VOMITING; Start 10/20/19 at 20:30 Olanzapine (ZyPREXA ZYDIS) 5 mg PRN BID PRN PO ANXIETY / AGITATION; Start 10/20/19 at 20:30 Enoxaparin Sodium (Lovenox 40mg Syringe) 40 mg Q12HR SQ Last administered on 10/25/19 09:35; Start 10/20/19 at 21:00; Stop 10/26/19 at 10:50; Status DC Tamsulosin HCl (Flomax) 0.4 mg QHS PO Last administered on 10/31/19 00:02; Start 10/20/19 at 21:00 Olanzapine (ZyPREXA IM) 10 mg 1X ONCE IM Last administered on 10/20/19 21:53; Start 10/20/19 at 20:30; Stop 10/20/19 at 20:38; Status DC Haloperidol Lactate (Haldol Inj) 5 mg PRN Q6HRS PRN IVP AGITATION Last administered on 10/21/19 20:30; Start 10/20/19 at 20:30 Cefazolin Sodium 1000 mg/Dextrose 50 ml @ 100 mls/hr Q8HRS IV ; Start 10/21/19 at 10:00; Status Cancel Cefazolin Sodium (Ancef) 1 gm Q8HRS IVP Last administered on 10/30/19at 06:30; Start 10/21/19 at 10:00; Stop 10/30/19 at 11:40; Status DC Lorazepam (Ativan Inj) 2 mg PRN Q2HRS PRN IVP ANXIETY. Last administered on 10/21/19 23:09; Start 10/21/19 at 11:15 Lactobacillus Rhamnosus (Culturelle) 1 cap BID PO Last administered on 10/23/19 08:41; Start 10/21/19 at 13:00; Stop 10/27/19 at 12:29; Status DC Sodium Chloride 1,000 ml @ 100 mls/hr Q10H IV Last administered on 10/24/19 08:33; Start 10/21/19 at 18:45; Stop 10/24/19 at 14:21; Status DC Barium Sulfate (Varibar Thin Liquid Apple) 148 gm 1X ONCE PO Last administered on 10/23/19 11:15; Start 10/23/19 at 11:15; Stop 10/23/19 at 11:16; Status DC Olanzapine (ZyPREXA ZYDIS) 5 mg HS PO Last administered on 10/31/19at 00:02; Start 10/23/19 at 21:00 Amino Acids/ Glycerin/ Electrolytes 1,000 ml @ 100 mls/hr Q10H IV Last administered on 10/28/19at 03:13; Start 10/24/19 at 14:30; Stop 10/28/19 at 13:41; Status DC Enoxaparin Sodium (Lovenox 40mg Syringe) 40 mg DAILY SQ ; Start 10/27/19 at 09:00; Stop 10/26/19 at 13:59; Status DC Fentanyl Citrate (Fentanyl 2ml Vial) 25 mcg PRN Q5MIN PRN IV MILD PAIN 1-3 Last administered on 10/27/19at 16:51; Start 10/27/19 at 07:00; Stop 10/28/19 at 06:59; Status DC Fentanyl Citrate (Fentanyl 2ml Vial) 50 mcg PRN Q5MIN PRN IV MODERATE TO SEVERE PAIN; Start 10/27/19 at 07:00; Stop 10/28/19 at 06:59; Status DC Morphine Sulfate (Morphine Sulfate) 1 mg PRN Q10MIN PRN IV SEVERE PAIN 7-10; Start 10/27/19 at 07:00; Stop 10/28/19 at 06:59; Status DC Ringer's Solution 1,000 ml @ 30 mls/hr Q24H IV ; Start 10/27/19 at 07:00; Stop 10/27/19 at 18:59; Status DC Hydromorphone HCl (Dilaudid) 0.5 mg PRN Q10MIN PRN IV SEV PAIN, Second choice; Start 10/27/19 at 07:00; Stop 10/28/19 at 06:59; Status DC Ringer's Solution 1,000 ml @ 75 mls/hr 1X ONCE IV Last administered on 10/27/19at 10:35; Start 10/27/19 at 08:00; Stop 10/27/19 at 21:19; Status DC Propofol (Diprivan) 200 mg STK-MED ONCE IV ; Start 10/27/19 at 10:28; Stop 10/27/19 at 10:29; Status DC Acetaminophen/ Hydrocodone Bitart (Lortab 5/325) 1 tab PRN Q4HRS PRN PEG PAIN Last administered on 10/28/19at 11:58; Start 10/28/19 at 12:00 Sodium Chloride (Normal Saline Flush) 10 ml QSHIFT PRN IV AFTER MEDS AND BLOOD DRAWS; Start 10/29/19 at 12:00 Lidocaine HCl (Xylocaine 2% Topical 5gm Tube) 1 patty 1X ONCE TP ; Start 10/29/19 at 12:00; Stop 10/29/19 at 12:01; Status DC Lidocaine HCl (Viscous Lidocaine) 15 ml 1X ONCE MM ; Start 10/29/19 at 12:00; Stop 10/29/19 at 12:01; Status DC Benzocaine (Hurricaine One) 2 spray 1X ONCE MM ; Start 10/29/19 at 12:00; Stop 10/29/19 at 12:01; Status DC Ondansetron HCl (Zofran) 4 mg PRN Q6HRS PRN IV NAUSEA/VOMITING; Start 10/29/19 at 15:30; Stop 10/29/19 at 22:00; Status DC Fentanyl Citrate (Fentanyl 2ml Vial) 25 mcg PRN Q5MIN PRN IV MILD PAIN 1-3; Start 10/29/19 at 15:30; Stop 10/29/19 at 22:00; Status DC Fentanyl Citrate (Fentanyl 2ml Vial) 50 mcg PRN Q5MIN PRN IV MODERATE TO SEVERE PAIN; Start 10/29/19 at 15:30; Stop 10/29/19 at 22:00; Status DC Morphine Sulfate (Morphine Sulfate) 1 mg PRN Q10MIN PRN IV SEVERE PAIN 7-10; Start 10/29/19 at 15:30; Stop 10/29/19 at 22:00; Status DC Ringer's Solution 1,000 ml @ 30 mls/hr Q24H IV ; Start 10/29/19 at 15:17; Stop 10/30/19 at 03:16; Status DC Lidocaine HCl (Xylocaine-Mpf 1% 2ml Vial) 2 ml PRN 1X PRN ID PRIOR TO IV START; Start 10/29/19 at 15:30; Stop 10/29/19 at 22:00; Status DC Hydromorphone HCl (Dilaudid) 0.5 mg PRN Q10MIN PRN IV SEV PAIN, Second choice; Start 10/29/19 at 15:30; Stop 10/29/19 at 22:00; Status DC Prochlorperazine Edisylate (Compazine) 5 mg PACU PRN PRN IV NAUSEA, MRX1; Start 10/29/19 at 15:30; Stop 10/29/19 at 22:00; Status DC Propofol (Diprivan) 200 mg STK-MED ONCE IV ; Start 10/29/19 at 15:20; Stop 10/29/19 at 15:20; Status DC Cefazolin Sodium (Ancef) 2 gm Q8HRS IVP ; Start 10/30/19 at 14:00; Status UNV Cefazolin Sodium/ Dextrose 50 ml @ 100 mls/hr Q8HRS IV Last administered on 10/31/19at 06:24; Start 10/30/19 at 14:00 Vitals/I & O Vital Sign - Last 24 Hours 10/30/19 10/30/19 10/30/19 10/30/19 11:15 15:00 19:00 20:00 Temp 98.0 98.0 91.0 98.0 98.0 91.0 Pulse 68 63 57 Resp 18 16 18 B/P (MAP) 105/42 (63) 100/57 (71) 95/58 (70) Pulse Ox 98 95 93 O2 Delivery Room Air Room Air Room Air Room Air 10/30/19 10/31/19 10/31/19 23:00 03:00 07:00 Temp 97.6 97.6 98.2 97.6 97.6 98.2 Pulse 53 51 50 Resp 18 18 16 B/P (MAP) 102/57 (72) 100/58 (72) 105/51 (69) Pulse Ox 93 95 98 O2 Delivery Room Air Room Air Room Air Intake and Output 10/30/19 10/30/19 10/31/19 15:00 23:00 07:00 Intake Total 802 ml 410 ml 200 ml Output Total 400 ml Balance 802 ml 10 ml 200 ml Nutrition Consultation Dietary Evaluation: Recommendations by RD: Dietary education by RD Comments: REC continue TF as ordered Expected Outcomes/Goals: to meet >75% est nutr needs- met via TF, goal ongoing Malnutrition Findings: Body Fat Depletion (Non Severe: Mild Depletion Weight Status: Underweight Justicifation of Admission Dx: Justifications for Admission: Justification of Admission Dx: N/A SHENG EVANS MD Oct 31, 2019 10:15
[2019-10-31 11:00] VITALS: BP 87/46
--- NOTE | 2019-10-31 13:24 | PDOC ---
Infectious Disease Note Subjective: Subjective Pt without complaints Tolerating tube feedings well Denies fever, nausea, vomiting, shortness of breath, diarrhea, abdominal pain, rash Otherwise as above No acute issues per RN Vital Signs: Vital Signs Vital Signs Date Time Temp Pulse Resp B/P (MAP) Pulse Ox O2 Delivery O2 Flow Rate FiO2 10/31/19 11:00 98.4 57 17 87/46 (60) 96 Room Air 98.4 Physical Exam: PHYSICAL EXAM GENERAL: Propped up in bed, alert, smiling HEENT: No conjunctival lesion. Edentulous. No lesion in the mouth. NECK: Supple. No JVP, no lymphadenopathy. LUNGS: Clear. HEART: S1, S2 regular. ABDOMEN: Soft, nondistended no guarding, PEG in place : No Lion EXTREMITIES: No edema or cyanosis. SKIN: without rash MSK no jt swelling or dec in range of motion BACK normal curvature, no spine tenderness NEUROLOGICAL: Alert, answers questions appropriately PICC line clean 10/30 Medications: Inpatient Meds: Current Medications Medications (Trade) Dose Ordered Sig/Jasvir Start Time Stop Time Status Last Admin Dose Admin Acetaminophen (Tylenol Supp) 650 mg 1X ONCE 10/20/19 12:45 10/20/19 12:50 DC 10/20/19 13:19 650 MG Acetaminophen (Tylenol) 650 mg PRN Q4HRS PRN 10/20/19 14:45 10/29/19 12:11 650 MG Acetaminophen/ Hydrocodone Bitart (Lortab 5/325) 1 tab PRN Q4HRS PRN 10/28/19 12:00 10/28/19 11:58 1 TAB Amino Acids/ Glycerin/ Electrolytes 1,000 ml @ 100 mls/hr Q10H 10/24/19 14:30 10/28/19 13:41 DC 10/28/19 03:13 100 MLS/HR Barium Sulfate (Varibar Thin Liquid Apple) 148 gm 1X ONCE 10/23/19 11:15 10/23/19 11:16 DC 10/23/19 11:15 148 GM Benzocaine (Hurricaine One) 2 spray 1X ONCE 10/29/19 12:00 10/29/19 12:01 DC Cefazolin Sodium (Ancef) 2 gm Q8HRS 10/30/19 14:00 UNV Cefazolin Sodium 1000 mg/Dextrose 50 ml @ 100 mls/hr Q8HRS 10/21/19 10:00 Cancel Cefazolin Sodium/ Dextrose 50 ml @ 100 mls/hr Q8HRS 10/30/19 14:00 10/31/19 06:24 100 MLS/HR Enoxaparin Sodium (Lovenox 40mg Syringe) 40 mg DAILY 10/27/19 09:00 10/26/19 13:59 DC Fentanyl Citrate (Fentanyl 2ml Vial) 50 mcg PRN Q5MIN PRN 10/29/19 15:30 10/29/19 22:00 DC Haloperidol Lactate (Haldol Inj) 5 mg PRN Q6HRS PRN 10/20/19 20:30 10/21/19 20:30 5 MG Hydromorphone HCl (Dilaudid) 0.5 mg PRN Q10MIN PRN 10/29/19 15:30 10/29/19 22:00 DC Info (CONTRAST GIVEN -- Rx MONITORING) 1 each PRN DAILY PRN 10/20/19 14:00 10/22/19 13:59 DC Iohexol (Omnipaque 300 Mg/ml) 60 ml 1X ONCE 10/20/19 13:45 10/20/19 13:49 DC 10/20/19 13:45 60 ML Lactobacillus Rhamnosus (Culturelle) 1 cap BID 10/21/19 13:00 10/27/19 12:29 DC 10/23/19 08:41 1 CAP Lidocaine HCl (Viscous Lidocaine) 15 ml 1X ONCE 10/29/19 12:00 10/29/19 12:01 DC Lidocaine HCl (Xylocaine 2% Topical 5gm Tube) 1 patty 1X ONCE 10/29/19 12:00 10/29/19 12:01 DC Lidocaine HCl (Xylocaine-Mpf 1% 2ml Vial) 2 ml PRN 1X PRN 10/29/19 15:30 10/29/19 22:00 DC Lorazepam (Ativan Inj) 2 mg PRN Q2HRS PRN 10/21/19 11:15 10/21/19 23:09 2 MG Morphine Sulfate (Morphine Sulfate) 1 mg PRN Q10MIN PRN 10/29/19 15:30 10/29/19 22:00 DC Olanzapine (ZyPREXA IM) 10 mg 1X ONCE 10/20/19 20:30 10/20/19 20:38 DC 10/20/19 21:53 10 MG Olanzapine (ZyPREXA ZYDIS) 5 mg HS 10/23/19 21:00 10/31/19 00:02 5 MG Ondansetron HCl (Zofran) 4 mg PRN Q6HRS PRN 10/29/19 15:30 10/29/19 22:00 DC Piperacillin Sod/ Tazobactam Sod 3.375 gm/Sodium Chloride 50 ml @ 100 mls/hr Q6HRS 10/20/19 18:00 10/21/19 09:41 DC 10/21/19 06:31 100 MLS/HR Prochlorperazine Edisylate (Compazine) 5 mg PACU PRN PRN 10/29/19 15:30 10/29/19 22:00 DC Propofol (Diprivan) 200 mg STK-MED ONCE 10/29/19 15:20 10/29/19 15:20 DC Ringer's Solution 1,000 ml @ 30 mls/hr Q24H 10/29/19 15:17 10/30/19 03:16 DC Sodium Chloride (Normal Saline Flush) 10 ml QSHIFT PRN 10/29/19 12:00 Tamsulosin HCl (Flomax) 0.4 mg QHS 10/20/19 21:00 10/31/19 00:02 0.4 MG Vancomycin HCl (Vanco Per Pharmacy) 1 each PRN DAILY PRN 10/20/19 17:30 10/22/19 11:33 DC 10/21/19 11:05 1 EACH Vancomycin HCl (Vancomycin Trough Level) 1 each 1X ONCE 10/22/19 17:30 10/22/19 11:34 DC Vancomycin HCl 1.25 gm/Sodium Chloride 250 ml @ 166.667 mls/hr 1X ONCE 10/20/19 18:00 10/20/19 19:29 DC 10/20/19 18:00 166.667 MLS/HR Vancomycin HCl 750 mg/Sodium Chloride 250 ml @ 250 mls/hr Q24H 10/21/19 18:00 10/22/19 11:33 DC 10/21/19 17:23 250 MLS/HR Labs: Micro MOHSEN The left ventricular systolic function is normal and the ejection fraction is within normal range. EF 55% There is normal LV segmental wall motion. There is a mobile vegetation measuring .72 cm x .80 cm appearing on the anterior leaflet of the mitral valve. Objective: Assessment: MSSA bacteremia, 06/19 bottles. 10/19. TTE neg. Repeat BC 10/22 neg to date MOHSEN mitrial valve vegetation on 10/28 Fever better Leukocytosis - better Encephalopathy - improved Unknown basal state or history. MSSA in urine, usually not considered an urological pathogen Dysphagia status post EGD and PEG. 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 Saturday labs CBC/BUN/creatinine. Fax results to [phone] Follow-up ID clinic November 11 at 3 PM phone [phone] Detailed discussion done with the daughter at bedside yesterday Discussed with nursing staff MARIANNA KUMAR MD Oct 31, 2019 13:24
--- NOTE | 2019-10-31 14:53 | RAD ---
Chest AP portable at 1418: Reason for examination: PICC line placement. Comparison is made to previous study dated 10/29/2019. Right PICC line is present with the tip in the mid superior vena cava. The heart size is normal. Mediastinum is unremarkable. Lung vargas show some increased markings in the left lung base especially in the retrocardiac left lower lobe. No acute bony abnormalities are seen. IMPRESSION: Right PICC line in place with the tip at the mid superior vena cava. Increased markings in the left lung base especially in the retrocardiac left lower lobe without significant change. Electronically signed by: Heather Toledo MD (10/31/2019 2:50 PM) [id number]
[2019-10-31 15:19] VITALS: BP 91/49
[2019-10-31 19:00] VITALS: BP 110/60
[2019-10-31 23:00] VITALS: BP 115/71
[2019-11-01 03:06] VITALS: BP 90/63
[2019-11-01 07:00] VITALS: BP 109/57
--- NOTE | 2019-11-01 09:37 | PDOC ---
PULMONARY PROGRESS NOTES DATE: 11/01/19 TIME: 09:37 Subjective denies sob, cough, feeling good Vitals Vital Signs Date Time Temp Pulse Resp B/P (MAP) Pulse Ox O2 Delivery O2 Flow Rate FiO2 11/01/19 07:00 97.9 89 17 109/57 (74) 96 Room Air 97.9 ROS: No Nausea, No Chest Pain, No Abdominal Pain, No Increase Cough General: Alert, No acute distress Lungs: Clear Cardiovascular: S1, S2 Abdomen: Soft, Non-tender Neuro Exam: Alert Extremities: Other (edema) Skin: Warm Comments CXR 10/28 IMPRESSION: Trace left pleural effusion with adjacent airspace disease likely atelectasis. Impression . 1. Staphylococcal sepsis. The patient's blood cultures were positive 06/19. 2. Staphylococcus aureus urinary tract infection. 3. Abnormal CT chest with basilar infiltrate versus atelectasis along with tiny lung nodules. improved 4. Underlying suspected dementia. 5. dysphasia, s/p peg Plan . Supplemental oxygen to keep sats above 92 %, now on R/A, f/u CXR 10/28 improved DVT prophylaxis with Lovenox. Monitor mental status-- alert dysphagia, s/p peg tolerating goal tf elevate HOB PT/OT discussed w rn stable pulmonary miller GLADIS QUINONES MD Nov 01, 2019 09:37
[2019-11-01 11:00] VITALS: BP 100/58
--- NOTE | 2019-11-01 11:47 | PDOC ---
Infectious Disease Note Subjective Subjective s/p PICC placement Wants to go home Tolerating tube feedings well Denies fever, nausea, vomiting, shortness of breath, diarrhea, abdominal pain, rash ROS ROS as mentioned above Vital Sign Vital Signs Vital Signs Date Time Temp Pulse Resp B/P (MAP) Pulse Ox O2 Delivery O2 Flow Rate FiO2 11/01/19 07:00 97.9 89 17 109/57 (74) 96 Room Air 97.9 Physical Exam PHYSICAL EXAM GENERAL: Propped up in bed, alert, in NAD HEENT: No conjunctival lesion. Edentulous. No lesion in the mouth. NECK: Supple. No JVP, no lymphadenopathy. LUNGS: Clear. HEART: S1, S2 regular. ABDOMEN: Soft, nondistended no guarding, PEG in place : No Lion EXTREMITIES: No edema or cyanosis. SKIN: without rash MSK no joint swelling or in range of motion BACK normal curvature, no spine tenderness NEUROLOGICAL: Alert, answers questions appropriately PICC line clean 10/30 Labs Micro 10/22. BLOOD CULTURE Preliminary NO GROWTH AFTER 5 DAY MOHSEN The left ventricular systolic function is normal and the ejection fraction is within normal range. EF 55% There is normal LV segmental wall motion. There is a mobile vegetation measuring .72 cm x .80 cm appearing on the anterior leaflet of the mitral valve. Objective Assessment MSSA bacteremia, 06/19 bottles. 10/19. TTE neg. 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 -MOHSEN 10/28: mobile vegetation measuring .72 cm x .80 cm appearing on the anterior leaflet of the mitral valve. Fever better Leukocytosis - better Encephalopathy - improved Unknown basal state or history. 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 Saturday labs CBC/BUN/creatinine. Fax results to [phone] Follow-up ID clinic November 11 at 3 PM phone [phone] Discussed with nursing staff Attending Co-Sign The patient was seen and interviewed as well as examined at the bedside. The chart was reviewed. The case was discussed. Agree with the plan of care. VIVEK ALEJANDRE APRN Nov 01, 2019 11:47 MARIANNA KUMAR MD Nov 01, 2019 15:05
--- NOTE | 2019-11-01 12:14 | PDOC ---
PROGRESS NOTES Date of Service: DATE: 11/01/19 TIME: 12:13 Chief Complaint Chief Complaint IMPRESSION ======= UTI AMS Elevated troponin: peaked at 0.2 no noted cardiac symptoms per chart review. EKG SR without acute changes. Suspect demand mediated Nontraumatic Mechanical fall: due to weakness Staph aureus bacteremia, 06/19 bottles, susceptibilities MSSA Fever. Leukocytosis. METABOLIC Encephalopathy. Reticular nodular airspace disease with dependent consolidation in the lower lobes, nonspecific. This could be related to noncardiogenic edema or atypical pneumonia. Chronic aspiration is another consideration. Additional noncalcified pulmonary nodules within both lungs, nonspecific. 12 month Follow-up imaging to ensure stability. Asymmetric bladder wall thickening on the right, indeterminate. This could be related to acute or chronic cystitis or an underlying bladder mass. Correlate with clinical history. If indicated, a CT urogram could better evaluate. SEVERE PROTEIN-CALORIC MALNUTRITION PLAN TELE PULM CONSULT CONSIDER UROLOGY CONSULT Continue cefazolin, 10/23 Repeat blood culture, 10/22 in progress Dysphagia of the oral and pharyngeal phases as described.. Aspiration was observed with all tested food consistencies. Please refer to speech pathology notes for complete details and recommendations. GI CONSULTED patient and [id number] and they do wish to proceed WITH peg at this time PEG 10/26 10/30 cont iv ancef D/W FAMILY IN ROOM Social work to assist with discharge iv antibiotics Q. Saturday labs CBC/BUN/creatinine. Fax results to [phone] Follow-up ID clinic November 11 at 3 PM phone [phone] DICTATED and SIGNED BY: ABBI RINALDI MD DATE: 10/23/19 1731 79 year old male with no known PMHx who presents with here with his [id number]-jvz and granddaughter for altered mental status. 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 Family notes they speak with him on the phone often and he has memory and anger issues and is estranged from them due to this. For the 3 days he has lived with them they note unsteady gait, and that he converses with them and is able to eat and drink on his own but only receives hot dogs and energy drinks, 4 per day each. Granddaughter states on 10/18 he ripped a screen door off of the wall and was urinating in drawers in their home. He was last seen normal last night, 10/18 at 2200. They stated for him this morning they went to get him up and he did not want to get out of bed and he was shivering and complaining that he was cold but they did not think he had a fever. Febrile to 103.7F in the ED, given 650mg acetaminophen suppository with improvement in his temperature. He showed no meningeal signs and was moving all extremities on examination, opens eyes, answers 1-2 word answers. Does not have any pain complaints. Tells me he needs to urinate. When asked about his missing left 4th finger he does note his hand hurts sometimes. XR negative for fracture. 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 CT chest with reticular nodular airspace disease with dependent consolidation in the lower lobes and noncalcified pulmonary nodules within both lungs, nonspecific. CT abdomen/pelvis reveal asymmetric bladder wall thickening on the right, indeterminate. This could be related to acute or chronic cystitis or an und erlying bladder mass. Urine positive for LE and nitrites. White blood cell count is 13.5. Troponin elevated at 0.068, BNP is 2122. Patient has received 1 L of fluids. Started on empiric Zosyn IV. Admitted for altered mental status and fevers with likely bladder source. As he was just transported from [place], COVID 19 testing was performed as well. History of Present Illness History of Present Illness 10/31 has PICC< has PEG, needs outpatient f.u with PEG feeds, social work and coordination of care plan [facility] [place] 10[place]28 Patient seen and examined Discussed with RN Discussed with speech therapy Patient mentioned he has lost 60 lbs because he has no dentures so it's become difficult to eat Covid (-) Continue cefazolin, Repeat blood culture, 10/22 in progress Maintain aspiration precautions peg Vitals Vitals Vital Signs Date Time Temp Pulse Resp B/P (MAP) Pulse Ox O2 Delivery O2 Flow Rate FiO2 11/01/19 07:00 97.9 89 17 109/57 (74) 96 Room Air 97.9 Physical Exam Physical Exam GENERAL: Propped up in bed, alert, in NAD HEENT: No conjunctival lesion. Edentulous. No lesion in the mouth. NECK: Supple. No JVP, no lymphadenopathy. LUNGS: Clear. HEART: S1, S2 regular. ABDOMEN: Soft, nondistended no guarding, PEG in place : No Lion EXTREMITIES: No edema or cyanosis. SKIN: without rash MSK no joint swelling or in range of motion BACK normal curvature, no spine tenderness NEUROLOGICAL: Alert, answers questions appropriately PICC line clean 10/30 General: Alert, Oriented X3, Cooperative, No acute distress, Other (restless) Heart: Regular rate (SR), Normal S1, Normal S2, No murmurs Lungs: Clear Abdomen: Normal bowel sounds, Soft, No tenderness Extremities: No cyanosis, No edema Skin: No significant lesion Assessment and Plan Assessmemt and Plan Problems Medical Problems: (1) AMS (altered mental status) Status: Acute (2) Person under investigation for COVID-19 Status: Acute (3) UTI (urinary tract infection) Status: Acute Comment Review of Relevant I have reviewed the following items katie (where applicable) has been applied. Labs Microbiology 10/24/19 Urine Culture - Final, Complete 10/23/19 Blood Culture - Final, Complete NO GROWTH AFTER 5 DAYS Medications Current Medications Sodium Chloride 1,000 ml @ 1,000 mls/hr 1X ONCE IV Last administered on 10/20/19at 13:00; Start 10/20/19 at 12:45; Stop 10/20/19 at 13:44; Status DC Acetaminophen (Tylenol Supp) 650 mg 1X ONCE OK Last administered on 10/20/19at 13:19; Start 10/20/19 at 12:45; Stop 10/20/19 at 12:50; Status DC Piperacillin Sod/ Tazobactam Sod 3.375 gm/Sodium Chloride 50 ml @ 100 mls/hr 1X ONCE IV Last administered on 10/20/19at 13:42; Start 10/20/19 at 13:30; Stop 10/20/19 at 13:59; Status DC Iohexol (Omnipaque 300 Mg/ml) 60 ml 1X ONCE IV Last administered on 10/20/19at 13:45; Start 10/20/19 at 13:45; Stop 10/20/19 at 13:49; Status DC Info (CONTRAST GIVEN -- Rx MONITORING) 1 each PRN DAILY PRN MC SEE COMMENTS; Start 10/20/19 at 14:00; Stop 10/22/19 at 13:59; Status DC Ondansetron HCl (Zofran) 4 mg PRN Q8HRS PRN IV NAUSEA/VOMITING; Start 10/20/19 at 14:45; Stop 10/20/19 at 20:24; Status DC Sodium Chloride 1,000 ml @ 100 mls/hr Q10H IV Last administered on 10/21/19at 10:55; Start 10/20/19 at 14:43; Stop 10/21/19 at 14:42; Status DC Acetaminophen (Tylenol) 650 mg PRN Q4HRS PRN PO FEVER > 100.3'F Last administered on 10/29/19at 12:11; Start 10/20/19 at 14:45 Vancomycin HCl (Vanco Per Pharmacy) 1 each PRN DAILY PRN MC SEE COMMENTS Last administered on 10/21/19at 11:05; Start 10/20/19 at 17:30; Stop 10/22/19 at 11:33; Status DC Piperacillin Sod/ Tazobactam Sod 3.375 gm/Sodium Chloride 50 ml @ 100 mls/hr Q6HRS IV Last administered on 10/21/19at 06:31; Start 10/20/19 at 18:00; Stop 10/21/19 at 09:41; Status DC Vancomycin HCl 1.25 gm/Sodium Chloride 250 ml @ 166.667 mls/hr 1X ONCE IV Last administered on 10/20/19at 18:00; Start 10/20/19 at 18:00; Stop 10/20/19 at 1 9:29; Status DC Vancomycin HCl 750 mg/Sodium Chloride 250 ml @ 250 mls/hr Q24H IV Last administered on 10/21/19at 17:23; Start 10/21/19 at 18:00; Stop 10/22/19 at 11:33; Status DC Vancomycin HCl (Vancomycin Trough Level) 1 each 1X ONCE MC ; Start 10/22/19 at 17:30; Stop 10/22/19 at 11:34; Status DC Ondansetron HCl (Zofran) 4 mg PRN Q4HRS PRN IV NAUSEA/VOMITING; Start 10/20/19 at 20:30 Olanzapine (ZyPREXA ZYDIS) 5 mg PRN BID PRN PO ANXIETY / AGITATION; Start 10/20/19 at 20:30 Enoxaparin Sodium (Lovenox 40mg Syringe) 40 mg Q12HR SQ Last administered on 10/25/19at 09:35; Start 10/20/19 at 21:00; Stop 10/26/19 at 10:50; Status DC Tamsulosin HCl (Flomax) 0.4 mg QHS PO Last administered on 10/31/19at 00:02; Start 10/20/19 at 21:00 Olanzapine (ZyPREXA IM) 10 mg 1X ONCE IM Last administered on 10/20/19at 21:53; Start 10/20/19 at 20:30; Stop 10/20/19 at 20:38; Status DC Haloperidol Lactate (Haldol Inj) 5 mg PRN Q6HRS PRN IVP AGITATION Last administered on 10/21/19at 20:30; Start 10/20/19 at 20:30 Cefazolin Sodium 1000 mg/Dextrose 50 ml @ 100 mls/hr Q8HRS IV ; Start 10/21/19 at 10:00; Status Cancel Cefazolin Sodium (Ancef) 1 gm Q8HRS IVP Last administered on 10/30/19at 06:30; Start 10/21/19 at 10:00; Stop 10/30/19 at 11:40; Status DC Lorazepam (Ativan Inj) 2 mg PRN Q2HRS PRN IVP ANXIETY. Last administered on 10/21/19 23:09; Start 10/21/19 at 11:15 Lactobacillus Rhamnosus (Culturelle) 1 cap BID PO Last administered on 10/23/19at 08:41; Start 10/21/19 at 13:00; Stop 10/27/19 at 12:29; Status DC Sodium Chloride 1,000 ml @ 100 mls/hr Q10H IV Last administered on 10/24/19at 08:33; Start 10/21/19 at 18:45; Stop 10/24/19 at 14:21; Status DC Barium Sulfate (Varibar Thin Liquid Apple) 148 gm 1X ONCE PO Last administered on 10/23/19 11:15; Start 10/23/19 at 11:15; Stop 10/23/19 at 11:16; Status DC Olanzapine (ZyPREXA ZYDIS) 5 mg HS PO Last administered on 10/31/19at 21:51; Start 10/23/19 at 21:00 Amino Acids/ Glycerin/ Electrolytes 1,000 ml @ 100 mls/hr Q10H IV Last administered on 10/28/19at 03:13; Start 10/24/19 at 14:30; Stop 10/28/19 at 13:41; Status DC Enoxaparin Sodium (Lovenox 40mg Syringe) 40 mg DAILY SQ ; Start 10/27/19 at 09:00; Stop 10/26/19 at 13:59; Status DC Fentanyl Citrate (Fentanyl 2ml Vial) 25 mcg PRN Q5MIN PRN IV MILD PAIN 1-3 Last administered on 10/27/19at 16:51; Start 10/27/19 at 07:00; Stop 10/28/19 at 06:59; Status DC Fentanyl Citrate (Fentanyl 2ml Vial) 50 mcg PRN Q5MIN PRN IV MODERATE TO SEVERE PAIN; Start 10/27/19 at 07:00; Stop 10/28/19 at 06:59; Status DC Morphine Sulfate (Morphine Sulfate) 1 mg PRN Q10MIN PRN IV SEVERE PAIN 7-10; Start 10/27/19 at 07:00; Stop 10/28/19 at 06:59; Status DC Ringer's Solution 1,000 ml @ 30 mls/hr Q24H IV ; Start 10/27/19 at 07:00; Stop 10/27/19 at 18:59; Status DC Hydromorphone HCl (Dilaudid) 0.5 mg PRN Q10MIN PRN IV SEV PAIN, Second choice; Start 10/27/19 at 07:00; Stop 10/28/19 at 06:59; Status DC Ringer's Solution 1,000 ml @ 75 mls/hr 1X ONCE IV Last administered on 10/27/19at 10:35; Start 10/27/19 at 08:00; Stop 10/27/19 at 21:19; Status DC Propofol (Diprivan) 200 mg STK-MED ONCE IV ; Start 10/27/19 at 10:28; Stop 10/27/19 at 10:29; Status DC Acetaminophen/ Hydrocodone Bitart (Lortab 5/325) 1 tab PRN Q4HRS PRN PEG PAIN Last administered on 10/28/19at 11:58; Start 10/28/19 at 12:00 Sodium Chloride (Normal Saline Flush) 10 ml QSHIFT PRN IV AFTER MEDS AND BLOOD DRAWS; Start 10/29/19 at 12:00 Lidocaine HCl (Xylocaine 2% Topical 5gm Tube) 1 patty 1X ONCE TP ; Start 10/29/19 at 12:00; Stop 10/29/19 at 12:01; Status DC Lidocaine HCl (Viscous Lidocaine) 15 ml 1X ONCE MM ; Start 10/29/19 at 12:00; Stop 10/29/19 at 12:01; Status DC Benzocaine (Hurricaine One) 2 spray 1X ONCE MM ; Start 10/29/19 at 12:00; Stop 10/29/19 at 12:01; Status DC Ondansetron HCl (Zofran) 4 mg PRN Q6HRS PRN IV NAUSEA/VOMITING; Start 10/29/19 at 15:30; Stop 10/29/19 at 22:00; Status DC Fentanyl Citrate (Fentanyl 2ml Vial) 25 mcg PRN Q5MIN PRN IV MILD PAIN 1-3; Start 10/29/19 at 15:30; Stop 10/29/19 at 22:00; Status DC Fentanyl Citrate (Fentanyl 2ml Vial) 50 mcg PRN Q5MIN PRN IV MODERATE TO SEVERE PAIN; Start 10/29/19 at 15:30; Stop 10/29/19 at 22:00; Status DC Morphine Sulfate (Morphine Sulfate) 1 mg PRN Q10MIN PRN IV SEVERE PAIN 7-10; Start 10/29/19 at 15:30; Stop 10/29/19 at 22:00; Status DC Ringer's Solution 1,000 ml @ 30 mls/hr Q24H IV ; Start 10/29/19 at 15:17; Stop 10/30/19 at 03:16; Status DC Lidocaine HCl (Xylocaine-Mpf 1% 2ml Vial) 2 ml PRN 1X PRN ID PRIOR TO IV START; Start 10/29/19 at 15:30; Stop 10/29/19 at 22:00; Status DC Hydromorphone HCl (Dilaudid) 0.5 mg PRN Q10MIN PRN IV SEV PAIN, Second choice; Start 10/29/19 at 15:30; Stop 10/29/19 at 22:00; Status DC Prochlorperazine Edisylate (Compazine) 5 mg PACU PRN PRN IV NAUSEA, MRX1; Start 10/29/19 at 15:30; Stop 10/29/19 at 22:00; Status DC Propofol (Diprivan) 200 mg STK-MED ONCE IV ; Start 10/29/19 at 15:20; Stop 10/29/19 at 15:20; Status DC Cefazolin Sodium (Ancef) 2 gm Q8HRS IVP ; Start 10/30/19 at 14:00; Status UNV Cefazolin Sodium/ Dextrose 50 ml @ 100 mls/hr Q8HRS IV Last administered on 11/01/19at 06:21; Start 10/30/19 at 14:00 Vitals/I & O Vital Sign - Last 24 Hours 10/31/19 10/31/19 10/31/19 10/31/19 15:19 19:00 20:00 23:00 Temp 98.2 98.2 98.3 98.2 98.2 98.3 Pulse 74 53 48 Resp 17 20 20 B/P (MAP) 91/49 (63) 110/60 (77) 115/71 (86) Pulse Ox 95 94 96 O2 Delivery Room Air Room Air Room Air Room Air 11/01/19 11/01/19 03:06 07:00 Temp 98.3 97.9 98.3 97.9 Pulse 60 89 Resp 18 17 B/P (MAP) 90/63 (72) 109/57 (74) Pulse Ox 98 96 O2 Delivery Room Air Room Air Intake and Output 10/31/19 10/31/19 11/01/19 15:00 23:00 07:00 Intake Total 120 ml 170 ml 170 ml Output Total 200 ml 300 ml 100 ml Balance -80 ml -130 ml 70 ml Nutrition Consultation Dietary Evaluation: Recommendations by RD: Dietary education by RD Comments: REC continue TF as ordered Expected Outcomes/Goals: to meet >75% est nutr needs- met via TF, goal ongoing Malnutrition Findings: Body Fat Depletion (Non Severe: Mild Depletion Weight Status: Underweight Justicifation of Admission Dx: Justifications for Admission: Justification of Admission Dx: N/A LIGIA HAQUE MD Nov 01, 2019 12:14
[2019-11-01 15:00] VITALS: BP 91/52
[2019-11-01 19:00] VITALS: BP 139/76
[2019-11-01] MEDS: TAMSULOSIN 0.4 MG CAP.ER.24H. PO SCH (20:55)
[2019-11-01 23:00] VITALS: BP 102/58
[2019-11-02 03:36] VITALS: BP 119/56
[2019-11-02 07:00] VITALS: BP 103/54
[2019-11-02 07:01] LABS: ALBUMIN 2.3 g/dL (3.4-5.0); ALBUMIN/GLOBULIN RATIO 0.7 (1.0-1.7); CALCIUM 8.2 mg/dL (8.5-10.1); CREATININE 0.7 mg/dL (0.7-1.3); GFR 108.8; POTASSIUM 4.2 mmol/L (3.5-5.1); TOTAL BILIRUBIN 0.3 mg/dL (0.2-1.0); TOTAL PROTEIN 5.8 g/dL (6.4-8.2)
[2019-11-02 07:13] LABS: BASO # 0.1 x10^3/uL (0.0-0.2); BASO % 1 % (0-3); EOS # 0.4 x10^3/uL (0.0-0.7); EOS % 7 % (0-3); HEMATOCRIT 37.7 % (39.0-53.0); LYMPH # 1.3 x10^3/uL (1.0-4.8); LYMPH % 23 % (24-48); MEAN CORPUSCULAR HEMOGLOBIN 31 pg (25-35); MEAN CORPUSCULAR HGB CONC 35 g/dL (31-37); MEAN CORPUSCULAR VOLUME 91 fL (79-100); MONO # 0.3 x10^3/uL (0.0-1.1); MONO % 6 % (0-9); NEUT # 3.6 x10^3/uL (1.8-7.7); NEUT % 64 % (31-73); PLATELET COUNT 279 x10^3/uL (140-400); RED BLOOD COUNT 4.16 x10^6/uL (4.30-5.70); RED CELL DISTRIBUTION WIDTH 14.3 % (11.5-14.5); WHITE BLOOD COUNT 5.7 x10^3/uL (4.0-11.0)
--- NOTE | 2019-11-02 09:10 | PDOC ---
[employer] PROGRESS NOTE Date of Service DOS: DATE: 11/02/19 TIME: 09:04 Chief Complaint Chief Complaint A/P: UTI - MSSA Elevated troponin: peaked at 0.2 no noted cardiac symptoms per chart review. EKG SR without acute changes. Suspect demand mediated Nontraumatic Mechanical fall: due to weakness Staph aureus bacteremia, 4/4 bottles, susceptibilities MSSA Sepsis - 2/2 MSSA bacteremia METABOLIC Encephalopathy MSSA bacteremia, 4/4 bottles. 10/19. TTE neg. 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 Reticular nodular airspace disease with dependent consolidation in the lower lobes, nonspecific. This could be related to noncardiogenic edema or atypical pneumonia. Chronic aspiration is another consideration. Additional noncalcified pulmonary nodules within both lungs, nonspecific. 12 month Follow-up imaging to ensure stability. Asymmetric bladder wall thickening on the right, indeterminate. This could be related to acute or chronic cystitis or an underlying bladder mass. Correlate with clinical history. If indicated, a CT urogram could better evaluate. SEVERE PROTEIN-CALORIC MALNUTRITION PLAN TELE PULM CONSULT CONSIDER UROLOGY CONSULT Continue cefazolin, 10/23 Repeat blood culture, 10/22 in progress Dysphagia of the oral and pharyngeal phases as described.. Aspiration was observed with all tested food consistencies. Please refer to speech pathology notes for complete details and recommendations. GI CONSULTED D/W FAMILY IN ROOM Continue cefazolin 2 g IV every 8 October 30, 2019 Repeat blood culture, 10/22 neg MOHSEN with mitral valve vegetation, stable Maintain aspiration precautions Supportive care PICC line supply and complications discussed Prescription in chart for cefazolin Side effects of antibiotics discussed Probiotics Social work to assist with discharge antibiotics Q. Saturday labs CBC/BUN/creatinine. Fax results to [phone] Follow-up ID clinic November 11 at 3 PM phone [phone] History of Present Illness History of Present Illness Mr Guzman is a 79 year old male with no known PMHx who presented to [facility] on 10/20/2019 with his swiaqtnh-[id number]-jyd and granddaughter for altered mental status. 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 Family notes they speak with him on the phone often and he has memory and anger issues and is estranged from them due to this. For the 3 days he has lived with them they note unsteady gait, and that he converses with them and is able to eat and drink on his own but only receives hot dogs and energy drinks, 4 per day each. Granddaughter states on 10/18 he ripped a screen door off of the wall and was urinating in drawers in their home. He was last seen normal last night, 10/18 at 2200. They stated for him this morning they went to get him up and he did not want to get out of bed and he was shivering and complaining that he was cold but they did not think he had a fever. Febrile to 103.7F in the ED, given 650mg acetaminophen suppository with improvement in his temperature. He showed no meningeal signs and was moving all extremities on examination, opens eyes, answers 1-2 word answers. Does not have any pain complaints. Tells me he needs to urinate. When asked about his missing left 4th finger he does note his hand hurts sometimes. XR negative for fracture. 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 CT chest with reticular nodular airspace disease with dependent consolidation in the lower lobes and noncalcified pulmonary nodules within both lungs, nonspecific. CT abdomen/pelvis reveal asymmetric bladder wall thickening on the right, indeterminate. This could be related to acute or chronic cystitis or an underlying bladder mass. Urine positive for LE and nitrites. White blood cell count is 13.5. Troponin elevated at 0.068, BNP is 2122. Patient has received 1 L of fluids. Started on empiric Zosyn IV. Admitted for altered mental status and fevers with likely bladder source. As he was just transported from [place], COVID 19 testing was performed as well. Consults: GI, ID, Cardiology, Pulm, Psych He continued to have fevers and MSSA bacteremia as well as UTI and after 10/21 TTE did not reveal any thrombus or CHF but did not show valvular lesions he underwent MOHSEN which revealed mitral endocardititis. He continued to have difficulty swallowing and eventually a PEG tube was placed. 10/26: PEG 8/13: Patient mentioned he has lost 60 lbs because he has no dentures so it's become difficult to eat. Covid (-). Maintain aspiration precautions 10/30: cont iv ancef 10/31: has PICC< has PEG, Afebrile, in good spirits. Suxreqjh-if-jua bedside today for home tube feeding instruction (will need bolus feeds due to his lack of insurance coverage for pump and home tube feeds). Also for home antibiotics. No CP or SOB today. Vitals/I&O Vitals/I&O: Vital Signs Date Time Temp Pulse Resp B/P (MAP) Pulse Ox O2 Delivery O2 Flow Rate FiO2 11/02/19 07:00 98.0 47 18 103/54 (70) 94 Room Air 98.0 I & O 11/01/19 11/01/19 11/02/19 15:00 23:00 07:00 Intake Total 50 ml 1541 ml Output Total 200 ml Balance 50 ml 1341 ml Physical Exam Physical Exam: GENERAL: Propped up in bed, alert, in NAD HEENT: No conjunctival lesion. Edentulous. No lesion in the mouth. NECK: Supple. No JVP, no lymphadenopathy. LUNGS: Clear. HEART: S1, S2 regular. ABDOMEN: Soft, nondistended no guarding, PEG in place : No Lion EXTREMITIES: No edema or cyanosis. SKIN: without rash MSK no joint swelling or in range of motion BACK normal curvature, no spine tenderness NEUROLOGICAL: Alert, answers questions appropriately PICC line clean 10/30 General: Alert, Oriented X3, Cooperative, No acute distress, Other (restless) Heart: Regular rate (SR), Normal S1, Normal S2, No murmurs Lungs: Clear Abdomen: Normal bowel sounds, Soft, No tenderness Extremities: No cyanosis, No edema Skin: No significant lesion Labs Labs: Laboratory Tests Test 11/02/19 06:25 White Blood Count 5.7 x10^3/uL (4.0-11.0) Red Blood Count 4.16 x10^6/uL (4.30-5.70) Hemoglobin 13.0 g/dL (13.0-17.5) Hematocrit 37.7 % (39.0-53.0) Mean Corpuscular Volume 91 fL (79-100) Mean Corpuscular Hemoglobin 31 pg (25-35) Mean Corpuscular Hemoglobin Concent 35 g/dL (31-37) Red Cell Distribution Width 14.3 % (11.5-14.5) Platelet Count 279 x10^3/uL (140-400) Neutrophils (%) (Auto) 64 % (31-73) Lymphocytes (%) (Auto) 23 % (24-48) Monocytes (%) (Auto) 6 % (0-9) Eosinophils (%) (Auto) 7 % (0-3) Basophils (%) (Auto) 1 % (0-3) Neutrophils # (Auto) 3.6 x10^3/uL (1.8-7.7) Lymphocytes # (Auto) 1.3 x10^3/uL (1.0-4.8) Monocytes # (Auto) 0.3 x10^3/uL (0.0-1.1) Eosinophils # (Auto) 0.4 x10^3/uL (0.0-0.7) Basophils # (Auto) 0.1 x10^3/uL (0.0-0.2) Sodium Level 140 mmol/L (136-145) Potassium Level 4.2 mmol/L (3.5-5.1) Chloride Level 106 mmol/L (98-107) Carbon Dioxide Level 31 mmol/L (21-32) Anion Gap 3 (6-14) Blood Urea Nitrogen 14 mg/dL (8-26) Creatinine 0.7 mg/dL (0.7-1.3) Estimated GFR (Cockcroft-Gault) 108.8 BUN/Creatinine Ratio 20 (6-20) Glucose Level 98 mg/dL (70-99) Calcium Level 8.2 mg/dL (8.5-10.1) Total Bilirubin 0.3 mg/dL (0.2-1.0) Aspartate Amino Transf (AST/SGOT) 17 U/L (15-37) Alanine Aminotransferase (ALT/SGPT) 14 U/L (16-63) Alkaline Phosphatase 53 U/L (46-116) Total Protein 5.8 g/dL (6.4-8.2) Albumin 2.3 g/dL (3.4-5.0) Albumin/Globulin Ratio 0.7 (1.0-1.7) Assessment and Plan Assessmemt and Plan Problems Medical Problems: (1) AMS (altered mental status) Status: Acute (2) Person under investigation for COVID-19 Status: Acute (3) UTI (urinary tract infection) Status: Acute Comment Review of Relevant I have reviewed the following items katie (where applicable) has been applied. Justicifation of Admission Dx: Justifications for Admission: Justification of Admission Dx: N/A HONG DOWNS MD Nov 02, 2019 09:09
--- NOTE | 2019-11-02 10:00 | PDOC ---
PULMONARY PROGRESS NOTES DATE: 11/02/19 TIME: 09:58 Subjective denies sob, cough, feeling good Vitals Vital Signs Date Time Temp Pulse Resp B/P (MAP) Pulse Ox O2 Delivery O2 Flow Rate FiO2 11/02/19 07:00 98.0 47 18 103/54 (70) 94 Room Air 98.0 ROS: No Nausea, No Chest Pain, No Abdominal Pain, No Increase Cough General: Alert, No acute distress Lungs: Clear Cardiovascular: S1, S2 Abdomen: Soft, Non-tender Neuro Exam: Alert Extremities: Other (edema) Skin: Warm Labs Laboratory Tests Test 11/02/19 06:25 White Blood Count 5.7 x10^3/uL (4.0-11.0) Red Blood Count 4.16 x10^6/uL (4.30-5.70) Hemoglobin 13.0 g/dL (13.0-17.5) Hematocrit 37.7 % (39.0-53.0) Mean Corpuscular Volume 91 fL (79-100) Mean Corpuscular Hemoglobin 31 pg (25-35) Mean Corpuscular Hemoglobin Concent 35 g/dL (31-37) Red Cell Distribution Width 14.3 % (11.5-14.5) Platelet Count 279 x10^3/uL (140-400) Neutrophils (%) (Auto) 64 % (31-73) Lymphocytes (%) (Auto) 23 % (24-48) Monocytes (%) (Auto) 6 % (0-9) Eosinophils (%) (Auto) 7 % (0-3) Basophils (%) (Auto) 1 % (0-3) Neutrophils # (Auto) 3.6 x10^3/uL (1.8-7.7) Lymphocytes # (Auto) 1.3 x10^3/uL (1.0-4.8) Monocytes # (Auto) 0.3 x10^3/uL (0.0-1.1) Eosinophils # (Auto) 0.4 x10^3/uL (0.0-0.7) Basophils # (Auto) 0.1 x10^3/uL (0.0-0.2) Sodium Level 140 mmol/L (136-145) Potassium Level 4.2 mmol/L (3.5-5.1) Chloride Level 106 mmol/L (98-107) Carbon Dioxide Level 31 mmol/L (21-32) Anion Gap 3 (6-14) Blood Urea Nitrogen 14 mg/dL (8-26) Creatinine 0.7 mg/dL (0.7-1.3) Estimated GFR (Cockcroft-Gault) 108.8 BUN/Creatinine Ratio 20 (6-20) Glucose Level 98 mg/dL (70-99) Calcium Level 8.2 mg/dL (8.5-10.1) Total Bilirubin 0.3 mg/dL (0.2-1.0) Aspartate Amino Transf (AST/SGOT) 17 U/L (15-37) Alanine Aminotransferase (ALT/SGPT) 14 U/L (16-63) Alkaline Phosphatase 53 U/L (46-116) Total Protein 5.8 g/dL (6.4-8.2) Albumin 2.3 g/dL (3.4-5.0) Albumin/Globulin Ratio 0.7 (1.0-1.7) Laboratory Tests Test 11/02/19 06:25 White Blood Count 5.7 x10^3/uL (4.0-11.0) Red Blood Count 4.16 x10^6/uL (4.30-5.70) Hemoglobin 13.0 g/dL (13.0-17.5) Hematocrit 37.7 % (39.0-53.0) Mean Corpuscular Volume 91 fL (79-100) Mean Corpuscular Hemoglobin 31 pg (25-35) Mean Corpuscular Hemoglobin Concent 35 g/dL (31-37) Red Cell Distribution Width 14.3 % (11.5-14.5) Platelet Count 279 x10^3/uL (140-400) Neutrophils (%) (Auto) 64 % (31-73) Lymphocytes (%) (Auto) 23 % (24-48) Monocytes (%) (Auto) 6 % (0-9) Eosinophils (%) (Auto) 7 % (0-3) Basophils (%) (Auto) 1 % (0-3) Neutrophils # (Auto) 3.6 x10^3/uL (1.8-7.7) Lymphocytes # (Auto) 1.3 x10^3/uL (1.0-4.8) Monocytes # (Auto) 0.3 x10^3/uL (0.0-1.1) Eosinophils # (Auto) 0.4 x10^3/uL (0.0-0.7) Basophils # (Auto) 0.1 x10^3/uL (0.0-0.2) Sodium Level 140 mmol/L (136-145) Potassium Level 4.2 mmol/L (3.5-5.1) Chloride Level 106 mmol/L (98-107) Carbon Dioxide Level 31 mmol/L (21-32) Anion Gap 3 (6-14) Blood Urea Nitrogen 14 mg/dL (8-26) Creatinine 0.7 mg/dL (0.7-1.3) Estimated GFR (Cockcroft-Gault) 108.8 BUN/Creatinine Ratio 20 (6-20) Glucose Level 98 mg/dL (70-99) Calcium Level 8.2 mg/dL (8.5-10.1) Total Bilirubin 0.3 mg/dL (0.2-1.0) Aspartate Amino Transf (AST/SGOT) 17 U/L (15-37) Alanine Aminotransferase (ALT/SGPT) 14 U/L (16-63) Alkaline Phosphatase 53 U/L (46-116) Total Protein 5.8 g/dL (6.4-8.2) Albumin 2.3 g/dL (3.4-5.0) Albumin/Globulin Ratio 0.7 (1.0-1.7) Comments CXR 10/28 IMPRESSION: Trace left pleural effusion with adjacent airspace disease likely atelectasis. Impression . 1. Staphylococcal sepsis. The patient's blood cultures were positive 06/19. 2. Staphylococcus aureus urinary tract infection. 3. Abnormal CT chest with basilar infiltrate versus atelectasis along with tiny lung nodules. improved 4. Underlying suspected dementia. 5. dysphasia, s/p peg Plan . Supplemental oxygen to keep sats above 92 %, now on R/A, f/u CXR 10/28 improved DVT prophylaxis with Lovenox. Monitor mental status-- alert dysphagia, s/p peg tolerating goal tf elevate HOB PT/OT discussed w rn stable pulmonary miller will sign off CASS QUINONEZ MD Nov 02, 2019 10:00
[2019-11-02] MEDS ORDERED: OLAN5TAB7 PO ×2 (11:49)
[2019-11-02] MEDS ORDERED: HYDR-2761 PEG (11:49)
[2019-11-02] MEDS ORDERED: TAMS0.4C97 PO (11:49)
--- NOTE | 2019-11-02 11:56 | SNU/HH DC ---
DISCHARGE WITH HOME HEALTH DISCHARGE INFORMATION: Discharge Date: Nov 02, 2019 Final Diagnosis: Problems Medical Problems: (1) AMS (altered mental status) Status: Acute (2) Person under investigation for COVID-19 Status: Acute (3) UTI (urinary tract infection) Status: Acute Condition on Discharge: Stable CODE STATUS: Code Status: Full HOME HEALTH: Face to Face: I certify this patient is under my care and that I, or a nurse practitioner or physician's payroll assistant working with me, had a face to face encounter that meets the physician face to face encounter requirements with this patient on 11/02/2019. Medical Complications: Dementia, Other (Mitral endocarditis) Nursing Home For: Admin/Educate Injections, Enteral Feeding Care, Medication Management RN For Eval/Treatment: Yes Physical Therapy For: Evalulation/Treatment Occupational Therapy For: Evaluation/Treatment Speech Language Pathology For: Evaluation/Treatment Pt Meets Homebound Status: Extreme weakness w/ amb., Poor cognition POST DISCHARGE ORDERS: Activity Instructions for Disc: No restrictions Weight Bearing Status after Di: No restrictions DIET AFTER DISCHARGE: NPO (QID ensure bolus feeding + 150cc free water q 6 hours) CHECKS AFTER DISCHARGE: Checks after discharge: Check blood press - daily FOLLOW-UP: Additional Instructions: Continue cefazolin 2 g IV every 8 hours, started October 30, 2019 Maintain aspiration precautions Supportive care PICC 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 Saturday labs CBC/BUN/creatinine. Fax results to [phone] Follow-up ID clinic November 11 at 3 PM phone [phone] TREATMENT/EQUIPMENT ORDERS: Adaptive Equipment Issued: None Infusion Equipment, home use: PICC Line CERTIFICATION STATEMENT: Certification Statement: Certification Statement: Based on the above finding, I certify that this patient is confined to the home and needs intermittent alf care, physical therapy and/or speech therapy, or continues to need occupational therapy.~ This patient is under my care, and I have initiated the establishment of the plan of care.~ This patient will be followed by myself or a community physician who will periodically review the plan of care. Home Meds Active Scripts Olanzapine (OLANZAPINE ODT) 5 Mg Tab.rapdis, 5 MG PO PRN BID PRN for ANXIETY / AGITATION for 90 Days, #60 TAB Prov:HONG DOWNS MD 11/02/19 Olanzapine (OLANZAPINE ODT) 5 Mg Tab.rapdis, 5 MG PO HS for Axniety for 90 Days, #90 TAB Prov:HONG DOWNS MD 11/02/19 Hydrocodone Bit/Acetaminophen (HYDROCODONE-APAP 5-325 ) 1 Tab Tablet, 1 TAB PEG PRN Q4HRS PRN for PAIN for 6 Days, #18 TAB Prov:HONG DOWNS MD 11/02/19 Tamsulosin Hcl (FLOMAX) 0.4 Mg Cap.er.24h, 0.4 MG PO QHS for BPH for 90 Days, #90 CAP.SR Prov:HONG DOWNS MD 11/02/19 HONG DOWNS MD Nov 02, 2019 11:56
--- NOTE | 2019-11-02 12:48 | PDOC ---
Date of Service: DATE: 11/02/19 TIME: 12:46 Objective: Objective: D/w nurse - DC today w/ HH, PEG functioning. Vital Signs: Vital Signs Date Time Temp Pulse Resp B/P (MAP) Pulse Ox O2 Delivery O2 Flow Rate FiO2 11/02/19 11:00 98.1 49 18 95 Room Air 98.1 Labs: Laboratory Tests Test 11/02/19 06:25 White Blood Count 5.7 x10^3/uL Red Blood Count 4.16 x10^6/uL Hemoglobin 13.0 g/dL Hematocrit 37.7 % Mean Corpuscular Volume 91 fL Mean Corpuscular Hemoglobin 31 pg Mean Corpuscular Hemoglobin Concent 35 g/dL Red Cell Distribution Width 14.3 % Platelet Count 279 x10^3/uL Neutrophils (%) (Auto) 64 % Lymphocytes (%) (Auto) 23 % Monocytes (%) (Auto) 6 % Eosinophils (%) (Auto) 7 % Basophils (%) (Auto) 1 % Neutrophils # (Auto) 3.6 x10^3/uL Lymphocytes # (Auto) 1.3 x10^3/uL Monocytes # (Auto) 0.3 x10^3/uL Eosinophils # (Auto) 0.4 x10^3/uL Basophils # (Auto) 0.1 x10^3/uL Sodium Level 140 mmol/L Potassium Level 4.2 mmol/L Chloride Level 106 mmol/L Carbon Dioxide Level 31 mmol/L Anion Gap 3 Blood Urea Nitrogen 14 mg/dL Creatinine 0.7 mg/dL Estimated GFR (Cockcroft-Gault) 108.8 BUN/Creatinine Ratio 20 Glucose Level 98 mg/dL Calcium Level 8.2 mg/dL Total Bilirubin 0.3 mg/dL Aspartate Amino Transf (AST/SGOT) 17 U/L Alanine Aminotransferase (ALT/SGPT) 14 U/L Alkaline Phosphatase 53 U/L Total Protein 5.8 g/dL Albumin 2.3 g/dL Albumin/Globulin Ratio 0.7 Imaging: CXR 10/30 IMPRESSION: Right PICC line in place with the tip at the mid superior vena cava. Increased markings in the left lung base especially in the retrocardiac left lower lobe without significant change. PE: GEN: NAD LUNGS: clear HEART: bradycardic ABD: PEG in place NEURO/PSYCH: A & O 3 A/P: Dysphagia s/p PEG MSSA bacteremia, endocarditis -- Dc per primary. Justicifation of Admission Dx: Justifications for Admission: Justification of Admission Dx: N/A FIFI PLASENCIA Nov 02, 2019 12:48
--- NOTE | 2019-11-02 14:36 | NUR ---
SW following. Reviewed chart and spoke with RN. Rose met with dtr-in-law to discuss tube feeds. Pt will discharge home today with [facility] ([phone], ), [facility] ([phone], ) for feeding tube management, and [facility] ([phone], ) for IV abx. [facility] phoned and faxed clinicals, scripts, and discharge orders to all three agencies. [facility] met with pt and pt's [id number] [facility] again today prior to discharge and they are agreeable to this discharge plan. Douglas the RN from [facility] did teaching at the hospital and Anh from [facility] also met with pt and [id number] [facility] again today. No further SW needs at this time. Addendum: 11/02/19 at 1443 by VIPUL VALENTINE Patient Choice of Vendor form completed for [facility] today, 11/02/2019 Addendum: 11/02/19 at 1541 by VIPUL VALENTINE [facility] confirmed discharge orders were received by [facility], [facility], and [facility]. Addendum: 11/03/19 at 1141 by VIPUL VALENTINE Douglas from [facility] confirmed that abx was sent out yesterday. Anh from [facility] confirmed start of care. Phone call from Cecile with [facility], , (fax) requesting procedure note from feeding tube placement. [facility] faxed this information.
[2019-11-02 15:00] VITALS: BP 115/94
--- NOTE | 2019-11-02 15:36 | NUR ---
daughter in law educated by Lenard on use of PICC line. this RN provided education to daughter in law on PEG tube, medical reception, water flush, and bolus feedings, she states she is familiar as she had a child requiring tube feedings. PICC line left in place to JONY. scripts provided. pt stable upon dc.
--- NOTE | 2019-11-02 23:25 | PDOC3 ---
Discharge Summary Visit Information Date of Admission: Oct 20, 2019 Date of Discharge: Nov 02, 2019 Admitting Diagnosis: Acute encephalopathy Final Diagnosis Problems Medical Problems: (1) AMS (altered mental status) Status: Acute (2) Person under investigation for COVID-19 Status: Acute (3) UTI (urinary tract infection) Status: Acute Brief Hospital Course Allergies Allergies Coded Allergies Type Severity Reaction Last Updated Verified No Known Drug Allergies 10/27/19 No Vital Signs Vital Signs Date Time Temp Pulse Resp B/P (MAP) Pulse Ox O2 Delivery O2 Flow Rate FiO2 11/02/19 15:00 97.5 58 18 115/94 (101) 91 Room Air 97.5 Lab Results Laboratory Tests Test 11/02/19 06:25 White Blood Count 5.7 x10^3/uL (4.0-11.0) Red Blood Count 4.16 x10^6/uL (4.30-5.70) Hemoglobin 13.0 g/dL (13.0-17.5) Hematocrit 37.7 % (39.0-53.0) Mean Corpuscular Volume 91 fL (79-100) Mean Corpuscular Hemoglobin 31 pg (25-35) Mean Corpuscular Hemoglobin Concent 35 g/dL (31-37) Red Cell Distribution Width 14.3 % (11.5-14.5) Platelet Count 279 x10^3/uL (140-400) Neutrophils (%) (Auto) 64 % (31-73) Lymphocytes (%) (Auto) 23 % (24-48) Monocytes (%) (Auto) 6 % (0-9) Eosinophils (%) (Auto) 7 % (0-3) Basophils (%) (Auto) 1 % (0-3) Neutrophils # (Auto) 3.6 x10^3/uL (1.8-7.7) Lymphocytes # (Auto) 1.3 x10^3/uL (1.0-4.8) Monocytes # (Auto) 0.3 x10^3/uL (0.0-1.1) Eosinophils # (Auto) 0.4 x10^3/uL (0.0-0.7) Basophils # (Auto) 0.1 x10^3/uL (0.0-0.2) Sodium Level 140 mmol/L (136-145) Potassium Level 4.2 mmol/L (3.5-5.1) Chloride Level 106 mmol/L (98-107) Carbon Dioxide Level 31 mmol/L (21-32) Anion Gap 3 (6-14) Blood Urea Nitrogen 14 mg/dL (8-26) Creatinine 0.7 mg/dL (0.7-1.3) Estimated GFR (Cockcroft-Gault) 108.8 BUN/Creatinine Ratio 20 (6-20) Glucose Level 98 mg/dL (70-99) Calcium Level 8.2 mg/dL (8.5-10.1) Total Bilirubin 0.3 mg/dL (0.2-1.0) Aspartate Amino Transf (AST/SGOT) 17 U/L (15-37) Alanine Aminotransferase (ALT/SGPT) 14 U/L (16-63) Alkaline Phosphatase 53 U/L (46-116) Total Protein 5.8 g/dL (6.4-8.2) Albumin 2.3 g/dL (3.4-5.0) Albumin/Globulin Ratio 0.7 (1.0-1.7) Laboratory Tests Test 11/02/19 06:25 White Blood Count 5.7 x10^3/uL (4.0-11.0) Red Blood Count 4.16 x10^6/uL (4.30-5.70) Hemoglobin 13.0 g/dL (13.0-17.5) Hematocrit 37.7 % (39.0-53.0) Mean Corpuscular Volume 91 fL (79-100) Mean Corpuscular Hemoglobin 31 pg (25-35) Mean Corpuscular Hemoglobin Concent 35 g/dL (31-37) Red Cell Distribution Width 14.3 % (11.5-14.5) Platelet Count 279 x10^3/uL (140-400) Neutrophils (%) (Auto) 64 % (31-73) Lymphocytes (%) (Auto) 23 % (24-48) Monocytes (%) (Auto) 6 % (0-9) Eosinophils (%) (Auto) 7 % (0-3) Basophils (%) (Auto) 1 % (0-3) Neutrophils # (Auto) 3.6 x10^3/uL (1.8-7.7) Lymphocytes # (Auto) 1.3 x10^3/uL (1.0-4.8) Monocytes # (Auto) 0.3 x10^3/uL (0.0-1.1) Eosinophils # (Auto) 0.4 x10^3/uL (0.0-0.7) Basophils # (Auto) 0.1 x10^3/uL (0.0-0.2) Sodium Level 140 mmol/L (136-145) Potassium Level 4.2 mmol/L (3.5-5.1) Chloride Level 106 mmol/L (98-107) Carbon Dioxide Level 31 mmol/L (21-32) Anion Gap 3 (6-14) Blood Urea Nitrogen 14 mg/dL (8-26) Creatinine 0.7 mg/dL (0.7-1.3) Estimated GFR (Cockcroft-Gault) 108.8 BUN/Creatinine Ratio 20 (6-20) Glucose Level 98 mg/dL (70-99) Calcium Level 8.2 mg/dL (8.5-10.1) Total Bilirubin 0.3 mg/dL (0.2-1.0) Aspartate Amino Transf (AST/SGOT) 17 U/L (15-37) Alanine Aminotransferase (ALT/SGPT) 14 U/L (16-63) Alkaline Phosphatase 53 U/L (46-116) Total Protein 5.8 g/dL (6.4-8.2) Albumin 2.3 g/dL (3.4-5.0) Albumin/Globulin Ratio 0.7 (1.0-1.7) Brief Hospital Course Mr Guzman is a 79 year old male with no known PMHx who presented to [facility] on 10[facility]2019 with his zxqynqzg-eb-yam and granddaughter for altered mental status. They have just recently met him for the first time on 10/17/2019 in person to bring him to live with them in [place] after a concerning call about significant weight loss and confusion from his local hearing screener where he was living in [place] by himself [place]. Family notes they speak with him on the phone often and he has memory and anger issues and is estranged from them due to this. For the 3 days he has lived with them they note unsteady gait, and that he converses with them and is able to eat and drink on his own but only receives hot dogs and energy drinks, 4 per day each. Granddaughter states on 10/18 he ripped a screen door off of the wall and was urinating in drawers in their home. He was last seen normal last night, 10/18 at 2200. They stated for him this morning they went to get him up and he did not want to get out of bed and he was shivering and complaining that he was cold but they did not think he had a fever. Febrile to 103.7F in the ED, given 650mg acetaminophen suppository with imp rovement in his temperature. He showed no meningeal signs and was moving all extremities on examination, opens eyes, answers 1-2 word answers. Does not have any pain complaints. Tells me he needs to urinate. When asked about his missing left 4th finger he does note his hand hurts sometimes. XR negative for fracture. 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 CT chest with reticular nodular airspace disease with dependent consolidation in the lower lobes and noncalcified pulmonary nodules within both lungs, nonspecific. CT abdomen/pelvis reveal asymmetric bladder wall thickening on the right, indeterminate. This could be related to acute or chronic cystitis or an underlying bladder mass. Urine positive for LE and nitrites. White blood cell count is 13.5. Troponin elevated at 0.068, BNP is 2122. Patient has received 1 L of fluids. Started on empiric Zosyn IV. Admitted for altered mental status and fevers with likely bladder source. As he was just transported from [place], COVID 19 testing was performed as well. Consults: GI, ID, Cardiology, Pulm, Psych He continued to have fevers and MSSA bacteremia as well as UTI and after 10/21 TTE did not reveal any thrombus or CHF but did not show valvular lesions he underwent MOHSEN which revealed mitral endocardititis. He continued to have difficulty swallowing and eventually a PEG tube was placed. 10/26: PEG 10/28: Patient mentioned he has lost 60 lbs because he has no dentures so it's become difficult to eat. Covid (-). Maintain aspiration precautions 10/30: cont iv ancef 10/31: has PICC< has PEG, Afebrile, in good spirits. Dxgzijge-fa-tjf bedside today for home tube feeding instruction (will need bolus feeds due to his lack of insurance coverage for pump and home tube feeds). Also for home antibiotics. No CP or SOB today. Problem list: UTI - MSSA Elevated troponin: peaked at 0.2 no noted cardiac symptoms per chart review. EKG SR without acute changes. Suspect demand mediated Nontraumatic Mechanical fall: due to weakness Staph aureus bacteremia, 4/4 bottles, susceptibilities MSSA Sepsis - 2/2 MSSA bacteremia METABOLIC Encephalopathy MSSA bacteremia, 4/4 bottles. 10/19. TTE neg. 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 Reticular nodular airspace disease with dependent consolidation in the lower lobes, nonspecific. This could be related to noncardiogenic edema or atypical pneumonia. Chronic aspiration is another consideration. Additional noncalcified pulmonary nodules within both lungs, nonspecific. 12 month Follow-up imaging to ensure stability. Asymmetric bladder wall thickening on the right, indeterminate. This could be related to acute or chronic cystitis or an underlying bladder mass. Correlate with clinical history. If indicated, a CT urogram could better evaluate. SEVERE PROTEIN-CALORIC MALNUTRITION PLAN TELE PULM CONSULT CONSIDER UROLOGY CONSULT Continue cefazolin, 10/23 Repeat blood culture, 10/22 in progress Dysphagia of the oral and pharyngeal phases as described.. Aspiration was observed with all tested food consistencies. Please refer to speech pathology notes for complete details and recommendations. GI CONSULTED D/W FAMILY IN ROOM Continue cefazolin 2 g IV every 8 October 30, 2019 Repeat blood culture, 10/22 neg MOHSEN with mitral valve vegetation, stable Maintain aspiration precautions Supportive care PICC manager pipeline and complications discussed Prescription in chart for cefazolin Side effects of antibiotics discussed Probiotics Social work to assist with discharge antibiotics Q. Saturday labs CBC/BUN/creatinine. Fax results to [phone] Follow-up ID clinic November 11 at 3 PM phone [phone] Greater than 30 minutes spent on d/c home with home health, home tube feeds and home antibiotic infusions Discharge Information Condition at Discharge: Improved Follow Up: Weeks (1) Disposition/Orders: D/C to Home w/ HH Scheduled Olanzapine (Olanzapine Odt) 5 Mg Tab.rapdis, 5 MG PO HS for Axniety for 90 Days, #90 Prescribed by: HONG DOWNS MD on 11/02/19 1149 Tamsulosin Hcl (Flomax) 0.4 Mg Cap.er.24h, 0.4 MG PO QHS for BPH for 90 Days, #90 Prescribed by: HONG DOWNS MD on 11/02/19 1149 Scheduled PRN Hydrocodone Bit/Acetaminophen (Hydrocodone-Apap 5-325 ) 1 Tab Tablet, 1 TAB PEG PRN Q4HRS PRN for PAIN for 6 Days, #18 Prescribed by: HONG DOWNS MD on 11/02/19 1149 Olanzapine (Olanzapine Odt) 5 Mg Tab.rapdis, 5 MG PO PRN BID PRN for ANXIETY / AGITATION for 90 Days, #60 Prescribed by: HONG DOWNS MD on 11/02/19 1149 Justicifation of Admission Dx: Justifications for Admission: Justification of Admission Dx: N/A HONG DOWNS MD Nov 02, 2019 23:25
== END 2019-11-02 15:38 | disposition home health service (06) | DRG 871 ==
LOC: ER 12:15 → 6 SOUTH 14:27 → 4 NORTH 10-21 16:08 → 5 NORTH 10-22 15:35
PROVIDERS: ADMIT Internal Medicine; ATTEND Internal Medicine
PROC: 0DH63UZ Insertion of Feeding Device into Stomach, Percutaneous Approach (ICD-10-PCS; principal; 2019-10-27 11:00)
PROC: B24BZZ4 Ultrasonography of Heart with Aorta, Transesophageal (ICD-10-PCS; 2019-10-29)
PROC: 02HV33Z Insertion of Infusion Device into Superior Vena Cava, Percutaneous Approach (ICD-10-PCS; 2019-10-31)
DX: A41.01 Sepsis due to Methicillin susceptible Staphylococcus aureus (principal); G93.41 Metabolic encephalopathy; E43 Unspecified severe protein-calorie malnutrition; I33.0 Acute and subacute infective endocarditis; F05 Delirium due to known physiological condition; J98.11 Atelectasis; R64 Cachexia; Z68.1 Body mass index [BMI] 19.9 or less, adult; D69.6 Thrombocytopenia, unspecified; E11.9 Type 2 diabetes mellitus without complications; E78.5 Hyperlipidemia, unspecified; E86.0 Dehydration; F03.90 Unspecified dementia, unspecified severity, without behavioral disturbance, psychotic disturbance, mood disturbance, and anxiety; I10 Essential (primary) hypertension; I25.10 Atherosclerotic heart disease of native coronary artery without angina pectoris; J43.9 Emphysema, unspecified; K57.90 Diverticulosis of intestine, part unspecified, without perforation or abscess without bleeding; M47.9 Spondylosis, unspecified; R13.12 Dysphagia, oropharyngeal phase; R47.02 Dysphasia; R65.20 Severe sepsis without septic shock; Z20.828 Contact with and (suspected) exposure to other viral communicable diseases; Z63.8 Other specified problems related to primary support group; Z82.49 Family history of ischemic heart disease and other diseases of the circulatory system; Z86.73 Personal history of transient ischemic attack (TIA), and cerebral infarction without residual deficits; Z87.891 Personal history of nicotine dependence; Z79.899 Other long term (current) drug therapy
CPT/HCPCS: 36415; 36569; 36600; 43246; 70450; 71045; 71250; 73130; 74177; 74230; 76376; 80053; 80061; 80307; 80329; 81001; 82550; 82805; 83605; 83880; 84145; 84484; 85007; 85025; 85610; 87040; 87077; 87086; 87186; 87205; 93005; 93306; 93312; 93325; 96361; 96365; 99285; G0480; J0690; J1630; J1650; J2060; J2543; J2704; J3010; J3370; J3490; J7030; J7050; J7120; Q9967; 92526-GN; 92610-GN; 92611-GN; 97110-GP; 97116-GP; 97530-GO; 97530-GP; 97535-GO; G0378; U0003-CS

== ENCOUNTER 2019-11-06 07:18 | Outpatient (CLI) | payer MEDICARE ==
[~2019-11-06] VITALS: Ht 167.6 cm; Wt 47.6 kg
[~2019-11-06 07:18] MED LIST: HYDR-2761 PEG; OLAN5TAB7 PO; TAMS0.4C97 PO
[2019-11-06 08:22] VITALS: BP 93/48
[2019-11-06] MEDS ORDERED: HYDR-2761 PO (08:22)
--- NOTE | 2019-11-06 09:10 | RAD ---
Exam: Fluoroscopic and ultrasound guided right percutaneous inserted central venous catheter placement 11/06/2019 7:06 AM .Indication: ANTIBIOTICS Technique: Informed oral and written consent were obtained. The right upper extremity was prepped and draped using sterile barrier technique. All elements of maximal sterile barrier technique including the use of a cap, mask, sterile gown, sterile gloves, large sterile sheet, appropriate hand hygiene, and 2% chlorhexidine for cutaneous antisepsis (or acceptable alternative antiseptic per current guidelines) were followed for this procedure.. Real-time ultrasound demonstrated a patent right basilic vein which was prepped and draped in usual sterile fashion. 1% lidocaine used for local anesthesia. Using real-time ultrasound guidance the access needle percutaneously punctured the selected right basilic vein. Reference ultrasound images were saved to the medical record. A guidewire was advanced through the needle to the cavoatrial junction, and a peel-away sheath placed. The catheter was cut to length and inserted through the peel-away sheath such that its tip is at the cavoatrial junction. The wire and sheath were removed, and the catheter secured in place, and a sterile dressing was applied. Catheter was found to flush and aspirate normally. No immediate complications are identified. FLUORO TIME: 3.6 DOSE AREA PRODUCT: 1 Gycm2 Impression: Ultrasound and fluoroscopically guided placement of a right upper extremity PICC line.
--- NOTE | 2019-11-06 09:45 | NUR ---
rt PICC site oozing- has blood clot around hub of catheter. removed old dressing and cleaned site. site monitored for a few minutes. no further oozing noted. here to check site. over biopatch applied a v-pad and new opsite dressing. reviewed instructions for PICC care with pt's granddaughter . pt left unit with granddaughter- no problems noted w/ambulation.
== END 2019-11-06 09:45 | disposition home or self-care (01) ==
LOC: INTRAD 07:18
PROVIDERS: ATTEND Internal Medicine Infectious Disease
DX: Z45.2 Encounter for adjustment and management of vascular access device (principal); R13.10 Dysphagia, unspecified; G93.49 Other encephalopathy; N39.0 Urinary tract infection, site not specified; R41.82 Altered mental status, unspecified; I38 Endocarditis, valve unspecified; Z79.899 Other long term (current) drug therapy
CPT/HCPCS: 36573; 77001; C1751; C1769; C1892